=== PATIENT | male | born 2000 | race African-American/Black ===

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

== ENCOUNTER 2024-04-16 06:19 | Emergency (ER) | payer BC, SELFPAY ==
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
[2024-04-16 06:20] VITALS: BP 143/96; PULSE 84; RESP 15; TEMP 36.6; O2SAT 96
[2024-04-16 07:34] VITALS: BP 125/74; PULSE 68; RESP 17; O2SAT 97
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
[2024-04-16 08:40] LABS: Basophils Percent Auto 0.5 % (0.2-1.2); Eosinophils Absolute Auto 0.2 K/mm3 (0-0.3); Eosinophils Percent Auto 4.5 % (0-4.4); Hematocrit 45.4 % (42.0-52.0); Hemoglobin 15.3 g/dL (14.0-18.0); Lymphocytes Absolute Auto 1.35 K/mm3 (0.9-3.2); Mean Corpuscular HGB Conc 33.7 g/dl (32-36); Mean Corpuscular Hemoglobin 29.4 pg (26-34); Mean Corpuscular Volume 87.1 fl (80-100); Mean Platelet Volume 10.1 fl (7.4-10.4); Monocytes Absolute Auto 0.4 K/mm3 (0.1-0.6); Monocytes Percent Auto 9.1 % (2.6-8.5); Neutrophils Absolute Auto 2.1 K/mm3 (1.3-6.7); Neutrophils Percent Auto 51.9 % (45.5-73.1); Platelet Count Result 247 k/mm3 (150-375); Red Blood Count 5.21 M/mm3 (4.6-6.20); Red Cell Distribution Width 13.1 % (11.5-14.5)
[2024-04-16 08:49] LABS: Anion Gap 6 mmol/L (4-12); Blood Urea Nitrogen 10 mg/dL (9-20); Calcium 9.5 mg/dL (8.4-10.2); Carbon Dioxide 30 mmol/L (22-30); Chloride 106 mmol/L (98-107); Estimated CRCL calculation 117 ml/min; Estimated Glomerular Filt Rate > 60; Glucose 106 mg/dL (65-110); Potassium 4.2 mmol/L (3.4-5.0); Prothrombin Time 13.8 Seconds (11.1-14.7); Sodium 142 mmol/L (137-145)
[2024-04-16 08:50] VITALS: BP 123/96; PULSE 68; RESP 14; TEMP 36.3; O2SAT 98
[2024-04-16 08:50] LABS: Partial Thromboplastin Time 26.1 Seconds (22.3-36.8)
[2024-04-16] MEDS: TETANUS,DIPHTHERIA,AC PERTUSSIS ADULT (0.5 ML) BOOSTRIX IM (08:57)
[2024-04-16 08:59] LABS: Add Urine Microscopic? NO; Appearance Urine Clear (Clear); Bilirubin Urine Negative (Negative); Blood Urine Negative (Negative); Color Urine Yellow (Yellow); Glucose Urine UA Negative (Negative); Ketones Urine Negative (Negative); Leukocyte Esterase Ur Negative LEU/UL (Negative); Nitrate Urine Negative (Negative); Protein Urine Negative (Negative); Specific Grav Ur 1.012 (1.001-1.035); pH Urine 6.5 (5.0-9.0)
[2024-04-16 09:14] LABS: Amphetamine Screen Urine Negative (Negative); Barbiturate Screen Urine Negative (Negative); Benzodiazepines Screen Urine Positive (Negative); Cannabinoid Screen Urine Positive (Negative); Cocaine Screen Urine Negative (Negative); Methadone Screen Urine Negative (Negative); Opiate Screen Urine Negative (Negative); Phencyclidine Screen Urine Negative (Negative)
--- OUTSIDE RECORDS SUMMARY | 2024-04-23 02:40 | XMS_ITS | Patient Health Summary ---
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 This disclosure is being madepursuant to the Care Everywhere program and may not contain all information available regarding this patient. Last updated 18.[facility] Allergies * Sulfamethoxazole W-Trimethoprim(Hematologic) -High Criticality Medications * Be aware that medications may not be up to date on this document. Alwaysverify current medications with the patient. * albuterol HFA (PROVENTIL;VENTOLIN;PROAIR) 108 (90 Base) MCG/ACT inhaler (Started 10/03/2019) Inhale 2 puffs by mouth every 6 hours * loratadine (CLARITIN) 10 MG tablet(Started 10/04/2019) Take 1 tablet by mouth once daily * folic acid (FOLVITE) 1 MG tablet(Started 10/04/2019) Take 1 tablet by mouth once daily * pantoprazole EC (PROTONIX) 40 MG tablet(Started 10/04/2019) Take 1 tablet by mouth once daily * predniSONE (DELTASONE) 10 MG tablet(Started 10/03/2019) Take 1 tablet by mouth as directed 60 mg x 2 days, 50 mg x 4 days, 40 mg x 4 days, 30 mg x 4 days, 20 mg x 4 days, 10 mg x4 days Active Problems Problem Noted Date Diagnosed Date Abdominal pain, epigastric 09/28/2019 Elevated bilirubin 09/28/2019 Nausea and vomiting 09/28/2019 Social History Tobacco Use Types Packs/Day Years Used Date Smoking Tobacco: Every Day Cigarettes 2 2 Smokeless Tobacco: Never Alcohol Use Standard Drinks/Week Comments Yes 2 (1 standard drink = 0.6 oz pur e alcohol) last drank 09/26 AUDIT-C Answer Date Recorded Q1: How often do you have a drink containing alc ohol? Monthly or less 09/28/2019 Average Number of Drinks Not on file 020 Frequency of Binge Drinking Not on file 09/14 Sex and Gender Information Value Date Recorded Sex Assigned at Not on file Gender Identity Not on file Sexual Orientation Not on file Last Filed Vital Signs Vital Sign Reading Time Taken Comments Blood Pressure 115/65 10/13/2019 3:50 PM CDT Pulse 56 10/13/2019 3:50 PM CDT Temperature 36.7 ??C (98 ??F) 10/13/2019 3:50 PM CDT Respiratory Rate 16 10/03/2019 9:10 AM CDT Oxygen Saturation 97% 10/13/2019 3:50 PM CDT Inhaled Oxygen Concentration - - Weight 69.6 kg (153 lb 8 oz) 10/13/2019 3:50 PM CDT Height 175.3 cm (5' 9 ) 10/13/2019 3:50 PM CDT Body Mass Index 22.67 10/13/2019 3:50 PM CDT Procedures * RETIC COUNT(Performed 10/13/2019) Performed for Elevated bilirubin, Acquired hemolytic anemia (HCC) * CBC W AUTO DIFFERENTIAL (CANCER CARE)(Performed 10/13/2019) Performed for Elevated bilirubin, Acquired hemolytic anemia (HCC) * TIMBO DIRECT(Performed 10/13/2019) Performed for Elevated bilirubin, Acquired hemolytic anemia (HCC) * COMPREHENSIVE METABOLIC PANEL(Performed 10/13/2019) Performed for Elevated bilirubin, Acquired hemolytic anemia (HCC) * LDH BLOOD(Performed 10/13/2019) Performed for Elevated bilirubin, Acquired hemolytic anemia (HCC) * FOLATE(Performed 10/13/2019) Performed for Elevated bilirubin, Acquired hemolytic anemia (HCC) * HAPTOGLOBIN(Performed 10/13/2019) Performed for Elevated bilirubin, Acquired hemolytic anemia (HCC) * CARDIAC EKG ORDER(Performed 10/06/2019) * DIFFERENTIAL MANUAL(Performed 10/03/2019) * LDH BLOOD(Performed 10/03/2019) * CBC W AUTO DIFFERENTIAL(Performed 10/03/2019) * COMPREHENSIVE METABOLIC PANEL(Performed 10/03/2019) * US ABDOMEN LIMITED(Performed 10/02/2019) Performed for Abdominal pain, epigastric, Elevated bilirubin, Hemolytic anemia associated with infection (HCC) * PROCALCITONIN LEVEL(Performed 10/02/2019) * VANCOMYCIN LEVEL TROUGH(Performed 10/02/2019) * DIFFERENTIAL MANUAL(Performed 10/02/2019) * LDH BLOOD(Performed 10/02/2019) * CBC W AUTO DIFFERENTIAL(Performed 10/02/2019) * COMPREHENSIVE METABOLIC PANEL(Performed 10/02/2019) * HGB HCT PANEL(Performed 10/01/2019) * TRANSFUSE RED BLOOD CELL LEUKOREDUCED UNIT(S)(Performed 10/01/2019) * LDH BLOOD(Performed 10/01/2019) * TYPE + SCREEN PANEL(Performed 10/01/2019) * PREPARE RBC LEUKOREDUCED UNIT(Performed 10/01/2019) * BLOOD TYPE VERIFICATION(Performed 10/01/2019) * DIFFERENTIAL MANUAL(Performed 10/01/2019) * COMPREHENSIVE METABOLIC PANEL(Performed 10/01/2019) * CBC W AUTO DIFFERENTIAL(Performed 10/01/2019) * XR CHEST 1VW PORTABLE(Performed 09/30/2019) Performed for Hemolytic anemia associated with infection (HCC) * CULTURE BLOOD(Performed 09/30/2019) Performed for Hemolytic anemia associated with infection (HCC), Acquired neutrophilia * FLOW CYTOMETRY BLOOD PROFILE(Performed 09/30/2019) Performed for Acquired neutrophilia, Hemolytic anemia associated with infection (HCC) * PROCALCITONIN LEVEL(Performed 09/30/2019) Performed for Hemolytic anemia associated with infection (HCC), Acquired neutrophilia * ERYTHROCYTE SEDIMENTATION RATE(Performed 09/30/2019) Performed for Hemolytic anemia associated with infection (HCC), Acquired neutrophilia * C-REACTIVE PROTEIN SENSITIVE(Performed 09/30/2019) Performed for Hemolytic anemia associated with infection (HCC), Acquired neutrophilia * CULTURE BLOOD(Performed 09/30/2019) Performed for Hemolytic anemia associated with infection (HCC), Acquired neutrophilia * DIFFERENTIAL MANUAL(Performed 09/30/2019) Performed for Hemolytic anemia associated with infection (HCC) * RETIC COUNT(Performed 09/30/2019) Performed for Hemolytic anemia associated with infection (HCC) * HAPTOGLOBIN(Performed 09/30/2019) Performed for Hemolytic anemia associated with infection (HCC) * LDH BLOOD(Performed 09/30/2019) Performed for Hemolytic anemia associated with infection (HCC) * CBC W AUTO DIFFERENTIAL(Performed 09/30/2019) Performed for Hemolytic anemia associated with infection (HCC) * COMPREHENSIVE METABOLIC PANEL(Performed 09/30/2019) Performed for Hemolytic anemia associated with infection (HCC) * HEPATITIS SCREEN ACUTE(Performed 09/29/2019) Performed for Hemolytic anemia associated with infection (HCC) * TIMBO DIRECT(Performed 09/29/2019) Performed for Hemolytic anemia associated with infection (HCC) * BLOOD TYPE ABO+ RH PANEL(Performed 09/29/2019) Performed for Hemolytic anemia associated with infection (HCC) * ANTIBODY SCREEN(Performed 09/29/2019) Performed for Hemolytic anemia associated with infection (HCC) * CK BLOOD(Performed 09/29/2019) Performed for Hemolytic anemia associated with infection (HCC) * G6PD QUANTITATIVE(Performed 09/29/2019) Performed for Elevated bilirubin, Nausea and vomiting, intractability of vomiting not specified, unspecified vomiting type * DIFFERENTIAL MANUAL(Performed 09/29/2019) * BILIRUBIN DIRECT(Performed 09/29/2019) Performed for Elevated bilirubin * RETIC COUNT(Performed 09/29/2019) * LDH BLOOD(Performed 09/29/2019) * CBC W AUTO DIFFERENTIAL(Performed 09/29/2019) * PHOSPHORUS BLOOD(Performed 09/29/2019) * MAGNESIUM BLOOD(Performed 09/29/2019) * COMPREHENSIVE METABOLIC PANEL(Performed 09/29/2019) * EKG 12-LEAD(Performed 09/28/2019) Performed for Abdominal pain, epigastric * FOLATE(Performed 09/28/2019) * COAGULATION PANEL W D-DIMER(Performed 09/28/2019) * COMPLEMENT C4(Performed 09/28/2019) * COMPLEMENT C3(Performed 09/28/2019) * URINE MICROSCOPIC ONLY REFLEX TO CULTURE(Performed 09/28/2019) * URINE DRUG SCREEN IMMUNOASSAY(Performed 09/28/2019) * URINALYSIS REFLEX MICROSCOPIC REFLEX CULTURE(Performed 09/28/2019) * CT ABDOMEN PELVIS W CONTRAST(Performed 09/28/2019) Performed for Abdominal pain, epigastric * TIMBO DIRECT(Performed 09/28/2019) * PATHOLOGY PERIPHERAL SMEAR REVIEW(Performed 09/28/2019) * RETIC COUNT(Performed 09/28/2019) * HAPTOGLOBIN(Performed 09/28/2019) * LDH BLOOD(Performed 09/28/2019) * BILIRUBIN DIRECT(Performed 09/28/2019) * LIPASE BLOOD(Performed 09/28/2019) * COMPREHENSIVE METABOLIC PANEL(Performed 09/28/2019) * CBC W AUTO DIFFERENTIAL(Performed 09/28/2019) Results * (ABNORMAL) RETIC COUNT (10/13/2019 3:49 PM CDT) Only the most recent of4 resultswithin the time period is included. Pathologist [facility] Reticulocyte Count 5.75(H) 0.3 - 4.2 % 10/13/2019 4:01 PM CDT [facility] Reticulocyte Immature Fractionated 11.7 9.3 - 17.4 % 10/13/2019 4:01 PM CDT [facility] Blood BLOOD SPECIMEN / Unknown 10/13/2019 3:49 PM CDT 10/13/2019 3:49 PM CDT Maynor Payne MD LAB - HEMATOLOGY ORD ERABLES [facility] [address] * (ABNORMAL) CBC W AUTO DIFFERENTIAL (CANCER CARE) (10/13/2019 3:27 PM CDT) Pathologist [facility] WBC 5.5 4.4 - 10.7 x10E9/L 10/13/2019 3:34 PM CDT [facility] Neutrophils % 79.3(H) 44.0 - 73.0 % 10/13/2019 3:34 PM CDT [facility] Lymphocytes % 14.1(L) 20.0 - 43.0 % 10/13/2019 3:34 PM CDT [facility] Monocytes % 5.5 5.0 - 13.0 % 10/13/2019 3:34 PM CDT [facility] Eosinophils % 0.2 0.0 - 6.0 % 10/13/2019 3:34 PM CDT [facility] Basophils % 0.4 0.0 - 2.0 % 10/13/2019 3:34 PM CDT [facility] Immature Granulocytes 0.5 % 10/13/2019 3:34 PM CDT [facility] Neutrophil Absolute 4.34 2.01 - 7.14 x10E9/L 10/13/2019 3:34 PM CDT [facility] Lymphocytes Absolute 0.77(L) 1.07 - 3.94 x10E9/L 10/13/2019 3:34 PM CDT [facility] Monocytes Absolute 0.30 0.26 - 1.07 x10E9/L 10/13/2019 3:34 PM CDT [facility] Eosinophils Absolute 0.01 0 - 0.47 x10E9/L 10/13/2019 3:34 PM CDT [facility] Basophils Absolute 0.02 0 - 0.08 x10E9/L 10/13/2019 3:34 PM CDT [facility] RBC 3.71(L) 3.80 - 5.40 x10E12/L 10/13/2019 3:34 PM CDT [facility] Hemoglobin 11.8(L) 12.0 - 17.6 gm/dL 10/13/2019 3:34 PM CDT [facility] Hematocrit 37.4 35.2 - 51.7 % 10/13/2019 3:34 PM CDT [facility] MCV 100.8(H) 80.7 - 98.3 fl 10/13/2019 3:34 PM CDT [facility] MCH 31.8 26.7 - 34.0 pg 10/13/2019 3:34 PM CDT [facility] MCHC 31.6 30.8 - 35.9 gm/dL 10/13/2019 3:34 PM CDT [facility] RDW-CV 15.2(H) 12.1 - 14.9 % 10/13/2019 3:34 PM CDT [facility] Platelet Count 401 153 - 416 x10E9/L 10/13/2019 3:34 PM CDT [facility] MPV 9.6 9.4 - 12.9 fl 10/13/2019 3:34 PM CDT [facility] NRBC 0.0 /100 WBC 10/13/2019 3:34 PM CDT [facility] Blood BLOOD SPECIMEN / Unknown 10/13/2019 3:27 PM CDT 10/13/2019 3:27 PM CDT Maynor Payne MD LAB - HEMATOLOGY ORD ERABLES [facility] [address] [place] [address], [facility] * TIMBO DIRECT (10/13/2019 3:27 PM CDT) Only the most recent of3 resultswithin the time period is included. Timbo Direct Negative Negative [facility] ACCOUNT BILL Blood BLOOD SPECIMEN / Unknown 10/13/2019 3:27 PM CDT 10/13/2019 Narrative Resulting Agency Comment Lab Testing performed at: [facility] [address] [facility] [phone] Maynor Payne MD LAB - BLOOD BANK ORD [place] Performing Organization Address City/[facility]/ZIP Co de Phone Number [facility] ACCOUNT BILL [address] [place] [address] * (ABNORMAL) COMPREHENSIVE METABOLIC PANEL (10/13/2019 3:27 PM CDT) Only the most recent of7 resultswithin the time period is included. Pathologist [facility] Glucose 94 70 - 105 mg/dL [facility] ACCOUNT BILL BUN 14 8.9 - 20.6 mg/dL [facility] ACCOUNT BILL Creatinine 1.04 0.72 - 1.25 mg/dL [facility] ACCOUNT BILL eGFR by MDRD >60 >60 mL/min/1.7 3m2 [facility] ACCOUNT BILL eGFR by MDRD >60 >60 mL/min/1.7 3m2 [facility] ACCOUNT BILL Sodium 141 136 - 145 mmol/L [facility] ACCOUNT BILL Potassium 4.7 3.5 - 5.1 mmol/L [facility] ACCOUNT BILL Chloride 104 98 - 107 mmol/L [facility] ACCOUNT BILL CO2 26 20 - 28 mmol/L [facility] ACCOUNT BILL Calcium 9.1 8.4 - 10.4 mg/dL [facility] ACCOUNT BILL Protein Total 7.1 6.4 - 8.3 gm/dL [facility] ACCOUNT BILL Albumin 4.4 3.4 - 5.0 gm/dL [facility] ACCOUNT BILL Bilirubin Total 0.3 0.2 - 1.2 mg/dL [facility] ACCOUNT BILL Alkaline Phosphatase 90(L) 100 - 390 U/L [facility] ACCOUNT BILL AST 15 5 - 34 U/L [facility] ACCOUNT BILL ALT 72(H) 0 - 61 U/L [facility] ACCOUNT BILL Blood BLOOD SPECIMEN / Unknown 10/13/2019 3:27 PM CDT 10/13/2019 Narrative Resulting Agency Comment Lab Testing performed at: [address] ??[facility] [phone] Maynor Payne MD LAB - CHEMISTRY CHRISTINE KENNY Performing Organization Address [facility] Co de Phone Number [facility] ACCOUNT BILL [address] [place] [address] * LDH BLOOD (10/13/2019 3:27 PM CDT) Only the most recent of7 resultswithin the time period is included. LDH 178 125 - 220 U/L [facility] ACCOUNT BILL Blood BLOOD SPECIMEN / Unknown 10/13/2019 3:27 PM CDT 10/13/2019 Narrative Resulting Agency Comment Lab Testing performed at: [address] ??[facility] [phone] Maynor Payne MD LAB - CHEMISTRY CHRISTINE KENNY Performing Organization Address [facility] Co de Phone Number [facility] ACCOUNT BILL [address] [place] [address] * FOLATE (10/13/2019 3:27 PM CDT) Only the most recent of2 resultswithin the time period is included. Folate 19.1 7.0 - 31.4 ng/mL [facility] ACCOUNT BILL Blood BLOOD SPECIMEN / Unknown 10/13/2019 3:27 PM CDT 10/13/2019 Narrative Resulting Agency Comment Lab Testing performed at: [address] ??[facility] [phone] Maynor Payne MD LAB - CHEMISTRY CHRISTINE KENNY [facility] ACCOUNT BILL [address] [place] [address] * HAPTOGLOBIN (10/13/2019 3:27 PM CDT) Only the most recent of3 resultswithin the time period is included. Haptoglobin 177 17 - 317 mg/dL [facility] ACCOUNT BILL Blood BLOOD SPECIMEN / Unknown 10/13/2019 3:27 PM CDT 10/13/2019 Narrative Resulting Agency Comment Lab Testing performed at: [facility] [address] [facility] ??[facility] [phone] Maynor Payne MD LAB - CHEMISTRY ORDE ZOYA Performing Organization Address City/[facility]/ZIP Co de Phone Number [facility] ACCOUNT BILL [address] [place] [address] * CARDIAC EKG ORDER (10/06/2019 9:33 PM CDT) Narrative 10/06/2019 9:33 PM CDT Ordered by an unspecified provider. Scanned Document CARDIAC SERVICES ORD ERABLES * (ABNORMAL) DIFFERENTIAL MANUAL (10/03/2019 3:55 AM CDT) Only the most recent of5 resultswithin the time period is included. WBC Auto 23.4 x10E9/L 10/03/2019 6:25 AM CDT [facility] WBC Corrected 10/03/2019 6:25 AM CDT [facility] nRBC 10/03/2019 6:25 AM CDT [facility] Neutrophil % Manual 70 31 - 78 % 10/03/2019 6:25 AM CDT [facility] Lymphocytes % Manual 19 13 - 54 % 10/03/2019 6:25 AM CDT [facility] Monocytes % Manual 3(L) 4 - 13 % 10/03/2019 6:25 AM CDT [facility] Band % Manual 3 % 10/03/2019 6:25 AM CDT [facility] [place] Manual 4(H) <=0 % 10/03/2019 6:25 AM CDT [facility] Myelocytes % Manual 1(H) <=0 % 10/03/2019 6:25 AM CDT [facility] Cells Counted 100 # cells 10/03/2019 6:25 AM CDT [facility] RBC Morphology Normal 10/03/2019 6:25 AM CDT [facility] WBC Morph Normal 10/03/2019 6:25 AM CDT [facility] Platelet Estimation Normal 10/03/2019 6:25 AM CDT [facility] Blood BLOOD SPECIMEN / Unknown Lab Venipuncture / Unknown 10/03/2019 3:55 AM CDT 10/03/2019 4:55 AM CDT Abel Merida MD LAB - HEMATOLOGY ORD ERABLES [facility] [address] [place], [place] [id number] * (ABNORMAL) CBC W AUTO DIFFERENTIAL (10/03/2019 3:55 AM CDT) Only the most recent of6 resultswithin the time period is included. WBC 23.4(H) 4.5 - 11.0 x10E9/L 10/03/2019 5:[facility] WBC Corrected 10/03/2019 5:08 AM CDT [facility] RBC 2.68(L) 4.50 - 5.30 x10E12/L 10/03/2019 5:08 AM CDT [facility] Hemoglobin 8.3(L) 13.0 - 16.0 gm/dL 10/03/2019 5:08 AM CDT [facility] Hematocrit 26.0(L) 37.0 - 49.0 % 10/03/2019 5:08 [facility] MCV 97.0 78.0 - 98.0 fl 10/03/2019 5:08 AM CDT [facility] MCH 31.0 25.0 - 35.0 pg 10/03/2019 5:08 AM CDT [facility] MCHC 31.9 31.0 - 37.0 gm/dL 10/03/2019 5:08 AM CDT [facility] Platelet Count 398 100 - 400 x10E9/L 10/03/2019 5:08 [facility] RDW-CV 15.2(H) 11.5 - 14.0 % 10/03/2019 5:08 AM CDT [facility] MPV 11.2(H) 6.0 - 9.5 fl 10/03/2019 5:08 AM CDT [facility] nRBC Auto 1 /100 WBC 10/03/2019 5:08 AM CDT [facility] Hematology Reflex Status Manual Diff to follow 10/03/2019 5:08 AM CDT [facility] Blood BLOOD SPECIMEN / Unknown Lab Venipuncture / Unknown 10/03/2019 3:55 AM CDT 10/03/2019 4:55 AM CDT Abel Merida MD LAB - HEMATOLOGY ORD ERABLES [facility] [address] [place] [address] * US ABDOMEN LIMITED (10/02/2019 5:45 PM CDT) Anatomical Region Laterality Modality Abdomen Ultrasound 10/02/2019 5:48 PM CDT Impressions 10/02/2019 5:49 PM CDT Unremarkable right upper quadrant ultrasound. *Reading Radiologist: Prabhu Champion on 10/02/2019 at 5:49 PM Narrative 10/02/2019 5:49 PM CDT Right upper quadrant ultrasound INDICATION: Epigastric pain. FINDINGS: Real-time sonography of the right upper quadrant was performed. ?? The pancreas is unremarkable. The liver is homogeneous in echotexture. ?? There is no liver mass. There is no intrahepatic biliary dilatation. ?? There is hepatopedal flow within the portal vein. The hepatic veins are patent. The common bile duct measured 2.2 mm. No gallstones are seen within the gallbladder. There is no thickening of the gallbladder wall. There is no pericholecystic fluid. The patient was not tender over the gallbladder. The right kidney appeared normal. No free fluid is identified. Procedure Note Prabhu Champion MD - 10/02/2019 Right upper quadrant ultrasound INDICATION: Epigastric pain. FINDINGS: Real-time sonography of the right upper quadrant was performed. The pancreas is unremarkable. The liver is homogeneous in echotexture. There is no liver mass. There is no intrahepatic biliary dilatation. There is hepatopedal flow within the portal vein. The hepatic veins are patent. The common bile duct measured 2.2 mm. No gallstones are seen within the gallbladder. There is no thickening of the gallbladder wall. There is no pericholecystic fluid. The patient was not tender over the gallbladder. The right kidney appeared normal. No free fluid is identified. IMPRESSION Unremarkable right upper quadrant ultrasound. *Reading Radiologist: Prabhu Champion on 10/02/2019 at 5:49 PM Nissa Gleason MD ORDERABLES * (ABNORMAL) PROCALCITONIN LEVEL (10/02/2019 9:27 AM CDT) Only the most recent of2 resultswithin the time period is included. Procalcitonin 0.32(H) <0.10 ng/mL 10/02/2019 10:37 AM CDT [facility] Blood BLOOD SPECIMEN / Unknown Lab Venipuncture / Unknown 10/02/2019 9:27 AM CDT 10/02/2019 9:37 AM CDT Narrative [facility] - 10/02/2019 10:37 AM CDT The change in procalcitonin (PCT) concentration over time provides support in decision making on antibiotic discontinuation for suspected or confirmed septic patients. Follow-up samples should be tested once every 1-2 days based upon physician discretion taking into account the patient? s evolution and progress. Consider discontinuation of ??antibiotic therapy ??if the PCT current ??is <= 0.5 ng/mL or if the delta PCT is > 80%. ??Duration of antibiotics should not be determined solely on PCT; established guidelines for the indication should be followed. ? PCT peak: ??Highest observed PCT concentration ? PCT current: Most recent PCT concentration ? Calculate delta PCT using the following equation: ?Delta PCT ??= ?? PCT Peak ? PCT current ??X 100% ? PCT Peak The Change in Procalcitonin Calculator is available at [email or web address] ?? If clinical picture has not improved and PCT remains high, reevaluate and consider treatment failure or other causes. Nissa Gleason MD LAB - CHEMISTRY CHRISTINE KENNY Performing Organization Address [facility] Co de Phone Number [facility] [address] [place] [phone] * (ABNORMAL) VANCOMYCIN LEVEL TROUGH (10/02/2019 7:47 AM CDT) [facility] Vancomycin Trough 9.3(L) 10.0 - 20.0 ug/mL 10/02/2019 8:39 AM CDT [facility] Blood BLOOD SPECIMEN / Unknown Lab Venipuncture / Unknown 10/02/2019 7:47 AM CDT 10/02/2019 8:02 AM CDT Rashid Monson MD LAB - CHEMISTRY CHRISTINE KENNY Performing Organization Address [facility] de Phone Number [facility] [address] [place], [place] [id number] * (ABNORMAL) HGB HCT PANEL (10/01/2019 2:51 PM CDT) [facility] Hemoglobin 8.8(L) 13.0 - 16.0 gm/dL 10/01/2019 3:21 PM CDT [facility] Hematocrit 27.4(L) 37.0 - 49.0 % 10/01/2019 3:21 PM CDT [facility] Blood BLOOD SPECIMEN / Unknown Lab Venipuncture / Unknown 10/01/2019 2:51 PM CDT 10/01/2019 3:10 PM CDT Abel Merida MD LAB - HEMATOLOGY BONI LINDSEY Performing Organization Address [facility] Co de Phone Number [facility] [address] [place] [id number] * TRANSFUSE RED BLOOD CELL LEUKOREDUCED UNIT(S) (10/01/2019 1:59 PM CDT) Abel Merida MD NURSING - BLOOD PROD TRANSFUSION * PREPARE (CROSSMATCH) RBC UNIT(S), 1 Units (10/01/2019 8:26 AM CDT) Pathologist [facility] Unit Description AS1 LR PRBC [facility] Unit ABO B [facility] Unit Rh POS [facility] Product Number R02 [facility] Unit Donor # [id number] [facility] C BLOOD B[facility] LAB Unit Status transfused [facility] Product Code [id number] [facility] Blood Type Barcode 7300 [facility] Expiration Date [id number] [facility] Blood Bank BLOOD SPECIMEN / Unknown 10/01/2019 8:26 AM CDT 10/01/2019 8:33 AM CDT Abel Merida MD LAB - BLOOD BANK ORD ERABLES Performing Organization Address City/[facility]/ZIP Co de Phone Number [facility] [address] [place] [address] * TYPE + SCREEN PANEL (10/01/2019 8:26 AM CDT) [facility] ABO Rh B POS 10/01/2019 9:07 AM CDT [facility] Comment:History checked. Antibody Screen NEG 0 9:07 AM CDT [facility] Blood Bank BLOOD SPECIMEN / Unknown Lab Venipuncture / Unknown 10/01/2019 8:26 AM CDT 10/01/2019 8:33 AM CDT Abel Merida MD LAB - BLOOD BANK ORD ERABLES [facility] [address] [place] [address] * BLOOD TYPE VERIFICATION (10/01/2019 7:27 AM CDT) [facility] ABO Rh B POS 10/01/2019 9:0 7 AM CDT [facility] Blood Bank BLOOD SPECIMEN / Unknown Lab Venipuncture / Unknown 10/01/2019 7:27 AM CDT 10/01/2019 8:47 AM CDT Maynor Payne MD LAB - BLOOD BANK ORD ERABLES [facility] [address] [phone] * XR CHEST 1VW PORTABLE (09/30/2019 10:40 AM CDT) Anatomical Region Laterality Modality Chest Radiographic Darling ging 09/30/2019 10:4 9 AM CDT Impressions 09/30/2019 10:49 AM CDT No active disease. *Reading Radiologist: Prabhu Champion on 09/30/2019 at 10:49 AM Narrative 09/30/2019 10:49 AM CDT Chest single view INDICATION: Hemolytic anemia with infection Findings: The lungs are clear of infiltrate. There is no pleural effusion or pneumothorax. The heart size and pulmonary vascularity are normal. Procedure Note Prabhu Champion MD - 09/30/2019 Chest single view INDICATION: Hemolytic anemia with infection Findings: The lungs are clear of infiltrate. There is no pleural effusion or pneumothorax. The heart size and pulmonary vascularity are normal. IMPRESSION No active disease. *Reading Radiologist: Prabhu Champion on 09/30/2019 at 10:49 AM Abel Merida MD DIAGNOSTIC IMAGING O RDERABLES * CULTURE BLOOD (09/30/2019 7:28 AM CDT) Only the most recent of2 resultswithin the time period is included. Culture No growth day 5 SONG 10/05/2019 9:30 AM CDT [facility] Blood PERIPHERAL BLOOD / Unknown Lab Venipuncture / Unknown 09/30/2019 7:28 AM CDT 09/30/2019 7:44 AM CDT Maynor Payne MD LAB - MICROBIOLOGY O RDERABLES [facility] [address] [place] [address], [place] [phone] * FLOW CYTOMETRY BLOOD PROFILE (09/30/2019 7:27 AM CDT) Case Report Flow Cytometry ?Case: [id number] ? Authorizing Provider: ??Maynor Payne MD ? Collected: ? 09/30/2019 07:27 AM ? Ordering Location: ? [facility] MEDICAL ?Received: ?09/30/2019 07:55 AM ? Pathologist: ? Bisi Roy MD ? Specimen: ?Blood ? 09/30/2019 1:05 PM CDT [facility] Final Diagnosis Peripheral blood, flow cytometric immunophenotypic analysis: - No evidence of non-Hodgkin lymphoma or high-grade myeloid neoplasm. - See interpretation. 09/30/2019 1:05 PM CDT [facility] Flow Cytometry Results Differential Result Comment WBC Count /uL 18,900 Total Viability % 92.0 Lymphocytes % 15 Dim CD45 Region % 1 Monocytes % 8 Granulocytes % 75 09/30/2019 1:05 PM [facility] Flow Cytometry Interpretation The peripheral blood specimen has a viability of 92%. The lymphocyte, dim CD45, monocyte, and granulocyte hendrix are normal in relative proportion. Within the lymphocyte gate, there is no monotypic B-cell population identified (kappa: lambda ratio = 1.6:1). There is no expanded T-cell population seen. There is no significant blast population identified. A peripheral blood smear prepared from the flow cytometry specimen is reviewed for quality control tech purposes. Overall, the peripheral blood specimen shows no evidence of involvement by a non-Hodgkin lymphoma or a high-grade myeloid neoplasm. Correlation with clinical findings is required. 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 *The established laboratory minimum viability is 70%. Values below the minimum may result in the failure to find an abnormal population of cells. This test was developed and its performance characteristics determined by the Flow Cytometry Laboratory. It has not been cleared by the [place] Food and Drug Administration (FDA). The FDA has determined that such clearance or approval is not necessary. This test is used for clinical purposes. It should not be regarded as investigational or for research. This laboratory is regulated under the Clinical Laboratory Improvement Amendments of 1998 (CLIA) as a qualified to perform high complexity clinical testing. 09/30/2019 1:05 PM [facility] Embedded Images 0 1:05 PM [facility] Number of markers 10 were performed. A-2 Flow CD10 A-3 Flow CD13 A-5 Flow CD20 A-1 Flow CD5 A-4 Flow CD19 A-6 Flow CD33 A-7 Flow CD34 A-8 Flow CD45 A-9 [place]+CD19+ A-10 Lambda+CD19+ 09/30/2019 1:05 PM CDT [facility] Blood BLOOD SPECIMEN / Unknown Lab Venipuncture / Unknown 09/30/2019 7:27 AM CDT 09/30/2019 7:55 AM CDT Maynor Payne MD LAB - PATHOLOGY/CYTO LOGY ORDERABLES Performing Organization Address City/State/[facility] de Phone Number [facility] [address] [phone] * (ABNORMAL) C-REACTIVE PROTEIN SENSITIVE (09/30/2019 7:27 AM CDT) C-Reactive Protein High Sensitivity 5.47(H) <0.30 mg/dL 09/30/2019 8:10 AM CDT [facility] Blood BLOOD SPECIMEN / Unknown Lab Venipuncture / Unknown 09/30/2019 7:27 AM CDT 09/30/2019 7:45 AM CDT Narrative [facility] - 09/30/2019 8:10 AM CDT C-REACTIVE PROTEIN SENSITIVE INTERPRETATION Patients with higher High Sensitivity C-Reactive Protein (hsCRP) concentrations are more likelyto develop stroke, myocardial infarction, and severeperipheral vascular disease. C-Reactive Protein (CRP) is a nonspecificmarker of inflammation and a variety of conditions other than atherosclerosis may cause Elevated concentrations. If the first result is greater than 0.30 mg/dL, recommend repeating test at least 2 weeks later in a metabolically stable state, free of infection or acute illness. The lower of the two results should be used to determine the patient's risk. C-REACTIVE PROTEIN SENSITIVE results are used to assign risk as follows: ? Less than 0.10 ??mg/dL ?Low risk ? 0.10-0.30 mg/dL ?Average risk ? 0.31-0.99 mg/dL ?High risk ? Greater than 0.99 mg/dL ?Very high risk ? (Clin Chem 2009; 55:378-84) Maynor Payne MD LAB - CHEMISTRY CHRISTINE KENNY Performing Organization Address City/[facility]/ZIP Co de Phone Number [facility] [address] [place] [address] * (ABNORMAL) ERYTHROCYTE SEDIMENTATION RATE (09/30/2019 7:27 AM CDT) Pathologist [facility] Erythrocyte Sedimentation Rate Automated 65(H) 0 - 15 MM/HR 09/30/2019 7:55 AM CDT [facility] Blood BLOOD SPECIMEN / Unknown Lab Venipuncture / Unknown 09/30/2019 7:27 AM CDT 09/30/2019 7:45 AM CDT Maynor Payne MD LAB - HEMATOLOGY BONI LINDSEY Performing Organization Address [facility] Co de Phone Number [facility] [address] [place] [phone] * HEPATITIS SCREEN ACUTE (09/29/2019 7:40 AM CDT) [facility] HAV Antibody IgM Non Reactive Non Reactive 09/29/2019 9:37 AM CDT [facility] HBsAg Non Reactive Non Reactive 09/29/2019 9:37 AM CDT [facility] HBc Antibody IgM Non Reactive Non Reactive 09/29/2019 9:37 AM CDT [facility] HCV Antibody Screen Non Reactive Non Reactive 09/29/2019 9:37 AM CDT [facility] Blood BLOOD SPECIMEN / Unknown Lab Venipuncture / Unknown 09/29/2019 7:40 AM CDT 09/29/2019 8:11 AM CDT Narrative [facility] - 09/29/2019 9:37 AM CDT Non Reactive - Antibodies to Hepatitis C virus (HCV) were not detected, result does not exclude early acute HCV infection. Maynor Payne MD LAB - CHEMISTRY CHRISTINE KENNY Performing Organization Address [facility]/ZIP Co de Phone Number [facility] [address] [place] [phone] * (ABNORMAL) G6PD QUANTITATIVE (09/29/2019 7:39 AM CDT) [facility] RBC 2.93(L) 4.14 - 5.80 x10E6/uL 10/01/2019 11:09 AM CDT [facility] ([facility]) G-6-PD Quantitative 415(H) 146 - 376 U/10E12 RBC 10/01/2019 11:09 AM CDT [facility] ([facility]) Comment: When decreased, G-6-PD, Quant. values are associated with acute hemolytic anemia when deficient individuals are exposed to oxidative stress, such as with certain medications (e.g., primaquine), infection, or ingestion of kuldeep beans. Caution: In patients with acute hemolysis (e.g., abnormally low RBC values), testing for G-6-PD may be falsely normal because older erythrocytes with a higher enzyme deficiency have been hemolyzed. Young erythrocytes and reticulocytes have normal or near-normal enzyme activity. Normal values of G-6-PD may be measured for several weeks following a hemolytic event. Blood BLOOD SPECIMEN / Unknown Lab Venipuncture / Unknown 09/29/2019 7:39 AM CDT 09/29/2019 8:11 AM CDT Narrative [facility] ([facility]) - 10/01/2019 11:09 AM CDT Performed at: ??01 - [address] ??[id number] [place] Boat[place]: Kyle Ortega PhD, Phone: ??[phone] Performed at: ??02 - [facility] [address] ??[id number] [place]: Cody Mcclure MD, Phone: ??[phone] Marisabel Baker MD LAB - CHEMISTRY ORD ERABLES [facility] ([facility]) [address] [place] [address] * BLOOD TYPE ABO+ RH PANEL (09/29/2019 7:39 AM CDT) ABO B 09/29/2019 8:45 AM CDT [facility] Rh Type Positive 09/29/2019 8:45 AM CDT [facility] Comment:History checked. Blood BLOOD SPECIMEN / Unknown Lab Venipuncture / Unknown 09/29/2019 7:39 AM CDT 09/29/2019 8:11 AM CDT Maynor Payne MD LAB - BLOOD BANK ORD ROSALIA [facility] [address] [place] [address] * ANTIBODY SCREEN (09/29/2019 7:39 AM CDT) Antibody Screen Negative 09/29/2019 9:10 AM CDT [facility] Blood BLOOD SPECIMEN / Unknown Lab Venipuncture / Unknown 09/29/2019 7:39 AM CDT 09/29/2019 8:11 AM CDT Maynor Payne MD LAB - BLOOD BANK BONI LINDSEY Performing Organization Address City/[facility] Co de Phone Number [facility] [address] [place] [address] * CK BLOOD (09/29/2019 7:39 AM CDT) CK 150 30 - 200 U/L 09/29/2019 8:52 AM CDT [facility] Blood BLOOD SPECIMEN / Unknown Lab Venipuncture / Unknown 09/29/2019 7:39 AM CDT 09/29/2019 8:11 AM CDT Maynor Payne MD LAB - CHEMISTRY CHRISTINE KENNY [facility] [address] [place] [address] * PHOSPHORUS BLOOD (09/29/2019 3:56 AM CDT) Phosphorus 4.0 2.3 - 4.7 mg/dL 09/29/2019 4:46 AM CDT [facility] Blood BLOOD SPECIMEN / Unknown Lab Venipuncture / Unknown 09/29/2019 3:56 AM CDT 09/29/2019 4:06 AM CDT Samantha Thomas MD LAB - CHEMISTRY ORD ERABLES Performing Organization Address [facility]/ZIP Co de Phone Number [facility] [address] [place] [phone] * MAGNESIUM BLOOD (09/29/2019 3:56 AM CDT) Magnesium 2.2 1.7 - 2.3 mg/dL 09/29/2019 4:46 AM CDT [facility] Blood BLOOD SPECIMEN / Unknown Lab Venipuncture / Unknown 09/29/2019 3:56 AM CDT 09/29/2019 4:06 AM CDT Samantha Thomas MD LAB - CHEMISTRY ORD ERABLES Performing Organization Address [facility] Co de Phone Number [facility] [address] [place] [address] * (ABNORMAL) BILIRUBIN DIRECT (09/29/2019 3:56 AM CDT) Only the most recent of2 resultswithin the time period is included. Bilirubin Direct 1.25(H) <=0.5 mg/dL 09/29/2019 4:46 AM CDT [facility] Blood BLOOD SPECIMEN / Unknown Lab Venipuncture / Unknown 09/29/2019 3:56 AM CDT 09/29/2019 4:06 AM CDT Samantha Thomas MD LAB - CHEMISTRY ORD ERABLES Performing Organization Address [facility] Co de Phone Number [facility] [address] [place] [address] * EKG 12-LEAD (09/28/2019 8:20 PM CDT) Ventricular Rate 57 BPM [facility] Atrial Rate 57 BPM [facility] P-R Interval 134 ms [facility] MUSE QRS Duration ms 88 ms [facility] Q-T Interval ms 430 ms [facility] QTC Calculation (Bezet) 418 ms [facility] MUSE Calculated P [place] 56 degrees [facility] MUSE Calculated R [place] 18 degrees [facility] MUSE Calculated T [place] 15 degrees [facility] Interpretation EKG SINUS BRADYCARDIA OTHERWISE NORMAL ECG NO PREVIOUS ECGS AVAILABLE Confirmed by MD Thelma, Navarro ([id number]) on 09/29/2019 7:37:23 AM [facility] 09/28/2019 8:20 PM CDT 09/29/2019 7:37 AM CDT Samantha Thomas MD ECG ORDERABLES [facility] * (ABNORMAL) COAGULATION PANEL W D-DIMER (09/28/2019 7:05 PM CDT) PT 14.6 12.1 - 14.8 sec 09/28/2019 7:45 PM CDT [facility] INR 1.2(H) 0.9 - 1.1 09/28/2019 7:45 PM CDT [facility] PTT 29.1 23.0 - 38.4 sec 09/28/2019 7:45 PM CDT [facility] Fibrinogen 552(H) 200 - 400 mg/dL 09/28/2019 7:45 PM CDT [facility] D-Dimer 0.96(H) 0.27 - 0.50 ug/mL FEU 09/28/2019 7:45 PM CDT [facility] Platelet Count 208 100 - 400 x10E9/L 09/28/2019 7:45 PM CDT [facility] Blood BLOOD SPECIMEN / Unknown Venipuncture / Unknown 09/28/2019 7:05 PM CDT 09/28/2019 7:27 PM CDT Narrative [facility] - 09/28/2019 7:45 PM CDT Conventional Warfarin Anticoagulant Therapy INR Reference Range: ??2.0-3.0 Intensive Warfarin Anticoagulant Therapy INR Reference Range: ? 2.5-3.5 Heparin Therapeutic Range for PTT: ??71.0 - 109.0 seconds. In the absence of clinical symptoms, a value less than or equal to 0.5 mcg/mL FEU significantly decreases the probability of PE/DVT (negative predictive value >95%). 1 mcg/ml FEU = 1 Fibrinogen Equivalent Unit (approximates 0.5 mcg/mL of D- dimer). ?ISTH DIAGNOSTIC SCORING SYSTEM FOR DIC ---- Score ?0 ? 1 ? 2 ? 3 ?? Platelet Count (x10^3/uL) ?> 100 ? <100 ? < 50 ?N/A PT Prolongation above ? Upper limit of normal ?0-3 ? 3-6 ? > 6 ?N/A Range (seconds) ? Fibrinogen (mg/dL) ? >100 ?< 100 ? N/A ?N/A ?? D-Dimer (mcg/mL FEU) ?< .50 ? N/A ?0.50-5.0 ?> 5 ?? Calculate Cumulative Score: > or = 5: compatible with overt DIC ? < 5: suggestive for non-overt DIC N/A = Non applicable Reference: Br. J. Haematol. ??145:24-33. Abel Merida MD LAB - COAGULATION OR DERABLES [facility] [address] [place] [phone] * COMPLEMENT C4 (09/28/2019 7:05 PM CDT) Complement C4 27 15 - 53 mg/dL 09/29/2019 10:06 AM CDT [facility] Blood BLOOD SPECIMEN / Unknown Venipuncture / Unknown 09/28/2019 7:05 PM CDT 09/28/2019 7:27 PM CDT Abel Merida MD LAB - SEROLOGY ORDER ELYSSA [facility] [address] [place] [address] * COMPLEMENT C3 (09/28/2019 7:05 PM CDT) Complement C3 144 82 - 185 mg/dL 09/29/2019 10:06 AM CDT [facility] Blood BLOOD SPECIMEN / Unknown Venipuncture / Unknown 09/28/2019 7:05 PM CDT 09/28/2019 7:27 PM CDT Abel Merida MD LAB - CHEMISTRY ORDE RABLES Performing Organization Address [facility]/ZIP Co de Phone Number [facility] [address] [place] [address] * URINE MICROSCOPIC ONLY REFLEX TO CULTURE (09/28/2019 4:23 PM CDT) Reflex Status Culture not indicated 09/28/2019 4:41 PM CDT [facility] RBC UA 0-2 None Seen, 0-2, 3-5 # /hpf 09/28/2019 4:41 PM CDT [facility] WBC UA 0-5 None Seen, 0-5 # /hpf 09/28/2019 4:41 PM CDT [facility] Bacteria UA None Seen None Seen 09/28/2019 4:41 PM CDT [facility] Squamous Epithelial Cells None Seen None Seen, 0-2, 3-5 /hpf 09/28/2019 4:41 PM CDT [facility] Urine URINE SPECIMEN OBTAINED BY CLEAN CATCH PROCEDURE / Unknown Collection / Unknown 09/28/2019 4:23 PM CDT 09/28/2019 4:29 PM CDT Narrative [facility] - 09/28/2019 4:41 PM CDT Robbin Fay PA-C LAB - URINALYSIS OR DERABLES [facility] [address] [place] [address] * (ABNORMAL) URINALYSIS REFLEX MICROSCOPIC REFLEX CULTURE (09/28/2019 4:23 PM CDT) Pathologist [facility] Color UA Stephanie(A) Straw, Yellow 09/28/2019 4:38 PM CDT [facility] Clarity UA Clear Clear 09/28/2019 4:38 PM CDT [facility] Glucose UA Negative Negative 09/28/2019 4:38 PM CDT [facility] Bilirubin UA Negative Negative 09/28/2019 4:38 PM CDT [facility] Ketone UA 1+(A) Negative 09/28/2019 4:38 PM CDT [facility] Specific [place] UA 1.029 1.005 - 1.030 09/28/2019 4:38 PM CDT [facility] Blood UA 1+(A) Negative 09/28/2019 4:38 PM CDT [facility] pH UA 8.0 5.0 - 8.0 pH 09/28/2019 4:38 PM CDT [facility] Protein UA Negative Negative 09/28/2019 4:38 PM CDT [facility] Urobilinogen UA 4.0(A) Negative mg/dL 09/28/2019 4:38 PM CDT [facility] Nitrite UA Negative Negative 09/28/2019 4:38 PM CDT [facility] Leukocyte UA Negative Negative 09/28/2019 4:38 PM CDT [facility] Urine Microscopy Urine microscopy to follow 09/28/2019 4:38 PM CDT [facility] Reflex Status Culture not indicated 09/28/2019 4:38 PM CDT [facility] Urine URINE SPECIMEN OBTAINED BY CLEAN CATCH PROCEDURE / Unknown Collection / Unknown 09/28/2019 4:23 PM CDT 09/28/2019 4:29 PM CDT Narrative [facility] - 09/28/2019 4:38 PM CDT Robbin Fay PA-C LAB - URINALYSIS OR DERABLES [facility] [address] [place] [address] * (ABNORMAL) DRUG SCREEN TOX URINE PANEL (09/28/2019 4:23 PM CDT) Pathologist [facility] Amphetamines Screen Urine Not detected Not detected 09/28/2019 4:52 PM CDT [facility] Barbiturates Screen Urine Not detected Not detected 09/28/2019 4:52 PM CDT [facility] Benzodiazepines Screen Urine Not detected Not detected 09/28/2019 4:52 PM CDT [facility] Cannabinoids Screen Urine Detected(A) Not detected 09/28/2019 4:52 PM CDT [facility] Cocaine Screen Urine Not detected Not detected 09/28/2019 4:52 PM CDT [facility] Fentanyl Urine Not detected Not detected 09/28/2019 4:52 PM CDT [facility] Methadone Screen Urine Not detected Not detected 09/28/2019 4:52 PM CDT [facility] Opiate Screen Urine Not detected Not detected 09/28/2019 4:52 PM CDT [facility] Phencyclidine Screen Urine Not detected Not detected 09/28/2019 4:52 PM CDT [facility] Urine URINE / Unknown Collection / Unknown 09/28/2019 4:23 PM CDT 09/28/2019 4:29 PM CDT Narrative [facility] - 09/28/2019 4:52 PM CDT This drug screen is designed for MEDICAL purposes only. It is not to be used for legal purposes, including but not limited to worker's comp, police investigations, occupational issues, child custody, etc. ??Any positive result is only presumptive and must be confirmed with a separate confirmatory test ordered by the physician. Drug Screening Test Cutoff Values: AMPHETAMINES ?1000 ng/mL BARBITURATES ? 200 ng/mL BENZODIAZEPINES ?200 ng/mL CANNABINOIDS(THC) ?? 50 ng/mL COCAINE ?300 ng/mL FENTANYL ? 1 ng/mL METHADONE ?300 ng/mL OPIATES ?300 ng/mL PHENCYCLIDINE(PCP) ??25 ng/mL Rbobin Fay PA-C LAB - URINE ROUGH RICE TENDER RY ORDERABLES [facility] [address] [place], [place] [phone] * CT ABDOMEN AND PELVIS WITH IV CONTRAST - Acute Abdomen (09/28/2019 3:02 PM CDT) Anatomical Region Laterality Modality Abdomen, Pelvis Computed Tomogra phy 09/28/2019 3:10 PM CDT Narrative 09/28/2019 3:[address] abdomen pelvis HISTORY: Vomiting and chills and nausea and diarrhea TECHNIQUE: Postcontrast imaging with 100 cc Isovue-370 The liver, gallbladder, spleen and visualized appendix are normal. The adrenal glands and right kidney normal. There is likely a small left renal cyst. The visualized ureters and bladder and prostate gland appear grossly normal. There is a mildly distended fluid-filled loop of small bowel in the right pelvis, likely distal or terminal ileum. The visualized large and small bowel are otherwise grossly normal. The appendix is questionably identified and normal. There is no free air or free fluid. No pericecal inflammatory changes present. The vascular structures enhance normally. Heart size is normal. Lung bases are clear. DIAGNOSIS: There is a mildly distended loop of distal small bowel. Otherwise CT abdomen pelvis is grossly normal. *Reading Radiologist: Mark Luz on 09/28/2019 at 3:14 PM Procedure Note Mark Luz MD - 09/28/2019 CT abdomen pelvis HISTORY: Vomiting and chills and nausea and diarrhea TECHNIQUE: Postcontrast imaging with 100 cc Isovue-370 The liver, gallbladder, spleen and visualized appendix are normal. The adrenal glands and right kidney normal. There is likely a small left renal cyst. The visualized ureters and bladder and prostate gland appear grossly normal. There is a mildly distended fluid-filled loop of small bowel in the right pelvis, likely distal or terminal ileum. The visualized large and small bowel are otherwise grossly normal. The appendix is questionably identified and normal. There is no free air or free fluid. No pericecal inflammatory changes present. The vascular structures enhance normally. Heart size is normal. Lung bases are clear. DIAGNOSIS: There is a mildly distended loop of distal small bowel. Otherwise CT abdomen pelvis is grossly normal. *Reading Radiologist: Mark Luz on 09/28/2019 at 3:14 PM Robbin Fay PA-C CT ORDERABLES * PATHOLOGY PERIPHERAL SMEAR REVIEW (09/28/2019 12:18 PM CDT) Case Report Pathology Interpretation Report ? Case: [id number] ? Authorizing Provider: ??Markell Martin MD ? Collected: ? 09/28/2019 12:18 PM ? Ordering Location: ? [facility] ?? Received: ?09/28/2019 07:33 PM ? Emergency Department ? Pathologist: ? Bryan Shah MD ? Specimen: ?Blood ? 09/29/2019 12:27 PM CDT [facility] Peripheral Smear Description Clinical History: The patient is an 19-year-old man with a history of nausea, vomiting, and diarrhea x 1 week. He presented to [facility] for the evaluation and management of scleral icterus. Of note, he also has a history of a spider bite for which he has been taking Bactrim. Peripheral Smear Review: PLT- Normal cell number with evidence of clumping. The morphology is normal. RBC- Genrally normocytic, normochromic cells with some variability of size and shape. Occasional polychromatophilic cells and spherocytes are identified. However, bite cells are not seen. WBC- Normal total cell number with a predominance of neutrophils (~75%). These cells are largely mature, but there is some evidence of a left shift. The remaining cell types have a normal morphology. Assessment: The patient has laboratory evidence of a hemolytic process (increased LDH, indirect hyperbilirubinemia, increased absolute reticulocyte count, and low-normal haptoglobin). In addition, his Direct Timbo' Test is strongly reactive for IgG. 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 The Bactrim history is provocative in that this medication can precipitate hemolysis in those with G6PD deficiency and is a rare cause of drug-induced immune hemolytic anemia. 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 Plan: We will send a blood sample to our reference lab ([facility]) for further evaluation of the patient's Direct Timbo' Test, including C3 complement testing and assessment of the IgG coating the patient's red blood cells. 09/29/2019 12:27 PM CDT [facility] Blood BLOOD SPECIMEN / Unknown Venipuncture / Unknown 09/28/2019 12:18 PM CDT 09/28/2019 7:33 PM CDT Markell Martin MD LAB - PATHOLOGY/CYT OLOGY ORDERABLES [facility] [address] [place] [address] * (ABNORMAL) LIPASE BLOOD (09/28/2019 12:18 PM CDT) Lipase 9(L) 10 - 220 U/L 09/28/2019 12:39 PM CDT [facility] Blood BLOOD SPECIMEN / Unknown Venipuncture / Unknown 09/28/2019 12:18 PM CDT 09/28/2019 12:21 PM CDT Markell Martin MD LAB - CHEMISTRY ORD ERABLES [facility] [address] [place] [address] Care Teams Gimp Buttonhole Machine Operator Relationship Specialty Start Date End Date Shelli Cevallos MD [address] [place] [id number] PCP - General Pediatrics 05/15/19
--- OUTSIDE RECORDS SUMMARY | 2024-04-23 02:40 | XMS_ITS | Encounter Summary ---
Author Organization [facility] Health Address [address] [facility] [place] [address] Care Team Providers Care Cleaning Laborer Name Role Phone Shelli Cevallos MD Primary Care Provider + [phone] Reason for Visit * Reason Onset Date Comments Appointment 10/06/2019 Encounter Details Date Type Department Care Team (Late st Contact Info) Description 10/06/2019 Telephone [facility] [address] [place] [phone] Maynor Payne MD [address] [place] [address] [phone] Appointment Social History Tobacco Use Types Packs/Day Years Used Date Smoking Tobacco: Every Day Cigarettes 2 2 Alcohol Use Standard Drinks/Week Comments Yes 2 [...] on file Sexual Orientation Not on file documented as of this encounter Miscellaneous Notes * Telephone Encounter - Angela Penaloza - 10/06/2019 4:19 PM CDT [phone] Called pt to schedule HFU appt w/ Dr. Payne. Pt scheduled 10/10/19 @ 2:[address] Payne. Date/time/location given. Pt verb understanding and in agreement w/ plan documented in this encounter Plan of Treatment Not on file documented as of this encounter Visit Diagnoses Not on filedocumented in this encounter Care Teams Cleaning Laborer Relationship Specialty Start Date End Date Shelli Cevallos MD [address] [place] [address] PCP - General Pediatrics 05/15/19 documented as of this encounter
--- OUTSIDE RECORDS SUMMARY | 2024-04-23 02:40 | XMS_ITS | Encounter Summary ---
Author Organization [facility] Health Address [address] [facility] [place] [address] Care Team Providers Care Time Cycle Operator Name Role Phone Shelli Cevallos MD Primary Care Provider + [phone] Reason for Visit * Reason Comments Follow-up Encounter Details Date Type Department Care Team (Late st Contact Info) Description 10/13/2019 3:00 PM CDT Office Visit [facility] [address] [place] [phone] Maynor Payne MD [address] [place] [phone] Acquired hemolytic anemia (HCC) (Primary Dx); Elevated bilirubin; Brown recluse spider bite or sting, accidental or unintentional, subsequent encounter Social History Tobacco Use Types Packs/Day Years [...] on file documented as of this encounter Last Filed Vital Signs Vital Sign Reading Time Taken Comments Blood Pressure 115/65 10/13/2019 3:50 PM CDT Pulse 56 10/13/2019 3:50 PM CDT Temperature 36.7 ??C (98 ??F) 10/13/2019 3:50 PM CDT Respiratory Rate - - Oxygen Saturation 97% 10/13/2019 3:50 PM CDT Inhaled Oxygen Concentration - - Weight 69.6 kg (153 lb 8 oz) 10/13/2019 3:50 PM CDT Height 175.3 cm (5' 9 ) 10/13/2019 3:50 PM CDT Body Mass Index 22.67 10/13/2019 3:50 PM CDT Body Mass Index Percentile 58.22% 10/13/2019 3:5 0 PM CDT Growth Chart: [facility] (Boys, 2-2 0 Years) documented in this encounter Patient Instructions * Patient Instructions* Maynor Payne MD - 10/13/2019 4:09 PM CDT CBC, CMP, LDH, MARIAM, RETIC, HAPTOGLOBIN Folic acid 1 mg po daily Prednisone taper as directed - 4 tabs daily x 3 days then 3 tabs daily x 4 days then 2 tabs daily x4 days then 1 tab daily x 4 days then stop Moisturize skin as directed Increase Po fluids RTC 4 weeks for FU with CBC, CMPAppointment made SM Call with any new symptoms documented in this encounter Progress Notes * Shauna Santillan - 10/13/2019 3:36 PM CDT BP 115/65 Pulse 56 Temp 98 ??F (36.7 ??C) (Oral) Ht 5' 9 (1.753 m) Wt 153 lb 8 oz (69.6 kg) SpO2 97% BMI 22.67 kg/m2 Depression: PHQ-2:TOTAL POINT SCORE: 0 PHQ-9: .Allergies and medications reviewed. ROS reviewed by MD. Shauna Santillan 10/13/2019 3:51 PM * Maynor Payne MD - 10/13/2019 3:25 PM CDT DATE: 10/13/2019 ACCOMPANIED BY: father REFERRED BY: Bogdan Monson MD, Shelli Biggs MD SOURCE OF INFORMATION: personal review of medical records and the patient Leo Teague is a pleasant 19 year old Black/ male, who is here today for hospitalfollow-up for a Mariam positive acute hemolytic anemia likely from brown recluse spider bite, perhaps exacerbated by Bactrim He was admitted with nausea, vomiting, insect bite left suprascapular region possible spider bite. Admission labs notable for folate deficiency, unconjugated hyperbilirubinemia, acute hemolytic anemia, Mariam positive with elevated LDH, low haptoglobin. Had been on Bactrim immediately prior to his hospital admission. No prior history of blood disorders or known G6PD deficiency, or autoimmune disorders. Discussed with his mother, who reported no family history of blood disorders or G6PD deficiency. The patient apparently had unconjugated hyperbilirubinemia and was treated with a shortcourse of phototherapy immediately after . No prior history of viral hepatitis. Denied any trauma, falls, muscle aches or fevers. Clinical picture suggestive of a brown recluse spider bite with acute hemolytic anemia and systemicsymptoms of nausea and vomiting. Hemoglobin trended down lower such that he needed 1 unit of RBC transfusion. Started on prednisone taper due to declining hemoglobin, elevated LDH. Empirically covered with antibiotics pending culture data. Clinical status stabilized upon discharge. Here today with his father for follow-up. Confused about his prednisone taper and apparently taken only 1 tablet prednisone daily for the last 2 days. Feels much better today. Appetite improved, no abdominal pain, nausea vomiting. Afebrile. Excited at graduating recently from high school. No muscle tenderness or palpable splenomegaly. No vascular purpura, flank pain or tenderness. Normal renal function.. No evidence of DIC on labs, organ failure,rhabdomyolysis. Remains afebrile, looks nontoxic. Antibody screen negative.Total bilirubin normalized. Review of Systems: as per HPI/ interval history General ROS: no fever no night sweats Psychological ROS:no anxiety??, no depression Ophthalmic ROS:no decreased vision no eye pain ENMT ROS: no ear pain, no drainage, no nosebleed, no oral ulcers nosore throat Allergy and Immunology ROS: no nasal congestion, no hives ??Hematological and LymphaticROS: no bruising, no bleeding ??Endocrine ROS: negative Breast ROS: no breast lump Respiratory ROS:no cough, no shortness of breath, no chest pain Cardiovascular ROS: no chest pain no dyspnea on exertion Gastrointestinal ROS: no abdominal pain, no black/ bloody stools. No diarrhea, nausea and??vomiting. Genito-Urinary ROS: no dysuria, no hematuria Musculoskeletal ROS: no joint pains, no falls. Ne urological ROS: no TIA or stroke symptoms. No seizures. Dermatological ROS: no lumps no pruritus nobleeding. Past Medical History: Diagnosis Date ??? Allergies To mold ??? Mild intermittent asthma Past surgical history: No surgery Social history: reports that he has been smoking. He has a 4.00 pack-year smoking history. He has never used smokeless tobacco. He reports current alcohol use of about 2.0 standard drinks of alcohol per week. He reports current drug use. Frequency: 20.00 times per week. Drug: Marijuana. Family history: No family history of G6PD deficiency or blood disorders Allergies Allergen Reactions ??? Bactrim [Sulfamethoxazole W-Trimethoprim] Hematologic Drug induced hemolysis Medications: Current Outpatient Medications Medication Sig Dispense Refill ??? albuterol HFA (PROVENTIL;VENTOLIN;PROAIR) 108 (90 Base) MCG/ACT inhaler Inhale 2 puffs by mouthevery 6 hours 18 g 0 ??? folic acid (FOLVITE) 1 MG tablet Take 1 tablet by mouth once daily 90 tablet 0 ??? loratadine (CLARITIN) 10 MG tablet Take 1 tablet by mouth once daily 30 tablet 0 ??? pantoprazole EC (PROTONIX) 40 MG tablet Take 1 tablet by mouth once daily (Patient not taking: Reported on 10/13/2019) 30 tablet 0 ??? predniSONE (DELTASONE) 10 MG tablet Take 1 tablet by mouth as directed 60 mg x 2 days, 50 mg x 4 days, 40 mg x 4 days, 30 mg x 4 days, 20 mg x 4 days, 10 mg x4 days 72 tablet 0 No current facility-administered medications for this visit. Medications in MAR reviewed. Physical examination: height is 5' 9 (1.753 m) and weight is 153 lb 8 oz (69.6 kg). His oral temperature is 98 ??F (36.7??C). His blood pressure is 115/65 and his pulse is 56. His oxygen saturation is 97%. General appearance: pleasant male, awake, alert, cooperative, in no distress. ??Skin: no rashes, orbruising noted. dry flaking skin on arms and legs. Resolved jaundice..??Small dry eschar on left suprascapular area without any s/s of infection or inflammation around it.??Head: normocephalic, atraumatic. Eyes:??no icterus. .PERRLA Ears: ??hearing intact, no drainage. Nose: anterior nares normal, no bleeding. Oral cavity and Throat: mucous membranes moist, no oral ulcers. Neck: no thyromegaly, no palpable cervical nodes, no supraclavicular adenopathy Chest: no masses, or chest-wall tenderness.?Respiratory: breath sounds heard, no rales, no rhonchi Cardiovascular: pulses equal, S1 and S2 h eard, no S3, no S4, no rubs no murmurs. Abdomen: soft, non-tender, bowel sounds heard, no masses, no palpable organomegaly. Rectal: deferred Genito-urinary: deferred. Lymphatic: no palpable cervical,supraclavicular, axillary adenopathy noted. Extremities: no clubbing no edema. Musculo-skeletal: joints intact bilaterally, no obvious tenderness. Neurological: Alert, oriented in time, space and person; no obvious cranial nerve deficits noted. Normal speech and affect. No gross sensory or motor deficits noted. Gait and coordination intact. ?? Laboratory data: Recent Labs Component Name 10/13/19 1527 10/03/19 0355 10/02/19 0303 09/28/19 1218 WBC 5.5 23.4* 24.6* - 10.3 RBC 3.71* 2.68* 2.72* - 3.86* HGB 11.8* 8.3* 8.3* - 11.4* HCT 37.4 26.0* 25.7* - 34.4* MCV 100.8* 97.0 94.5 - 89.1 MCHC 31.6 31.9 32.3 - 33.1 RDWCV 15.2* 15.2* 13.4 - 12.0 PLTCOUNT 401 398 380 - 211 NEUTPCT 79.3* - - - 76.2 LYMPHPCT 14.1* - - - 9.0* BASOPHILPCT 0.4 - - - 0.5 GRANSIMMPCT 0.5 - - - 3.9 LYMPHABS 0.77* - - - 0.93 BASOABS 0.02 - - - 0.05 NRBCAUTO - 1 1 - 0 - = values in this interval not displayed. Recent Labs Component Name 10/13/19 1527 10/03/19 0355 10/02/19 0303 SODIUM 141 139 137 POTASSIUM 4.7 4.1 3.6 CHLORIDE 104 105 103 CO2 26 25 26 BUN 14 12 11 CREATININE 1.04 0.83 0.80 GLUCOSE 94 107* 91 CALCIUM 9.1 8.3* 8.6 ALBUMIN 4.4 3.7 3.9 ALKPHOS 90* 110 113 ALT 72* 138* 171* AST 15 35* 63* TBIL 0.3 0.5 0.7 TPROT 7.1 6.8 7.3 EGFR >60 >60 >60 Recent Labs Component Name 10/13/19 1527 10/03/19 0355 10/02/19 0303 LDH 178 449* 580* Recent Labs Component Name 10/13/19 1549 09/30/19 0333 09/29/19 0356 RETICPCT 5.75* 4.74* 2.93 Ref Range & Units 4d ago 2wk ago Haptoglobin 17 - 317 mg/dL 177 10Low R Recent Labs Component Name 09/30/19 0333 09/28/19 1218 HAPTOGLOBIN 10* 11* 09/29/19 Direct Mariam (OTILIO) C3 Positive Antibody Screen Negative Hep screen negative RBC 4.14 - 5.80 x10E6/uL 2.93Low G-6-PD Quantitative 146 - 376 U/10E12 RBC 415High Recent Labs Component Name 09/28/19 1905 PT 14.6 INR 1.2* Recent Labs Component Name 09/28/19 1905 PTT 29.1 Imaging data: 09/28/19 - CT A/P w con -DIAGNOSIS: There is a mildly distended loop of distal small bowel.OtherwiseCT abdomen pelvis is grossly normal. ? Pathology data: Final Diagnosis Peripheral blood, flow cytometric immunophenotypic analysis: - ??No evidence of non-Hodgkin lymphoma or high-grade myeloid neoplasm. ? Assessment/ Plan: 19-year-old male admitted with nausea, vomiting, insect bite left suprascapular region,??possible spider bite.?Admission labs notable for folate deficiency, unconjugated hyperbilirubinemia, acute hemolytic anemia, Mariam positive with elevated LDH, low haptoglobin. ??Had been on Bactrim immediately prior to his hospital admission. ??No prior history of blood disorders or known G6PD deficiency,??or autoimmune disorders.?No??history of blood disorders or G6PD deficiency.??No prior history of viral hepatitis. ??Denied any trauma, falls, muscle aches or fevers. ?? Clinical picture suggestive of a brown recluse spider bite with acute hemolytic anemia and systemicsymptoms of??loxoscelism,??nausea and vomiting . ??Remains afebrile.?Clinically improved, improved nausea, improved appetite. ?Hemoglobin/hematocrit improved today. Received 1 unit PRBC transfusion on 10/01/2019, no transfusions since then.. Small healing non-tender scab left suprascapular area. ?? Normal LDH, improving ALT/AST, bilirubin normal now. No scleral icterus, clear urine. Decreasing procalcitonin level ??Normal CK and coags. ??No evidence of rhabdomyolysis or DIC. Right upper quadrant ultrasound unremarkable. ?No muscle tenderness or palpable splenomegaly. ??No vascular purpura,??flank pain or tenderness. ??Normal renal function.. ??No evidence of??organ failure.?Remains afebrile, looks nontoxic. ??Antibody screen negative.?Was on Bactrim immediately before his admission. ??Bactrim itself can cause a??Mariam positive hemolytic anemia although his symptoms started well before starting Bactrim and hence this is less likely the culprit agent,??but more likely a confounding agent ?? Peripheral smear??showed no evidence of the bite cells. ??Continue folate supplementation. Again discussed prednisone taper with patient and father and wrote down instructions for them again. ?? Leucocytosis left shift - leukemoid reaction with elevated inflammatory markers, procalcitonin, LDHand now on steroids. 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 Cultures negative Remains afebrile. WBC count normalized. Moisturize skin as directed. Increase Po fluids. RTC 4 weeks for FU with labs. Of note, I spent 46 minutes with the patient with > 50% time spent in counseling on laboratory and imaging results, diagnosis, evaluation plans, coordinating care, treatment options and answering questions. All questions answered to their evident satisfaction. Maynor Payne MD, FACP Hematology and Medical Oncology [facility] Please be advised that voice recognition software has been used on this chart and inadvertent errors may occur. These may not represent a true interpretation of the dictation given. documented in this encounter Plan of Treatment Not on file documented as of this encounter Procedures Procedure Name Priority Date/Time Associated Diagnosis Comments RETIC COUNT Routine 10/13/2019 3:49 PM CDT Elevated bilirubin Acquired hemolytic anemia (HCC) CBC W AUTO DIFFERENTIAL (CANCER CARE) Routine 10/13/2019 3:27 PM CDT Elevated bilirubin Acquired hemolytic anemia (HCC) MARIAM DIRECT Routine 10/13/2019 3:27 PM CDT Elevated bilirubin Acquired hemolytic anemia (HCC) COMPREHENSIVE METABOLIC PANEL Routine 10/13/2019 3:27 PM CDT Elevated bilirubin Acquired hemolytic anemia (HCC) LDH BLOOD Routine 10/13/2019 3:27 PM CDT Elevated bilirubin Acquired hemolytic anemia (HCC) FOLATE Routine 10/13/2019 3:27 PM CDT Elevated bilirubin Acquired hemolytic anemia (HCC) HAPTOGLOBIN Routine 10/13/2019 3:27 PM CDT Elevated bilirubin Acquired hemolytic anemia (HCC) documented in this encounter Results * (ABNORMAL) RETIC COUNT (10/13/2019 3:49 PM CDT) Reticulocyte Count 5.75(H) 0.3 - 4.2 % 10/13/2019 4:01 PM CDT [facility] Reticulocyte Immature Fractionated 11.7 9.3 - 17.4 % 10/13/2019 4:01 PM CDT [facility] Blood BLOOD SPECIMEN / Unknown 10/13/2019 3:49 PM CDT 10/13/2019 3:49 PM CDT Maynor Payne MD LAB - HEMATOLOGY ORD ERABLES [facility] [address] * (ABNORMAL) CBC W AUTO DIFFERENTIAL (CANCER CARE) (10/13/2019 3:27 PM CDT) WBC 5.5 4.4 - 10.7 x10E9/L 10/13/2019 [...] - 5.40 x10E12/L 10/13/2019 3:34 PM CDT [facility] Hemoglobin 11.8(L) 12.0 - 17.6 gm/dL 10/13/2019 3:34 PM CDT [facility] Hematocrit 37.4 35.2 - 51.7 % 10/13/2019 3:34 PM CDT [facility] MCV 100.8(H) 80.7 - 98.3 fl 10/13/2019 3:34 PM CDT [facility] MCH 31.8 26.7 - 34.0 pg 10/13/2019 3:34 PM CDT [facility] MCHC 31.6 30.8 - 35.9 gm/dL 10/13/2019 3:34 PM CDT [facility] RDW-CV 15.2(H) 12.1 - 14.9 % 10/13/2019 3:34 PM CDT [facility] Platelet Count 401 153 [...] Payne MD LAB - HEMATOLOGY ORD ERABLES [facility] [address] * MARIAM DIRECT (10/13/2019 3:27 PM CDT) Mariam Direct Negative Negative [facility] ACCOUNT BILL Blood BLOOD SPECIMEN / Unknown 10/13/2019 3:27 PM CDT 10/13/2019 Narrative Resulting Agency Comment Lab Testing performed at: [facility] [address] [facility] ??[facility] [phone] Maynor Payne MD LAB - BLOOD BANK ORD ERABLES [facility] ACCOUNT BILL [address] [place] [address] * FOLATE (10/13/2019 3:27 PM CDT) Folate 19.1 7.0 - 31.4 ng/mL [facility] ACCOUNT BILL Blood BLOOD SPECIMEN / Unknown 10/13/2019 3:27 PM CDT 10/13/2019 Narrative Resulting Agency Comment Lab Testing performed at: [address] ??[facility] [phone] Maynor Payne MD LAB - CHEMISTRY CHRISTINE KENNY Performing Organization Address [facility] Co de Phone Number [facility] ACCOUNT BILL [address] [place] [address] * HAPTOGLOBIN (10/13/2019 3:27 PM CDT) Haptoglobin 177 17 - 317 mg/dL [facility] ACCOUNT BILL Blood BLOOD SPECIMEN / Unknown 10/13/2019 3:27 PM CDT 10/13/2019 Narrative Resulting Agency Comment Lab Testing performed at: [facility] [address] [facility] ??[facility] [id number] Maynor Payne MD LAB - CHEMISTRY CHRISTINE KENNY Performing Organization Address City/[facility]/ZIP Co de Phone Number [facility] ACCOUNT BILL [address] [place] [address] * LDH BLOOD (10/13/2019 3:27 PM CDT) LDH 178 125 - 220 U/L [facility] ACCOUNT BILL Blood BLOOD SPECIMEN / Unknown 10/13/2019 3:27 PM CDT 10/13/2019 Narrative Resulting Agency Comment Lab Testing performed at: [address] ??[facility] [id number] Maynor Payne MD LAB - CHEMISTRY CHRISTINE KENNY [facility] ACCOUNT BILL [address] [place] [address] * (ABNORMAL) COMPREHENSIVE METABOLIC PANEL (10/13/2019 3:27 PM CDT) Glucose 94 70 - 105 mg/dL [facility] [...] Resulting Agency Comment Lab Testing performed at: [address] ??[facility] [id number] Maynor Payne MD LAB - CHEMISTRY CHRISTINE KENNY [facility] ACCOUNT BILL [address] [place] [address] documented in this encounter Visit Diagnoses Diagnosis Acquired hemolytic anemia (HCC)- Primary Acquired hemolytic anemia, unspecified Elevated bilirubin Disorders of bilirubin excretion Brown recluse spider bite or sting, accidental or unintentional, subsequent encounter documented in this encounter Care Teams Time Cycle Operator Relationship Specialty Start Date End Date Shelli Cevallos MD [address] [place] [address] PCP - General Pediatrics 05/15/19 documented as of this encounter
--- OUTSIDE RECORDS SUMMARY | 2024-04-23 02:40 | XMS_ITS | Encounter Summary ---
Author Organization [facility] Address [address] [facility] [place] [address] Care Team Providers Care Martial Arts Instructor Name Role Phone Shelli Cevallos MD Primary Care Provider + [phone] Reason for Visit * Reason Onset Date Comments Appointment 11/10/2019 Encounter Details Date Type Department Care Team (Late st Contact Info) Description 11/10/2019 Telephone [facility] [address] [place] [phone] Maynro Payne MD [address] [place] [address] [phone] Appointment Social History Tobacco Use Types Packs/Day [...] encounter Miscellaneous Notes * Telephone Encounter - [place] - 11/10/2019 11:47 AM CDT Attempted to reach pt about his missed appointment today. No answer. Left a VM to contact the office. documented in this encounter Plan of Treatment Not on file documented as of this encounter Visit Diagnoses Not on filedocumented in this encounter Care Teams Martial Arts Instructor Relationship Specialty Start Date End Date Shelli Cevallos MD [address] [place] [phone] PCP - General Pediatrics 05/15/19 documented as of this encounter
--- OUTSIDE RECORDS SUMMARY | 2024-04-23 02:40 | XMS_ITS | Referral Summary ---
Author Organization [facility] [employer] Address [address] [place] [address] Care Team Providers Care Corduroy Cutter Operator Name Role Phone Shelli Cevallos MD Primary Care Provider + [phone] Source Comments [facility], formerly [facility],non-owned Affiliates and Associated Physician Practices is amultiple site organization consisting of ambulatory clinics and hospital sitesin [place], [place], [place] and [place]. This disclosure is being madepursuant to the Care Everywhere program and may not contain all information available regarding this patient. Last updated 18.[facility] [employer] Allergies Active Allergy Reactions Criticality Noted Date Comments Sulfamethoxazole W-Trimethoprim Hematologic High 09/29/2019 Drug induced hemolysis Medications * Be aware that medications may not be up to date on this document. Alwaysverify current medications with the patient. Medication Sig Dispensed Refills Start Date End Date Status albuterol HFA (PROVENTIL;VENTOLIN ;PROAIR) 108 (90 Base) MCG/ACT inhaler Inhale 2 puffs by mouth every 6 hours 18 g 10/03/2019 Active loratadine (CLARITIN) 10 MG tablet Take 1 tablet by mouth once daily 30 tablet 10/04/2019 Active folic acid (FOLVITE) 1 MG tablet Take 1 tablet by mouth once daily 90 tablet 10/04/2019 Active pantoprazole EC (PROTONIX) 40 MG tablet Take 1 tablet by mouth once daily 30 tablet 10/04/2019 Active Additional Information Patient not taking.Reported on 10/13/2019 predniSONE (DELTASONE) 10 MG tablet Take 1 tablet by mouth as directed 60 mg x 2 days, 50 mg x 4 days, 40 mg x 4 days, 30 mg x 4 days, 20 mg x 4 days, 10 mg x4 days 72 tablet 10/03/2019 Active Active Problems Problem Noted Date Diagnosed Date [...] Mass Index 22.67 10/13/2019 3:50 PM CDT Plan of Treatment Not on file Procedures Procedure Name Priority Date/Time Associated Diagnosis Comments HEPATITIS SCREEN ACUTE STAT 09/29/2019 7:40 AM CDT Hemolytic anemia associated with infection (HCC) from Last 3 Months or Most Recently Relevant to Health Maintenance Results * HEPATITIS SCREEN ACUTE (09/29/2019 7:40 AM CDT) HAV Antibody IgM Non Reactive Non Reactive 09/29/2019 9:37 AM CDT [facility] HBsAg Non Reactive Non Reactive 09/29/2019 9:37 AM CDT [facility] HBc Antibody IgM Non Reactive Non Reactive 09/29/2019 9:37 AM CDT [facility] HCV Antibody Screen Non Reactive Non Reactive 09/29/2019 9:37 AM CDT [facility] Blood BLOOD SPECIMEN / Unknown Lab Venipuncture / Unknown 09/29/2019 7:40 AM CDT 09/29/2019 8:11 AM CDT Narrative [facility] - 09/29/2019 9:37 AM CDT Non Reactive - Antibodies to Hepatitis C virus (HCV) were not detected, result does not exclude early acute HCV infection. Maynor Payne MD LAB - CHEMISTRY CHRISTINE KENNY [facility] [address] [place] [address] from Last 3 Months or Most Recently Relevant to Health Maintenance Advance Directives * Full Code (Latest Code Status on File) Date Activated Date Inactivated Comments 09/29/2019 10:09 AM 10/03/2019 2:59 PM * Full Code Date Activated Date Inactivated Comments 09/28/2019 8:11 PM 09/29/2019 10:07 AM * Full Code Date Activated Date Inactivated Comments 09/28/2019 7:39 PM 09/28/2019 8:11 PM Care Teams Corduroy Cutter Operator Relationship Specialty Start Date End Date Shelli Cevallos MD [address] [place] [id number] PCP - General Pediatrics 05/15/19
--- OUTSIDE RECORDS SUMMARY | 2024-04-23 02:40 | XMS_ITS | Clinical Summary ---
Author Organization [facility] [employer] Address [address] [place] [address] Care Team Providers Care Licensed Dispensing Optician Name Role Phone Shelli Cevallos MD Primary Care Provider + [phone] Source Comments [facility],non-owned Affiliates and Associated Physician Practices is amultiple site organization consisting of ambulatory clinics and hospital sitesin [place], [place], [place] and [place]. This disclosure is being madepursuant to the Care Everywhere program and may not contain all information available regarding this patient. Last updated 18.[facility] [employer] Allergies Active Allergy Reactions Criticality Noted Date [...] 10/13/2019 3:50 PM CDT Plan of Treatment Health Maintenance Due Date Last Done Comments PNEUMOCOCCAL VACCINE (1 of 2 - PCV) 07/06/2007 HIV SCREENING 2016 HPV VACCINE (1 - Male 3-dose series) 2016 DTAP/TDAP/TD VACCINES (1 - Tdap) 2020 HEPATITIS B VACCINE (1 of 3 - 19+ 3-dose series) 2020 COVID-19 VACCINE (1 - 2023-2 5 season) 2023 INFLUENZA VACCINE (#1) 2023 DEPRESSION SCREENING 04/16/2024 ZOSTER VACCINE (1 of 2) 07/06/2051 HEPATITIS C SCREENING Completed 09/29/2019 HIB VACCINE Aged Out No longer eligi ble based on patient's age to complete this topic MENINGOCOCCAL VACCINE Aged Out No gabriel aidan eligible based on patient's age to complete this topic Procedures Procedure Name Priority Date/Time Associated Diagnosis Comments HEPATITIS SCREEN ACUTE STAT 09/29/2019 7:40 AM CDT Hemolytic anemia associated with infection (HCC) from Last 3 Months or Most Recently Relevant to Health Maintenance Results * HEPATITIS SCREEN ACUTE (09/29/2019 7:40 AM CDT) HAV Antibody IgM Non Reactive Non Reactive 09/29/2019 9:37 AM CDT [facility] HBsAg Non Reactive Non Reactive 09/29/2019 9:37 AM CDT [facility] HBc Antibody IgM Non Reactive Non Reactive 09/29/2019 9:37 AM CDT [facility] HCV Antibody Screen Non Reactive Non Reactive 09/29/2019 9:37 AM CDT [facility] Blood BLOOD SPECIMEN / Unknown Lab Venipuncture / Unknown 09/29/2019 7:40 AM CDT 09/29/2019 8:11 AM CDT Narrative [facility] - 09/29/2019 9:37 AM CDT Non Reactive - Antibodies to Hepatitis C virus (HCV) were not detected, result does not exclude early acute HCV infection. Maynor Payne MD LAB - CHEMISTRY CHRISTINE KENNY [facility] Organization Address City/State/ZIP Co de Phone Number [facility] [address] [place], [place] [id number] from Last 3 Months or Most Recently Relevant to Health Maintenance Advance Directives * Full Code (Latest Code Status on File) Date Activated Date Inactivated Comments 09/29/2019 10:09 AM 10/03/2019 2:59 PM * Full Code Date Activated Date Inactivated Comments 09/28/2019 8:11 PM 09/29/2019 10:07 AM * Full Code Date Activated Date Inactivated Comments 09/28/2019 7:39 PM 09/28/2019 8:11 PM Care Teams Licensed Dispensing Optician Relationship Specialty Start Date End Date Shelli Cevallos MD [address] [place] [id number] PCP - General Pediatrics 05/15/19
--- OUTSIDE RECORDS SUMMARY | 2024-04-23 02:40 | XMS_ITS | Encounter Summary ---
Author Organization [facility] Address [address] [place] [address] Care Team Providers Care System Consultant Name Role Phone Shelli Cevallos MD Primary Care Provider + [phone] Reason for Visit * Reason Onset Date Comments Follow-up 10/10/2019 Encounter Details Date Type Department Care Team (Late st Contact Info) Description 10/10/2019 Telephone [facility] [address] [place] [id number] Marcia Hoyos, RN Follow-up Social History Tobacco Use Types Packs/Day Years [...] encounter Miscellaneous Notes * Telephone Encounter - Marcia Hoyos RN - 10/10/2019 11:26 AM CDT Called to prescreen for any signs of COVID illness or exposure. Patient reports: 1. In the last 24 hours, a fever (>100.0) (or felt like you had a fever) or a new or worsening cough, trouble breathing, a sudden loss of taste or smell, a headache, a sore throat or muscle pains?YES [] NO [] 2. In the last 14 days, have you been tested for COVID-19, in close contact with anyone that has been tested for COVID-19, or anyone that has been instructed to self-quarantine? YES [] NO [] 3. Have you been taking any fever or pain reducing medications for COVID-related symptoms? YES [] NO [] [] Patient answered YES to one or more of the above questions. Informed patient we need to further assess whether or not patient should proceed with appointment. Confirmed call-back number and routedmessage to Provider for further evaluation. [] Patient answered NO to all screening questions. Informed patient: o For the safety of our patients and staff, we are currently not allowing visitors to accompany patients. o They will be screened again when they arrive prior to entering the department o Directed the patient to the designated cancer care entrance o [facility] has recently implemented a new policy regarding cloth masks at all of our offices. Forthe safety and protection of our patients, visitors and caregivers, everyone must wear a cloth facecovering while during your visit. We ask that you wear a cloth face covering or mask to your appointment. [] Called x 1 [x] Called x 2 [x] Left message to C/B [] Unable to leave message [x] UNABLE TO REACH PATIENT PRIOR TO APPOINTMENT documented in this encounter Plan of Treatment Not on file documented as of this encounter Visit Diagnoses Not on filedocumented in this encounter Care Teams System Consultant Relationship Specialty Start Date End Date Shelli Cevallos MD [address] [place] [address] PCP - General Pediatrics 05/15/19 documented as of this encounter
--- OUTSIDE RECORDS SUMMARY | 2024-04-23 02:41 | XMS_ITS | Encounter Summary ---
Author Organization [facility] Address [address] [place] [address] Care Team Providers Care Business Support Specialist Name Role Phone Jesse Cevallos MD Primary Care Provider + [phone] Reason for Visit * Reason Comments Vomiting seen at [facility] on Sun for vomiting/chills/diarrhea/UC on Sunday for the same not feeling any better * Auth/Cert Specialty Diagnoses / Procedures Referred By Maryanne stewart Referred To Contact Referral ID Status Reason Start Date Expiration Date Visits Re quested Visits Authorized [id number] 1 1 Encounter Details Date Type Department Care Team (Late st Contact Info) Description 09/28/2019 1:19 PM CDT - 10/03/2019 1:41 PM CDT Hospital Encounter [facility] [address] [place] [address] [place] [address] [place] [address] [place] [address] [facility] [place] [address] Mark Cleveland MD [address] [place] [address] Rashid Monson MD [address] [place] [address] Internal Medicine Discharge Disposition: Home or Self Care Social History Tobacco Use Types Packs/Day Years Used Date Smoking Tobacco: Every Day Cigarettes 2 2 Alcohol Use Standard Drinks/Week Comments Yes 2 (1 standard drink = 0.6 oz pur e alcohol) last drank 09/26 AUDIT-C Answer Date Recorded Q1: How often do you have a drink containing alc ohol? Monthly or less 09/28/2019 Average Number of Drinks Not on file Frequency of Binge Drinking Not on file 09/14 Sex and Gender Information Value Date Recorded Sex Assigned at Not on file Gender Identity Not on file Sexual Orientation Not on file documented as of this encounter Last Filed Vital Signs Vital Sign Reading Time Taken Comments Blood Pressure 116/81 10/03/2019 9:10 AM CDT Pulse 84 10/03/2019 9:10 AM CDT Temperature 36.6 ??C (97.9 ??F) 10/03/2019 9:10 AM CD T Respiratory Rate 16 10/03/2019 9:10 AM CDT Oxygen Saturation 100% 10/03/2019 9:10 AM CDT Inhaled Oxygen Concentration - - Weight 66.5 kg (146 lb 11.2 oz) 020 10:00 PM CDT Height 175.3 cm (5' 9 ) 09/28/2019 10:0 0 PM CDT Body Mass Index 21.66 09/28/2019 10:00 PM CDT Body Mass Index Percentile 45.04% 09/27 10:00 PM CDT Growth Chart: [facility] (Boys, 2-2 0 Years) documented in this encounter Discharge Summaries * Ayaka Ozuna RN - 10/03/2019 1:42 PM CDT Discharge Summary A&Ox4 No signs of distress IV removed; catheter intact All belongings returned to the patient Discharge paperwork given to and discussed with the patient Patient did not want to wait for [facility] to deliver his medications; provided patient withinfo on how to retrieve them/where the pharmacy is located; pharmacist notified of this change Patient picked up by his mother at the east entrance No further concerns at this time Ayaka Ozuna RN, BSN Thursday, October 03, 2019 * Abel Merida MD - 10/03/2019 1:16 PM CDT Physician Discharge Summary Name: Leo Shah Date of : 2000 Admit date:09/28/2019 Discharge date: 10/03/2019 Code Status at Discharge: Full Code Admitting Physician:Rashid Monson MD Attending Physician:Rashid Monson MD Discharge Physician: Abel Merida MD Disposition: Home Condition at discharge: stable Diagnosis: Acute onset comes positive hemolytic anemia Unconjugated hyperbilirubinemia Leukocytosis Hospital Course: ?? Leo Shah is a 19 year old male with PMH significant for mild asthma presentedwith nausea, vomiting, insect bite left suprascapular region and jaundice. Admission labs notable for significant unconjugated hyperbilirubinemia, elevated LDH, low haptoglobin consistent with acute h emolytic anemia and positive Mariam test. Patient had been on Bactrim immediately prior to this hospital admission. Denied any history of blood disorders or no G6PD deficiency or autoimmune disordersin his family. 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 Initially patient was managed symptomatically along with folate repletion. Course complicated by declining hemoglobin to 7.2 from 11 s/p 1 unit PRBC transfusion and increasing leukocytosis with neutrophilia. Started on prednisone taper and broad-spectrum IV antibiotics vancomycin and Rocephin. Gradually his bilirubin and LDH levels improved. Infection workup came back negative. Patient was discharged on 2 day course of doxycycline, tapering dose of prednisone, pantoprazole and folic acid. Advised to follow-up with primary care physician and front office coordinator Dr. Payne in 1 week after discharge Exam on the day of discharge: Physical Exam Vitals signs and nursing note reviewed. Constitutional: Appearance: Normal appearance. Cardiovascular: Rate and Rhythm: Normal rate and regular rhythm. Pulmonary: Effort: No respiratory distress. Breath sounds: No wheezing. Abdominal: General: There is no distension. Tenderness: There is no abdominal tenderness. There is no guarding or rebound. Musculoskeletal: General: No swelling. Right lower leg: No edema. Left lower leg: No edema. Skin: Comments: Scabbed spider bite area on the left posterior scapula Neurological: Mental Status: He is alert. Laboratory & Imaging Studies: Recent Labs Component Name 10/03/19 0355 10/02/19 0303 10/01/19 1451 10/01/19 0713 WBC 23.4* 24.6* - 17.3* HGB 8.3* 8.3* 8.8* 7.2* HCT 26.0* 25.7* 27.4* 21.8* PLTCOUNT 398 380 - 331 Recent Labs Component Name 10/03/19 0355 10/02/19 0303 10/01/19 0713 SODIUM 139 137 137 POTASSIUM 4.1 3.6 4.4 CHLORIDE 105 103 102 CO2 25 26 27 BUN 12 11 13 CREATININE 0.83 0.80 0.90 GLUCOSE 107* 91 110* CALCIUM 8.3* 8.6 8.5 Right upper quadrant ultrasound ?? INDICATION: Epigastric pain. ?? FINDINGS: Real-time sonography of the right upper quadrant was performed. The pancreas is unremarkable. ?? The liver is homogeneous in echotexture. There is no liver mass. There is no intrahepatic biliary dilatation. There is hepatopedal flow within the portal vein. The hepatic veins are patent. The common bile duct measured 2.2 mm. ?? No gallstones are seen within the gallbladder. There is no thickening of the gallbladder wall. There is no pericholecystic fluid. The patient was not tender over the gallbladder. ?? The right kidney appeared normal. No free fluid is identified. ?? IMPRESSION ? Unremarkable right upper quadrant ultrasound Study Result CT abdomen pelvis ?? HISTORY: Vomiting and chills and nausea and diarrhea ?? TECHNIQUE: Postcontrast imaging with 100 cc [id number] ?? The liver, gallbladder, spleen and visualized appendix are normal. ?? The adrenal glands and right kidney normal. There is likely a small left renal cyst. The visualized ureters and bladder and prostate gland appear grossly normal. ?? There is a mildly distended fluid-filled loop of small bowel in the right pelvis, likely distal or terminal ileum. The visualized large and small bowel are otherwise grossly normal. The appendix is questionably identified and normal. There is no free air or free fluid. No pericecal inflammatory changes present. ?? The vascular structures enhance normally. ?? Heart size is normal. Lung bases are clear. ? DIAGNOSIS: There is a mildly distended loop of distal small bowel. Otherwise CT abdomen pelvis is grossly normal. ?? Labs Pending None Consultations Hematology Discharge Orders Discharge Procedure Orders Why you were hospitalized Order Specific Question Answer Comments Your discharge diagnosis is: Hemolytic anemia [[id number]] Your discharge diagnosis is: Brown recluse spider bite [[id number]] Follow up with Primary Care Provider (PCP) Our records show your Primary Care Provider (PCP) is Jesse Biggs MD. Order Specific Question Answer Comments Follow Up Instructions: Please follow up with your primary care physician in one to two weeks afterdischarge No special diet needed Activity as tolerated Rest today, and increase your activity level tomorrow as tolerated. Follow up with provider Order Specific Question Answer Comments Follow Up Instructions: please follow up with front office coordinator in one week after discharge. Please get CBC, CMP, LDH labs before the appointment ?? If follow up appointment has not been made, patient to call physician for appt ?? Patient to bring all medications to next visit Discharge Time:greater than 30 minutes Allergies: Allergies Allergen Reactions ??? Bactrim [Sulfamethoxazole W-Trimethoprim] Hematologic Drug induced hemolysis Current Discharge Medication List START taking these medications Instructions Authorizing Provider doxycycline monohydrate 100 MG tablet Quantity Dispensed: 4 tablet Start taking on: October 04, 2019 Take 1 tablet by mouth 2 times daily for 2 days Abel Merida MD folic acid 1 MG tablet Commonly known as: FOLVITE Quantity Dispensed: 90 tablet Start taking on: October 04, 2019 Take 1 tablet by mouth once daily Abel Merida MD loratadine 10 MG tablet Commonly known as: CLARITIN Quantity Dispensed: 30 tablet Replaces: cetirizine 10 MG tablet Start taking on: October 04, 2019 Take 1 tablet by mouth once daily Abel Merida MD pantoprazole EC 40 MG tablet Commonly known as: PROTONIX Quantity Dispensed: 30 tablet Start taking on: October 04, 2019 Take 1 tablet by mouth once daily Abel Merida MD predniSONE 10 MG tablet Commonly known as: DELTASONE Quantity Dispensed: 72 tablet Take 1 tablet by mouth as directed 60 mg x 2 days, 50 mg x 4 days, 40 mg x 4 days, 30 mg x 4 days, 20 mg x 4 days, 10 mg x4 days Abel Merida MD CONTINUE taking these medications which have CHANGED Instructions Authorizing Provider albuterol HFA 108 (90 Base) MCG/ACT inhaler What changed: when to take this Commonly known as: PROVENTIL;VENTOLIN;PROAIR Quantity Dispensed: 18 g Inhale 2 puffs by mouth every 6 hours Abel Merida MD STOP taking these medications cetirizine 10 MG tablet Commonly known as: ZyrTEC Replaced by: loratadine 10 MG tablet diphenhydrAMINE 25 MG capsule Commonly known as: BENADRYL sulfamethoxazole-trimethoprim 400-80 MG tablet Commonly known as: BACTRIM; SEPTRA CC: PCP Associated attestation - Rashid Monson MD - 10/04/2019 2:39 PM CDT Patient seen and examined independent of the resident during the time of visit. Agree with the assessment and plan as outlined in the resident note. I have been involved directly in the participationof the patient's care today Rashid Monson MD documented in this encounter Medications at Time of Discharge Medication Sig Dispensed Refills Start Date End Date albuterol HFA (PROVENTIL;VENTOLIN;PRO AIR) 108 (90 Base) MCG/ACT inhaler Inhale 2 puffs by mouth every 6 hours 18 g 10/03/2019 folic acid (FOLVITE) 1 MG tablet Take 1 tablet by mouth once daily 90 tablet 10/04/2019 loratadine (CLARITIN) 10 MG tablet Take 1 tablet by mouth once daily 30 tablet 10/04/2019 pantoprazole EC (PROTONIX) 40 MG tablet Take 1 tablet by mouth once daily 30 tablet 10/04/2019 predniSONE (DELTASONE) 10 MG tablet Take 1 tablet by mouth as directed 60 mg x 2 days, 50 mg x 4 days, 40 mg x 4 days, 30 mg x 4 days, 20 mg x 4 days, 10 mg x4 days 72 tablet 10/03/2019 doxycycline monohydrate 100 MG tablet Take 1 tablet by mouth 2 times daily for 2 days 4 tablet 10/04/2019 10/06/2019 documented as of this encounter Progress Notes * Maynor Payne MD - 10/03/2019 9:30 AM CDT Hematology/ Oncology progress note Patient's name:Leo Shah Date of : 2000 Date of admission: 09/28/2019 Date of visit:10/03/2019 Patient's Primary Care Physician: Jesse Biggs MD Physician requesting consultation: Rashid Monson MD CC: hemolytic anemia, spider bite Overnight events reviewed. Feels well this morning. Anxious to go home. Appetite improved, nausea resolved. Left supra scapular bite lesion scabbed over, nontender. Total bilirubin normalized. AST/ ALT better. Hemoglobin stable today at 8.3. Remains on oral prednisone Review of Systems: as per HPI/ interval history General ROS: no fever no night sweats Psychological ROS: anxiety +, no depression Ophthalmic ROS: no decreased vision no eye pain ENMT ROS: no ear pain, no drainage, no nosebleed, no oral ulcers no sore throat Allergy and Immunology ROS: no nasal congestion, no hives Hematological and Lymphatic ROS: no bruising, no bleeding Endocrine ROS: negative Breast ROS: no breast lump Respiratory ROS: no cough, no shortness of breath, no chest pain Cardiovascular ROS: no chest pain no dyspnea on exertion Gastrointestinal ROS: no abdominal pain, no black/ bloody stools. No diarrhea. nausea and vomiting ++. Genito- Urinary ROS: no dysuria, no hematuria Musculoskeletal ROS: no joint pains, no falls. Neurological ROS: no TIA or stroke symptoms. No seizures. Dermatological ROS: no lumps no pruritus no bleeding. Medications: No current facility-administered medications for this encounter. Current Outpatient Medications Medication Sig Dispense Refill ??? albuterol HFA (PROVENTIL;VENTOLIN;PROAIR) 108 (90 Base) MCG/ACT inhaler Inhale 2 puffs by mouthevery 6 hours 18 g 0 ??? [START ON 10/04/2019] doxycycline monohydrate 100 MG tablet Take 1 tablet by mouth 2 times dailyfor 2 days 4 tablet 0 ??? [START ON 10/04/2019] folic acid (FOLVITE) 1 MG tablet Take 1 tablet by mouth once daily 90 tablet 0 ??? [START ON 10/04/2019] loratadine (CLARITIN) 10 MG tablet Take 1 tablet by mouth once daily 30 tablet 0 ??? [START ON 10/04/2019] pantoprazole EC (PROTONIX) 40 MG tablet Take 1 tablet by mouth once daily 30 tablet 0 ??? predniSONE (DELTASONE) 10 MG tablet Take 1 tablet by mouth as directed 60 mg x 2 days, 50 mg x 4 days, 40 mg x 4 days, 30 mg x 4 days, 20 mg x 4 days, 10 mg x4 days 72 tablet 0 Medications in MAR reviewed. Physical examination: height is 5' 9 and weight is 146 lb 11.2 oz. His oral temperature is 97.9 ??F (36.6 ??C). His blood pressure is 116/81 and his pulse is 84. His respiration is 16 and oxygen saturation is 100%. General appearance: pleasant male, awake, alert, cooperative, in no distress. Skin: no rashes, or bruising noted. Resolved jaundice.. Small dry eschar on left suprascapular area without any s/s of infection or inflammation around it. Head: normocephalic, atraumatic. Eyes: no icterus. Mild pallor +.PERRLA Ears: hearing intact, no drainage. Nose: anterior nares normal, no bleeding. Oral cavity and T hroat: mucous membranes moist, no oral ulcers. Neck: no thyromegaly, no palpable cervical nodes, nosupraclavicular adenopathy Chest: no masses, or chest-wall tenderness. Respiratory: breath sounds heard, no rales, no rhonchi Cardiovascular: pulses equal, S1 and S2 heard, no S3, no S4, no rubs no murmurs. Abdomen: soft, non-tender, bowel sounds heard, no masses, no palpable organomegaly. Rectal: deferred Genito-urinary: deferred. Lymphatic: no palpable cervical, supraclavicular, axillary adenopathy noted. Extremities: no clubbing no edema. Musculo-skeletal: joints intact bilaterally, no obvious tenderness. Neurological: Alert, oriented in time, space and person; no obvious cranial nerve deficits noted. Normal speech and affect. No gross sensory or motor deficits noted. Gait and coordination intact. Laboratory data: Recent Labs Component Name 10/03/19 0355 10/02/19 0303 10/01/19 1451 10/01/19 0713 09/28/19 1218 WBC 23.4* 24.6* - 17.3* - 10.3 RBC 2.68* 2.72* - 2.29* - 3.86* HGB 8.3* 8.3* 8.8* 7.2* - 11.4* HCT 26.0* 25.7* 27.4* 21.8* - 34.4* MCV 97.0 94.5 - 95.2 - 89.1 MCHC 31.9 32.3 - 33.0 - 33.1 RDWCV 15.2* 13.4 - 12.8 - 12.0 PLTCOUNT 398 380 - 331 - 211 NEUTPCT - - - - - 76.2 LYMPHPCT - - - - - 9.0* BASOPHILPCT - - - - - 0.5 GRANSIMMPCT - - - - - 3.9 LYMPHABS - - - - - 0.93 BASOABS - - - - - 0.05 NRBCAUTO 1 1 - 0 - 0 - = values in this interval not displayed. Recent Labs Component Name 10/03/19 0355 10/02/19 0303 10/01/19 0713 SODIUM 139 137 137 POTASSIUM 4.1 3.6 4.4 CHLORIDE 105 103 102 CO2 25 26 27 BUN 12 11 13 CREATININE 0.83 0.80 0.90 GLUCOSE 107* 91 110* CALCIUM 8.3* 8.6 8.5 ALBUMIN 3.7 3.9 3.9 ALKPHOS 110 113 117 ALT 138* 171* 148* AST 35* 63* 69* TBIL 0.5 0.7 1.2 TPROT 6.8 7.3 7.2 EGFR >60 >60 >60 Recent Labs Component Name 10/03/19 0355 10/02/19 0303 10/01/19 0926 LDH 449* 580* 607* Recent Labs Component Name 09/30/19 0333 09/28/19 1218 HAPTOGLOBIN 10* 11* Recent Labs Component Name 09/30/19 0333 09/29/19 0356 09/28/19 1218 RETICPCT 4.74* 2.93 2.31 Imaging data: 09/28/19 - CT A/P w con -DIAGNOSIS: There is a mildly distended loop of distal small bowel. Otherwise CT abdomen pelvis is grossly normal. ?? Pathology data: Final Diagnosis Peripheral blood, flow cytometric immunophenotypic analysis: - No evidence of non-Hodgkin lymphoma or high-grade myeloid neoplasm. Assessment/ Plan: ?? 19-year-old male admitted with nausea, vomiting, insect bite left suprascapular region, possible spider bite.?Admission labs notable for folate deficiency, unconjugated hyperbilirubinemia, acute hemolytic anemia, Mariam positive with elevated LDH, low haptoglobin. ??Had been on Bactrim immediately prior to his hospital admission. ??No prior history of blood disorders or known G6PD deficiency,??or autoimmune disorders. ??No history of blood disorders or G6PD deficiency. ??The patient apparently had unconjugated hyperbilirubinemia and was treated with a short course of phototherapy i mmediately after . ??No prior history of viral hepatitis. ??Denied any trauma, falls, muscle aches or fevers. ?? Clinical picture suggestive of a brown recluse spider bite with acute hemolytic anemia and systemicsymptoms of loxoscelism, nausea and vomiting . ??Remains afebrile. Clinically improving, improved nausea, improving appetite. ??Hemoglobin/hematocrit stable today. Received 1 unit PRBC transfusion on 10/01/2019, no transfusions since then.. Small healing non-tender scab left suprascapular area. Declining LDH, improving ALT/AST, bilirubin normal now. No scleral icterus, clear urine. Decreasingprocalcitonin level Normal CK and coags. No evidence of rhabdomyolysis or DIC. Right upper quadrantultrasound unremarkable. ??No muscle tenderness or palpable splenomegaly. ??No vascular purpura,??flank pain or tenderness. ??Normal renal function.. ??No evidence of organ failure.?Remains afebrile, looks nontoxic. ??Antibody screen negative.?Was on Bactrim immediately before his admission. ??Bactrim itself can cause a??Mariam positive hemolytic anemia although his symptoms started well before starting Bactrim and hence this is less likely the culprit agent, but more likely a confounding agent ?? Peripheral smear showed no evidence of the bite cells. ??Continue folate supplementation. ??Continue supportive management as per the primary team. ?? Anxious to go home today steroid taper. Leucocytosis left shift - leukemoid reaction with elevated inflammatory markers, procalcitonin, LDHand now on steroids. All due to SIRS from loxoscelism. On empiric ABX to cover secondary bacterial infections with Staphylococcus species . Cultures negative thus far. Remains afebrile. Can deescalate. On a prednisone taper 1 milligram/kg/day. GI prophylaxis . Optimize nutrition, increase mobility / ambulation. Hopefully home later today. Discussed with the primary team. Continue wound care as per the primary team. Minimize medications with the most essential ones only. Arrange follow-up with his PCP/TCC post discharge and with us in 1 week. He knows to call with any new questions or concerns. ? Maynor Payne MD, FACP Hematology and Medical Oncology [facility] ?? Please be advised that voice recognition software has been used on this chart and inadvertent errors may occur. These may not represent a true interpretation of the dictation given * Saji Paiz RN - 10/03/2019 5:56 AM CDT Resting in bed with eyes closed, resp e/u ,no pain voiced at this time. Able to make needs known. Iv site intact and patent. Dressing d/i, no needs at this time. clwr * Jeancarlos Owen RN - 10/02/2019 9:00 PM CDT Pt A&OX4. VSS. Pt complained of pain at IV site in Right forearm. Pt had some swelling. IV removed. Placed a 20g in Left forearm. Pt tolerated well. Pt in bed resting. Call light within reach. * Jeancarlos Owen RN - 10/02/2019 2:52 PM CDT Problem: Fall Risk Goal: Fall risk and fall related injury risk are minimized Outcome: Ongoing Problem: Fall Risk Goal: Fall risk and fall related injury risk are minimized Outcome: Ongoing * Samantha Javier, RD/LD - 10/02/2019 2:48 PM CDT Problem: Weight: Unintended weight loss Goal: Total intake will meet estimated nutrient needs Description: Estimated Needs: KCAL: 1990(30kcal/kg) Protein (g): 80(1.2g/kg) Outcome: Ongoing Note: Nutrition Goal Progress: Progressing toward goal;Continue with current goal CLINICAL NUTRITION REASSESSMENT Assessment: Patient seen for follow up 2/2 LOS. Continues on a Regular Diet, eating very little per EHR documentation - not many meals documented. Receiving chocolate Ensure HP TID, likes these and is drinking some of them, relates that TID is too many. Will alter to BID. States his appetite is fine, but says, They told me I can't eat today because I am going for a test. However, patient is still on a diet. Encouraged intake at meals. Will continue to monitor. On protonix for GI issues. Receiving folic acid supplementation. Receiving prednisone; Prednisone is a steroid that may cause elevated BG levels, may see high BG levels throughout steroid window. Bowels moving. H/H low. No scaled weights for ass essment. Med/Surg History and Clinical Diagnoses: n/v, jaundice, hemolytic anemia, recent insect bite hx: asthma, marijuana Current diet order: Regular Current supplement order: Ensure HP BID Food Allergies: No known food allergies P.O intake for past 48 hrs: % Meal Taken Av % Min: 5 % Max: 5 % No data recorded Pain affecting intake: No Patient Vitals for the past 336 hrs: Weight 09/28/19 2200 146 lb 11.2 oz (66.5 kg) 09/28/19 1212 151 lb (68.5 kg) Weight/Weight change: no scaled weights LABS: Recent Labs Component Name 10/02/19 0303 10/01/19 0713 09/30/19 0333 SODIUM 137 137 132* POTASSIUM 3.6 4.4 4.9 CHLORIDE 103 102 100 CO2 26 27 22 BUN 11 13 14 CREATININE 0.80 0.90 0.71* GLUCOSE 91 110* 113* CALCIUM 8.6 8.5 9.4 ALT 171* 148* 150* ALKPHOS 113 117 125 AST 63* 69* 79* TBIL 0.7 1.2 6.8* TPROT 7.3 7.2 8.2 EGFR >60 >60 >60 EGFRAFR >60 >60 >60 Recent Labs Component Name 09/29/19 0356 PHOS 4.0 No results for input(s): HGBA1C in the last 06390 hours. No results for input(s): PREALBUMIN in the last 49235 hours. No data found. PERTINENT MEDICATIONS FOR CURRENT ENCOUNTER: SCHEDULED MEDICATIONS: cefTRIAXone (ROCEPHIN) 2,000 mg in 0.9% NaCl 50 mL IVPB, Intravenous, q24h enoxaparin (LOVENOX) injection 40 mg, Subcutaneous, QDAY folic acid (FOLVITE) tablet 1 mg, Oral, QDAY loratadine (CLARITIN) tablet 10 mg, Oral, QDAY pantoprazole EC (PROTONIX) tablet 40 mg, Oral, QDAY predniSONE (DELTASONE) tablet 60 mg, Oral, QDAY WITH BREAKFAST senna-docusate (SENOKOT-S) tablet 1 tablet, Oral, BID vancomycin (VANCOCIN) 1,000 mg in 0.9% NaCl 250 mL IVPB, Intravenous, q6h vancomycin (VANCOCIN) IV dose per pharmacy, Does not apply, DIRECTED CONTINUOUS MEDICATIONS: 0.9% NaCl flush bag, Intravenous, CONTINUOUS PRN Skin/Wound: scab L shoulder Last BM: 09/30 Nutrition Care Process (1) Nutrition Diagnostic Statement: Unintended weight loss related to:: inadequate energy intake as evidenced by:: weight loss Nutrition Diagnostic Statement Progress: Nutrition problem continues Nutrition Intervention: Meals and snacks:;Medical Food Supplements: Education needed: Supplements Education provided Pt educated 09/28. Education provided on the benefit of Oral Nutrition Supplements (ONS) to aid with meeting calorie and protein needs and maintaining weight when po intake is poor. Expected level of compliance: Fair Following pt at high nutritional risk. Nutrition recommendation: agree with current nutrition order Regular Diet Chocolate Ensure HP BID Encourage intake at meals Monitoring: PO intake Acceptance of oral nutrition supplement and intake Weights Labs GI function/bowel movements Skin Evaluation: Nutrition Goal: Total intake will meet estimated nutrient needs Nutrition Goal Timeframe: Ongoing Samantha Javier RD/RIN 10/02/2019 2:48 PM Ascom [id number] * Khushbu Oliver, DoniD - 10/02/2019 10:58 AM CDT Vancomycin Per Pharmacy (Day 3) 19 year old male receiving vancomycin - loaded with 1750 mg iv x 1 on 09/30/2019, now on 1000 mg IV q 8 hours, for the management of brown recluse spider bite, left suprascapular region. Other concurrent antibiotics: Rocephin 2 gm iv q 24 hours Vitals: Height: 5' 9 (175.3 cm) (09/28/190) Weight: 66.5 kg (146 lb 11.2 oz) (09/28/192199) Temp (24hrs) Max:98.3 ??F (36.8 ??C) Recent Labs Component Name 10/02/19 0303 10/01/19 0713 09/30/19 0333 BUN 11 13 14 CREATININE 0.80 0.90 0.71* WBC 24.6* 17.3* 18.9* Cultures: 09/30/19 - blood cultures x 2 - pending Recent Labs Component Name 10/02/19 0747 VANCTROUGH 9.3* A/P: Will change regimen to Vanco 1000 mg IV Q6h. Trough due at 0800 on 10/03. Pharmacy will continue to follow and adjust regimen as necessary. Khushbu Oliver PharmD 10/02/2019 10:58 AM * Zahra Almonte - 10/02/2019 8:40 AM CDT Internal Medicine Resident Progress Note Admission Date: 09/28/2019 Hospital Day: 4 Attending: Dr. Monson Resident/Assistant News Director: Dr. Gleason Code Status: Full Code Events since last progress note: - Afebrile and hemodynamically stable - Urine is yellow - Improved appetite - back to baseline - No nausea or vomiting, last time nauseous = 09/29 in evening - Sclera white - no evidence of jaundice, improved bilirubin (total bilirubin = 0.7) - Hgb 7.2 > 8.3 after PRBC transfusion yesterday - LDH and bilirubin improving - ALT still trending up, AST trending down -- U/S liver and check Procal - Patient states: ready to go home - Noted hard stools, start on [facility] course summary: 19 y/o Black male with PMH of asthma, marijuana use, and recent tattoos (1 month ago) Admitted with hemolytic anemia 2/2 suspected insect bite 7 days prior to admission. Associated symptoms of darkening urine, yellowing of eyes, itching, diarrhea that has resolved, and N/V that has worsened. Previously sought care at [facility] ED (09/25/2019) and Urgent Care (09/26/2019) for nausea and vomiting, for which he received Benadryl, cream, and Bactrim (has since taken 2 doses). Continued N/V led him to seek care at [place]. Presented with severe nausea and jaundice. Elevated unconjugated bili, low hapto, high LDH, elevated urobilinogen on UA. Administered IVF LR 75 cc/hr, Zofran and Reglan PRN for N/V, and folic acid for hemolytic anemia. Monitor CBC, LDH, ferritin. Negative hepatitis panel. Pending G6PD. Oncology following. Remains inpatient to assess for Hb stability. In setting of new leukocytosis, sepsis workup was sent and started on IV broad spectrum Abx. Review of Systems Constitutional: Negative for chills, diaphoresis, fever, malaise/fatigue and weight loss. HENT: Negative. Respiratory: Negative. Cardiovascular: Negative. Gastrointestinal: Negative for abdominal pain, blood in stool, constipation, diarrhea, heartburn, melena, nausea and vomiting. Skin: Negative for itching and rash. OBJECTIVE Unable to calculate weight change. Intake/Output Summary (Last 24 hours) at 10/02/2019 1136 Last data filed at 10/01/2019 1744 Gross per 24 hour Intake 470 ml Output -- Net 470 ml Temp (24hrs), Av.1 ??F (36.7 ??C), Min:97.7 ??F (36.5 ??C), Max:98.3 ??F (36.8 ??C) Patient Vitals for the past 24 hrs: Temp Pulse Resp BP 10/02/19 1005 98.2 ??F (36.8 ??C) 80 18 136/84 10/02/19 0037 98.2 ??F (36.8 ??C) 76 16 122/66 10/01/19 2150 -- -- 16 -- 10/01/19 1622 97.7 ??F (36.5 ??C) 79 16 126/68 10/01/19 1355 98.3 ??F (36.8 ??C) 81 20 125/69 Physical Exam Vitals signs and nursing note reviewed. Constitutional: General: He is not in acute distress. Appearance: Normal appearance. He is normal weight. He is not ill-appearing, toxic-appearing or diaphoretic. HENT: Head: Normocephalic and atraumatic. Mouth/Throat: Mouth: Mucous membranes are moist. Eyes: General: No scleral icterus. Extraocular Movements: Extraocular movements intact. Pupils: Pupils are equal, round, and reactive to light. Neck: Musculoskeletal: Normal range of motion and neck supple. Cardiovascular: Rate and Rhythm: Normal rate and regular rhythm. Pulses: Normal pulses. Heart sounds: Normal heart sounds. Pulmonary: Effort: Pulmonary effort is normal. No respiratory distress. Breath sounds: Normal breath sounds. No stridor. No wheezing, rhonchi or rales. Chest: Chest wall: No tenderness. Abdominal: General: Abdomen is flat. There is no distension. Palpations: Abdomen is soft. There is no mass. Skin: General: Skin is warm. Capillary Refill: Capillary refill takes less than 2 seconds. Coloration: Skin is not jaundiced or pale. Findings: No bruising, erythema, lesion or rash. Comments: 1x1 cm bite noted on left shoulder, new tattoo (1 month) on LLE, anterior, 2 old tattoos (from 03/2019 and 04/2019) on LUE Neurological: General: No focal deficit present. Mental Status: He is alert and oriented to person, place, and time. Mental status is at baseline. Psychiatric: Mood and Affect: Mood normal. Behavior: Behavior normal. Thought Content: Thought content normal. Judgment: Judgment normal. MAR reviewed: yes Antimicrobial day: Rocephin/Vancomycin D3 Labs: I have reviewed results from the last 24 hours and are remarkable for the following: Recent Labs Component Name 10/02/19 0303 10/01/19 0713 09/30/19 0333 SODIUM 137 137 132* POTASSIUM 3.6 4.4 4.9 CHLORIDE 103 102 100 CO2 26 27 22 BUN 11 13 14 CREATININE 0.80 0.90 0.71* GLUCOSE 91 110* 113* CALCIUM 8.6 8.5 9.4 ALT 171* 148* 150* ALKPHOS 113 117 125 AST 63* 69* 79* TBIL 0.7 1.2 6.8* TPROT 7.3 7.2 8.2 EGFR >60 >60 >60 EGFRAFR >60 >60 >60 ALBUMIN 3.9 3.9 4.4 Recent Labs Component Name 10/02/19 0303 10/01/19 1451 10/01/19 0713 09/30/19 0333 09/28/19 1218 WBC 24.6* - 17.3* 18.9* - 10.3 RBC 2.72* - 2.29* 2.63* - 3.86* HGB 8.3* 8.8* 7.2* 8.5* - 11.4* HCT 25.7* 27.4* 21.8* 25.4* - 34.4* MCV 94.5 - 95.2 96.6 - 89.1 MCHC 32.3 - 33.0 33.5 - 33.1 PLTCOUNT 380 - 331 279 - 211 NEUTPCT - - - - - 76.2 LYMPHPCT - - - - - 9.0* BASOPHILPCT - - - - - 0.5 GRANSIMMPCT - - - - - 3.9 NEUTABS - - - - - 7.83 LYMPHABS - - - - - 0.93 BASOABS - - - - - 0.05 - = values in this interval not displayed. Recent Labs Component Name 10/02/19 03010/01/19 0926 09/30/19 0333 LDH 580* 607* 910* Recent Labs Component Name 09/29/19 0356 09/28/19 1218 DBIL 1.25* 1.63* Recent Labs Component Name 10/02/19 0927 09/30/19 0727 PROCALCITON 0.32* 1.44* Recent Labs Component Name 09/28/19 1905 FOLATE 5.8* Hepatitis panel - non reactive Micro: NONE Imaging: I have reviewed imaging studies from the last 24 hours and is summarized below: U/S Abdomen -- pending Assessment/Clinical Reasoning/Plan Unconjugated acute hemolytic anemia History of insect bite 7 days prior to admission UDS cannabis; non reactive hepatitis panel + Hemolytic labs (LDH, reticulocytes, transaminitis, haptoglobin, urinalysis) Unconjugated hyperbilirubinemia improving, total bilirubin 0.7 Monitor blood cultures for stepping down Abx Hgb 7.2 > 8.3 after PRBC transfusion Previous concern for G6PD deficiency in setting of hemolysis after Bactrim, but considering darkened urine prior to administration of bactrim, less likely ALT and WBC trending up, check Procal and U/S Abdomen, likely secondary to steroid administration and hemolytic process after insect bite Procal 0.32 (down from 1.44 on 09/30/2019) - Supportive management - Continue Rocephin/Vancomycin - Cont Prednisone 60 mg Po Qd - Continue Protonix 40 mg Po Qd - Continue Claritin 10 mg Po Qd - Continue Zofran 4 mg IV PRN - Continue folate 1 mg qd - Review U/S results and monitor transaminases - Oncology following New onset leukocytosis: DDx infectious vs reactive No obvious source noted Elevated CRP, ESR, and Procalcitonin CXR negative for infiltrate - Started on broad spectrum IV vancomycin and rocephin - Blood cultures showed no growth and Procal trending down, d/c antibiotics tomorrow after repeat Procalcitonin tomorrow Polysubstance abuse Cannabis - counseled Dispo: home tomorrow, needs work excuse letter on discharge, follow up with Dr. Payne after discharge D/w IM Attending Discussed with RN Discussed with Family Discussed with Oncology Resident Zahra Maier Middle Name Gage Due to medical issues in the assessment and plan, continued hospitalization will be required. * Maynor Payne MD - 10/02/2019 8:30 AM CDT Hematology/ Oncology progress note Patient's name:Leo Shah Date of : 2000 Date of admission: 09/28/2019 Date of visit:10/02/2019 Patient's Primary Care Physician: Jesse Biggs MD Physician requesting consultation: Rashid Monson MD CC: hemolytic anemia, spider bite Overnight events reviewed. Feels much better this morning. Anxious to go home. Appetite improved, nausea resolved. Left supra scapular bite lesion scabbed over, nontender. Total bilirubin normalized.AST slightly better, ALT somewhat higher. Hemoglobin slightly lower today at 8.3, status post 1 unit PRBC yesterday. Remains on oral prednisone Review of Systems: as per HPI/ interval history General ROS: no fever no night sweats Psychological ROS: anxiety +, no depression Ophthalmic ROS: no decreased vision no eye pain ENMT ROS: no ear pain, no drainage, no nosebleed, no oral ulcers no sore throat Allergy and Immunology ROS: no nasal congestion, no hives Hematological and Lymphatic ROS: no bruising, no bleeding Endocrine ROS: negative Breast ROS: no breast lump Respiratory ROS: no cough, no shortness of breath, no chest pain Cardiovascular ROS: no chest pain no dyspnea on exertion Gastrointestinal ROS: no abdominal pain, no black/ bloody stools. No diarrhea. nausea and vomiting ++. Genito- Urinary ROS: no dysuria, no hematuria Musculoskeletal ROS: no joint pains, no falls. Neurological ROS: no TIA or stroke symptoms. No seizures. Dermatological ROS: no lumps no pruritus no bleeding. Medications: Current Facility-Administered Medications Medication Dose Route Frequency Provider Last Rate Last Dose ??? 0.9% NaCl flush bag 250 mL Intravenous CONTINUOUS PRN Rashid Monson MD 20 mL/hr at 10/02/19 1000 250 mL at 10/02/19 1000 ??? 0.9% NaCl infusion rate and volume 250 mL Intravenous Once PRN Abel Merida MD ??? albuterol HFA (PROVENTIL;VENTOLIN;PROAIR) 108 (90 Base) MCG/ACT inhaler 2 puff 2 puff Inhalation q6h PRN Samantha Thomas MD ??? cefTRIAXone (ROCEPHIN) 2,000 mg in 0.9% NaCl 50 mL IVPB 2 g Intravenous q24h Abel Merida MD 100 mL/hr at 10/02/19 1529 2,000 mg at 10/02/19 1529 ??? enoxaparin (LOVENOX) injection 40 mg 40 mg Subcutaneous QDAY Marisabel Baker MD 40 mg at 10/01/19 1714 ??? folic acid (FOLVITE) tablet 1 mg 1 mg Oral QDAY Abel Merida MD 1 mg at 10/02/19 0956 ??? loratadine (CLARITIN) tablet 10 mg 10 mg Oral QDAY Samantha Thomas MD 10 mg at 10/02/19 0956 ??? ondansetron (ZOFRAN) injection 4 mg 4 mg Intravenous q4h PRN Abel Merida MD ??? pantoprazole EC (PROTONIX) tablet 40 mg 40 mg Oral QDAY Abel Merida MD 40 mg at 10/02/19 0956 ??? predniSONE (DELTASONE) tablet 60 mg 60 mg Oral QDAY WITH BREAKFAST Abel Merida MD 60 mg at 10/02/19 0956 ??? senna-docusate (SENOKOT-S) tablet 1 tablet 1 tablet Oral BID Rashid Monson MD 1 tablet at 10/02/19 0956 ??? vancomycin (VANCOCIN) 1,000 mg in 0.9% NaCl 250 mL IVPB 1,000 mg Intravenous q6h Rashid Monson MD Stopped at 10/02/19 1145 ??? vancomycin (VANCOCIN) IV dose per pharmacy Does not apply DIRECTED Abel Merida MD Medications in [facility] reviewed. Physical examination: height is 5' 9 and weight is 146 lb 11.2 oz. His oral temperature is 98.2 ??F (36.8 ??C). His blood pressure is 136/84 and his pulse is 80. His respiration is 18 and oxygen saturation is 100%. General appearance: pleasant male, awake, alert, cooperative, in no distress. Skin: no rashes, or bruising noted. Resolved jaundice.. Small dry eschar on left suprascapular area without any s/s of infection or inflammation around it. Head: normocephalic, atraumatic. Eyes: no icterus. Mild pallor +.PERRLA Ears: hearing intact, no drainage. Nose: anterior nares normal, no bleeding. Oral cavity and T hroat: mucous membranes moist, no oral ulcers. Neck: no thyromegaly, no palpable cervical nodes, nosupraclavicular adenopathy Chest: no masses, or chest-wall tenderness. Respiratory: breath sounds heard, no rales, no rhonchi Cardiovascular: pulses equal, S1 and S2 heard, no S3, no S4, no rubs no murmurs. Abdomen: soft, non-tender, bowel sounds heard, no masses, no palpable organomegaly. Rectal: deferred Genito-urinary: deferred. Lymphatic: no palpable cervical, supraclavicular, axillary adenopathy noted. Extremities: no clubbing no edema. Musculo-skeletal: joints intact bilaterally, no obvious tenderness. Neurological: Alert, oriented in time, space and person; no obvious cranial nerve deficits noted. Normal speech and affect. No gross sensory or motor deficits noted. Gait and coordination intact. Laboratory data: Recent Labs Component Name 10/02/19 0303 10/01/19 1451 10/01/19 0713 09/30/19 0333 09/28/19 1218 WBC 24.6* - 17.3* 18.9* - 10.3 RBC 2.72* - 2.29* 2.63* - 3.86* HGB 8.3* 8.8* 7.2* 8.5* - 11.4* HCT 25.7* 27.4* 21.8* 25.4* - 34.4* MCV 94.5 - 95.2 96.6 - 89.1 MCHC 32.3 - 33.0 33.5 - 33.1 RDWCV 13.4 - 12.8 12.0 - 12.0 PLTCOUNT 380 - 331 279 - 211 NEUTPCT - - - - - 76.2 LYMPHPCT - - - - - 9.0* BASOPHILPCT - - - - - 0.5 GRANSIMMPCT - - - - - 3.9 LYMPHABS - - - - - 0.93 BASOABS - - - - - 0.05 NRBCAUTO 1 - 0 0 - 0 - = values in this interval not displayed. Recent Labs Component Name 10/02/19 0303 10/01/19 0713 09/30/19 0333 SODIUM 137 137 132* POTASSIUM 3.6 4.4 4.9 CHLORIDE 103 102 100 CO2 26 27 22 BUN 11 13 14 CREATININE 0.80 0.90 0.71* GLUCOSE 91 110* 113* CALCIUM 8.6 8.5 9.4 ALBUMIN 3.9 3.9 4.4 ALKPHOS 113 117 125 ALT 171* 148* 150* AST 63* 69* 79* TBIL 0.7 1.2 6.8* TPROT 7.3 7.2 8.2 EGFR >60 >60 >60 Recent Labs Component Name 10/02/19 0303 10/01/19 0926 09/30/19 0333 LDH 580* 607* 910* Recent Labs Component Name 09/30/19 0333 09/28/19 1218 HAPTOGLOBIN 10* 11* Recent Labs Component Name 09/30/19 0333 09/29/19 0356 09/28/19 1218 RETICPCT 4.74* 2.93 2.31 Imaging data: 09/28/19 - CT A/P w con -DIAGNOSIS: There is a mildly distended loop of distal small bowel. Otherwise CT abdomen pelvis is grossly normal. ?? Pathology data: Final Diagnosis Peripheral blood, flow cytometric immunophenotypic analysis: - No evidence of non-Hodgkin lymphoma or high-grade myeloid neoplasm. Assessment/ Plan: ?? 19-year-old male admitted with nausea, vomiting, insect bite left suprascapular region, possible spider bite.?Admission labs notable for folate deficiency, unconjugated hyperbilirubinemia, acute hemolytic anemia, Mariam positive with elevated LDH, low haptoglobin. ??Had been on Bactrim immediately prior to his hospital admission. ??No prior history of blood disorders or known G6PD deficiency,??or autoimmune disorders. ??No history of blood disorders or G6PD deficiency. ??The patient apparently had unconjugated hyperbilirubinemia and was treated with a short course of phototherapy i mmediately after . ??No prior history of viral hepatitis. ??Denied any trauma, falls, muscle aches or fevers. ?? Clinical picture suggestive of a brown recluse spider bite with acute hemolytic anemia and systemicsymptoms of loxoscelism, nausea and vomiting . ??Remains afebrile. Clinically improving, improved nausea, improving appetite. ??Hemoglobin/hematocrit better today. Received 1 unit PRBC transfusion yes terday. Small healing non-tender scab left suprascapular area. Declining LDH, stable ALT/AST, bilirubin normal now. No scleral icterus, clear urine. Decreasing procalcitonin level Normal CK and coags. No evidence of rhabdomyolysis or DIC. ??No muscle tenderness or palpable splenomegaly. ??No vascular purpura,??flank pain or tenderness. ??Normal renal function.. ??No evidence of organ failure.?Remains afebrile, looks nontoxic. ??Antibody screen negative.?Was on Bactrim immediately before his admission. ??Bactrim itself can cause a??Mariam positive hemolytic anemia although his symptoms started well before starting Bactrim and hence this is less likely the culprit agent, but more likely a confounding agent ?? Peripheral smear showed no evidence of the bite cells. ??Continue folate supplementation. ??Monitordaily counts, hepatic panel. ??Continue supportive management as per the primary team. ?? Leucocytosis left shift - leukemoid reaction with elevated inflammatory markers, procalcitonin, LDHand now on steroids. All due to SIRS from loxoscelism. On empiric ABX to cover secondary bacterial infections with Staphylococcus species until c/s data back. Can deescalate. On a prednisone taper 1 milligram/kg/day. GI prophylaxis . Optimize nutrition, increase mobility / ambulation. Hopefully home soon if stable. Discussed with the primary team as well as the patient's mother over the phone today. Continue wound care as per the primary team. Minimize medications with the most essential ones only. ? Maynor Payne MD, FACP Hematology and Medical Oncology [facility] ?? Please be advised that voice recognition software has been used on this chart and inadvertent errors may occur. These may not represent a true interpretation of the dictation given * Nissa Gleason MD - 10/02/2019 6:25 AM CDT Internal Medicine Resident Progress Note Admission Date: 09/28/2019 Hospital Day: 4 Attending: Dr. Monson Resident: Dr. Gleason Code Status: Full Code Events since last progress note: No major events overnight. Psychiatry consult placed. Going to check liver ultrasound today per Heme-Onc recommendations. Hemodynamically stable. No new complaints for today Hospital course summary: 19 yo M with PMH of ASTHMA, marijuana use. Admitted with hemolytic anemia 2/2 suspected insect bitesustained 7 days prior to admission. Reported worsening symptoms of nausea ,vomiting, itching and dark urine. Went to [facility] and Urgent care 3 days prior. Received benadryl and bactrim with limited improvement. Presented to hospital with severe nausea and jaundice. ?? Oncology following. Elevated unconjugated bili, low hapto and high LDH. NEG for hepatitis. Steroidsstarted. Sepsis workup sent as patient was having new onset of leukocytosis. Antibiotics started. Review of Systems Constitutional: Negative for chills and fever. Respiratory: Negative for cough, shortness of breath and wheezing. Cardiovascular: Negative for chest pain. Genitourinary: Negative for dysuria. Musculoskeletal: Negative for myalgias. Neurological: Negative for dizziness. OBJECTIVE Unable to calculate weight change. Intake/Output Summary (Last 24 hours) at 10/02/2019 0625 Last data filed at 10/01/2019 1744 Gross per 24 hour Intake 470 ml Output -- Net 470 ml Temp (24hrs), Av ??F (36.7 ??C), Min:97.5 ??F (36.4 ??C), Max:98.3 ??F (36.8 ??C) Patient Vitals for the past 24 hrs: Temp Pulse Resp BP 10/02/19 0037 98.2 ??F (36.8 ??C) 76 16 122/66 10/01/19 2150 -- -- 16 -- 10/01/19 1622 97.7 ??F (36.5 ??C) 79 16 126/68 10/01/19 1355 98.3 ??F (36.8 ??C) 81 20 125/69 10/01/19 1125 98 ??F (36.7 ??C) 80 18 111/74 10/01/19 1051 98.1 ??F (36.7 ??C) 72 18 115/57 10/01/19 0821 97.5 ??F (36.4 ??C) 85 18 110/62 Physical Exam Vitals signs and nursing note reviewed. Constitutional: General: He is not in acute distress. Appearance: He is not toxic-appearing. Cardiovascular: Rate and Rhythm: Normal rate and regular rhythm. Pulmonary: Effort: No respiratory distress. Breath sounds: No stridor. No wheezing or rhonchi. Musculoskeletal: Right lower leg: No edema. Left lower leg: No edema. Skin: Comments: 1 x 1 cm central, brown, dry necrotic area surrounded by pale and then a layer of erythema ?? MAR reviewed: yes Antimicrobial day: na Labs: I have reviewed results from the last 24 hours and are remarkable for the following: Recent Labs Component Name 10/02/19 0303 10/01/19 1451 10/01/19 0713 09/30/19 0333 09/28/19 1218 WBC 24.6* - 17.3* 18.9* - 10.3 RBC 2.72* - 2.29* 2.63* - 3.86* HGB 8.3* 8.8* 7.2* 8.5* - 11.4* HCT 25.7* 27.4* 21.8* 25.4* - 34.4* MCV 94.5 - 95.2 96.6 - 89.1 MCHC 32.3 - 33.0 33.5 - 33.1 PLTCOUNT 380 - 331 279 - 211 NEUTPCT - - - - - 76.2 LYMPHPCT - - - - - 9.0* BASOPHILPCT - - - - - 0.5 GRANSIMMPCT - - - - - 3.9 NEUTABS - - - - - 7.83 LYMPHABS - - - - - 0.93 BASOABS - - - - - 0.05 - = values in this interval not displayed. Recent Labs Component Name 10/02/19 0303 10/01/19 0713 09/30/19 0333 SODIUM 137 137 132* POTASSIUM 3.6 4.4 4.9 CHLORIDE 103 102 100 CO2 26 27 22 BUN 11 13 14 CREATININE 0.80 0.90 0.71* GLUCOSE 91 110* 113* CALCIUM 8.6 8.5 9.4 ALT 171* 148* 150* ALKPHOS 113 117 125 AST 63* 69* 79* TBIL 0.7 1.2 6.8* TPROT 7.3 7.2 8.2 EGFR >60 >60 >60 EGFRAFR >60 >60 >60 ALBUMIN 3.9 3.9 4.4 Micro: no new growth Imaging: I have reviewed imaging studies from the last 24 hours and is summarized below: No new images Liver, spleen ultrasound planning for today Assessment/Clinical Reasoning/Plan Hemolytic anemia likely secondary to combination of 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 leucocytosis: -Infectious vs reactive. Now persistent due to steroids. -No obvious source noted -Elevated CRP, ESR and pro calcitonin, will repeat today -CXR negative for infiltrate -started on broad-spectrum IV vancomycin and IV ceftriaxone -Blood cultures showed no growth in 24 hours, will discontinue antibiotics after repeat procalcitonin level ?? Polysubstance abuse cannabis -counseled ?? Dispo: Home likely tomorrow, needs work excuse letter on discharge ?? D/w IM Attending Dr. Denita MD Due to medical issues in the assessment and plan, continued hospitalization will be required. Associated attestation - Rashid Monson MD - 10/04/2019 2:40 PM CDT Patient seen and examined independent of the resident during the time of visit. Agree with the assessment and plan as outlined in the resident note. I have been involved directly in the participation of the patient's care today Rashid Monson MD * Saji Paiz RN - 10/02/2019 5:50 AM CDT Resting in bed with eyes closed, resp e/u, no sob noted at this time. Able to make needs known., ivsite intact and patent. Dressing d/i ,no needs at this time., clwr * Saji Paiz RN - 10/01/2019 10:46 PM CDT Problem: Fall Risk Goal: Fall risk and fall related injury risk are minimized Outcome: Ongoing Problem: Weight: Unintended weight loss Goal: Total intake will meet estimated nutrient needs Description: Estimated Needs: KCAL: 1990(30kcal/kg) Protein (g): 80(1.2g/kg) Outcome: Ongoing * Jeancarlos Owen RN - 10/01/2019 8:43 PM CDT Problem: Fall Risk Goal: Fall risk and fall related injury risk are minimized Outcome: Ongoing * Jeancarlos Owen RN - 10/01/2019 8:10 PM CDT Pt A&Ox4. Dr. Monson aware of lab results Hgb/Hct. No new orders at this time. 1 unit of blood was transfused. Pt tolerated well. Pt in bed resting will continue to monitor. * Maynor Payne MD - 10/01/2019 4:19 PM CDT Hematology/ Oncology progress note Patient's name:Leo Shah Date of : 2000 Date of admission: 09/28/2019 Date of visit:10/01/2019 Patient's Primary Care Physician: Jesse Biggs MD Physician requesting consultation: Rashid Monson MD C/c: hemolytic anemia, spider bite Interval history: -patient has been hemodynamically stable. No fever. Patient has been tolerating diet. -patient's hemoglobin dropped to 7.2 and was transfused 1 unit of packed red blood cells. Patient'shemolytic panel have been improving with decreasing LDH, normal bilirubin. Review of Systems: as per HPI/ interval history General ROS: no fever no night sweats Psychological ROS: anxiety +, no depression Ophthalmic ROS: no decreased vision no eye pain ENMT ROS: no ear pain, no drainage, no nosebleed, no oral ulcers no sore throat Allergy and Immunology ROS: no nasal congestion, no hives Hematological and Lymphatic ROS: no bruising, no bleeding Endocrine ROS: negative Breast ROS: no breast lump Respiratory ROS: no cough, no shortness of breath, no chest pain Cardiovascular ROS: no chest pain no dyspnea on exertion Gastrointestinal ROS: no abdominal pain, no black/ bloody stools. No diarrhea. nausea and vomiting ++. Genito- Urinary ROS: no dysuria, no hematuria Musculoskeletal ROS: no joint pains, no falls. Neurological ROS: no TIA or stroke symptoms. No seizures. Dermatological ROS: no lumps no pruritus no bleeding. Past Medical History: Diagnosis Date ??? Allergies To mold ??? Mild intermittent asthma Medications: Current Facility-Administered Medications Medication Dose Route Frequency Provider Last Rate Last Dose ??? 0.9% NaCl flush bag 250 mL Intravenous CONTINUOUS PRN Rashid Monson MD 20 mL/hr at 09/30/19 183 250 mL at 09/30/19 1832 ??? 0.9% NaCl infusion rate and volume 250 mL Intravenous Once PRN Abel Merida MD ??? albuterol HFA (PROVENTIL;VENTOLIN;PROAIR) 108 (90 Base) MCG/ACT inhaler 2 puff 2 puff Inhalation q6h PRN Samantha Thomas MD ??? cefTRIAXone (ROCEPHIN) 2,000 mg in 0.9% NaCl 50 mL IVPB 2 g Intravenous q24h Abel Merida MD 100 mL/hr at 10/01/19 1415 2,000 mg at 10/01/19 1415 ??? enoxaparin (LOVENOX) injection 40 mg 40 mg Subcutaneous QDAY Marisabel Baker MD 40 mg at 09/30/19 1834 ??? folic acid (FOLVITE) tablet 1 mg 1 mg Oral QDAY Abel Merida MD 1 mg at 10/01/19 1044 ??? loratadine (CLARITIN) tablet 10 mg 10 mg Oral QDAY Samantha Thomas MD 10 mg at 10/01/19 1044 ??? ondansetron (ZOFRAN) injection 4 mg 4 mg Intravenous q4h PRN Abel Merida MD ??? pantoprazole EC (PROTONIX) tablet 40 mg 40 mg Oral QDAY Abel Merida MD 40 mg at 10/01/19 1044 ??? predniSONE (DELTASONE) tablet 60 mg 60 mg Oral QDAY WITH BREAKFAST Abel Merida MD 60 mg at 10/01/19 1044 ??? vancomycin (VANCOCIN) 1,000 mg in 0.9% NaCl 250 mL IVPB 1,000 mg Intravenous q8h Rashid Monson MD Stopped at 10/01/19 0419 ??? vancomycin (VANCOCIN) IV dose per pharmacy Does not apply DIRECTED Abel Merida MD Medications in MAR reviewed. Physical examination: height is 5' 9 and weight is 146 lb 11.2 oz. His oral temperature is 97.7 ??F (36.5 ??C). His blood pressure is 126/68 and his pulse is 79. His respiration is 16 and oxygen saturation is 100%. General appearance: pleasant male, awake, alert, cooperative, in no distress. Skin: no rashes, or bruising noted. no yellowish discoloration fo skin . Small dry eschar on left suprascapular area without any s/s of infection or inflammation around it. Head: normocephalic, atraumatic. Eyes: no icterus. Mild pallor +.PERRLA Ears: hearing intact, no drainage. Nose: anterior nares normal, no bleeding.Oral cavity and Throat: mucous membranes moist, no oral ulcers. Neck: no thyromegaly, no palpable cervical nodes, no supraclavicular adenopathy Chest: no masses, or chest-wall tenderness. Respiratory: breath sounds heard, no rales, no rhonchi Cardiovascular: pulses equal, S1 and S2 heard, no S3, noS4, no rubs no murmurs. Abdomen: soft, non-tender, bowel sounds heard, no masses, no palpable organomegaly. Rectal: deferred Genito-urinary: deferred. Lymphatic: no palpable cervical, supraclavicular, axillary adenopathy noted. Extremities: no clubbing no edema. Musculo-skeletal: joints intact bilaterally, no obvious tenderness. Neurological: Alert, oriented in time, space and person; no obvious cranial nerve deficits noted. Normal speech and affect. No gross sensory or motor deficits noted. Gait and coordination intact. Laboratory data: Recent Labs Component Name 10/01/19 1451 10/01/19 0713 09/30/19 0333 09/29/19 0739 09/29/19 0356 09/28/19 1218 WBC - 17.3* 18.9* - 11.5* - 10.3 RBC - 2.29* 2.63* 2.93* 3.19* - 3.86* HGB 8.8* 7.2* 8.5* - 9.8* - 11.4* HCT 27.4* 21.8* 25.4* - 29.3* - 34.4* MCV - 95.2 96.6 - 91.8 - 89.1 MCHC - 33.0 33.5 - 33.4 - 33.1 RDWCV - 12.8 12.0 - 11.9 - 12.0 PLTCOUNT - 331 279 - 227 - 211 NEUTPCT - - - - - - 76.2 LYMPHPCT - - - - - - 9.0* BASOPHILPCT - - - - - - 0.5 GRANSIMMPCT - - - - - - 3.9 LYMPHABS - - - - - - 0.93 BASOABS - - - - - - 0.05 NRBCAUTO - 0 0 - 0 - 0 - = values in this interval not displayed. Recent Labs Component Name 10/01/19 0713 09/30/193 09/29/19 0356 SODIUM 137 132* 134* POTASSIUM 4.4 4.9 4.1 CHLORIDE 102 100 103 CO2 27 22 21 BUN 13 14 14 CREATININE 0.90 0.71* 0.74 GLUCOSE 110* 113* 112* CALCIUM 8.5 9.4 9.1 ALBUMIN 3.9 4.4 4.1 ALKPHOS 117 125 130 ALT 148* 150* 125* AST 69* 79* 68* TBIL 1.2 6.8* 10.5* TPROT 7.2 8.2 7.8 EGFR >60 >60 >60 Recent Labs Component Name 10/01/19 0926 09/30/193 09/29/19 0356 LDH 607* 910* 770* Recent Labs Component Name 09/30/19 0333 09/28/19 1218 HAPTOGLOBIN 10* 11* Imaging data: No new imaging. Pathology data: Final Diagnosis Peripheral blood, flow cytometric immunophenotypic analysis: - No evidence of non-Hodgkin lymphoma or high-grade myeloid neoplasm. Assessment: In summary, Leo Shah is a pleasant 19 year old male with hx of mild asthma, who presented withnausea vomiting and jaundice following insect bite, ??and was found to have hemolytic anemia on subsequent workup. # Mariam positive hemolytic anemia, acute onset, in the setting of insect bite (suspected spider bite), s/p transfusion of 1 unit of PRBC on 10/01/2019. - resolved hyperbilirubinemia and stable/slightly improving transaminitis, LDH -most of the the workup has been negative, including infectious workup. Noted that blood culture isnegative -though there is hx of use of bactrim, however, given the temporal relation of onset of symptoms with insect bite, the insect bite looks like the most likely culprit Plan: -monitor hemogram, liver function panel daily -transfuse as needed. Transfusion goal of packed red blood cell of 7 g percent, platelet of 50 if bleeding and 10 if not bleeding -continue daily folic acid supplementation -could potentially deescalate IV antibiotic as infectious workup has been negative. -continue oral prednisone for now, is a dose of 1 milligram/kilogram per day. Further duration of oral prednisone to be decided based on clinical improvement, hemodynamics stability, resolving biochemical parameters. -continue to monitor for potential hemodynamic decompensation decompensation -avoid hepatotoxic medications -medical management of pruritus Would recommend monitoring the patient for further 24-48 hours for clinical, hemodynamic, biochemical improvement and stability before considering discharge. D/w Dr Elmer López MD 10/01/2019 4:35 PM Please be advised that voice recognition software has been used on this chart and inadvertent errors may occur. These may not represent a true interpretation of the dictation given. Attending note:? 19-year-old male admitted with nausea, vomiting, insect bite left suprascapular region, possible spider bite.?Admission labs notable for folate deficiency, unconjugated hyperbilirubinemia, acute hemolytic anemia, Mariam positive with elevated LDH, low haptoglobin. ??Had been on Bactrim immediately prior to his hospital admission. ??No prior history of blood disorders or known G6PD deficiency,??or autoimmune disorders. ??No history of blood disorders or G6PD deficiency. ??The patient apparently had unconjugated hyperbilirubinemia and was treated with a short course of phototherapy i mmediately after . ??No prior history of viral hepatitis. ??Denied any trauma, falls, muscle aches or fevers. ?? Clinical picture suggestive of a brown recluse spider bite with acute hemolytic anemia and systemicsymptoms of loxoscelism, nausea and vomiting . ??Remains afebrile. Clinically improving, improving nausea, still poor appetite. ??Hemoglobin/hematocrit lower today s/p 1 unit PRBC transfusion. Small healing non-tender scab left suprascapular area. Declining LDH, stable ALT/AST, bilirubin normal now. No scleral icterus, clear urine. . Normal CK and coags. No evidence of rhabdomyolysis or DIC. ??No muscle tenderness or palpable splenomegaly. ??No vascular purpura,??flank pain or tenderness. ??Normal renal function.. ??No evidence of organ failure.?Remains afebrile, looks nontoxic. ??Antibody screen negative.?Was on Bactrim immediately before his admission. ??Bactrim itself can cause a??Mariam positive hemolytic anemia although his symptoms started well before starting Bactrim and hence this is less likely the culprit agent, but more likely a confounding agent ?? Peripheral smear showed no evidence of the bite cells. ??Continue folate supplementation. ??Monitordaily counts, hepatic panel. ??Continue supportive management as per the primary team. ?? Leucocytosis left shift - leukemoid reaction with elevated inflammatory markers, procalcitonin, LDH. All due to SIRS from loxoscelism. On empiric ABX to cover secondary bacterial infections with Staphylococcus species until c/s data back. On a prednisone taper 1 milligram/kg/day. GI prophylaxis . Optimized nutrition, increase mobility / ambulation. Discussed with the primary team as well as the patient's father over the phone today. Continue wound care as per the primary team. Minimize medications with the most essential ones only. ? Patient seen and examined by me independently and together with .??Maribel??and discussed with him . I agree with the evaluation and plan with my annotations in blue ink. Care plan discussed with Dr. López?. I have participated directly in the care of this patient and was physically present in the room with the patient and Dr. López??through all aspects of the history and exam. ?? Maynor Payne MD, FACP Hematology and Medical Oncology [facility] ?? Please be advised that voice recognition software has been used on this chart and inadvertent errors may occur. These may not represent a true interpretation of the dictation given * Abel Merida MD - 10/01/2019 10:59 AM CDT Internal Medicine Resident Progress Note Admission Date: 09/28/2019 Hospital Day: 3 Attending: Dr. Monson Resident: Dr. Merida Code Status: Full Code Events since last progress note: -Afebrile, hemodynamically stable. Saturating well on room air. -hemoglobin dropped to 7.2 <--8.5. Patient denied any new symptoms. 1 unit of PRBC ordered -LDH, bilirubin improving -scleral icterus improving. Voiding yellow color urine -Persistent leucocytosis likely due to steroids. Hospital course summary: 19 yo M with PMH of ASTHMA, marijuana use and recent tattoos ?? Admitted with hemolytic anemia 2/2 suspected insect bite sustained 7 days prior to admission. Reported worsening symptoms of nausea ,vomiting, itching and dark urine. Went to [facility] and Urgent care 3 days prior. Received benadryl and bactrim with limited improvement. Presents to hospitalwith severe nausea and jaundice. ?? Oncology following. Elevated unconjugated bili, low hapto and high LDH. NEG for hepatitis. G6PD pending. Remains inpatient to assess for Hb stability as often these patients can decompensate quickly.In the setting of new leucocytosis, sepsis work up was sent and patient was started on IV broad spectrum antibiotics. Review of Systems Constitutional: Negative for chills and fever. Respiratory: Negative for cough, shortness of breath and wheezing. Cardiovascular: Negative for chest pain. Genitourinary: Negative for dysuria. Musculoskeletal: Negative for myalgias. Neurological: Negative for dizziness. OBJECTIVE Unable to calculate weight change. Intake/Output Summary (Last 24 hours) at 10/01/2019 1331 Last data filed at 09/30/2019 1418 Gross per 24 hour Intake 502.2 ml Output -- Net 502.2 ml Temp (24hrs), Av.1 ??F (36.7 ??C), Min:97.5 ??F (36.4 ??C), Max:98.8 ??F (37.1 ??C) Patient Vitals for the past 24 hrs: Temp Pulse Resp BP 10/01/19 1125 98 ??F (36.7 ??C) 80 18 111/74 10/01/19 1051 98.1 ??F (36.7 ??C) 72 18 115/57 10/01/19 0821 97.5 ??F (36.4 ??C) 85 18 110/62 10/01/19 0009 98.8 ??F (37.1 ??C) 72 16 118/80 09/30/19 2322 -- -- 15 -- 09/30/19 1558 98.3 ??F (36.8 ??C) 88 15 129/72 Physical Exam Vitals signs and nursing note reviewed. Constitutional: General: He is not in acute distress. Appearance: He is not toxic-appearing. Cardiovascular: Rate and Rhythm: Normal rate and regular rhythm. Pulmonary: Effort: No respiratory distress. Breath sounds: No stridor. No wheezing or rhonchi. Musculoskeletal: Right lower leg: No edema. Left lower leg: No edema. Skin: Comments: 1 x 1 cm central, brown, dry necrotic area surrounded by pale and then a layer of erythema MAR reviewed: yes Antimicrobial day: day 2 Labs: I have reviewed results from the last 24 hours and are remarkable for the following: Recent Labs Component Name 10/01/19 0713 09/30/19 0333 09/29/19 0356 WBC 17.3* 18.9* 11.5* HGB 7.2* 8.5* 9.8* HCT 21.8* 25.4* 29.3* PLTCOUNT 331 279 227 Recent Labs Component Name 10/01/19 0713 09/30/19 0333 09/29/19 0356 SODIUM 137 132* 134* POTASSIUM 4.4 4.9 4.1 CHLORIDE 102 100 103 CO2 27 22 21 BUN 13 14 14 CREATININE 0.90 0.71* 0.74 GLUCOSE 110* 113* 112* CALCIUM 8.5 9.4 9.1 Elevated CRP, ESR and procalcitonin Micro: Pending blood cultures Imaging: I have reviewed imaging studies from the last 24 hours and is summarized below: Study Result Chest single view ?? INDICATION: Hemolytic anemia with infection ?? Findings: The lungs are clear of infiltrate. There is no pleural effusion or pneumothorax. The heart size and pulmonary vascularity are normal. ?? IMPRESSION ? 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 Now persistent due to steroids. -No obvious source noted -Elevated CRP, ESR and pro calcitonin -CXR negative for infiltrate -started on broad-spectrum IV vancomycin and IV ceftriaxone -Blood cultures showed no growth in 24 hours, will discontinue antibiotics tomorrow Polysubstance abuse cannabis -counseled ?? Dispo: Home in 1-2 days, needs work excuse letter on discharge D/w IM Attending Abel Merida MD Due to medical issues in the assessment and plan, continued hospitalization will be required. Associated attestation - Rashid Monson MD - 10/01/2019 3:30 PM CDT Patient seen and examined independent of the resident during the time of visit. Agree with the assessment and plan as outlined in the resident note. I have been involved directly in the participationof the patient's care today Nausea is improved. Urine color is improved. Denies any fever or chills. It is improved since yesterday. Hemoglobin has decreased to 7.2 hemolytic anemia On Exam:- General appearance: alert, cooperative, no distress, no scleral icterus OMM Left posterior scapular insect bit area scabbed without erythema or purulence or fluctuation noted Heart: regular rhythm, normal S1 and S2, without murmurs, rubs or gallops Lungs: normal vesicular breath sounds; symmetric; no rales or wheezes Abdomen: benign, soft without mass, non-tender, with normal bowel sounds Extremities: no clubbing, cyanosis or edema, no purpura or ecchymosis Neuro: CN intact, strength 5/5 in all ext, no FND Acute hemolytic anemia with positive Mariam test Etiology secondary to spider bite. Also had exposure to Bactrim prior to hospitalization lab may have been and added contributor Hemoglobin continues to decline. 7.2 today. Suspecting from recent destruction rather new destruction of cells. Plan for 1 unit PRBC transfusion today LDH decreasing and contributed bilirubin completely resolved--> suggestive of no active hemolysis No evidence of DIC Continue oral prednisone 60 mg daily (1mg/kg body weight) and monitor results Appreciate hematology consult with Dr. Payne Unconjugated hyperbilirubinemia Secondary to hemolytic anemia Decreased significantly Increasing leukocytosis with neutrophilia and elevated transaminases ? From infection versus increased stress, now from the use of steroids Procalcitonin level elevated Continue empiric antibiotics with IV Rocephin and vancomycin Blood cultures negative Acute hepatitis panel negative Nausea secondary to current ongoing illness versus gastroesophageal reflux disease Continue 40 mg oral Protonix daily with noted improvement in symptoms Continue supportive care with antiemetics Folic acid deficiency secondary to increased cell turnover from hemolytic anemia Continue folic acid 1 mg daily Disposition:- in 1-2 days provided there is stability in the labs and symptoms improve. Discussed with patient's mom over the phone Rashid Monson MD 10/01/2019 3:30 PM * Jareth Rodriguez, PharmD - 10/01/2019 8:18 AM CDT Vancomycin Per Pharmacy (Day 2) 19 year old male receiving vancomycin - loaded with 1750 mg iv x 1 on 09/30/2019, now on 1000 mg IV q 8 hours, for the management of brown recluse spider bite, left suprascapular region. Other concurrent antibiotics: Rocephin 2 gm iv q 24 hours Vitals: Height: 5' 9 (175.3 cm) (09/28/19 2200) Weight: 66.5 kg (146 lb 11.2 oz) (09/28/19 2200) Temp (24hrs) Max:98.8 ??F (37.1 ??C) Recent Labs Component Name 10/01/19 0713 09/30/19 0333 09/29/19 0356 BUN 13 14 14 CREATININE 0.90 0.71* 0.74 WBC 17.3* 18.9* 11.5* Cultures: 09/30/19 - blood cultures x 2 - pending Assessment/Plan: Will continue the current regimen at this time. Will obtain a vancomycin trough level tonight at 1800. Desired vancomycin trough range is 15- 20 mcg/ml. Will hold dose if trough is greater than 21 mcg/ml. Will continue to monitor and adjust as needed. Monica Wray, PHARMD 10/01/2019 ADDENDUM No results for input(s): VANCORNJALEEL, VANCTRQUIQUE, VANCOPEAK in the last 10710 hours. A/P: Will continue the current regimen at this time. Previous dose due at 1100 was given at 1700, basically a missed dose. Feel that this will not reflect steady state if trough drawn after 1700 dose. Will adjust trough to be after two doses. Trough due at 0800 on 10/01. Pharmacy will continue to follow and adjust regimen as necessary. Jareth Rodriguez, PharmD 10/01/2019 5:14 PM * Zahra Almonte - 10/01/2019 8:12 AM CDT Internal Medicine Resident Progress Note Admission Date: 09/28/2019 Hospital Day: 3 Attending: Dr. Monson Resident/Assistant News Director: Dr. Merida Code Status: Full Code Events since last progress note: - Afebrile and hemodynamically stable - Urine is yellow (no longer tea-colored) - Improved appetite, had outside food ([employer]) inside room - Improved nausea, no vomiting - Remains jaundiced, but improvement in color - Hgb 8.5 > 7.2 overnight, transfuse PRBC - LDH and bilirubin improving Hospital course summary: 19 y/o Black male with PMH of asthma, marijuana use, and recent tattoos (1 month ago) Admitted with hemolytic anemia 2/2 suspected insect bite 7 days prior to admission. Associated symptoms of darkening urine, yellowing of eyes, itching, diarrhea that has resolved, and N/V that has worsened. Previously sought care at [facility] ED (09/25/2019) and Urgent Care (09/26/2019) for nausea and vomiting, for which he received Benadryl, cream, and Bactrim (has since taken 2 doses). Continued N/V led him to seek care at [place]. Presented with severe nausea and jaundice. Elevated unconjugated bili, low hapto, high LDH, elevated urobilinogen on UA. Administered IVF LR 75 cc/hr, Zofran and Reglan PRN for N/V, and folic acid for hemolytic anemia. Monitor CBC, LDH, ferritin. Negative hepatitis panel. Pending G6PD. Oncology following. Remains inpatient to assess for Hb stability. In setting of new leukocytosis, sepsis workup was sent and started on IV broad spectrum Abx. Review of Systems Constitutional: Negative for chills, diaphoresis, fever, malaise/fatigue and weight loss. HENT: Negative. Eyes: Negative. Respiratory: Negative. Cardiovascular: Negative. Gastrointestinal: Positive for nausea. Skin: Negative for itching and rash. OBJECTIVE Unable to calculate weight change. Intake/Output Summary (Last 24 hours) at 10/01/2019 1300 Last data filed at 09/30/2019 1418 Gross per 24 hour Intake 502.2 ml Output -- Net 502.2 ml Temp (24hrs), Av.1 ??F (36.7 ??C), Min:97.5 ??F (36.4 ??C), Max:98.8 ??F (37.1 ??C) Patient Vitals for the past 24 hrs: Temp Pulse Resp BP 10/01/19 1125 98 ??F (36.7 ??C) 80 18 111/74 10/01/19 1051 98.1 ??F (36.7 ??C) 72 18 115/57 10/01/19 0821 97.5 ??F (36.4 ??C) 85 18 110/62 10/01/19 0009 98.8 ??F (37.1 ??C) 72 16 118/80 09/30/19 2322 -- -- 15 -- 09/30/19 1558 98.3 ??F (36.8 ??C) 88 15 129/72 Physical Exam Vitals signs and nursing note reviewed. Constitutional: General: He is not in acute distress. Appearance: Normal appearance. He is normal weight. He is not ill-appearing, toxic-appearing or diaphoretic. HENT: Head: Normocephalic and atraumatic. Mouth/Throat: Mouth: Mucous membranes are moist. Eyes: General: Scleral icterus present. Extraocular Movements: Extraocular movements intact. Pupils: Pupils are equal, round, and reactive to light. Neck: Musculoskeletal: Normal range of motion and neck supple. Cardiovascular: Rate and Rhythm: Normal rate and regular rhythm. Pulses: Normal pulses. Heart sounds: Normal heart sounds. Pulmonary: Effort: Pulmonary effort is normal. No respiratory distress. Breath sounds: Normal breath sounds. No stridor. No wheezing, rhonchi or rales. Chest: Chest wall: No tenderness. Abdominal: General: Abdomen is flat. There is no distension. Palpations: Abdomen is soft. There is no mass. Skin: General: Skin is warm. Capillary Refill: Capillary refill takes less than 2 seconds. Coloration: Skin is jaundiced. Skin is not pale. Findings: Lesion present. No bruising, erythema or rash. Comments: 1x1 cm bite noted on left shoulder, new tattoo (1 month) on LLE, anterior, 2 old tattoos (from 03/2019 and 04/2019) on LUE Neurological: General: No focal deficit present. Mental Status: He is alert and oriented to person, place, and time. Mental status is at baseline. Psychiatric: Mood and Affect: Mood normal. Behavior: Behavior normal. Thought Content: Thought content normal. Judgment: Judgment normal. MAR reviewed: yes Antimicrobial day: Rocephin/Vancomycin D2 Labs: I have reviewed results from the last 24 hours and are remarkable for the following: Recent Labs Component Name 10/01/19 0713 09/30/19 0333 09/29/19 0356 SODIUM 137 132* 134* POTASSIUM 4.4 4.9 4.1 CHLORIDE 102 100 103 CO2 27 22 21 BUN 13 14 14 CREATININE 0.90 0.71* 0.74 GLUCOSE 110* 113* 112* CALCIUM 8.5 9.4 9.1 ALT 148* 150* 125* ALKPHOS 117 125 130 AST 69* 79* 68* TBIL 1.2 6.8* 10.5* TPROT 7.2 8.2 7.8 EGFR >60 >60 >60 EGFRAFR >60 >60 >60 ALBUMIN 3.9 4.4 4.1 Recent Labs Component Name 10/01/19 0713 09/30/19 0333 09/29/19 0739 09/29/19 0356 09/28/19 1218 WBC 17.3* 18.9* - 11.5* - 10.3 RBC 2.29* 2.63* 2.93* 3.19* - 3.86* HGB 7.2* 8.5* - 9.8* - 11.4* HCT 21.8* 25.4* - 29.3* - 34.4* MCV 95.2 96.6 - 91.8 - 89.1 MCHC 33.0 33.5 - 33.4 - 33.1 PLTCOUNT 331 279 - 227 - 211 NEUTPCT - - - - - 76.2 LYMPHPCT - - - - - 9.0* BASOPHILPCT - - - - - 0.5 GRANSIMMPCT - - - - - 3.9 NEUTABS - - - - - 7.83 LYMPHABS - - - - - 0.93 BASOABS - - - - - 0.05 - = values in this interval not displayed. Results for LEO SHAH ( ) as of 09/30/2019 11:45 Ref. Range 09/28/2019 12:18 09/29/2019 03:56 09/30/2019 03:33 Haptoglobin Latest Ref Range: 30 - 200 mg/dL 11 (L) 10 (L) Reticulocyte Count Latest Ref Range: 0.3 - 4.2 % 2.31 2.93 4.74 (H) Reticulocyte Absolute Latest Ref Range: 0.0391 - 0.057 x10E6/uL 0.0873 (H) 0.0935 (H) 0.1247 (H) Reticulocyte Immature Fractionated Latest Ref Range: 9.3 - 17.4 % 21.0 (H) 22.9 (H) 25.7 (H) Hemoglobin Retic Latest Ref Range: 36.0 - 38.6 pg 36.0 36.4 35.4 (L) G6PD Quantitative: 415 Recent Labs Component Name 09/30/19 0727 PROCALCITON 1.44* Recent Labs Component Name 09/30/19 0727 CRPHISENS 5.47* Recent Labs Component Name 09/30/19 0727 SEDRATE 65* Recent Labs Component Name 10/01/19 0926 09/30/19 0333 09/29/19 0356 LDH 607* 910* 770* Recent Labs Component Name 09/29/19 0356 09/28/19 1218 DBIL 1.25* 1.63* Recent Labs Component Name 09/28/19 1905 FOLATE 5.8* Hepatitis panel - non reactive Micro: NONE Imaging: I have reviewed imaging studies from the last 24 hours and is summarized below: No new imaging. Assessment/Clinical Reasoning/Plan Unconjugated acute hemolytic anemia History of insect bite 7 days prior to admission UDS cannabis; non reactive hepatitis panel + Hemolytic labs (LDH, reticulocytes, transaminitis, haptoglobin, urinalysis) Unconjugated hyperbilirubinemia, bilirubin improvement WBC counts trending down after started on empiric Abx and steroids yesterday Monitor blood cultures for stepping down Abx Hgb 8.5 > 7.2 overnight, transfuse PRBCs -- could be dilutional Previous concern for G6PD deficiency in setting of hemolysis after Bactrim, but considering darkened urine prior to administration of bactrim, less likely G6PD labs did not show decreased G6PD, making hemolytic anemia 2/2 bactrim usage in G6PD deficiencyless likely and more likely to be 2/2 insect bite (likely recluse spider bite) - Supportive management - Continue Rocephin/Vancomycin - Cont Prednisone 60 mg - Continue Protonix 40 mg Po - Continue Claritin 10 mg Po Qd - Continue Zofran 4 mg IV PRN - Continue folate - Transfuse PRBCs - Oncology following New onset leukocytosis: DDx infectious vs reactive No obvious source noted Elevated CRP, ESR, and Procalcitonin CXR negative for infiltrate - Started on broad spectrum IV vancomycin and rocephin - Blood cultures showed no growth in 24 hours, d/c antibiotics tomorrow Polysubstance abuse Cannabis - counseled Dispo: home in 1-2 days, needs work excuse letter on discharge D/w IM Attending Discussed with RN Discussed with Family Discussed with Oncology Resident Zahra Maier Middle Name Gage Due to medical issues in the assessment and plan, continued hospitalization will be required. * Saji Paiz RN - 10/01/2019 5:40 AM CDT Resting in bed with eyes closed, resp e/u no sob noted at this time. Able to make needs known. Iv site intact and patent. Dressing d/i, no needs at this time. clwr * Saji Paiz RN - 09/30/2019 11:37 PM CDT Problem: Fall Risk Goal: Fall risk and fall related injury risk are minimized Outcome: Ongoing Problem: Weight: Unintended weight loss Goal: Total intake will meet estimated nutrient needs Description: Estimated Needs: KCAL: 1990(30kcal/kg) Protein (g): 80(1.2g/kg) Outcome: Ongoing * Tamela Gonzalez RN - 09/30/2019 7:28 PM CDT Pt AXOX4. Up ad kat. Vitals stable. IV antibiotics infused per orders. No C/O pain this shift. No nausea or vomiting. Pt voiding clear yellow urine. Pt had a fair appetite this shift. Pt is resting in bed with call light within reach, all needs met at this time. * Maynor Payne MD - 09/30/2019 6:34 PM CDT Hematology/ Oncology progress note Patient's name:Leo Shah Date of : 2000 Date of admission: 09/28/2019 Date of visit:09/30/2019 Patient's Primary Care Physician: Jesse Biggs MD Physician requesting consultation: Rashid Monson MD CC: hemolytic anemia, loxoscelism, spider bite Interval history: - has been hemodynamically stable and breathing in room air. However his inflammatory markers have been elevated, procalcitonin mildly elevated, and had worsening leukocytosis - patient had nausea and vomiting which was controlled with Zofran. - Had been started on empiric IV antibiotics per the primary team. Has also been started on empiricoral steroids. Review of Systems: as per HPI/ interval history General ROS: no fever no night sweats Psychological ROS: anxiety +, no depression Ophthalmic ROS: no decreased vision no eye pain ENMT ROS: no ear pain, no drainage, no nosebleed, no oral ulcers no sore throat Allergy and Immunology ROS: no nasal congestion, no hives Hematological and Lymphatic ROS: no bruising, no bleeding Endocrine ROS: negative Breast ROS: no breast lump Respiratory ROS: no cough, no shortness of breath, no chest pain Cardiovascular ROS: no chest pain no dyspnea on exertion Gastrointestinal ROS: no abdominal pain, no black/ bloody stools. No diarrhea. nausea and vomiting ++. Genito- Urinary ROS: no dysuria, no hematuria Musculoskeletal ROS: no joint pains, no falls. Neurological ROS: no TIA or stroke symptoms. No seizures. Dermatological ROS: no lumps no pruritus no bleeding. Medications: Current Facility-Administered Medications Medication Dose Route Frequency Provider Last Rate Last Dose ??? 0.9% NaCl flush bag 250 mL Intravenous CONTINUOUS PRN Rashid Monson MD 20 mL/hr at 09/30/191831 250 mL at 09/30/191831 ??? albuterol HFA (PROVENTIL;VENTOLIN;PROAIR) 108 (90 Base) MCG/ACT inhaler 2 puff 2 puff Inhalation q6h PRN Samantha Thomas MD ??? cefTRIAXone (ROCEPHIN) 2,000 mg in 0.9% NaCl 50 mL IVPB 2 g Intravenous q24h Abel Merida MD Stopped at 09/30/19 09 ??? enoxaparin (LOVENOX) injection 40 mg 40 mg Subcutaneous QDAY Marisabel Baker MD 40 mg at 09/30/191833 ??? folic acid (FOLVITE) tablet 1 mg 1 mg Oral QDAY Abel Merida MD 1 mg at 09/30/19 0846 ??? loratadine (CLARITIN) tablet 10 mg 10 mg Oral QDAY Samantha Thomas MD 10 mg at 09/30/19 0846 ??? ondansetron (ZOFRAN) injection 4 mg 4 mg Intravenous q4h PRN Abel Merida MD ??? [START ON 10/01/2019] pantoprazole EC (PROTONIX) tablet 40 mg 40 mg Oral QDAY Abel Merida MD ??? predniSONE (DELTASONE) tablet 60 mg 60 mg Oral QDAY WITH BREAKFAST Abel Merida MD 60 mg at 09/30/19 0846 ??? vancomycin (VANCOCIN) 1,000 mg in 0.9% NaCl 250 mL IVPB 1,000 mg Intravenous q8h Rashid Monson MD 250 mL/hr at 09/30/191832 1,000 mg at 09/30/191832 ??? vancomycin (VANCOCIN) IV dose per pharmacy Does not apply DIRECTED Abel Merida MD Medications in [facility] reviewed. Physical examination: height is 5' 9 and weight is 146 lb 11.2 oz. His oral temperature is 98.3 ??F (36.8 ??C). His blood pressure is 129/72 and his pulse is 88. His respiration is 15 and oxygen saturation is 100%. General appearance: pleasant male, awake, alert, cooperative, in no distress. Skin: no rashes, or bruising noted. yellowish discoloration fo skin +. Small dry eschar on left suprascapular area. Head:normocephalic, atraumatic. Eyes: icteric sclera, PERRLA Ears: hearing intact, no drainage. Nose: anterior nares normal, no bleeding. Oral cavity and Throat: mucous membranes moist, no oral ulcers. Nec k: no thyromegaly, no palpable cervical nodes, no supraclavicular adenopathy Chest: no masses, or chest-wall tenderness. Respiratory: breath sounds heard, no rales, no rhonchi Cardiovascular: pulses equal, S1 and S2 heard, no S3, no S4, no rubs no murmurs. Abdomen: soft, non-tender, bowel sounds heard, no masses, no palpable organomegaly. Rectal: deferred Genito-urinary: deferred. Lymphatic: no palpable cervical, supraclavicular, axillary adenopathy noted. Extremities: no clubbing no edema. Musculo-skeletal: joints intact bilaterally, no obvious tenderness. Neurological: Alert, oriented in time, space and person; no obvious cranial nerve deficits noted. Normal speech and affect. No gross sensory or motor deficits noted. Gait and coordination intact. Laboratory data: Recent Labs Component Name 09/30/1933209/29/1935509/28/19 1905 09/28/19 1218 WBC 18.9* 11.5* - 10.3 RBC 2.63* 3.19* - 3.86* HGB 8.5* 9.8* - 11.4* HCT 25.4* 29.3* - 34.4* MCV 96.6 91.8 - 89.1 MCHC 33.5 33.4 - 33.1 RDWCV 12.0 11.9 - 12.0 PLTCOUNT 279 227 208 211 NEUTPCT - - - 76.2 LYMPHPCT - - - 9.0* BASOPHILPCT - - - 0.5 GRANSIMMPCT - - - 3.9 LYMPHABS - - - 0.93 BASOABS - - - 0.05 NRBCAUTO 0 0 - 0 Recent Labs Component Name 09/30/1933209/29/1935509/28/19 1218 SODIUM 132* 134* 134* POTASSIUM 4.9 4.1 4.2 CHLORIDE 100 103 104 CO2 22 21 20 BUN 14 14 14 CREATININE 0.71* 0.74 0.78 GLUCOSE 113* 112* 131* CALCIUM 9.4 9.1 8.8 ALBUMIN 4.4 4.1 4.3 ALKPHOS 125 130 141 ALT 150* 125* 114* AST 79* 68* 43* TBIL 6.8* 10.5* 11.4* TPROT 8.2 7.8 7.8 EGFR >60 >60 >60 Recent Labs Component Name 09/30/19 0727 SEDRATE 65* C RP: 5.47 Recent Labs Component Name 09/30/19 0727 PROCALCITON 1.44* Recent Labs Component Name 06/16/20 0333 06/14/20 1218 HAPTOGLOBIN 10* 11* Recent Labs Component Name 09/30/19 0333 09/29/19 0356 09/28/19 1218 LDH 910* 770* 611* Imaging data: chest x-ray done today showed no acute process Pathology data: peripheral blood flow cytometry done today so no evidence of leukemia or lymphomatous process Assessment: In summary, Leo Shah is a pleasant 19 year old male with history of mild asthma home presentedwith nausea vomiting and jaundice following insect bite, and was found to have hemolytic anemia on subsequent workup # Mariam positive hemolytic anemia, acute onset, in the setting of insect bite (suspected spider bite) - supporting laboratory evidence for hemolytic anemia includes elevated indirect bilirubin, LDH, reticulocyte counts, mild transaminitis, decreased haptoglobin, weakness folate levels in the blood - No evidence of rhabdomyolysis or MARYBETH. Urine drug screen is not supportive for any drug related effects - no acute hepatobiliary process noted in the CT scan abdomen pelvis - viral hepatitis panel nonreactive -though there is hx of use of bactrim, however, given the temporal relation of onset of symptoms with insect bite, the insect bite looks like the most likely culprit -there have been multiple literatures that report insect bites (including bees, wasps, Spider bites) and resulting mariam positive hemolytic anemia Plan: -monitor hemogram, renal function, liver function panel daily -transfusion threshold of 7 g% for PRBC, 50 (if bleeding)/10 if no bleeding for platelet transfusion -continue daily folic acid -medical management of pruritus -iv hydration. Monitor for hemodynamic decompensation,as cases of spider bites cases can sometimes decompensate quickly. However, the management is primarily symptomatic and supportive -agree with empiric infectious work up and broad spectrum antibiotics. However, could quickly de escalate based on clinical/biochemical and microbiological data. - role of steroids is controversial, however, could continue for now given elevated inflammatory markers. Steroids would also increase wbc counts in a day or two. All questions answered to his evident satisfaction. Please be advised that voice recognition software has been used on this chart and inadvertent errors may occur. These may not represent a true interpretation of the dictation given. D/w Dr Elmer López MD 09/30/2019 6:50 PM Attending note: ?? 19-year-old male admitted with nausea, vomiting, insect bite left suprascapular region, possible spider bite. Admission labs notable for folate deficiency, unconjugated hyperbilirubinemia, acute hemolytic anemia, Mariam positive with elevated LDH, low haptoglobin. Had been on Bactrim immediately prior to his hospital admission. No prior history of blood disorders or known G6PD deficiency, or autoimmune disorders. No history of blood disorders or G6PD deficiency. The patient apparently had unconjugated hyperbilirubinemia and was treated with a short course of phototherapy immediately after . No prior history of viral hepatitis. Denies any trauma, falls, muscle aches or fevers. Clinical picture suggestive of a brown recluse spider bite with acute hemolytic anemia and systemicsymptoms of loxoscelism, nausea and vomiting . Remains afebrile. Continues to have intermittent nausea, poor appetite. Hemoglobin/hematocrit lower today, rising LDH, rising ALT/AST although bilirubin declining. Normal CK and coags. No evidence of rhabdomyolysis or DIC. No muscle tenderness or palpable splenomegaly. No vascular purpura, flank pain or tenderness. Normal renal function.. No evidenceof organ failure. Remains afebrile, looks nontoxic. Antibody screen negative. Was on Bactrim immediately before his admission. Bactrim itself can cause a Mariam positive hemolytic anemia although hissymptoms started well before starting Bactrim and hence this is less likely the culprit agent, but more likely a confounding agent ?? Peripheral smear showed no evidence of the bite cells. Continue folate supplementation. Monitor daily counts, hepatic panel. Continue supportive management as per the primary team. No indication for PRBC transfusions at this time. Rising WBC count, left shift, elevated inflammatory markers, procalcitonin, LDH. Likely all due to SIRS due to loxoscelism. However, need to rule out concomitant infections especially secondary bacterial infections with Staphylococcus species. Check blood cultures. Antimicrobial therapy as per the primary team. While the role of steroids is not well established for [place] brown recluse spider bites with the management being usually supportive (no antivenom available in the [place] drug-induced hemolytic anemias typically are treated with cessation of the offending drug, and occasionally with short courses of corticosteroids/IVIG in severe cases. Given his rising LDH, lowering hemoglobin and rising AST, a course of corticosteroids can be considered with a prednisone equivalent of 1 milligram/kg/day. Risks and benefits discussed with the patient. GI prophylaxis ordered Also discussed with the primary team as well as the patient's father over the phone. Continue woundcare as per the primary team. Minimize medications with the most essential ones only. ?? Patient seen and examined by me independently and together with Dr. López and discussed with him. I agree with the evaluation and plan with my annotations in blue ink. Care plan discussed with Dr. López . I have participated directly in the care of this patient and was physically present in the room with the patient and Dr. López through all aspects of the history and exam. ?? Maynor Payne MD, FACP Hematology and Medical Oncology [facility] ?? Please be advised that voice recognition software has been used on this chart and inadvertent errors may occur. These may not represent a true interpretation of the dictation given. ? * Abel Merida MD - 09/30/2019 1:28 PM CDT Internal Medicine Resident Progress Note Admission Date: 09/28/2019 Hospital Day: 2 Attending: Dr. Monson Resident: Dr. Merida Code Status: Full Code Events since last progress note: -Afebrile, hemodynamically stable -reported feeling nauseous due to medication wearing off. -continued to have tea-colored urine -in the setting of new leukocytosis CRP, ESR and pro calcitonin, blood cultures ordered -started on broad-spectrum IV vancomycin and IV ceftriaxone -started on p.o. prednisone 60 mg and Protonix 40 mg Hospital course summary: 19 yo M with PMH of ASTHMA, marijuana use and recent tattoos ?? Admitted with hemolytic anemia 2/2 suspected insect bite sustained 7 days prior to admission. Reported worsening symptoms of nausea ,vomiting, itching and dark urine. Went to [facility] and Urgent care 3 days prior. Received benadryl and bactrim with limited improvement. Presents to hospitalwith severe nausea and jaundice. ?? Oncology following. Elevated unconjugated bili, low hapto and high LDH. NEG for hepatitis. G6PD pending. Remains inpatient to assess for Hb stability as often these patients can decompensate quickly.In the setting of new leucocytosis, sepsis work up was sent and patient was started on IV broad spectrum antibiotics. Review of Systems Constitutional: Negative for chills and fever. Respiratory: Negative for cough, shortness of breath and wheezing. Cardiovascular: Negative for chest pain. Genitourinary: Negative for dysuria. Musculoskeletal: Negative for myalgias. Neurological: Negative for dizziness. OBJECTIVE Unable to calculate weight change. Intake/Output Summary (Last 24 hours) at 09/30/2019 1329 Last data filed at 09/30/2019 1059 Gross per 24 hour Intake 48.94 ml Output -- Net 48.94 ml Temp (24hrs), Av.5 ??F (36.9 ??C), Min:97.5 ??F (36.4 ??C), Max:99.8 ??F (37.7 ??C) Patient Vitals for the past 24 hrs: Temp Pulse Resp BP 09/30/19 0847 97.5 ??F (36.4 ??C) 93 17 122/70 09/30/19 0500 99.8 ??F (37.7 ??C) 101 18 138/77 09/30/19 0046 98.5 ??F (36.9 ??C) 77 18 140/84 09/29/19 2059 98 ??F (36.7 ??C) 91 20 128/74 09/29/19 1648 98.7 ??F (37.1 ??C) 92 18 129/79 Physical Exam Vitals signs and nursing note reviewed. Constitutional: General: He is not in acute distress. Appearance: He is not toxic-appearing. Cardiovascular: Rate and Rhythm: Normal rate and regular rhythm. Pulmonary: Effort: No respiratory distress. Breath sounds: No stridor. No wheezing or rhonchi. Musculoskeletal: Right lower leg: No edema. Left lower leg: No edema. Skin: Comments: 1 x 1 cm central, brown, dry necrotic area surrounded by pale and then a layer of erythema MAR reviewed: yes Antimicrobial day: day 1 Labs: I have reviewed results from the last 24 hours and are remarkable for the following: Recent Labs Component Name 09/30/19 0333 09/29/19 0356 09/28/19 1905 09/28/19 1218 WBC 18.9* 11.5* - 10.3 HGB 8.5* 9.8* - 11.4* HCT 25.4* 29.3* - 34.4* PLTCOUNT 279 227 208 211 Recent Labs Component Name 09/30/19 0333 09/29/19 0356 09/28/19 1218 SODIUM 132* 134* 134* POTASSIUM 4.9 4.1 4.2 CHLORIDE 100 103 104 CO2 22 21 20 BUN 14 14 14 CREATININE 0.71* 0.74 0.78 GLUCOSE 113* 112* 131* CALCIUM 9.4 9.1 8.8 Elevated CRP, ESR and procalcitonin Micro: Pending blood cultures Imaging: I have reviewed imaging studies from the last 24 hours and is summarized below: Study Result Chest single view ?? INDICATION: Hemolytic anemia with infection ?? Findings: The lungs are clear of infiltrate. There is no pleural effusion or pneumothorax. The heart size and pulmonary vascularity are normal. ?? IMPRESSION ? 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 blood cultures ordered -CXR negative for infiltrate -started on broad-spectrum IV vancomycin and IV ceftriaxone Polysubstance abuse cannabis -counseled ?? Dispo:In patient D/w IM Attending Abel Merida MD Due to medical issues in the assessment and plan, continued hospitalization will be required. Associated attestation - Rashid Monson MD - 09/30/2019 4:37 PM CDT Patient seen and examined independent of the resident during the time of visit. Agree with the assessment and plan as outlined in the resident note. I have been involved directly in the participationof the patient's care today Patient feels nauseous but notice some improvement with Zofran. Denies any fever or chills. Mild decrease in appetite. Jaundice slowly improving. Mild improvement in tea-colored urine On Exam:- General appearance: alert, cooperative, no distress, scleral icterus present, OMM Left posterior scapular insect bit area scabbed without erythema or purulence or fluctuation noted Heart: regular rhythm, normal S1 and S2, without murmurs, rubs or gallops Lungs: normal vesicular breath sounds; symmetric; no rales or wheezes Abdomen: benign, soft without mass, non-tender, with normal bowel sounds Extremities: no clubbing, cyanosis or edema, jaundice present, no purpura or ecchymosis Neuro: CN intact, strength 5/5 in all ext, no FND Acute hemolytic anemia with positive Mariam test Etiology secondary to spider bite. Also had exposure to Bactrim prior to hospitalization Hemoglobin continues to decline. 8.5 today. LDH slightly increased suggesting continued hemodialysis however unconjugated bilirubinemia has decreased No evidence of DIC Start oral prednisone 60 mg daily (1mg/kg body weight) and monitor results Plan to transfuse if hemoglobin less than 7 Appreciate hematology consult with Dr. Payne Unconjugated hyperbilirubinemia Secondary to hemolytic anemia Noted to increase on serial repeat Continue to monitor for now Increasing leukocytosis with neutrophilia and elevated transaminases ? From infection versus increased stress Procalcitonin level elevated Start empiric antibiotics with IV Rocephin and vancomycin after blood cultures were drawn Acute hepatitis panel negative Nausea secondary to current ongoing illness versus gastroesophageal reflux disease Start 40 mg oral Protonix daily monitor symptoms Continue supportive care with antiemetics Folic acid deficiency secondary to increased cell turnover from hemolytic anemia Continue folic acid 1 mg daily Disposition:- in 2 days provided there is stability in the labs and symptoms improve. Discussed with front office coordinator Rashid Monson MD 09/30/2019 4:37 PM * Titus Daniel, PharmD - 09/30/2019 8:45 AM CDT [facility] Vancomycin Protocol S/O Leo Shah is a 19 year old male initiated on vancomycin. Height: 5' 9 (175.3 cm) (09/28/192199) Weight: 66.5 kg (146 lb 11.2 oz) (09/28/192199) Temp (24hrs), Av.7 ??F (37.1 ??C), Min:98 ??F (36.7 ??C), Max:99.8 ??F (37.7 ??C) Patient's other current antibiotics: ceftriaxone 2000 mg every 24 hours Recent Labs Component Name 09/30/19 0333 09/29/19 0356 09/28/19 1218 CREATININE 0.71* 0.74 0.78 BUN 14 14 14 WBC 18.9* 11.5* 10.3 No results for input(s): VANCORNDM, VANCTROUGH, VANCOPEAK in the last 57696 hours. Vancomycin Administrations from MAR (last 72 hours) None --The above will not capture doses from different admissions or encounters Assessment Estimated Creatinine Clearance: 158.7 mL/min (A) (based on SCr of 0.71 mg/dL (L)). (using Cockcroft-Gault formula) Vancomycin target level: 15-20 mcg/ml and does meet the criteria for a loading dose. Dose Calculation Loading dose: 1750mg (25mg/kg ABW) x 1 Maintenance dose: 1000mg (15mg/kg ABW) interval: every 8 hours (per age/est. GFR) Plan Will begin regimen as outlined above. No previous dosing history and/or levels to guide therapy. Plan to obtain an initial vancomycin trough level prior to the 5th or 6th dose. No level ordered untilloading dose has been given.. Pharmacy will monitor labs and adjust dosing regimen per protocol. Titus Daniel PharmD 09/30/2019 8:45 AM * Nahomy Padilla RN - 09/30/2019 7:32 AM CDT Pt AXOx4 throughout the night. Vitals WNL. Pt complained of abdominal pain which caused him to be nauseated overnight. Residents called. PRN zofran ordered. Pt was in the hallway naked waiting on RN to get zofran. Pt redirected in the room. Zofran given . Pt reported some relief. Pt rested throughout the night. Eyes still jaundice. Call light within reach. Continue to monitor. * Zahra Almonte - 09/30/2019 7:30 AM CDT Internal Medicine Resident Progress Note Admission Date: 09/28/2019 Hospital Day: 2 Attending: Dr. Monson Resident/Assistant News Director: Dr. Merida Code Status: Full Code Events since last progress note: - Afebrile and hemodynamically stable - Tea colored urine - Reports feeling increased nausea due to medication wearing off , some improvement after Zofran injection in evening - Decreased appetite, ordered 3 meals yesterday but only ate a few bites - Stomach pain, attributes to hunger/not eating - 4-5 total episodes of vomiting/desire to vomit, only fluid came up - Remains jaundiced, but improvement in color - Resident spoke with mother on phone, who said son is starting work next Sunday, will need letterat discharge for work - In setting of new leukocytosis CRP, ESR, Procal, and blood cultures ordered - Started on Vanc/Rocephin empirically - Started on Prednisone empirically - Started on Protonix for vomiting Hospital course summary: 19 y/o Black male with PMH of asthma, marijuana use, and recent tattoos (1 month ago) Admitted with hemolytic anemia 2/2 suspected insect bite 7 days prior to admission. Associated symptoms of darkening urine, yellowing of eyes, itching, diarrhea that has resolved, and N/V that has worsened. Previously sought care at [facility] ED (09/25/2019) and Urgent Care (09/26/2019) for nausea and vomiting, for which he received Benadryl, cream, and Bactrim (has since taken 2 doses). Continued N/V led him to seek care at [place]. Presented with severe nausea and jaundice. Elevated unconjugated bili, low hapto, high LDH, elevated urobilinogen on UA. Administered IVF LR 75 cc/hr, Zofran and Reglan PRN for N/V, and folic acid for hemolytic anemia. Monitor CBC, LDH, ferritin. Negative hepatitis panel. Pending G6PD. Oncology following. Remains inpatient to assess for Hb stability. In setting of new leucocytosis, sepsis workup was sent and started on IV broad spectrum Abx. Review of Systems Constitutional: Negative for chills, diaphoresis, fever, malaise/fatigue and weight loss. HENT: Negative. Eyes: Negative. Respiratory: Negative. Cardiovascular: Negative. Gastrointestinal: Positive for nausea and vomiting. 4-5 episodes of emesis/desire to vomit yesterday, only fluid Skin: Negative for itching and rash. OBJECTIVE Unable to calculate weight change. No intake or output data in the 24 hours ending 09/30/19 0806 Temp (24hrs), Av.6 ??F (37 ??C), Min:98 ??F (36.7 ??C), Max:99.8 ??F (37.7 ??C) Patient Vitals for the past 24 hrs: Temp Pulse Resp BP 09/30/19 0500 99.8 ??F (37.7 ??C) 101 18 138/77 09/30/19 0046 98.5 ??F (36.9 ??C) 77 18 140/84 09/29/19 2059 98 ??F (36.7 ??C) 91 20 128/74 09/29/19 1648 98.7 ??F (37.1 ??C) 92 18 129/79 09/29/19 1155 98.5 ??F (36.9 ??C) 83 16 131/70 09/29/19 0825 98 ??F (36.7 ??C) 83 14 134/82 Physical Exam Vitals signs and nursing note reviewed. Constitutional: General: He is not in acute distress. Appearance: Normal appearance. He is normal weight. He is not ill-appearing, toxic-appearing or diaphoretic. HENT: Head: Normocephalic and atraumatic. Mouth/Throat: Mouth: Mucous membranes are moist. Eyes: General: Scleral icterus present. Extraocular Movements: Extraocular movements intact. Pupils: Pupils are equal, round, and reactive to light. Neck: Musculoskeletal: Normal range of motion and neck supple. Cardiovascular: Rate and Rhythm: Normal rate and regular rhythm. Pulses: Normal pulses. Heart sounds: Normal heart sounds. Pulmonary: Effort: Pulmonary effort is normal. No respiratory distress. Breath sounds: Normal breath sounds. No stridor. No wheezing, rhonchi or rales. Chest: Chest wall: No tenderness. Abdominal: General: Abdomen is flat. There is no distension. Palpations: Abdomen is soft. There is no mass. Skin: General: Skin is warm. Capillary Refill: Capillary refill takes less than 2 seconds. Coloration: Skin is jaundiced. Skin is not pale. Findings: Lesion present. No bruising, erythema or rash. Comments: 1x1 cm bite noted on left shoulder, new tattoo (1 month) on LLE, anterior, 2 old tattoos (from 03/2019 and 04/2019) on LUE Neurological: General: No focal deficit present. Mental Status: He is alert and oriented to person, place, and time. Mental status is at baseline. Psychiatric: Mood and Affect: Mood normal. Behavior: Behavior normal. Thought Content: Thought content normal. Judgment: Judgment normal. MAR reviewed: yes Antimicrobial day: N/A Labs: I have reviewed results from the last 24 hours and are remarkable for the following: Recent Labs Component Name 09/30/19 0333 09/29/19 0356 09/28/19 1218 SODIUM 132* 134* 134* POTASSIUM 4.9 4.1 4.2 CHLORIDE 100 103 104 CO2 22 21 20 BUN 14 14 14 CREATININE 0.71* 0.74 0.78 GLUCOSE 113* 112* 131* CALCIUM 9.4 9.1 8.8 ALT 150* 125* 114* ALKPHOS 125 130 141 AST 79* 68* 43* TBIL 6.8* 10.5* 11.4* TPROT 8.2 7.8 7.8 EGFR >60 >60 >60 EGFRAFR >60 >60 >60 ALBUMIN 4.4 4.1 4.3 Recent Labs Component Name 09/30/19 0333 09/29/19 0356 09/28/19 1905 09/28/19 1218 WBC 18.9* 11.5* - 10.3 RBC 2.63* 3.19* - 3.86* HGB 8.5* 9.8* - 11.4* HCT 25.4* 29.3* - 34.4* MCV 96.6 91.8 - 89.1 MCHC 33.5 33.4 - 33.1 PLTCOUNT 279 227 208 211 NEUTPCT - - - 76.2 LYMPHPCT - - - 9.0* BASOPHILPCT - - - 0.5 GRANSIMMPCT - - - 3.9 NEUTABS - - - 7.83 LYMPHABS - - - 0.93 BASOABS - - - 0.05 Results for LEO SHAH ( ) as of 09/30/2019 11:45 Ref. Range 09/28/2019 12:18 09/29/2019 03:56 09/30/2019 03:33 Haptoglobin Latest Ref Range: 30 - 200 mg/dL 11 (L) 10 (L) Reticulocyte Count Latest Ref Range: 0.3 - 4.2 % 2.31 2.93 4.74 (H) Reticulocyte Absolute Latest Ref Range: 0.0391 - 0.057 x10E6/uL 0.0873 (H) 0.0935 (H) 0.1247 (H) Reticulocyte Immature Fractionated Latest Ref Range: 9.3 - 17.4 % 21.0 (H) 22.9 (H) 25.7 (H) Hemoglobin Retic Latest Ref Range: 36.0 - 38.6 pg 36.0 36.4 35.4 (L) Recent Labs Component Name 09/30/19 0727 PROCALCITON 1.44* Recent Labs Component Name 09/30/19 0727 CRPHISENS 5.47* Recent Labs Component Name 09/30/19 0727 SEDRATE 65* Recent Labs Component Name 09/30/19 0333 09/29/19 0356 09/28/19 1218 LDH 910* 770* 611* Recent Labs Component Name 09/29/19 0356 09/28/19 1218 DBIL 1.25* 1.63* Recent Labs Component Name 09/28/19 1905 FOLATE 5.8* Hepatitis panel - non reactive Micro: NONE Imaging: I have reviewed imaging studies from the last 24 hours and is summarized below: XR Chest INDICATION: Hemolytic anemia with infection Findings: The lungs are clear of infiltrate. There is no pleural effusion or pneumothorax. The heart size and pulmonary vascularity are normal. Impression: ?? No active disease. Assessment/Clinical Reasoning/Plan Unconjugated acute hemolytic anemia History of insect bite 7 days prior to admission UDS cannabis; non reactive hepatitis panel + Hemolytic labs (LDH, reticulocytes, transaminitis, haptoglobin, urinalysis) Unconjugated hyperbilirubinemia, bilirubin improvement WBC counts trending up, hemoglobin/Hct/RBC count trending down with no improvement in N/V symptoms,concern for infection HemOnc consulted and recommended to start on antibiotics and steroids empirically given concern forinfection - Supportive management 24 hours - Start Rocephin/Vancomycin empirically - Start Prednisone 60 mg empirically - Start Protonix 40 mg IV, change to Po tomorrow - Continue Claritin 10 mg Po Qd - Continue Zofran 4 mg IV PRN - Continue folate - Oncology following New onset leukocytosis: DDx infectious vs reactive No obvious source noted Elevated CRP, ESR, and Procalcitonin Blood cultures pending CXR negative for infiltrate - Started on broad spectrum IV vancomycin and rocephin Polysubstance abuse Cannabis - counseled - trend Na+, transaminases Dispo: inpatient D/w IM Attending Discussed with RN Discussed with Family Discussed with Oncology Resident Zahra Maier Middle Name Gage Due to medical issues in the assessment and plan, continued hospitalization will be required. * Shima Quinn RN - 09/29/2019 6:34 PM CDT Shift Summary: Patient is A&Ox4 and up ad kat throughout shift. Patient had no complaints of pain or discomfort. Patient to most likely discharge tomorrow. Spoke with patient's family regarding patient's best friends last week. Family concerned patient is not getting adequate emotional support in hospital. Pastoral care consulted. Patient to discharge possibly tomorrow. VSS. Call light within reach and bed in low locked position. Will continue to monitor. Reina Quinn RN * Eli Alberts RN - 09/29/2019 3:40 PM CDT A Chart Review has been conducted by Case Management. Based on current condition, will patient be able to return to prior living situation? Yes BNA - 4 OPO [employer] - na PCP: JESSE CEVALLOS V Anticipated Discharge Date: 09/30/19 Anticipated discharge needs: None identified at this time Barriers to discharge / additional discharge needs: None identified at this time Additional comments: n/v jaundice, ? Bitten by a Spider, monitoring labs Per nursing assessments: No needs relayed to Transportation : Family/Friends ?. Will continue to follow. 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 Pt reports last vomited yesterday. Receiving reglan IV. Has not tried to eat yet today. Reports still having nausea, medication is helping some. Assisted him with ordering a meal. Reports recently weight was 151#; recent loss of 5# per admission weight (no weight method documented). Pt states he has lost a total of 20# since June, was at 165# (11% wt loss). States he attributes overall weight loss r/t increased smoking and not eating right. States after all of this he is done with smoking. Pt agrees to try nutrition supplements to help meet nutritional needs when intake is poor. Sending Ensure High Protein for Muscle Health TID in chocolate flavor; provides 160 calories,16 grams protein and 19 grams of carb per 8 oz serving. Na low receiving nacl supplementation. Liver enzymes elevated. H/H low w/ anemia. Receiving folic acid supplementation. Med/Surg History and Clinical Diagnoses: n/v, jaundice, hemolytic anemia, recent insect bite hx: asthma, marijuana Height: 5' 9 (175.3 cm) Wt Readings from Last 5 Encounters: 09/28/19 146 lb 11.2 oz (66.5 kg) (46 %, Z= -0.11)* no wt method * Growth percentiles are based on [facility] (Boys, 2-20 Years) data. IBW: 160# 91% IBW BMI: Body mass index is 21.66 kg/m??. BMI Range: Normal Usual weight/lb: 165# Unintentional weight change: ~ 20# loss since June Current diet order: Regular Food Allergies: No known food allergies P.O.Intake for the past 48 hrs: No data recorded No data recorded GI Concerns: Nausea;Vomiting Appetite: Fair Chewing/Swallowing: None Pain affecting intake: No Estimated Needs: KCAL: 1990(30kcal/kg) Protein (g): 80(1.2g/kg) Fluid (ml): 1 ml/kcal Recommended Access Route: PO Labs: Recent Labs Component Name 09/29/19 0356 SODIUM 134* POTASSIUM 4.1 CHLORIDE 103 CO2 21 BUN 14 CREATININE 0.74 GLUCOSE 112* CALCIUM 9.1 ALBUMIN 4.1 ALKPHOS 130 ALT 125* AST 68* TBIL 10.5* TPROT 7.8 EGFR >60 Recent Labs Component Name 09/29/196 PHOS 4.0 Recent Labs Component Name 09/29/19 0356 09/28/19 1218 HGB 9.8* 11.4* HCT 29.3* 34.4* PERTINENT MEDICATIONS FOR CURRENT ENCOUNTER: SCHEDULED MEDICATIONS: enoxaparin (LOVENOX) injection 40 mg, Subcutaneous, QDAY folic acid (FOLVITE) tablet 1 mg, Oral, QDAY iopamidol (ISOVUE 370) 76 % contrast, Intravenous, Contrast - Once loratadine (CLARITIN) tablet 10 mg, Oral, QDAY [COMPLETED] 0.9% NaCl IV Bolus, Intravenous, Now [COMPLETED] 0.9% NaCl IV Bolus, Intravenous, Now ?? [COMPLETED] metoclopramide (REGLAN) injection 10 mg, Intravenous, Now ?? CONTINUOUS MEDICATIONS: Skin/Wound: scab L shoulder Last BM: 09/27 Nutrition Care Process (1) Nutrition Diagnostic Statement: Unintended weight loss related to:: inadequate energy intake as evidenced by:: weight loss Nutrition Intervention: Meals and snacks:;Medical Food Supplements: Education was not indicated Following athigh nutritional risk. Nutrition recommendation: agree with current nutrition order ?? Sending Chocolate Ensure HP TID w/ meals ?? Obtain Scaled weight Monitoring: ??? PO intake ??? Supplement tolerance ??? Weight Evaluation: Nutrition Goal: Total intake will meet estimated nutrient needs Nutrition Goal Timeframe: Ongoing Mary Ellen Myers RD/RIN 09/29/2019 3:34 PM Ascom [id number] * Shima Quinn RN - 09/29/2019 11:15 AM CDT Problem: Fall Risk Goal: Fall risk and fall related injury risk are minimized Outcome: Ongoing * Zahra Almonte - 09/29/2019 8:40 AM CDT Internal Medicine Resident Progress Note Admission Date: 09/28/2019 Hospital Day: 1 Attending: Dr. Cleveland Resident/Assistant News Director: Dr. Baker Code Status: Full Code Events since last progress note: - Able to tolerate water without emesis, tea colored urine - Nausea improved but present - 1 episode of vomiting in evening - Remains jaundiced - Hemodynamically stable Hospital course summary: 19 y/o Black male with PMH of asthma, marijuana use, and recent tattoos (1 month ago) Admitted with hemolytic anemia 2/2 suspected insect bite 7 days prior to admission. Associated symptoms of darkening urine, yellowing of eyes, itching, diarrhea that has resolved, and N/V that has worsened. Previously sought care at [facility] ED (09/25/2019) and Urgent Care (09/26/2019) for nausea and vomiting, for which he received Benadryl, cream, and Bactrim (has since taken 2 doses). Continued N/V led him to seek care at [place]. Presented with severe nausea and jaundice. Elevated unconjugated bili, low hapto, high LDH, elevated urobilinogen on UA. Administered IVF LR 75 cc/hr, Zofran and Reglan PRN for N/V, and folic acid for hemolytic anemia. Monitor CBC, LDH, ferritin. Negative hepatitis panel. Pending G6PD. Oncology following. Remains inpatient to assess for Hb stability. Review of Systems Constitutional: Positive for diaphoresis. Negative for chills, fever, malaise/fatigue and weight loss. Reports diaphoresis w/ nausea HENT: Negative. Eyes: Negative. Respiratory: Negative. Cardiovascular: Negative. Gastrointestinal: Positive for nausea and vomiting. Last episode of vomiting last night 09/28/2019 Skin: Negative for itching and rash. OBJECTIVE Unable to calculate weight change. Intake/Output Summary (Last 24 hours) at 09/29/2019 1249 Last data filed at 09/29/2019 0450 Gross per 24 hour Intake 369.05 ml Output 0 ml Net 369.05 ml Temp (24hrs), Av.2 ??F (36.8 ??C), Min:98 ??F (36.7 ??C), Max:98.5 ??F (36.9 ??C) Patient Vitals for the past 24 hrs: Temp Pulse Resp BP 09/29/19 1155 98.5 ??F (36.9 ??C) 83 16 131/70 09/29/19 0825 98 ??F (36.7 ??C) 83 14 134/82 09/29/19 0450 98.1 ??F (36.7 ??C) 94 12 125/80 09/29/19 0059 98.4 ??F (36.9 ??C) 59 12 135/71 09/28/19 2130 98 ??F (36.7 ??C) 71 12 124/55 09/28/192099 -- -- -- 133/82 09/28/192050 -- -- -- 147/73 09/28/192048 -- 76 11 -- 09/28/192019 98.1 ??F (36.7 ??C) 56 14 135/82 09/28/191912 -- 71 13 -- 09/28/191911 -- 71 13 -- 09/28/191910 -- 67 13 -- 09/28/191909 -- -- -- 121/69 09/28/191908 -- 74 17 -- 09/28/191906 -- 61 14 -- 09/28/191904 -- 80 18 -- 09/28/191900 -- 74 16 -- 09/28/191899 -- -- -- 124/92 09/28/191854 -- 62 18 -- 09/28/191853 -- 66 16 -- 06/14/20 1852 -- 68 18 -- 09/28/19 1850 -- 63 16 122/67 09/28/19 1849 -- -- -- 132/81 09/28/19 1848 -- 73 18 -- 09/28/19 1846 -- 64 17 -- 09/28/19 1843 -- 66 18 -- 09/28/19 1841 -- 78 16 -- 09/28/19 1840 -- 65 17 -- 09/28/19 1839 -- 62 12 -- 09/28/19 1837 -- 61 17 -- 09/28/19 1835 -- 66 19 -- 09/28/19 1833 -- 61 15 -- 09/28/19 183 -- 71 -- -- 09/28/19 182 -- 73 16 -- 09/28/19 182 -- 108 20 -- 09/28/19 182 -- 88 18 -- 09/28/19 182 -- -- -- 146/81 09/28/19 1820 -- 77 17 -- 09/28/19 1814 -- 71 19 -- 09/28/19 1809 -- 75 17 -- 09/28/19 180 -- 90 15 -- 09/28/19 1805 -- 77 16 -- 09/28/19 180 -- 82 18 128/72 09/28/19 1754 -- 67 15 -- 09/28/19 1750 -- 59 16 -- 09/28/19 1741 -- 71 19 122/70 09/28/19 1740 -- 72 20 -- 09/28/19 1739 -- 103 20 -- 09/28/19 1738 -- 89 13 -- 09/28/19 1737 -- 69 18 -- 09/28/19 1735 -- 71 14 -- 09/28/19 1733 -- 74 19 -- 09/28/19 1731 -- 80 19 132/71 09/28/19 1727 -- 74 19 -- 09/28/19 1725 -- 75 16 -- 09/28/19 1724 -- 72 19 -- 09/28/19 1723 -- 69 16 -- 09/28/19 1722 -- 67 16 -- 09/28/19 1721 -- 70 18 -- 09/28/19 1720 -- 73 16 -- 09/28/19 1718 -- 67 17 -- 09/28/19 1716 -- 74 14 -- 09/28/19 1714 -- 67 16 -- 09/28/19 1709 -- 69 13 -- 09/28/19 1708 -- 67 19 -- 09/28/19 1707 -- 69 14 -- 09/28/19 1706 -- 68 13 -- 09/28/19 1705 -- 68 16 -- 09/28/19 1703 -- 74 14 -- 09/28/19 1701 -- 74 19 118/73 09/28/19 1659 -- 61 13 -- 09/28/19 1657 -- 72 16 -- 09/28/19 1655 -- 69 16 -- 09/28/19 1654 -- 71 15 -- 09/28/19 1653 -- 65 18 -- 09/28/19 1652 -- 81 16 -- 09/28/19 1651 -- 67 17 -- 09/28/19 1650 -- 71 18 -- 09/28/19 1648 -- 64 15 -- 09/28/19 1646 -- 64 19 -- 09/28/19 1644 -- 71 13 -- 09/28/19 1642 -- 65 16 -- 09/28/19 1604 -- 75 15 -- 09/28/19 1603 -- 67 14 -- 09/28/19 1600 -- -- -- 127/76 09/28/19 1531 -- 86 16 -- 09/28/19 1530 -- -- -- 125/79 09/28/19 1504 -- 73 20 129/80 09/28/19 1430 -- 71 14 134/82 09/28/19 1429 -- 81 16 -- 09/28/19 1400 -- 67 23 138/77 09/28/19 1326 -- 50 14 129/78 Physical Exam Vitals signs and nursing note reviewed. Constitutional: General: He is not in acute distress. Appearance: Normal appearance. He is normal weight. He is not ill-appearing, toxic-appearing or diaphoretic. HENT: Head: Normocephalic and atraumatic. Mouth/Throat: Mouth: Mucous membranes are moist. Eyes: General: Scleral icterus present. Extraocular Movements: Extraocular movements intact. Pupils: Pupils are equal, round, and reactive to light. Neck: Musculoskeletal: Normal range of motion and neck supple. Cardiovascular: Rate and Rhythm: Normal rate and regular rhythm. Pulses: Normal pulses. Heart sounds: Normal heart sounds. Pulmonary: Effort: Pulmonary effort is normal. No respiratory distress. Breath sounds: Normal breath sounds. No stridor. No wheezing, rhonchi or rales. Chest: Chest wall: No tenderness. Abdominal: General: Abdomen is flat. There is no distension. Palpations: Abdomen is soft. Skin: Coloration: Skin is jaundiced. Findings: Lesion present. Comments: 1x1 cm bite noted on left shoulder, new tattoo (1 month) on LLE, anterior, 2 old tattoos (from 03/2019 and 04/2019) on LUE Neurological: General: No focal deficit present. Mental Status: He is alert and oriented to person, place, and time. Mental status is at baseline. Psychiatric: Mood and Affect: Mood normal. Behavior: Behavior normal. Thought Content: Thought content normal. Judgment: Judgment normal. MAR reviewed: yes Antimicrobial day: N/A Labs: I have reviewed results from the last 24 hours and are remarkable for the following: Recent Labs Component Name 09/29/19 0356 09/28/19 1218 SODIUM 134* 134* POTASSIUM 4.1 4.2 CHLORIDE 103 104 CO2 21 20 BUN 14 14 CREATININE 0.74 0.78 GLUCOSE 112* 131* CALCIUM 9.1 8.8 ALT 125* 114* ALKPHOS 130 141 AST 68* 43* TBIL 10.5* 11.4* TPROT 7.8 7.8 EGFR >60 >60 EGFRAFR >60 >60 ALBUMIN 4.1 4.3 Recent Labs Component Name 09/29/19 0356 09/28/19 1905 09/28/19 1218 WBC 11.5* - 10.3 RBC 3.19* - 3.86* HGB 9.8* - 11.4* HCT 29.3* - 34.4* MCV 91.8 - 89.1 MCHC 33.4 - 33.1 PLTCOUNT 227 208 211 NEUTPCT - - 76.2 LYMPHPCT - - 9.0* BASOPHILPCT - - 0.5 GRANSIMMPCT - - 3.9 NEUTABS - - 7.83 LYMPHABS - - 0.93 BASOABS - - 0.05 Results for LEO SHAH ( ) as of 09/29/2019 13:34 Ref. Range 09/28/2019 12:18 09/29/2019 03:56 Haptoglobin Latest Ref Range: 30 - 200 mg/dL 11 (L) Reticulocyte Count Latest Ref Range: 0.3 - 4.2 % 2.31 2.93 Reticulocyte Absolute Latest Ref Range: 0.0391 - 0.057 x10E6/uL 0.0873 (H) 0.0935 (H) Reticulocyte Immature Fractionated Latest Ref Range: 9.3 - 17.4 % 21.0 (H) 22.9 (H) Hemoglobin Retic Latest Ref Range: 36.0 - 38.6 pg 36.0 36.4 Recent Labs Component Name 09/29/19 0356 09/28/19 1218 LDH 770* 611* Recent Labs Component Name 09/29/19 0356 09/28/19 1218 DBIL 1.25* 1.63* Recent Labs Component Name 09/28/19 1905 FOLATE 5.8* Hepatitis panel - non reactive Micro: NONE Imaging: I have reviewed imaging studies from the last 24 hours and is summarized below: NONE Assessment/Clinical Reasoning/Plan Unconjugated acute hemolytic anemia History of insect bite 7 days prior to admission UDS cannabis; non reactive hepatitis panel + Hemolytic labs (LDH, reticulocytes, transaminitis, haptoglobin, urinalysis) Unconjugated hyperbilirubinemia - Supportive management 24 hours - DC IVF - CMP/CBC AM - Replace folate - Hold off steroids per Oncology - Oncology following Polysubstance abuse Cannabis - counseled Dispo: home in AM if amenable by HemOnc D/w IM Attending Discussed with RN Discussed with Family Discussed with Oncology Resident Zahra Maier Middle Name Gage Due to medical issues in the assessment and plan, continued hospitalization will be required. * Marisabel Baker MD - 09/29/2019 6:50 AM CDT Internal Medicine Resident Progress Note Admission Date: 09/28/2019 Hospital Day: 1 Attending: Dr. C[place] Resident/Assistant News Director: Drs. Baker Code Status: Full Code Events since last progress note: Nausea + 1 episode of vomiting Remains jaundiced BP stable Hospital course summary: 19 yo M with PMH of marijuana use and recent tattoos Admitted with hemolytic anemia 2/2 suspected insect bite sustained 7 days prior to admission. Reported worsening symptoms of nausea ,vomiting, itching and dark urine. Went to [facility] and Urgent care 3 days prior. Received benadryl and bactrim with limited improvement. Presents to hospitalwith severe nausea and jaundice. Oncology following. Elevated unconjugated bili, low hapto and high LDH. NEG for hepatitis. G6PD pending. Remains inpatient to assess for Hb stability as often these patients can decompensate quickly.DC AM amenable by oncology Review of Systems Constitutional: Negative. HENT: Negative. Eyes: Negative. Respiratory: Negative. Cardiovascular: Negative. Gastrointestinal: Positive for nausea. Genitourinary: Negative. Musculoskeletal: Negative. Skin: Negative. Neurological: Negative. Endo/Heme/Allergies: Negative. Psychiatric/Behavioral: Negative. OBJECTIVE Unable to calculate weight change. Intake/Output Summary (Last 24 hours) at 09/29/2019 0650 Last data filed at 09/29/2019 0450 Gross per 24 hour Intake 369.05 ml Output -- Net 369.05 ml Temp (24hrs), Av.1 ??F (36.7 ??C), Min:98 ??F (36.7 ??C), Max:98.4 ??F (36.9 ??C) Patient Vitals for the past 24 hrs: Temp Pulse Resp BP 09/29/19 0450 98.1 ??F (36.7 ??C) 94 12 125/80 09/29/19 0059 98.4 ??F (36.9 ??C) 59 12 135/71 09/28/190 98 ??F (36.7 ??C) 71 12 124/55 09/28/192099 -- -- -- 133/82 09/28/192050 -- -- -- 147/73 09/28/192048 -- 76 11 -- 09/28/192019 98.1 ??F (36.7 ??C) 56 14 135/82 09/28/191912 -- 71 13 -- 09/28/191911 -- 71 13 -- 09/28/191910 -- 67 13 -- 09/28/191909 -- -- -- 121/69 09/28/191908 -- 74 17 -- 09/28/191906 -- 61 14 -- 09/28/191904 -- 80 18 -- 09/28/191900 -- 74 16 -- 09/28/191899 -- -- -- 124/92 09/28/191854 -- 62 18 -- 09/28/191853 -- 66 16 -- 09/28/191851 -- 68 18 -- 09/28/191849 -- 63 16 122/67 09/28/191848 -- -- -- 132/81 09/28/191847 -- 73 18 -- 09/28/191845 -- 64 17 -- 09/28/191842 -- 66 18 -- 09/28/191840 -- 78 16 -- 09/28/191839 -- 65 17 -- 09/28/191838 -- 62 12 -- 09/28/191836 -- 61 17 -- 09/28/191834 -- 66 19 -- 09/28/19 183 -- 61 15 -- 09/28/191830 -- 71 -- -- 09/28/191828 -- 73 16 -- 09/28/191824 -- 108 20 -- 09/28/191823 -- 88 18 -- 09/28/191820 -- -- -- 146/81 09/28/19 182 -- 77 17 -- 09/28/191813 -- 71 19 -- 09/28/191808 -- 75 17 -- 09/28/191806 -- 90 15 -- 09/28/19 180 -- 77 16 -- 09/28/191800 -- 82 18 128/72 09/28/19 175 -- 67 15 -- 06/14/20 1750 -- 59 16 -- 09/28/19 1741 -- 71 19 122/70 09/28/19 1740 -- 72 20 -- 09/28/19 1739 -- 103 20 -- 09/28/19 1738 -- 89 13 -- 09/28/19 1737 -- 69 18 -- 09/28/19 1735 -- 71 14 -- 09/28/19 1733 -- 74 19 -- 09/28/19 1731 -- 80 19 132/71 09/28/19 1727 -- 74 19 -- 09/28/19 1725 -- 75 16 -- 09/28/19 1724 -- 72 19 -- 09/28/19 1723 -- 69 16 -- 09/28/19 1722 -- 67 16 -- 09/28/19 1721 -- 70 18 -- 09/28/19 1720 -- 73 16 -- 09/28/19 1718 -- 67 17 -- 09/28/19 1716 -- 74 14 -- 09/28/19 1714 -- 67 16 -- 09/28/19 1709 -- 69 13 -- 09/28/19 1708 -- 67 19 -- 09/28/19 1707 -- 69 14 -- 09/28/19 1706 -- 68 13 -- 09/28/19 1705 -- 68 16 -- 09/28/19 1703 -- 74 14 -- 09/28/19 1701 -- 74 19 118/73 09/28/19 1659 -- 61 13 -- 09/28/19 1657 -- 72 16 -- 09/28/19 1655 -- 69 16 -- 09/28/19 1654 -- 71 15 -- 09/28/19 1653 -- 65 18 -- 09/28/19 1652 -- 81 16 -- 09/28/19 1651 -- 67 17 -- 09/28/19 1650 -- 71 18 -- 09/28/19 1648 -- 64 15 -- 09/28/19 1646 -- 64 19 -- 09/28/19 1644 -- 71 13 -- 09/28/19 1642 -- 65 16 -- 09/28/19 1604 -- 75 15 -- 09/28/19 1603 -- 67 14 -- 09/28/19 1600 -- -- -- 127/76 09/28/19 1531 -- 86 16 -- 09/28/19 1530 -- -- -- 125/79 09/28/19 1504 -- 73 20 129/80 09/28/19 1430 -- 71 14 134/82 09/28/19 1429 -- 81 16 -- 09/28/19 1400 -- 67 23 138/77 09/28/19 1326 -- 50 14 129/78 09/28/19 1213 98.1 ??F (36.7 ??C) 88 18 123/74 Physical Exam Vitals signs and nursing note reviewed. Constitutional: Comments: Jaundiced sclera, mucosa and skin HENT: Head: Normocephalic. Neck: Musculoskeletal: Normal range of motion. Cardiovascular: Rate and Rhythm: Normal rate. Pulses: Normal pulses. Abdominal: General: Abdomen is flat. Musculoskeletal: Normal range of motion. General: No swelling or deformity. Skin: Comments: Extensive tattoing right LL Neurological: General: No focal deficit present. Mental Status: He is alert. Psychiatric: Mood and Affect: Mood normal. MAR reviewed: yes Antimicrobial day: NONE Labs: I have reviewed results from the last 24 hours and are remarkable for the following: LDH 770 Hb 9.8 WBC 11.5 Hepatitis non reactive CK 150 Micro: NONE Imaging: I have reviewed imaging studies from the last 24 hours and is summarized below: NONE Assessment/Clinical Reasoning/Plan Unconjugated acute hemolytic anemia History of insect bite 7 days prior admission UDS cannabis; non reactive hepatitis panel +VE hemolytic labs (LDH, Retics, transaminitis, haptoglobin) Hyperbilirubinemia Oncology following Nausea improved, requesting meals. No urticaria -supportive management 24 hours -DC IVF -CMP/CBC AM -replace folate -hold off steroids per Oncology Polysubstance abuse cannabis -counseled DISPO HOME in AM if amenable by oncology D/w IM Attending Discussed with RN Discussed with Family Discussed with Oncology Resident Prince Eloina Baker MD Department of Internal Medicine Associated attestation - Mark Cleveland MD - 09/29/2019 4:02 PM CDT Date of service: 09/29/2019 I discussed with the internal medicine resident. I independently saw and examined the patient. I agree with their progress note. Patient seen this morning. No fever overnight. He continues to have jaundice. Vital signs: Stable. Physical exam: No acute distress. Lungs: Clear to auscultation bilateral. Sclera: Evidence of jaundice. Cardiovascular: S1, S2 regular rate. Skin: Well-healed crusted left scapula spider bite, no drainage, no erythema, no exudate. Labs and imaging reviewed. Assessment plan: Acute hemolytic anemia: Most likely secondary to brown recluse spider bite. Appreciate hematology is assistance. Continue with supportive care. Monitor labs. Reassess tomorrow. Possible discharge home tomorrow. * Jen Fields LPN - 09/29/2019 6:47 AM CDT Shift Summary: Pt admitted to 330 via Ed stretcher. All care explained. Pt orientated to room, callsystem and all M policies and procedures. Pt rested quietly this shift. No concerns voiced. Pt able to tolerate water without emesis. Pt noted to have tea colored urine. IVF infusing without difficulty. Call light and phone in reach. Will continue to monitor. Pt noted to have a small scabbed areato left shoulder. * Emily Chan RN - 09/28/2019 7:15 PM CDT Report given to octavio RODRIGUEZ, all questions answered. * Emily Chan RN - 09/28/2019 6:43 PM CDT Pt resting quietly in bed, vss, will continue to monitor. * Emily Chan RN - 09/28/2019 6:43 PM CDT Spoke to Brad in lab, to modify path lab to add on and use existing sample - okay per Brad in lab. * Emily Chan RN - 09/28/2019 4:52 PM CDT Report received from Jesse RODRIGUEZ documented in this encounter H&P Notes * Abel Merida MD - 09/28/2019 8:04 PM CDT Resident addendum to qa internship H&P: Leo Shah is a 19 year old male with PMH significant for mild asthma presentedwith nausea and vomiting. Last Sunday morning ( a week ago) patient was bitten on his left shoulder by something while he wasinside home. Not sure what it was. Thinks it might be spider or mosquito. He left to [place] on Sunday, the next day he had few episodes of nausea/vomiting with subjective fevers ( temperature was normal) which self-resolved in two days. He came back to [facility] on Sunday, noticed dark/red colored urine followed by diffuse erythematous, itchy rash for which he went to urgent care on Sunday where was he started on 10 day course of Bactrim and Benadryl prn with improvement in his rash. Rash has resolved, but this morning he started to feel nauseous, followed by 5 episodes of vomiting along wi th yellowish discoloration of eyes, which prompted him to ED. CT abdomen negative for any acute intra-abdominal process. Exam remarkable for dark/red colored urine and 1 x 1 cm central, brown, dry necrotic area surrounded by pale and then a layer of erythema. 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 Findings consistent with hemolysis including elevated indirect bilirubin, high LDH, low haptoglobulin, elevated absolute reticulocyte count and positive Mariam test. No splenomegaly. Symptomatic management with IV fluids and folic acid for now. No indication for steroids as there is no end organ damage or hemodynamic instability. Recheck labs including CBC, CMP in the a.m. F/u peripheral smear and folic acid level. 6PD deficiency is a differential. Will hold off testing for G6PD quantity in the setting of acute illness. Hematology consult in a.m Other chronic issues as per qa internship note Abel Merida PGY2 Internal medicine * Samantha Thomas MD - 09/28/2019 5:50 PM CDT Internal Medicine Resident History and Physical Admission Date: 09/28/2019 Attending: Dr. Ellis Resident/Assistant News Director: Drs. Merida/ Martha Code Status: Full Code Chief complaint: Yellow eyes and nausea/vomiting; recent spider bite History of Present Illness: Leo Shah is a 19 year old male with PMHx significant for mild intermittent asthma and mold allergy Presenting with jaundice and nausea/vomiting. Pt states he got bit on L shoulder while inside his house last Sunday then left for [place] He thought it was a spider bite. He then developed nausea, vomiting, dark urine and diffuse erythematous, pruritic rash on Sunday when came back to [facility]. Pt went to on and was prescribed bactrim and benadryl. Today he re-developed nausea and vomiting again with scleral icterus according to uncle. Denies any family history of blood disorders, liver problems or jaundice. He also has noticed his urine is redder than usual which onset prior to taking bactrim. His stools are brown. In the ED, VSS T98.1, HR 71, RR 14, BP 134/82, SpO2 94%. Labs significant for anemia Hgb 11.4 with tbili 11.4 and direct bili 1.63, direct mariam positive, INR 1.2, fibrinogen 552, D-dimer 0.96, ALT 114, AST 43, ALP WNL, LDH 611, haptoglobin 11, reticulocyte count WNL, UDS positive for cannabinoids, UA showed urobilinogen otherwise WNL. CT abd/pelvis mildly distended loop of distal small bowel. He was given fluid boluses and zofran in ED. 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 HENT: Negative for sore throat. Eyes: Negative for blurred vision. Respiratory: Negative for cough and shortness of breath. Cardiovascular: Negative for chest pain and palpitations. Gastrointestinal: Positive for abdominal pain, nausea and vomiting. Genitourinary: Negative for dysuria and frequency. Red urine Musculoskeletal: Negative for joint pain. Skin: Negative for rash. Neurological: Negative for tingling, focal weakness, weakness and headaches. History: History updated? yes Past Medical History: Diagnosis Date ??? Allergies To mold ??? Mild intermittent asthma No past surgical history on file. No family history on file. Social History Occupational History ??? Occupation: student Tobacco Use ??? Smoking status: Current Every Day Smoker Packs/day: 2.00 Years: 2.00 Pack years: 4.00 Substance and Sexual Activity ??? Alcohol use: Yes Alcohol/week: 2.0 standard drinks Types: 2 Standard drinks or equivalent per week Frequency: Monthly or less Comment: last drank 09/26 ??? Drug use: Yes Frequency: 20.0 times per week Types: Marijuana Comment: 1-2 joints a day, smokes alot ??? Sexual activity: Not on file Allergies to Medications and Reactions No Known Allergies Home Medications: No current facility-administered medications on file prior to encounter. Current Outpatient Medications on File Prior to Encounter Medication Sig Dispense Refill ??? albuterol HFA (PROVENTIL;VENTOLIN;PROAIR) 108 (90 Base) MCG/ACT inhaler Inhale 2 puffs by mouth ??? cetirizine (ZYRTEC) 10 MG tablet Take 10 mg by mouth once daily Home medications reconciled? yes OBJECTIVE Vitals: 09/28/19190909/28/19191009/28/19191109/28/191912 BP: 121/69 Pulse: 67 71 71 Resp: 13 13 13 Temp: SpO2: 100% 100% 96% Weight: Height: Physical Exam Constitutional: He is oriented to person, place, and time. He appears well- developed and well-nourished. Urine in container dark red/yellow HENT: Head: Normocephalic and atraumatic. Eyes: Pupils are equal, round, and reactive to light. EOM are normal. Scleral icterus is present. Neck: Normal range of motion. No JVD present. No thyromegaly present. Cardiovascular: Normal rate and regular rhythm. Exam reveals no friction rub. No murmur heard. Pulmonary/Chest: Effort normal and breath sounds normal. No respiratory distress. He has no wheezes. He has no rales. Abdominal: Soft. He exhibits no distension. There is no abdominal tenderness. There is no guarding. Musculoskeletal: Normal range of motion. General: No tenderness or edema. Neurological: He is alert and oriented to person, place, and time. Coordination normal. Skin: Skin is warm and dry. Jaundice. No rash seen. Bite on shoulder Psychiatric: He has a normal mood and affect. His behavior is normal. Vitals reviewed. Labs: Labs have been personally reviewed and are remarkable for the following: Recent Labs Component Name 09/28/19 1218 SODIUM 134* POTASSIUM 4.2 CHLORIDE 104 CO2 20 BUN 14 CREATININE 0.78 GLUCOSE 131* CALCIUM 8.8 ALT 114* ALKPHOS 141 AST 43* TBIL 11.4* TPROT 7.8 EGFR >60 EGFRAFR >60 ALBUMIN 4.3 Recent Labs Component Name 09/28/19 1905 09/28/19 1218 WBC - 10.3 RBC - 3.86* HGB - 11.4* HCT - 34.4* MCV - 89.1 MCHC - 33.1 PLTCOUNT 208 211 NEUTPCT - 76.2 LYMPHPCT - 9.0* BASOPHILPCT - 0.5 GRANSIMMPCT - 3.9 NEUTABS - 7.83 LYMPHABS - 0.93 BASOABS - 0.05 Micro: none Imaging: Imaging has been personally reviewed and is summarized as below: CT abd/pelvis negative except mild distal small bowel thickening Assessment/Clinical Reasoning/Plan Hemolytic anemia likely 2/2 brown recluse spider with recent bactrim use Pt's direct mariam test was positive; also possible pt has G6PD deficiency due to worsening with bactrim use Retic count elevated, LDH high and indirect bilirubin elevated No family history of hemolysis or anemia so sickle cell, thalassemia and hereditary spherocytosis less likely Recently took bactrim -will hold off on getting G6PD because if RBC have deficiency most of them will be hemolyzed already; can get o/p -peripheral smear f/u -hold off on steroids because no signs of end organ damage -Repeat direct bili, LFT/kidney function in AM -LDH, ferritin, CBC in AM -IVF LR 75cc/hr -replace folic acid due to high RBC production needed to replace hemolyzed RBC -f/u folic acid level - no need for liver ultrasound -if BP drops; recheck H&H and transfuse if <7 or large drop or if reticulocyte count doesn'tstart compensating -consult Dr. Payne (Heme-Onc) tomorrow Nausea/vomiting -Zofran and reglan prn -IVF Asthma -prn albuterol -claritin DVT PPx-heparin Diet: regular D/w IM Attending Samantha Thomas MD 09/28/2019 8:16 PM PGY-1 PAGER: BEATRIZ The patient is admitted with a diagnosis or diagnoses of Hemolytic anemia 2/2 likely to brown recluse spider bite and possible OTILIO and current medical needs include monitoring for end organ damage, IVF. The patient has the following complex medical factors: asthma. Associated attestation - Prakash Ellis MD - 09/29/2019 5:19 AM CDT Images from the original note were not included. SOUND HOSPITALIST SHORT H&P NOTE PCP: Jesse Biggs MD Patient was seen and examined by me on 09/29/2019 4:57 AM Pt seen and examined by me today. I have independently interviewed and examined this patient. I agree with the exam and plan per the qa internship's/resident's H&P note. The ROS, past medical hx, allergies, home meds and family hx is per the qa internship's/resident's H&P note, which I have carefully reviewed. I directly participated in the care of this patient today with the qa internship/resident and reviewed the notes, orders, labs and reports in EPIC. 19 year old male with PMHx of asthma and mold allergy admitted for N/V and jaundice. He was recently bitten by a brown recluse spider on the left scapula area. After the bite he noted dark urine and N/V. He went to an urgent care and was prescribed a course of bactrim and benadryl for cellulitis atthe bite area. The day after he was started on bactrim and developed jaundice. He noted subjective fevers and abd pain. In the ER he was afebrile. WBC- 10,300. T bili- 11.4 (direct T bili- 1.63). direct mariam +. LDH- 621 and haptoglobin- 11. Coags stable. Fibrinogen- 552. Retic count- 2.93. AST/ALT- 43/114. CT abd/pelvis showed mild distal small bowel colitis. Further HPI is per the qa internship's/resi dent's note which I have closely reviewed. Vitals: 09/28/19 2130 09/28/19 2200 09/29/19 0059 09/29/19 0450 BP: 124/55 135/71 125/80 Pulse: 71 59 94 Resp: 12 12 12 Temp: 98 ??F (36.7 ??C) 98.4 ??F (36.9 ??C) 98.1 ??F (36.7 ??C) SpO2: 96% 99% 99% Weight: 146 lb 11.2 oz Height: 5' 9 EXAM GEN: A/O x 3, thin, not toxic Eyes: + scleral icterus Cardiovascular: Normal rate and regular rhythm. Exam reveals no friction rub. No murmur heard. Pulmonary/Chest: CTA bilat Abdominal: Soft. no abdominal tenderness. There is no guarding. SKIN: + jauncide, healing spider bite on left scapula with a central ulcer but no surrounding warmth or redness NEURO: non focal Recent Labs Component Name 09/29/19 0356 09/28/19 1905 09/28/19 1218 WBC 11.5* - 10.3 RBC 3.19* - 3.86* HGB 9.8* - 11.4* HCT 29.3* - 34.4* MCV 91.8 - 89.1 MCHC 33.4 - 33.1 PLTCOUNT 227 208 211 NEUTPCT - - 76.2 LYMPHPCT - - 9.0* BASOPHILPCT - - 0.5 GRANSIMMPCT - - 3.9 NEUTABS - - 7.83 LYMPHABS - - 0.93 BASOABS - - 0.05 Recent Labs Component Name 09/29/19 0356 09/28/19 1218 SODIUM 134* 134* POTASSIUM 4.1 4.2 CHLORIDE 103 104 CO2 21 20 BUN 14 14 CREATININE 0.74 0.78 GLUCOSE 112* 131* CALCIUM 9.1 8.8 No results for input(s): TROPONINI in the last 67187 hours. Recent Labs Component Name 09/29/19 0356 09/28/19 1218 ALBUMIN 4.1 4.3 ALKPHOS 130 141 ALT 125* 114* AST 68* 43* TBIL 10.5* 11.4* DBIL 1.25* 1.63* TPROT 7.8 7.8 No results for input(s): BNP, NTPROBNP in the last 88554 hours. Recent Labs Component Name 09/28/19 1905 INR 1.2* Recent Labs Component Name 09/28/19 1905 PTT 29.1 No results for input(s): TSH in the last 56036 hours. MEDICATIONS FOR CURRENT ENCOUNTER: SCHEDULED MEDICATIONS: 0.9% NaCl injection 3 mL, Intracatheter, q8h folic acid (FOLVITE) tablet 1 mg, Oral, QDAY heparin injection 5,000 Units, Subcutaneous, BID iopamidol (ISOVUE 370) 76 % contrast, Intravenous, Contrast - Once loratadine (CLARITIN) tablet 10 mg, Oral, QDAY nicotine (NICODERM CQ) patch 21 mg, Transdermal, QDAY [COMPLETED] 0.9% NaCl IV Bolus, Intravenous, Now [COMPLETED] 0.9% NaCl IV Bolus, Intravenous, Now [COMPLETED] metoclopramide (REGLAN) injection 10 mg, Intravenous, Now [COMPLETED] ondansetron (ZOFRAN) injection 4 mg, Intravenous, Once CONTINUOUS MEDICATIONS: lactated ringers infusion, Intravenous, Continuous PRN MEDICATIONS: Or 0.9% NaCl injection 1-10 mL, Intracatheter, PRN acetaminophen (TYLENOL) tablet 650 mg, Oral, q4h PRN albuterol HFA (PROVENTIL;VENTOLIN;PROAIR) 108 (90 Base) MCG/ACT inhaler 2 puff, Inhalation, q6h PRN ondansetron (disintegrating) (ZOFRAN ODT) tablet 4 mg, Oral, q6h PRN ondansetron (ZOFRAN) injection 4 mg, Intravenous, q6h PRN A/P -- Acute hemolytic anemia Due to brown recluse spider bite +/- bactrim use (? G6PD deficiency) List bactrim as an allergy There is no evidence of DIC His hgb is stable so no blood transfusion is needed at present No indication for IV steroids at present Trend H/H Consult hematology -- Folate deficiency Folic acid started -- the remainder of the assessment/plan is per the qa internship's/resident's H&P note which I have reviewed and I agree with. I have reviewed the ER physicians and ER nurses records in EPIC I spoke with the qa internship and resident in detail about the plan of care. Prakash Ellis MD documented in this encounter Consult Notes * Katty Salcedo - 09/30/2019 3:00 PM CDTAssociated Order(s): IP CONSULT TO PASTORAL CARE Outcomes Specialist visited with pt and provided grief support. Pt's best friend was murdered about a week ago.Outcomes Specialist provided Pt with a spiritual resource, listening presence, prayer, empathy, and words of comfort. Pt will contact flavor maker if further services are needed. -Outcomes Specialist Katty Salcedo M.Div, [facility] Pastoral Care pager: [phone] 7 AM - 9 PM Pastoral Care family consumer science fcs teacher pager: [phone] 9 PM- 7 AM Please allow the family consumer science fcs teacher flavor maker 30 minutes to arrive to the hospital. * Bryan Shah MD - 09/30/2019 12:04 PM CDT TRANSFUSION MEDICINE SERVICE: ANTIBODY EVALUATION Clinical Summary: The patient is an 19-year-old man who was admitted to [facility], on 09-28-2019, for the evaluation and management of nausea, vomiting, diarrhea, and new-onset scleral icterus. He was well until 09-21-2019 when he suffered an insect bite, presumably a spider. Thereafter, he experienced nausea, vomiting and diarrhea x 1 week with increasing evidence of jaundice. He was also started on a course of Bactrim on 09-26-2019. Laboratory Evaluation: The patient is blood group B-positive and has a negative antibody screen. However, he has a strongly-reactive OTILIO (Direct Antiglobulin Test = Direct Mariam??? Test) with excess IgG found on his red blood cells. Complement testing (C3) demonstrates only weak reactivity. Finally, the IgG on his red cells was further assessed and was found to be non-reactive with reagent red blood cells. This rules-out blood group alloantibodies and red cell autoantibodies. Assessment: The patient has a reactive OTILIO in the context of an apparent spider bite. He also has strong laboratory evidence of a hemolytic process and a leukocytosis with a predominance of neutrophils and evidence of a left shift. His clinical presentation, including the timing of findings, and his laboratoryfindings are most consistent with loxoscelism. There is a possibility that Bactrim administration could be contributing to the hemolytic process, but I believe that it is more likely a distractor. Recommendations: 1. Transfuse as clinically indicated. 2. We will provide crossmatch-compatible units of blood for transfusion. Bryan Shah MD, MPH Transfusion Service Chief Deputy [employer] [place]???[facility] Pager: [phone] * Maynor Payne MD - 09/29/2019 9:47 AM CDTAssociated Order(s): IP CONSULT TO ONCOLOGY Hematology/ Oncology Patient's name:Leo Shah Date of : 2000 Date of admission: 09/28/2019 Date of visit:09/29/2019 Patient's Primary Care Physician: Jesse Biggs MD Physician requesting consultation: Mark Cleveland MD Hematological/ Oncological consultation was requested by Dr. Mark Cleveland MD on 09/29/2019 for the evaluation and management of the patient's acute hemolytic anemia in the setting of a possible insect/spider bite. . The patient's medical information and historical details were obtained from the patient and from medical records. Chief complaint/ history of present illness: Leo Shah is a 19 year old Black/ male, With PMH of asthma, and jaundice (resolved with phototherapy), who was admitted on 09/28/2019 for nausea and vomiting. As Per the patient, he was apparently well till last Sunday (09/21/2019), when he felt like he was bitten on his left shoulder by something with something that could be a spider or related insect (but he is not sure). Following this, he left for [place]. While he was in [place], he had nausea followed by nonbilious nonbloody vomiting with diarrhea. He also felt subjective fever, with no chills. He also noticed that his urine was getting slightly dark. As he was getting sick, he came back to [facility] the last Sunday. His urine was getting darker and he was having itchy skin which was increasing over time. He went to the ED of [facility] at [place] that evening. He was given Benadryl for itching and discharged home from the ED. No further information regarding any workup is available at this point. From last , he started having diffuse edematous rashes on his body, extremities sparing the palms and the soles. He went to urgent care last Sunday following this, was given a 10 day course of Bactrim b.i.d. and Benadryl as needed. Reports that the rash got slightly better when he was on Bactrim. He took the Bactrim on Sunday, Sunday and 1 tablet on Sunday. However,he noticed his urine getting more darker and yellow discoloration of his eyes in the skin and he was more nauseous. This prompted him to come to the ED at [facility]. Review of Systems: as per HPI/ interval history General ROS: subjective fever,no night sweats Psychological ROS: no anxiety, no depression Ophthalmic ROS: no decreased vision no eye pain ENMT ROS: no ear pain, no drainage, no nosebleed, no oral ulcers no sore throat Allergy and Immunology ROS: no nasal congestion, no hives Hematological and Lymphatic ROS: no bruising, no bleeding Endocrine ROS: negative Breast ROS: no breast lump Respiratory ROS: no cough, no shortness of breath, no chest pain Cardiovascular ROS: no chest pain no dyspnea on exertion Gastrointestinal ROS: diarrhea, nausea and vomiting +. Epigastric abdominal pain +, no black/ bloody stools. Genito- Urinary ROS: no dysuria, no hematuria Musculoskeletal ROS: no joint pains, no falls. Neurological ROS: no TIA or stroke symptoms. No seizures. Dermatological ROS: no lumps no pruritus no bleeding. Past Medical History: Diagnosis Date ??? Allergies To mold ??? Mild intermittent asthma Past surgical history: No surgery Social history: reports that he has been smoking. He has a 4.00 pack-year smoking history. He does not have any smokeless tobacco history on file. He reports current alcohol use of about 2.0 standard drinks of alcohol per week. He reports current drug use. Frequency: 20.00 times per week. Drug: Marijuana. Family history: No family history of G6PD deficiency or blood disorders Allergies: Allergies Allergen Reactions ??? Bactrim [Sulfamethoxazole W-Trimethoprim] Hematologic Drug induced hemolysis Medications: Current Facility-Administered Medications Medication Dose Route Frequency Provider Last Rate Last Dose ??? albuterol HFA (PROVENTIL;VENTOLIN;PROAIR) 108 (90 Base) MCG/ACT inhaler 2 puff 2 puff Inhalation q6h PRN Samantha Thomas MD ??? enoxaparin (LOVENOX) injection 40 mg 40 mg Subcutaneous QDAY Marisabel Baker MD ??? folic acid (FOLVITE) tablet 1 mg 1 mg Oral QDAY Abel Merida MD 1 mg at 09/29/19 0826 ??? iopamidol (ISOVUE 370) 76 % contrast Intravenous Contrast - Once Robbin Fay PA-C 100 mL at 09/28/19 1446 ??? loratadine (CLARITIN) tablet 10 mg 10 mg Oral QDAY Samantha Thomas MD 10 mg at 09/29/19 0826 Medications in MAR reviewed. Physical examination: height is 5' 9 and weight is 146 lb 11.2 oz. His oral temperature is 98 ??F (36.7 ??C). His blood pressure is 134/82 and his pulse is 83. His respiration is 14 and oxygen saturation is 100%. General appearance: pleasant male, awake, alert, cooperative, in no distress. Skin: healing 1 cm area of erythema on posterior left shoulder. Yellow discoloration of the skin +. Head: normocephalic, atraumatic. Eyes: sclera icteric, PERRLA Ears: hearing intact, no drainage. Nose: anterior nares normal, no bleeding. Oral cavity and Throat: mucous membranes moist, no oral ulcers. Neck: no thyromegaly, no palpable cervical nodes, no supraclavicular adenopathy Chest: no masses, or chest-wall tenderness. Breasts: deferred Respiratory: breath sounds heard, no rales, no rhonchi Cardiovascular: pulses equal, S1 and S2 heard, no S3, no S4, no rubs no murmurs. Abdomen: soft, mild tenderness in the epigastrium, bowel sounds heard, no masses, no palpable organomegaly. Rectal: deferred Genito-urinary:deferred. Lymphatic: no palpable cervical, supraclavicular, axillary adenopathy noted. Extremities:no clubbing no edema. Musculo-skeletal: joints intact bilaterally, no obvious tenderness. Neurologic al: Alert, oriented in time, space and person; no obvious cranial nerve deficits noted. Normal speech and affect. No gross sensory or motor deficits noted. Gait and coordination intact. Laboratory data: Recent Labs Component Name 09/29/19 0356 09/28/19190409/28/19 1218 WBC 11.5* - 10.3 RBC 3.19* - 3.86* HGB 9.8* - 11.4* HCT 29.3* - 34.4* MCV 91.8 - 89.1 MCHC 33.4 - 33.1 RDWCV 11.9 - 12.0 PLTCOUNT 227 208 211 NEUTPCT - - 76.2 LYMPHPCT - - 9.0* BASOPHILPCT - - 0.5 GRANSIMMPCT - - 3.9 LYMPHABS - - 0.93 BASOABS - - 0.05 NRBCAUTO 0 - 0 Recent Labs Component Name 09/29/19 0356 09/28/19 1218 SODIUM 134* 134* POTASSIUM 4.1 4.2 CHLORIDE 103 104 CO2 21 20 BUN 14 14 CREATININE 0.74 0.78 GLUCOSE 112* 131* CALCIUM 9.1 8.8 ALBUMIN 4.1 4.3 ALKPHOS 130 141 ALT 125* 114* AST 68* 43* TBIL 10.5* 11.4* TPROT 7.8 7.8 EGFR >60 >60 Recent Labs Component Name 09/28/19 1905 FOLATE 5.8* Recent Labs Component Name 09/29/19 0739 CK 150 Recent Labs Component Name 09/29/19 0356 09/28/19 1218 LDH 770* 611* Recent Labs Component Name 09/28/19 1218 HAPTOGLOBIN 11* Recent Labs Component Name 09/28/19 1905 INR 1.2* Recent Labs Component Name 09/29/19 0356 09/28/19 1218 RETICPCT 2.93 2.31 Viral hepatitis panel nonreactive Urine drug screen: positive for cannabinoids UA showing 1+ blood, 1+ ketone, 4 urobilinogen. Remaining labs unremarkable Imaging data: CT abdomen pelvis?? The liver, gallbladder, spleen and visualized appendix are normal. ?? The adrenal glands and right kidney normal. There is likely a small left renal cyst. The visualized ureters and bladder and prostate gland appear grossly normal. ?? There is a mildly distended fluid-filled loop of small bowel in the right pelvis, likely distal or terminal ileum. The visualized large and small bowel are otherwise grossly normal. The appendix is questionably identified and normal. There is no free air or free fluid. No pericecal inflammatory changes present. ?? The vascular structures enhance normally. ?? Heart size is normal. Lung bases are clear. DIAGNOSIS: There is a mildly distended loop of distal small bowel. Otherwise CT abdomen pelvis is grossly normal. Pathology data: Blood Peripheral smear in process Assessment: In summary, Leo Shah is a pleasant 19 year old male with History of mild asthma home presentedwith nausea vomiting and jaundice following insect bite, and was found to have hemolytic anemia on subsequent workup # Mariam positive hemolytic anemia, acute onset, in the setting of insect bite (suspected spider bite) - supporting laboratory evidence for hemolytic anemia includes elevated indirect bilirubin, LDH, reticulocyte counts, mild transaminitis, decreased haptoglobin, weakness folate levels in the blood - No evidence of rhabdomyolysis or MARYBETH. Urine drug screen is not supportive for any drug related effects - no acute hepatobiliary process noted in the CT scan abdomen pelvis - viral hepatitis panel nonreactive -there have been multiple literatures that report insect bites (including bees, wasps, Spider bites) and resulting mariam positive hemolytic anemia Chart, imaging data, laboratory / pathology data reviewed, patient seen and examined. Plan: -monitor hemogram, renal function, liver function panel daily -transfusion threshold of 7 g% for PRBC, 50 (if bleeding)/10 if no bleeding for platelet transfusion -continue daily folic acid -medical management of pruritus -iv hydration. Monitor for hemodynamic decompensation,as cases of spider bites can sometimes decompensate quickly. However, the management is primarily symptomatic and supportive -no role of steroids and the management is primarily symptomatic/supportive. We would recommend that the patient stays inpatient for at least next 24 to ensure hemodynamic stability, improving labs (bilirubin) and stable hemogram. Please be advised that voice recognition software has been used on this chart and inadvertent errors may occur. These may not represent a true interpretation of the dictation given. D/w Dr Elmer López MD 09/29/2019 12:10 PM Attending note: 19-year-old male admitted with nausea, vomiting, insect [...] unconjugated hyperbilirubinemia and was treated with a short course of phototherapy immediately after . No prior history of viral hepatitis. Denie s any trauma, falls, muscle aches or fevers. Clinical picture suggestive of a brown recluse spider bite with acute hemolytic anemia and systemicsymptoms of nausea and vomiting. Remains afebrile. Feels somewhat better since admission. Hemoglobin slightly lower after IV fluids however, total bilirubin lower at 10.5 today from 11.4 on admission. No muscle tenderness or palpable splenomegaly. No vascular purpura, flank pain or tenderness. Normal renal function.. No evidence of DIC on labs, organ failure, rhabdomyolysis. Remains afebrile, looks nontoxic. Antibody screen negative. Was on Bactrim immediately before his admission. Bactrim itself can cause a Mariam positive hemolytic anemia although his symptoms started well before starting Ba ctrim and hence this is less likely the culprit agent. Check total CK. Check peripheral smear. Continue folate supplementation. Monitor daily counts, hepatic panel. Continue supportive management as per the primary team. No indication for steroids or PRBC transfusions at this time. Wound care as per the primary team. We will follow his care closely with you and make further recommendations based on his clinical status and further clinical data. Thank you for allowing us participate in the care of this pleasant man. Please feel free to contact me at [phone] if you have any further questions. Patient seen and examined by me independently and together with Dr. López and discussed with him. I agree with the evaluation and plan with my annotations in blue ink. Care plan discussed with Dr. López . I have participated directly in the care of this patient and was physically present in the room with the patient and Dr. López through all aspects of the history and exam. Maynor Payne MD, [facility] Hematology and Medical Oncology [facility] [address], [facility] [address] [place] [address] Exchange: [phone] Please be advised that voice recognition software has been used on this chart and inadvertent errors may occur. These may not represent a true interpretation of the dictation given. documented in this encounter ED Notes * Ocatvio Chew RN - 09/28/2019 9:05 PM CDT Report given to 3 Curt Lopez RN * Octavio Chew RN - 09/28/2019 8:45 PM CDT Pt Still having nausea, provider notified, orders received. * Octavio Chew RN - 09/28/2019 8:25 PM CDT Pt experiencing nausea and vomiting, Provider notified. PRN zofran administered. * Emily Chan RN - 09/28/2019 4:51 PM CDT Unclear as to why bpa is flagging, will cont to monitor and update as appropriate * Jesse Randle RN - 09/28/2019 4:27 PM CDT Leo Shah able to provide urine sample after IVF boluses. Urine dark tea colored. No further episodes of emesis noted. Currently resting in bed with call light in reach. Will continue to monitor. * Markell Martin MD - 09/28/2019 4:25 PM CDT Leo Shah [id number] [facility] EMERGENCY DEPARTMENT History Chief Complaint Patient presents with ??? Vomiting seen at [facility] on Sun for vomiting/chills/diarrhea/UC on Sunday for the same not feeling any better HPI No past medical history on file. No past surgical history on file. No family history on file. Social History Socioeconomic History ??? Marital status: Single Spouse name: Not on file ??? Number of children: Not on file ??? Years of education: Not on file ??? Highest education level: Not on file Occupational History ??? Not on file Social Needs ??? Financial resource strain: Not on file ??? Food insecurity Worry: Not on file Inability: Not on file ??? Transportation needs Medical: Not on file Non-medical: Not on file Tobacco Use ??? Smoking status: Not on file Substance and Sexual Activity ??? Alcohol use: Yes Alcohol/week: 2.0 standard drinks Types: 2 Standard drinks or equivalent per week Comment: last drank 09/26 ??? Drug use: Yes Frequency: 20.0 times per week Types: Marijuana Comment: 1-2 joints a day, smokes alot ??? Sexual activity: Not on file Lifestyle ??? Physical activity Days per week: Not on file Minutes per session: Not on file ??? Stress: Not on file Relationships ??? Social connections Talks on phone: Not on file Gets together: Not on file Attends yarsani service: Not on file Active member of club or organization: Not on file Attends meetings of clubs or organizations: Not on file Relationship status: Not on file ??? Intimate partner violence Fear of current or ex partner: Not on file Emotionally abused: Not on file Physically abused: Not on file Forced sexual activity: Not on file Other Topics Concern ??? Not on file Social History Narrative ??? Not on file Review of Systems ROS Physical Exam BP 125/79 Pulse 86 Temp 98.1 ??F (36.7 ??C) Resp 16 Ht 1.753 m (5' 9 ) Wt 68.5 kg (151 lb) SpO2 100% BMI 22.30 kg/m?? Physical Exam Medications No current outpatient medications on file. Procedures Procedures Lab/SPO2 Interpretation Hospital Encounter on 09/28/19 CBC W AUTO DIFFERENTIAL Result Value Ref Range WBC 10.3 4.5 - 11.0 x10E9/L WBC Corrected RBC 3.86 (L) 4.50 - 5.30 x10E12/L Hemoglobin 11.4 (L) 13.0 - 16.0 gm/dL Hematocrit 34.4 (L) 37.0 - 49.0 % MCV 89.1 78.0 - 98.0 fl MCH 29.5 25.0 - 35.0 pg MCHC 33.1 31.0 - 37.0 gm/dL Platelet Count 211 100 - 400 x10E9/L RDW-CV 12.0 11.5 - 14.0 % MPV 10.8 (H) 6.0 - 9.5 fl Neutrophils % 76.2 31.0 - 78.0 % Lymphocytes % 9.0 (L) 13.0 - 54.0 % Monocytes % 5.5 4.0 - 13.0 % Eosinophils % 4.9 0.0 - 8.0 % Basophils % 0.5 % Immature Granulocytes 3.9 % Neutrophil Absolute 7.83 1.4 - 8.58 x10E9/L Lymphocytes Absolute 0.93 0.59 - 5.94 x10E9/L Monocytes Absolute 0.57 0.18 - 1.43 x10E9/L Eosinophils Absolute 0.50 0 - 0.88 x10E9/L Basophils Absolute 0.05 0 - 0.22 x10E9/L Immature Granulocytes Absolute 0.40 (H) 0 - 0.11 x10E9/L nRBC Auto 0 /100 WBC COMPREHENSIVE METABOLIC PANEL Result Value Ref Range Glucose 131 (H) 70 - 105 mg/dL Sodium 134 (L) 136 - 145 mmol/L Potassium 4.2 3.5 - 5.1 mmol/L Chloride 104 98 - 107 mmol/L CO2 20 20 - 28 mmol/L Calcium 8.8 8.4 - 10.4 mg/dL Anion Gap 10 8 - 16 mmol/L BUN 14 8.9 - 20.6 mg/dL Creatinine 0.78 0.72 - 1.25 mg/dL Alkaline Phosphatase 141 100 - 390 U/L ALT 114 (H) 0 - 61 U/L AST 43 (H) 5 - 34 U/L Protein Total 7.8 6.4 - 8.3 gm/dL Albumin 4.3 3.4 - 5.0 gm/dL Bilirubin Total 11.4 (H) 0.2 - 1.2 mg/dL eGFR by MDRD >60 >60 mL/min/1.73m2 eGFR by MDRD >60 >60 mL/min/1.73m2 LIPASE BLOOD Result Value Ref Range Lipase 9 (L) 10 - 220 U/L CT ABDOMEN AND PELVIS WITH IV CONTRAST - Acute Abdomen Final Result CT abdomen pelvis HISTORY: Vomiting and chills [...] Mark Luz on 09/28/2019 at 3:14 PM US ABDOMEN LIMITED (Results Pending) Progress Notes ED Course Clinical Impressions as of Sep 27 1624 Abdominal pain, epigastric Elevated bilirubin Medical Decision Making Orders Placed This Encounter ??? CT ABDOMEN AND PELVIS WITH IV CONTRAST - Acute Abdomen ??? US ABDOMEN LIMITED ??? CBC W AUTO DIFFERENTIAL ??? COMPREHENSIVE METABOLIC PANEL ??? URINALYSIS REFLEX TO MICROSCOPIC NO CULTURE ??? LIPASE BLOOD ??? URINALYSIS REFLEX MICROSCOPIC REFLEX CULTURE ??? DRUG SCREEN TOX URINE PANEL ??? AND Linked Order Group ??? 0.9% NaCl injection 3 mL ??? 0.9% NaCl injection 1-10 mL ??? ondansetron 4mg/2ml IJ Soln ADS Med ??? 0.9% NaCl IV Bolus ??? 0.9% NaCl IV Bolus ??? ondansetron (ZOFRAN) injection 4 mg ??? iopamidol (ISOVUE 370) 76 % contrast Pt seen in conjunction with the PA. Pt with n/v/d and found to have bili markedly elevated and jaundice. No prior episodes. No execessive tylenol/etoh use. Recent bactrim. No recent out of the country travel. Benign exam. Admit for continued treatment and mnx. * Jesse Randle RN - 09/28/2019 2:58 PM CDT Leo Shah in CT * Jesse Randle RN - 09/28/2019 2:37 PM CDT Spoke to Leo Shah Uncle at great length reguarding patients currently status. Per his uncle heis mild special needs, was seen at [facility] and they were very concerned about his liver enzymes, he also had CT performed there and was told to follow up. His Uncle also stated that patient went on a road trip yesterday with questionable choices along with getting a tattoo at someone's house less than a month ago Family aware Leo Shah is to be admitted for observation. Leo Shah is resting quietly in bed sleeping. IVF per orders. Awaiting CT. * Jesse Randle RN - 09/28/2019 2:25 PM CDT [phone] Benedict Lawson is Leo Shah Uncle , and okay to discuss care with patient. * Jesse Randle RN - 09/28/2019 1:26 PM CDT Leo Shah comes to ER today after increased nausea with bile emesis. He also reports that his eyes are now yellow and thinks he has Hepatitis He was seen at [facility] for nausea with ABD pain which he states they attributed to a spider back on his left upper shoulder. Scabbed area there with some redness. He has been afebrile,, reports intermittent chills, poor appetite. He last drank alcohol last evening and smokes a lot of marijuana per his report, more than 2-3x/day. MD Rahman was walking in hallway and gave a verbal order for IV Zofran as he was experiencing multiple episodesof emesis. * Robbin Fay PA-C - 09/28/2019 1:17 PM CDT Leo Shah [id number] [facility] EMERGENCY DEPARTMENT History Chief Complaint Patient presents with ??? Vomiting seen at [facility] on Sun for vomiting/chills/diarrhea/UC on Sunday for the same not feeling any better 19 M with history of asthma presents with nausea, vomiting, and diarrhea for 1 week. Patient reports having 1-2 episodes of diarrhea daily since onset and 5-10 episodes of emesis. Denies blood in stool or emesis. Patient was seen at [facility] for this recently but still reports no relief. Patient comes into the ED today because his eyes have become yellow. Patient states smoking marijuanaregularly, last intake was yesterday. Patient also drinks alcohol occasionally, and last drink was yesterday. No past medical history on file. No past surgical history on file. No family history on file. Social History Socioeconomic History ??? Marital status: Single Spouse name: Not on file ??? Number of children: Not on file ??? Years of education: Not on file ??? Highest education level: Not on file Occupational History ??? Not on file Social Needs ??? Financial resource strain: Not on file ??? Food insecurity Worry: Not on file Inability: Not on file ??? Transportation needs Medical: Not on file Non-medical: Not on file Tobacco Use ??? Smoking status: Not on file Substance and Sexual Activity ??? Alcohol use: Yes Alcohol/week: 2.0 standard drinks Types: 2 Standard drinks or equivalent per week Comment: last drank 09/26 ??? Drug use: Yes Frequency: 20.0 times per week Types: Marijuana Comment: 1-2 joints a day, smokes alot ??? Sexual activity: Not on file Lifestyle ??? Physical activity Days per week: Not on file Minutes per session: Not on file ??? Stress: Not on file Relationships ??? Social connections Talks on phone: Not on file Gets together: Not on file Attends yarsani service: Not on file Active member of club or organization: Not on file Attends meetings of clubs or organizations: Not on file Relationship status: Not on file ??? Intimate partner violence Fear of current or ex partner: Not on file Emotionally abused: Not on file Physically abused: Not on file Forced sexual activity: Not on file Other Topics Concern ??? Not on file Social History Narrative ??? Not on file Review of Systems Review of Systems Constitutional: Negative. Negative for chills and fever. HENT: Negative. Eyes: Negative. Respiratory: Negative. Negative for shortness of breath. Cardiovascular: Negative. Negative for chest pain. Gastrointestinal: Positive for abdominal pain, diarrhea, nausea and vomiting. Genitourinary: Negative. Musculoskeletal: Negative. Skin: Negative. Neurological: Negative. Negative for headaches. Psychiatric/Behavioral: Negative. All other systems reviewed and are negative. Physical Exam BP 127/76 Pulse 75 Temp 98.1 ??F (36.7 ??C) Resp 15 Ht 1.753 m (5' 9 ) Wt 68.5 kg (151 lb) SpO2 100% BMI 22.30 kg/m?? Physical Exam Vitals signs and nursing note reviewed. Constitutional: General: He is not in acute distress. Appearance: He is well-developed. He is not diaphoretic. HENT: Head: Normocephalic and atraumatic. Right Ear: External ear normal. Left Ear: External ear normal. Mouth/Throat: Pharynx: No oropharyngeal exudate. Eyes: General: Right eye: No discharge. Left eye: No discharge. Conjunctiva/sclera: Conjunctivae normal. Pupils: Pupils are equal, round, and reactive to light. Neck: Musculoskeletal: Normal range of motion and neck supple. Cardiovascular: Rate and Rhythm: Normal rate and regular rhythm. Pulmonary: Effort: Pulmonary effort is normal. No respiratory distress. Breath sounds: Normal breath sounds. Abdominal: General: Bowel sounds are normal. There is no distension. Palpations: Abdomen is soft. Tenderness: There is abdominal tenderness in the epigastric area. There is no right CVA tenderness,left CVA tenderness, guarding or rebound. Negative signs include Garrett's sign and McBurney's sign. Musculoskeletal: Normal range of motion. General: No tenderness. Lymphadenopathy: Cervical: No cervical adenopathy. Skin: General: Skin is warm and dry. Findings: No rash. Neurological: Mental Status: He is alert and oriented to person, place, and time. Psychiatric: Behavior: Behavior normal. Medications No current outpatient medications on file. Procedures Procedures Lab/SPO2 Interpretation Hospital Encounter on 09/28/19 CBC W AUTO DIFFERENTIAL Result Value Ref Range WBC 10.3 4.5 - 11.0 x10E9/L WBC Corrected RBC 3.86 (L) 4.50 - 5.30 x10E12/L Hemoglobin 11.4 (L) 13.0 - 16.0 gm/dL Hematocrit 34.4 (L) 37.0 - 49.0 % MCV 89.1 78.0 - 98.0 fl MCH 29.5 25.0 - 35.0 pg MCHC 33.1 31.0 - 37.0 gm/dL Platelet Count 211 100 - 400 x10E9/L RDW-CV 12.0 11.5 - 14.0 % MPV 10.8 (H) 6.0 - 9.5 fl Neutrophils % 76.2 31.0 - 78.0 % Lymphocytes % 9.0 (L) 13.0 - 54.0 % Monocytes % 5.5 4.0 - 13.0 % Eosinophils % 4.9 0.0 - 8.0 % Basophils % 0.5 % Immature Granulocytes 3.9 % Neutrophil Absolute 7.83 1.4 - 8.58 x10E9/L Lymphocytes Absolute 0.93 0.59 - 5.94 x10E9/L Monocytes Absolute 0.57 0.18 - 1.43 x10E9/L Eosinophils Absolute 0.50 0 - 0.88 x10E9/L Basophils Absolute 0.05 0 - 0.22 x10E9/L Immature Granulocytes Absolute 0.40 (H) 0 - 0.11 x10E9/L nRBC Auto 0 /100 WBC COMPREHENSIVE METABOLIC PANEL Result Value Ref Range Glucose 131 (H) 70 - 105 mg/dL Sodium 134 (L) 136 - 145 mmol/L Potassium 4.2 3.5 - 5.1 mmol/L Chloride 104 98 - 107 mmol/L CO2 20 20 - 28 mmol/L Calcium 8.8 8.4 - 10.4 mg/dL Anion Gap 10 8 - 16 mmol/L BUN 14 8.9 - 20.6 mg/dL Creatinine 0.78 0.72 - 1.25 mg/dL Alkaline Phosphatase 141 100 - 390 U/L ALT 114 (H) 0 - 61 U/L AST 43 (H) 5 - 34 U/L Protein Total 7.8 6.4 - 8.3 gm/dL Albumin 4.3 3.4 - 5.0 gm/dL Bilirubin Total 11.4 (H) 0.2 - 1.2 mg/dL eGFR by MDRD >60 >60 mL/min/1.73m2 eGFR by MDRD >60 >60 mL/min/1.73m2 LIPASE BLOOD Result Value Ref Range Lipase 9 (L) 10 - 220 U/L CT ABDOMEN AND PELVIS WITH IV CONTRAST - Acute Abdomen Final Result CT abdomen pelvis HISTORY: Vomiting and chills [...] Mark Luz on 09/28/2019 at 3:14 PM US ABDOMEN LIMITED (Results Pending) Progress Notes 2:18 PM: Initial plan to assess labs and imaging. 4:21 PM I discussed with FISH CHECKER Antonia (Tracey) about all pertinent aspects of the case including HPI details, physical exam findings, testing completed, medications given, the pt's current condition, and my clinical impression at this time. Agrees with the plan to admit. 4:22 PM: Updated pt on pending admission. Pt adds forgetting to mention that he has been taking Bactrim over the last 2-3 days for a suspected spider bite at his L shoulder. Increased suspicion for drug induced hemolytic anemia or possible G6PD deficiency. ED Course Clinical Impressions as of Sep 28 1627 Abdominal pain, epigastric Elevated bilirubin Medical Decision Making I have reviewed the: Previous Chart, Nursing Notes, Vitals. I have interpreted the following results: Labs, CT Scans and Oxygen Saturation. Orders Placed This Encounter ??? CT ABDOMEN AND PELVIS WITH IV CONTRAST - Acute Abdomen ??? US ABDOMEN LIMITED ??? CBC W AUTO DIFFERENTIAL ??? COMPREHENSIVE METABOLIC PANEL ??? URINALYSIS REFLEX TO MICROSCOPIC NO CULTURE ??? LIPASE BLOOD ??? URINALYSIS REFLEX MICROSCOPIC REFLEX CULTURE ??? DRUG SCREEN TOX URINE PANEL ??? AND Linked Order Group ??? 0.9% NaCl injection 3 mL ??? 0.9% NaCl injection 1-10 mL ??? ondansetron 4mg/2ml IJ Soln ADS Med ??? 0.9% NaCl IV Bolus ??? 0.9% NaCl IV Bolus ??? ondansetron (ZOFRAN) injection 4 mg ??? iopamidol (ISOVUE 370) 76 % contrast Final diagnoses: Abdominal pain, epigastric Elevated bilirubin Disposition: Admit * Galindo Emery RN - 09/28/2019 12:13 PM CDT Pt reports yellowing of his eyes today. documented in this encounter Plan of Treatment Scheduled Orders Name Type Priority Associated Diagnoses Order Schedule START ED RT BRONCHODILATOR PROTOCOL Respiratory Care STAT ONCE for 1 Occurrences starting 09/28/2019 until 09/28/2019 HEMOGLOBIN URINE - POINT OF CARE Point of Care Testing STAT Hemolytic anemia associated with infection (HCC) ONCE for 1 Occurrences starting 09/29/2019 until 09/29/2019 documented as of this encounter Procedures Procedure Name Priority Date/Time Associated Diagnosis Comments CARDIAC EKG ORDER 10/06/2019 9:3 3 PM CDT DIFFERENTIAL MANUAL Routine 10/03/2019 3 :55 AM CDT CBC W AUTO DIFFERENTIAL AM Draw 10/03/2019 3:55 AM CDT COMPREHENSIVE METABOLIC PANEL AM Draw 10/03/2019 3:55 AM CDT LDH BLOOD AM Draw 10/03/2019 3:55 AM CDT US ABDOMEN LIMITED Routine 10/02/2019 5: 45 PM CDT Abdominal pain, epigastric Elevated bilirubin Hemolytic anemia associated with infection (HCC) PROCALCITONIN LEVEL Routine 10/02/2019 9 :27 AM CDT VANCOMYCIN LEVEL TROUGH Timed 10/02/2019 7:47 AM CDT DIFFERENTIAL MANUAL Routine 10/02/2019 3 :03 AM CDT CBC W AUTO DIFFERENTIAL AM Draw 10/02/2019 3:03 AM CDT COMPREHENSIVE METABOLIC PANEL AM Draw 10/02/2019 3:03 AM CDT LDH BLOOD AM Draw 10/02/2019 3:03 AM CDT HGB HCT PANEL Routine 10/01/2019 2:51 PM CDT TRANSFUSE RED BLOOD CELL LEUKOREDUCED UNIT(S) Routine 10/01/2019 11:10 AM CDT LDH BLOOD Routine 10/01/2019 9:26 AM CDT PREPARE RBC LEUKOREDUCED UNIT Routine 10/01/2019 8:26 AM CDT TYPE + SCREEN PANEL STAT 10/01/2019 8 :26 AM CDT BLOOD TYPE VERIFICATION Routine 10/01/2019 7:27 AM CDT DIFFERENTIAL MANUAL Routine 10/01/2019 7 :13 AM CDT CBC W AUTO DIFFERENTIAL CARIDAD 10/01/2019 7:13 AM CDT COMPREHENSIVE METABOLIC PANEL CARIDAD 10/01/2019 7:13 AM CDT XR CHEST 1VW PORTABLE Routine 09/30/2019 10:40 AM CDT Hemolytic anemia associated with infection (HCC) CULTURE BLOOD Timed 09/30/2019 7:28 AM CDT Hemolytic anemia associated with infection (HCC) Acquired neutrophilia FLOW CYTOMETRY BLOOD PROFILE STAT 09/30/2019 7:27 AM CDT Acquired neutrophilia Hemolytic anemia associated with infection (HCC) PROCALCITONIN LEVEL STAT 09/30/2019 7 :27 AM CDT Hemolytic anemia associated with infection (HCC) Acquired neutrophilia C-REACTIVE PROTEIN SENSITIVE STAT 09/30/2019 7:27 AM CDT Hemolytic anemia associated with infection (HCC) Acquired neutrophilia CULTURE BLOOD Timed 09/30/2019 7:27 AM CDT Hemolytic anemia associated with infection (HCC) Acquired neutrophilia ERYTHROCYTE SEDIMENTATION RATE STAT 09/30/2019 7:27 AM CDT Hemolytic anemia associated with infection (HCC) Acquired neutrophilia RETIC COUNT AM Draw 09/30/2019 3:33 AM CDT Hemolytic anemia associated with infection (HCC) DIFFERENTIAL MANUAL Routine 09/30/2019 3 :33 AM CDT Hemolytic anemia associated with infection (HCC) CBC W AUTO DIFFERENTIAL AM Draw 09/30/2019 3:33 AM CDT Hemolytic anemia associated with infection (HCC) COMPREHENSIVE METABOLIC PANEL AM Draw 09/30/2019 3:33 AM CDT Hemolytic anemia associated with infection (HCC) LDH BLOOD Routine 09/30/2019 3:33 AM CDT Hemolytic anemia associated with infection (HCC) HAPTOGLOBIN Routine 09/30/2019 3:33 AM CDT Hemolytic anemia associated with infection (HCC) HEPATITIS SCREEN ACUTE STAT 09/29/2019 7:40 AM CDT Hemolytic anemia associated with infection (HCC) G6PD QUANTITATIVE Routine 09/29/2019 7:3 9 AM CDT Elevated bilirubin Nausea and vomiting, intractability of vomiting not specified, unspecified vomiting type BLOOD TYPE ABO+ RH PANEL Routine 09/29/2019 7:39 AM CDT Hemolytic anemia associated with infection (HCC) MARIAM DIRECT Routine 09/29/2019 7:39 AM CDT Hemolytic anemia associated with infection (HCC) ANTIBODY SCREEN Routine 09/29/2019 7:39 AM CDT Hemolytic anemia associated with infection (HCC) CK BLOOD STAT 09/29/2019 7:39 AM CDT Hemolytic anemia associated with infection (HCC) RETIC COUNT AM Draw 09/29/2019 3:56 AM CDT DIFFERENTIAL MANUAL Routine 09/29/2019 3 :56 AM CDT CBC W AUTO DIFFERENTIAL Routine 09/29/2019 3:56 AM CDT COMPREHENSIVE METABOLIC PANEL Routine 09/29/2019 3:56 AM CDT PHOSPHORUS BLOOD Routine 09/29/2019 3:56 AM CDT MAGNESIUM BLOOD Routine 09/29/2019 3:56 AM CDT LDH BLOOD Routine 09/29/2019 3:56 AM CDT BILIRUBIN DIRECT Routine 09/29/2019 3:56 AM CDT Elevated bilirubin EKG 12-LEAD STAT 09/28/2019 8:20 PM CDT Abdominal pain, epigastric COAGULATION PANEL W D-DIMER STAT 09/28/2019 7:05 PM CDT COMPLEMENT C4 STAT 09/28/2019 7:05 PM CDT FOLATE STAT 09/28/2019 7:05 PM CDT COMPLEMENT C3 STAT 09/28/2019 7:05 PM CDT URINE MICROSCOPIC ONLY REFLEX TO CULTURE STAT 09/28/2019 4:23 PM CDT URINALYSIS REFLEX MICROSCOPIC REFLEX CULTURE STAT 09/28/2019 4:23 PM CDT URINE DRUG SCREEN IMMUNOASSAY STAT 09/28/2019 4:[address] ABDOMEN PELVIS W CONTRAST STAT 09/28/2019 3:02 PM CDT Abdominal pain, epigastric MARIAM DIRECT Add on 09/28/2019 1:56 PM CDT PATHOLOGY PERIPHERAL SMEAR REVIEW STAT 09/28/2019 12:18 PM CDT RETIC COUNT Add on 09/28/2019 12:18 PM CDT CBC W AUTO DIFFERENTIAL STAT 09/28/2019 12:18 PM CDT COMPREHENSIVE METABOLIC PANEL STAT 09/28/2019 12:18 PM CDT LIPASE BLOOD STAT 09/28/2019 12:18 PM CDT LDH BLOOD Add on 09/28/2019 12:18 PM CDT BILIRUBIN DIRECT Routine 09/28/2019 12:1 8 PM CDT HAPTOGLOBIN Add on 09/28/2019 12:18 PM CDT documented in this encounter Results * CARDIAC EKG ORDER (10/06/2019 9:33 PM CDT) Narrative 10/06/2019 9:33 PM CDT Ordered by an unspecified provider. Scanned Document CARDIAC SERVICES ORD ERABLES * (ABNORMAL) DIFFERENTIAL MANUAL (10/03/2019 3:55 AM CDT) WBC Auto 23.4 x10E9/L 10/03/2019 6:25 AM CDT [facility] WBC Corrected 10/03/2019 6:25 AM CDT [facility] nRBC 10/03/2019 6:25 AM CDT [facility] Neutrophil % Manual 70 31 - 78 % 10/03/2019 6:25 AM CDT [facility] Lymphocytes % Manual 19 13 - 54 % 10/03/2019 6:25 AM CDT [facility] Monocytes % Manual 3(L) 4 - 13 % 10/03/2019 6:25 AM CDT [facility] Band % Manual 3 % 10/03/2019 6:25 AM CDT [facility] [place] Manual 4(H) <=0 % 10/03/2019 6:25 AM CDT [facility] Myelocytes % Manual 1(H) <=0 % 10/03/2019 6:25 AM CDT [facility] Cells Counted 100 # cells 10/03/2019 6:25 AM CDT [facility] RBC Morphology Normal 10/03/2019 6:25 AM CDT [facility] WBC Morph Normal 10/03/2019 6:25 AM CDT [facility] Platelet Estimation Normal 10/03/2019 6:25 AM CDT [facility] Blood BLOOD SPECIMEN / Unknown Lab Venipuncture / Unknown 10/03/2019 3:55 AM CDT 10/03/2019 4:55 AM CDT Abel Merida MD LAB - HEMATOLOGY ORD ERABLES [facility] [address] [phone] * (ABNORMAL) LDH BLOOD (10/03/2019 3:55 AM CDT) [facility] LDH 449(H) 125 - 220 U/L 10/03/2019 5:38 AM CDT [facility] Blood BLOOD SPECIMEN / Unknown Lab Venipuncture / Unknown 10/03/2019 3:55 AM CDT 10/03/2019 4:55 AM CDT Abel Merida MD LAB - CHEMISTRY ORDJacquelyn KENNY Performing Organization Address [facility] Co de Phone Number [facility] [address] [place] [address] * (ABNORMAL) CBC W AUTO DIFFERENTIAL (10/03/2019 3:55 AM CDT) [facility] WBC 23.4(H) 4.5 - 11.0 x10E9/L 10/03/2019 5:08 AM CDT [facility] WBC Corrected 10/03/2019 5:08 AM CDT [facility] RBC 2.68(L) 4.50 - 5.30 x10E12/L 10/03/2019 5:08 AM CDT [facility] Hemoglobin 8.3(L) 13.0 - 16.0 gm/dL 10/03/2019 5:08 AM CDT [facility] Hematocrit 26.0(L) 37.0 - 49.0 % 10/03/2019 5:08 AM CDT [facility] MCV 97.0 78.0 - 98.0 fl 10/03/2019 5:08 AM CDT [facility] MCH 31.0 25.0 - 35.0 pg 10/03/2019 5:08 AM CDT [facility] MCHC 31.9 31.0 - 37.0 gm/dL 10/03/2019 5:08 AM CDT [facility] Platelet Count 398 100 - 400 x10E9/L 10/03/2019 5:08 AM CDT [facility] RDW-CV 15.2(H) 11.5 - 14.0 % 10/03/2019 5:08 AM [facility] MPV 11.2(H) 6.0 - 9.5 fl 10/03/2019 5:08 AM [facility] nRBC Auto 1 /100 WBC 10/03/2019 5:08 AM T [facility] Hematology Reflex Status Manual Diff to follow 10/03/2019 5:08 AM [facility] Blood BLOOD SPECIMEN / Unknown Lab Venipuncture / Unknown 10/03/2019 3:55 AM CDT 10/03/2019 4:55 AM CDT Abel Merida MD LAB - HEMATOLOGY ORD ERABLES [facility] [address] [place] [address] * (ABNORMAL) COMPREHENSIVE METABOLIC PANEL (10/03/2019 3:55 AM CDT) Glucose 107(H) 70 - 105 mg/dL 10/03/2019 5:45 AM [facility] Sodium 139 136 - 145 mmol/L 10/03/2019 5:45 AM [facility] Potassium 4.1 3.5 - 5.1 mmol/L 10/03/2019 5:45 AM [facility] Chloride 105 98 - 107 mmol/L 10/03/2019 5:45 AM [facility] CO2 25 20 - 28 mmol/L 10/03/2019 5:45 AM [facility] Calcium 8.3(L) 8.4 - 10.4 mg/dL 10/03/2019 5:45 AM [facility] Anion Gap 9 8 - 16 mmol/L 10/03/2019 5:45 AM [facility] BUN 12 8.9 - 20.6 mg/dL 10/03/2019 5:45 AM [facility] Creatinine 0.83 0.72 - 1.25 mg/dL 10/03/2019 5:45 AM [facility] Alkaline Phosphatase 110 100 - 390 U/L 10/03/2019 5:45 AM [facility] ALT 138(H) 0 - 61 U/L 10/03/2019 5:45 AM CDT [facility] AST 35(H) 5 - 34 U/L 10/03/2019 5:45 AM CDT [facility] Protein Total 6.8 6.4 - 8.3 gm/dL 10/03/2019 5:45 AM CDT [facility] Albumin 3.7 3.4 - 5.0 gm/dL 10/03/2019 5:45 AM CDT [facility] Bilirubin Total 0.5 0.2 - 1.2 mg/dL 10/03/2019 5:45 AM CDT [facility] eGFR by MDRD >60 >60 mL/min/1.7 3m2 10/03/2019 5:45 AM CDT [facility] eGFR by MDRD >60 >60 mL/min/1.7 3m2 10/03/2019 5:45 AM CDT [facility] Blood BLOOD SPECIMEN / Unknown Lab Venipuncture / Unknown 10/03/2019 3:55 AM CDT 10/03/2019 4:55 AM CDT Abel Merida MD LAB - CHEMISTRY CHRISTINE [facility] Organization Address City/State/[facility] Co de Phone Number [facility] [address] [place], [place] [phone] * US ABDOMEN LIMITED (10/02/2019 5:45 PM [...] 10/02/2019 at 5:49 PM Nissa Gleason MD US ORDERABLES * (ABNORMAL) PROCALCITONIN LEVEL (10/02/2019 9:27 AM CDT) Procalcitonin 0.32(H) <0.10 ng/mL 10/02/2019 10:37 AM CDT [facility] Blood BLOOD SPECIMEN / Unknown Lab Venipuncture / Unknown 10/02/2019 9:27 AM CDT 10/02/2019 9:37 AM CDT Narrative [facility] - 10/02/2019 10:37 AM CDT The [...] Change in Procalcitonin Calculator is available at [email or web address] ?? If clinical picture has not improved and PCT remains high, reevaluate and consider treatment failure or other causes. Nissa Gleason MD LAB - CHEMISTRY CHRISTINE KENNY Performing Organization Address [facility] Phone Number [facility] [address] [place], [place] [phone] * (ABNORMAL) VANCOMYCIN LEVEL TROUGH (10/02/2019 7:47 AM CDT) [facility] Vancomycin Trough 9.3(L) 10.0 - 20.0 ug/mL 10/02/2019 8:39 AM CDT [facility] Blood BLOOD SPECIMEN / Unknown Lab Venipuncture / Unknown 10/02/2019 7:47 AM CDT 10/02/2019 8:02 AM CDT Rashid Monson MD LAB - CHEMISTRY CHRISTINE KENNY Performing Organization Address [facility] de Phone Number [facility] [address] [place] [phone] * (ABNORMAL) DIFFERENTIAL MANUAL (10/02/2019 3:03 AM CDT) [facility] WBC Auto 24.6 x10E9/L 10/02/2019 6:30 AM CDT [facility] WBC Corrected 10/02/2019 6:30 AM CDT [facility] nRBC 1 /100 WBC 10/02/2019 6:30 AM CDT [facility] Neutrophil % Manual 69 31 - 78 % 10/02/2019 6:30 AM CDT [facility] Lymphocytes % Manual 14 13 - 54 % 10/02/2019 6:30 AM CDT [facility] Monocytes % Manual 6 4 - 13 % 2019 6:30 AM CDT [facility] Eosinophils % Manual 2 0 - 8 % 10/02/2019 6:30 AM CDT [facility] Basophils % Manual 1 % 2019 6:30 AM CDT [facility] Band % Manual 5 % 10/02/2019 6:30 AM CDT [facility] [place] Manual 2(H) <=0 % 10/02/2019 6:30 AM CDT [facility] Myelocytes % Manual 1(H) <=0 % 10/02/2019 6:30 AM [facility] Cells Counted 100 # cells 10/02/2019 6:30 AM [facility] WBC Morph Normal 10/02/2019 6:30 AM T [facility] Anisocytosis 2+(A) None 10/02/2019 6:30 AM T [facility] Poikilocytosis Occasional (A) None 10/02/2019 6:30 AM [facility] Polychromasia 1+(A) None 10/02/2019 6:30 AM T [facility] Elliptocytes Occasional (A) None 10/02/2019 6:30 AM [facility] Platelet Estimation Normal 10/02/2019 6:30 AM [facility] Blood BLOOD SPECIMEN / Unknown Lab Venipuncture / Unknown 10/02/2019 3:03 AM CDT 10/02/2019 3:54 AM CDT Abel Merida MD LAB - HEMATOLOGY ORD ERABLES [facility] [address] [place], [place] [phone] * (ABNORMAL) LDH BLOOD (10/02/2019 3:03 AM CDT) LDH 580(H) 125 - 220 U/L 10/02/2019 4:45 AM CDT [facility] Blood BLOOD SPECIMEN / Unknown Lab Venipuncture / Unknown 10/02/2019 3:03 AM CDT 10/02/2019 3:54 AM CDT Abel Merida MD LAB - CHEMISTRY CHRISTINE KENNY [facility] Organization Address City/State/ZIP Co de Phone Number [facility] [address] [place] [address] * (ABNORMAL) CBC W AUTO DIFFERENTIAL (10/02/2019 3:03 AM CDT) WBC 24.6(H) 4.5 - 11.0 x10E9/L 10/02/2019 4:14 AM CDT [facility] WBC Corrected 10/02/2019 4:14 AM CDT [facility] RBC 2.72(L) 4.50 - 5.30 x10E12/L 10/02/2019 4:14 AM CDT [facility] Hemoglobin 8.3(L) 13.0 - 16.0 gm/dL 10/02/2019 4:14 AM CDT [facility] Hematocrit 25.7(L) 37.0 - 49.0 % 10/02/2019 4:14 AM CDT [facility] MCV 94.5 78.0 - 98.0 fl 10/02/2019 4:14 AM CDT [facility] MCH 30.5 25.0 - 35.0 pg 10/02/2019 4:14 AM CDT [facility] MCHC 32.3 31.0 - 37.0 gm/dL 10/02/2019 4:14 AM CDT [facility] Platelet Count 380 100 - 400 x10E9/L 10/02/2019 4:14 AM CDT [facility] RDW-CV 13.4 11.5 - 14.0 % 10/02/2019 4:14 AM CDT [facility] MPV 11.6(H) 6.0 - 9.5 fl 10/02/2019 4:14 AM CDT [facility] nRBC Auto 1 /100 WBC 10/02/2019 4:14 AM CDT [facility] Hematology Reflex Status Manual Diff to follow 10/02/2019 4:14 AM T [facility] Blood BLOOD SPECIMEN / Unknown Lab Venipuncture / Unknown 10/02/2019 3:03 AM CDT 10/02/2019 3:54 AM CDT Abel Merida MD LAB - HEMATOLOGY ORD ERABLES [facility] [address] [place], [place] [phone] * (ABNORMAL) COMPREHENSIVE METABOLIC PANEL (10/02/2019 3:03 AM CDT) Glucose 91 70 - 105 mg/dL 10/02/2019 4:45 AM CDT [facility] Sodium 137 136 - 145 mmol/L 10/02/2019 4:45 AM CDT [facility] Potassium 3.6 3.5 - 5.1 mmol/L 10/02/2019 4:45 AM CDT [facility] Chloride 103 98 - 107 mmol/L 10/02/2019 4:45 AM CDT [facility] CO2 26 20 - 28 mmol/L 10/02/2019 4:45 AM CDT [facility] Calcium 8.6 8.4 - 10.4 mg/dL 10/02/2019 4:45 AM CDT [facility] Anion Gap 8 8 - 16 mmol/L 10/02/2019 4:45 AM CDT [facility] BUN 11 8.9 - 20.6 mg/dL 10/02/2019 4:45 AM CDT [facility] Creatinine 0.80 0.72 - 1.25 mg/dL 10/02/2019 4:45 AM CDT [facility] Alkaline Phosphatase 113 100 - 390 U/L 10/02/2019 4:45 AM CDT [facility] ALT 171(H) 0 - 61 U/L 10/02/2019 4:45 AM CDT [facility] AST 63(H) 5 - 34 U/L 10/02/2019 4:45 AM CDT [facility] Protein Total 7.3 6.4 - 8.3 gm/dL 10/02/2019 4:45 AM CDT [facility] Albumin 3.9 3.4 - 5.0 gm/dL 10/02/2019 4:45 AM CDT [facility] Bilirubin Total 0.7 0.2 - 1.2 mg/dL 10/02/2019 4:45 AM CDT [facility] eGFR by MDRD >60 >60 mL/min/1.7 3m2 10/02/2019 4:45 AM CDT [facility] eGFR by MDRD >60 >60 mL/min/1.7 3m2 10/02/2019 4:45 AM CDT [facility] Blood BLOOD SPECIMEN / Unknown Lab Venipuncture / Unknown 10/02/2019 3:03 AM CDT 10/02/2019 3:54 AM CDT Abel Merida MD LAB - CHEMISTRY ORDJacquelyn KENNY Performing Organization Address City/[facility]/ZIP Co de Phone Number [facility] [address] [place], [place] [phone] * (ABNORMAL) HGB HCT PANEL (10/01/2019 2:51 PM CDT) Hemoglobin 8.8(L) 13.0 - 16.0 gm/dL 10/01/2019 3:21 PM CDT [facility] Hematocrit 27.4(L) 37.0 - 49.0 % 10/01/2019 3:21 PM CDT [facility] Blood BLOOD SPECIMEN / Unknown Lab Venipuncture / Unknown 10/01/2019 2:51 PM CDT 10/01/2019 3:10 PM CDT Abel Merida MD LAB - HEMATOLOGY ORD ROSALIA Performing Organization Address [facility] Co de Phone Number [facility] [address] [place], [place] [phone] * TRANSFUSE RED BLOOD CELL LEUKOREDUCED UNIT(S) (10/01/2019 1:59 PM CDT) Abel Merida MD NURSING - BLOOD PROD TRANSFUSION * TRANSFUSE RED BLOOD CELL LEUKOREDUCED UNIT(S), 1 Units (10/01/2019 1:59 PM CDT) Abel Merida MD NURSING - BLOOD PROD TRANSFUSION * (ABNORMAL) LDH BLOOD (10/01/2019 9:26 AM CDT) LDH 607(H) 125 - 220 U/L 10/01/2019 10:05 AM CDT [facility] Blood BLOOD SPECIMEN / Unknown Lab Venipuncture / Unknown 10/01/2019 9:26 AM CDT 10/01/2019 9:42 AM CDT Giovanni López MD LAB - CHEMISTRY CHRISTINE KENNY Performing Organization Address City/[facility]/ZIP Co de Phone Number [facility] [address] [place] [address] * TYPE + SCREEN PANEL (10/01/2019 8:26 AM CDT) ABO Rh B POS 10/01/2019 9:07 AM CDT [facility] Comment:History checked. Antibody Screen NEG 0 9:07 AM CDT [facility] Blood Bank BLOOD SPECIMEN / Unknown Lab Venipuncture / Unknown 10/01/2019 8:26 AM CDT 10/01/2019 8:33 AM CDT Abel Merida MD LAB - BLOOD BANK ORD ERABLES Performing Organization Address [facility] Co de Phone Number [facility] [address] [place] [address] * PREPARE (CROSSMATCH) RBC UNIT(S), 1 Units (10/01/2019 8:26 AM CDT) Pathologist [facility] Unit Description AS1 LR PRBC [facility] Unit ABO B [facility] Unit Rh POS [facility] Product Number R02 [facility] Unit Donor # [id number] [facility] Unit Status transfused [facility] Product Code N2953G65 [facility] Blood Type Barcode 7300 [facility] Expiration Date [id number] S [facility] Blood Bank BLOOD SPECIMEN / Unknown 10/01/2019 8:26 AM CDT 10/01/2019 8:33 AM CDT Abel Merida MD LAB - BLOOD BANK ORD ERABLES Performing Organization Address City/[facility]/ZIP Co de Phone Number [facility] [address] [place] [address] * BLOOD TYPE VERIFICATION (10/01/2019 7:27 AM CDT) ABO Rh B POS 10/01/2019 9:0 7 AM CDT [facility] Blood Bank BLOOD SPECIMEN / Unknown Lab Venipuncture / Unknown 10/01/2019 7:27 AM CDT 10/01/2019 8:47 AM CDT Maynor Payne MD LAB - BLOOD BANK ORD ERABLES [facility] [address] [phone] * (ABNORMAL) DIFFERENTIAL MANUAL (10/01/2019 7:13 AM CDT) WBC Auto 17.3 x10E9/L 10/01/2019 9:40 AM CDT [facility] WBC Corrected 10/01/2019 9:40 AM CDT [facility] nRBC 10/01/2019 9:40 AM CDT [facility] Neutrophil % Manual 69 31 - 78 % 10/01/2019 9:40 AM CDT [facility] Lymphocytes % Manual 18 13 - 54 % 10/01/2019 9:40 AM CDT [facility] Monocytes % Manual 8 4 - 13 % 10/01/2019 9:40 AM T [facility] Eosinophils % Manual 1 0 - 8 % 10/01/2019 9:40 AM CDT [facility] Atypical Lymphocyte % Manual 2(H) <=0 % 10/01/2019 9:40 AM CDT [facility] Myelocytes % Manual 1(H) <=0 % 10/01/2019 9:40 AM CDT [facility] Blasts % Manual 1(H) <=0 % 0 9:40 AM CDT [facility] Cells Counted 100 # cells 10/01/2019 9:40 AM [facility] Platelet Estimation Normal Normal, Adequate platelets 10/01/2019 9:40 AM CDT [facility] WBC Morph Normal 10/01/2019 9:40 AM CDT [facility] Anisocytosis 1+(A) None 10/01/2019 9:40 AM CDT [facility] Hypochromia Occasional (A) None 10/01/2019 9:40 AM CDT [facility] Large Platelets Occasional (A) None 10/01/2019 9:40 AM T [facility] Blood BLOOD SPECIMEN / Unknown Lab Venipuncture / Unknown 10/01/2019 7:13 AM CDT 10/01/2019 7:17 AM CDT Abel Merida MD LAB - HEMATOLOGY ORD ERABLES [facility] [address] [place] [address] * (ABNORMAL) COMPREHENSIVE METABOLIC PANEL (10/01/2019 7:13 AM CDT) Glucose 110(H) 70 - 105 mg/dL 10/01/2019 7:52 AM [facility] Sodium 137 136 - 145 mmol/L 10/01/2019 7:52 AM [facility] Potassium 4.4 3.5 - 5.1 mmol/L 10/01/2019 7:52 AM [facility] Chloride 102 98 - 107 mmol/L 10/01/2019 7:52 AM CDT [facility] CO2 27 20 - 28 mmol/L 10/01/2019 7:52 AM T [facility] Calcium 8.5 8.4 - 10.4 mg/dL 10/01/2019 7:52 AM [facility] Anion Gap 8 8 - 16 mmol/L 10/01/2019 7:52 AM T [facility] BUN 13 8.9 - 20.6 mg/dL 10/01/2019 7:52 AM [facility] Creatinine 0.90 0.72 - 1.25 mg/dL 10/01/2019 7:52 AM T [facility] Alkaline Phosphatase 117 100 - 390 U/L 10/01/2019 7:52 AM T [facility] ALT 148(H) 0 - 61 U/L 10/01/2019 7:52 AM [facility] AST 69(H) 5 - 34 U/L 10/01/2019 7:52 AM [facility] Protein Total 7.2 6.4 - 8.3 gm/dL 10/01/2019 7:52 AM CDT [facility] Albumin 3.9 3.4 - 5.0 gm/dL 10/01/2019 7:52 AM CDT [facility] Bilirubin Total 1.2 0.2 - 1.2 mg/dL 10/01/2019 7:52 AM CDT [facility] eGFR by MDRD >60 >60 mL/min/1.7 3m2 10/01/2019 7:52 AM CDT [facility] eGFR by MDRD >60 >60 mL/min/1.7 3m2 10/01/2019 7:52 AM CDT [facility] Blood BLOOD SPECIMEN / Unknown Lab Venipuncture / Unknown 10/01/2019 7:13 AM CDT 10/01/2019 7:17 AM CDT Abel Merida MD LAB - CHEMISTRY ORDE [facility] Organization Address City/State/ZIP Co de Phone Number [facility] [address] [place] [address] * (ABNORMAL) CBC W AUTO DIFFERENTIAL (10/01/2019 7:13 AM CDT) WBC 17.3(H) 4.5 - 11.0 x10E9/L 10/01/2019 7:37 AM CDT [facility] WBC Corrected 10/01/2019 7:37 AM CDT [facility] RBC 2.29(L) 4.50 - 5.30 x10E12/L 10/01/2019 7:37 AM CDT [facility] Hemoglobin 7.2(LL) 13.0 - 16.0 gm/dL 10/01/2019 7:37 AM CDT [facility] Hematocrit 21.8(LL) 37.0 - 49.0 % 10/01/2019 7:37 AM CDT [facility] MCV 95.2 78.0 - 98.0 fl 10/01/2019 7:37 AM CDT [facility] MCH 31.4 25.0 - 35.0 pg 10/01/2019 7:37 AM CDT [facility] MCHC 33.0 31.0 - 37.0 gm/dL 10/01/2019 7:37 AM CDT [facility] Platelet Count 331 100 - 400 x10E9/L 10/01/2019 7:37 AM CDT [facility] RDW-CV 12.8 11.5 - 14.0 % 10/01/2019 7:37 AM CDT [facility] MPV 11.5(H) 6.0 - 9.5 fl 10/01/2019 7:37 AM CDT [facility] nRBC Auto 0 /100 WBC 10/01/2019 7:37 AM CDT [facility] Blood BLOOD SPECIMEN / Unknown Lab Venipuncture / Unknown 10/01/2019 7:13 AM CDT 10/01/2019 7:17 AM CDT Abel Merida MD LAB - HEMATOLOGY ORD ERABLES [facility] [address] [place] [address] * XR CHEST 1VW PORTABLE (09/30/2019 10:40 [...] * CULTURE BLOOD (09/30/2019 7:28 AM CDT) Culture No growth day 5 SONG 10/05/2019 9:30 AM CDT [facility] Blood PERIPHERAL BLOOD / Unknown Lab Venipuncture / Unknown 09/30/2019 7:28 AM CDT 09/30/2019 7:44 AM CDT Maynor Payne MD LAB - MICROBIOLOGY O NICOLE Performing Organization Address [facility] Co de Phone Number [facility] [address] [place] [address], [facility] [phone] * CULTURE BLOOD (09/30/2019 7:27 AM CDT) Pathologist [facility] [place] Culture No growth day 5 SONG 10/05/2019 9:30 AM CDT [facility] MICROBIOLOGY Blood PERIPHERAL BLOOD / Unknown Lab Venipuncture / Unknown 09/30/2019 7:27 AM CDT 09/30/2019 7:45 AM CDT Maynor Payne MD LAB - MICROBIOLOGY [place] RIVERA Performing Organization Address [facility] Phone Number [facility] MICROBIOLOGY [address] [place] [address], [facility] [phone] * (ABNORMAL) PROCALCITONIN LEVEL (09/30/2019 7:27 AM CDT) Pathologist [facility] [place] Procalcitonin 1.44(H) <0.10 ng/mL 09/30/2019 8:29 AM CDT [facility] Blood BLOOD SPECIMEN / Unknown Lab Venipuncture / Unknown 09/30/2019 7:27 AM CDT 09/30/2019 7:45 AM CDT Narrative [facility] - 09/30/2019 8:29 AM CDT The change in procalcitonin (PCT) [...] Change in Procalcitonin Calculator is available at [email or web address] ?? If clinical picture has not improved and PCT remains high, reevaluate and consider treatment failure or other causes. Maynor Payne MD LAB - CHEMISTRY CHRISTINE KENNY Performing Organization Address [facility] Co de Phone Number [facility] [address] [place], [place] [phone] * (ABNORMAL) ERYTHROCYTE SEDIMENTATION RATE (09/30/2019 7:27 AM CDT) [facility] Erythrocyte Sedimentation Rate Automated 65(H) 0 - 15 MM/HR 09/30/2019 7:55 AM CDT [facility] Blood BLOOD SPECIMEN / Unknown Lab Venipuncture / Unknown 09/30/2019 7:27 AM CDT 09/30/2019 7:45 AM CDT Maynor Payne MD LAB - HEMATOLOGY ORD ROSALIA Performing Organization Address [facility] de Phone Number [facility] [address] [place] [phone] * (ABNORMAL) C-REACTIVE PROTEIN SENSITIVE (09/30/2019 7:27 AM CDT) [facility] C-Reactive Protein High Sensitivity 5.47(H) <0.30 mg/dL 09/30/2019 8:10 AM CDT [facility] Blood BLOOD SPECIMEN / Unknown Lab Venipuncture / Unknown 09/30/2019 7:27 AM CDT 09/30/2019 7:45 AM CDT Narrative [facility] - 09/30/2019 8:10 AM CDT C-REACTIVE [...] - CHEMISTRY CHRISTINE KENNY Performing Organization Address City/State/[facility] Co de Phone Number [facility] [address] [phone] * FLOW CYTOMETRY BLOOD PROFILE (09/30/2019 7:27 AM CDT) Pathologist [facility] [place] Case Report Flow Cytometry ?Case: [id number] ? Authorizing Provider: ??Maynor Payne MD ? Collected: ? 09/30/2019 07:27 AM ? Ordering Location: ? [facility] ?Received: ?09/30/2019 07:55 AM ? Pathologist: ? Bisi Roy MD ? Specimen: ?Blood ? 09/30/2019 1:05 PM [facility] Final Diagnosis Peripheral blood, flow cytometric immunophenotypic analysis: - No evidence of non-Hodgkin lymphoma or high-grade myeloid neoplasm. - See interpretation. 09/30/2019 1:05 PM [facility] Flow Cytometry Results Differential Result Comment WBC Count /uL 18,900 Total Viability % 92.0 Lymphocytes % 15 Dim CD45 Region % 1 Monocytes % 8 Granulocytes % 75 09/30/2019 1:05 PM [facility] Flow Cytometry Interpretation The [...] flow cytometry specimen is reviewed for quality technician fiberglass purposes. Overall, the peripheral blood specimen shows no evidence of involvement by a non-Hodgkin lymphoma or a high-grade myeloid neoplasm. Correlation with clinical findings is required. 09/30/2019 1:05 PM CDT [facility] Reason for test Acquired neutrophilia Hemolytic anemia associated with infection 283.19 09/30/2019 1:05 PM T [facility] Client Specimen ID # [id number] 09/30/2019 1:05 PM CDT [facility] Disclaimer Test performed at [facility], [address], [place], [address]. *The established laboratory minimum viability is 70%. [...] high complexity clinical testing. 09/30/2019 1:05 PM CDT [facility] Embedded Images 0 1:05 PM CDT [facility] Number of markers 10 were performed. A-2 Flow CD10 A-3 Flow CD13 A-5 Flow CD20 A-1 Flow CD5 A-4 Flow CD19 A-6 Flow CD33 A-7 Flow CD34 A-8 Flow CD45 A-9 [place]+CD19+ A-10 Lambda+CD19+ 09/30/2019 1:05 PM CDT [facility] Blood BLOOD SPECIMEN / Unknown Lab Venipuncture / Unknown 09/30/2019 7:27 AM CDT 09/30/2019 7:55 AM CDT Maynor Payne MD LAB - PATHOLOGY/CYTO LOGY ORDERABLES [facility] [address] [place] [address] [address], [facility] [phone] * (ABNORMAL) DIFFERENTIAL MANUAL (09/30/2019 3:33 AM CDT) WBC Auto 18.9 x10E9/L 09/30/2019 4:40 AM CDT [facility] WBC Corrected 09/30/2019 4:40 AM CDT [facility] nRBC 09/30/2019 4:40 AM CDT [facility] Neutrophil % Manual 94(H) 31 - 78 % 09/30/2019 4:40 AM CDT [facility] Lymphocytes % Manual 3(L) 13 - 54 % 09/30/2019 4:40 AM CDT [facility] Monocytes % Manual 1(L) 4 - 13 % 09/30/2019 4:40 AM CDT [facility] Myelocytes % Manual 1(H) <=0 % 09/30/2019 4:40 AM CDT [facility] Blasts % Manual 1(H) <=0 % 0 4:40 AM T [facility] Cells Counted 100 # cells 09/30/2019 4:40 AM CDT [facility] Platelet Estimation Normal Normal, Adequate platelets 09/30/2019 4:40 AM CDT [facility] WBC Morph Normal 09/30/2019 4:40 AM T [facility] Anisocytosis 1+(A) None 09/30/2019 4:40 AM CDT [facility] Hypochromia Occasional (A) None 09/30/2019 4:40 AM CDT [facility] Clumped Platelets Occasional (A) None 09/30/2019 4:40 AM T [facility] Blood BLOOD SPECIMEN / Unknown Lab Venipuncture / Unknown 09/30/2019 3:33 AM CDT 09/30/2019 4:04 AM CDT Marisabel Baker MD LAB - HEMATOLOGY OR DERABLES Performing Organization Address City/State/[facility] Co de Phone Number [facility] [address] [place] [address] * (ABNORMAL) RETIC COUNT (09/30/2019 3:33 AM CDT) Reticulocyte Count 4.74(H) 0.3 - 4.2 % 09/30/2019 4:21 AM CDT [facility] Reticulocyte Absolute 0.1247(H) 0.0391 - 0.057 x10E6/uL 09/30/2019 4:21 AM CDT [facility] Reticulocyte Immature Fractionated 25.7(H) 9.3 - 17.4 % 09/30/2019 4:21 AM CDT [facility] Hemoglobin Retic 35.4(L) 36.0 - 38.6 pg 09/30/2019 4:21 AM CDT [facility] Blood BLOOD SPECIMEN / Unknown Lab Venipuncture / Unknown 09/30/2019 3:33 AM CDT 09/30/2019 4:04 AM CDT Marisabel Baker MD LAB - HEMATOLOGY OR DERABLES Performing Organization Address City/[facility]/ZIP Co de Phone Number [facility] [address] [place] [phone] * (ABNORMAL) HAPTOGLOBIN (09/30/2019 3:33 AM CDT) Haptoglobin 10(L) 30 - 200 mg/dL 09/30/2019 4:30 AM CDT [facility] Blood BLOOD SPECIMEN / Unknown Lab Venipuncture / Unknown 09/30/2019 3:33 AM CDT 09/30/2019 4:01 AM CDT Marisabel Baker MD LAB - CHEMISTRY ORD ERABLES Performing Organization Address [facility] Co de Phone Number [facility] [address] [place] [phone] * (ABNORMAL) LDH BLOOD (09/30/2019 3:33 AM CDT) LDH 910(H) 125 - 220 U/L 09/30/2019 4:29 AM CDT [facility] Blood BLOOD SPECIMEN / Unknown Lab Venipuncture / Unknown 09/30/2019 3:33 AM CDT 09/30/2019 4:01 AM CDT Marisabel Baker MD LAB - CHEMISTRY ORD ERABLES Performing Organization Address City/[facility] Co de Phone Number [facility] [address] [place] [phone] * (ABNORMAL) CBC W AUTO DIFFERENTIAL (09/30/2019 3:33 AM CDT) WBC 18.9(H) 4.5 - 11.0 x10E9/L 09/30/2019 4:22 AM CDT [facility] WBC Corrected 09/30/2019 4:22 AM CDT [facility] RBC 2.63(L) 4.50 - 5.30 x10E12/L 09/30/2019 4:22 AM CDT [facility] Hemoglobin 8.5(L) 13.0 - 16.0 gm/dL 09/30/2019 4:22 AM CDT [facility] Hematocrit 25.4(L) 37.0 - 49.0 % 09/30/2019 4:22 AM CDT [facility] MCV 96.6 78.0 - 98.0 fl 09/30/2019 4:22 AM CDT [facility] MCH 32.3 25.0 - 35.0 pg 09/30/2019 4:22 AM CDT [facility] MCHC 33.5 31.0 - 37.0 gm/dL 09/30/2019 4:22 AM CDT [facility] Platelet Count 279 100 - 400 x10E9/L 09/30/2019 4:22 AM CDT [facility] RDW-CV 12.0 11.5 - 14.0 % 09/30/2019 4:22 AM CDT [facility] MPV 11.7(H) 6.0 - 9.5 fl 09/30/2019 4:22 AM CDT [facility] nRBC Auto 0 /100 WBC 09/30/2019 4:22 AM CDT [facility] Blood BLOOD SPECIMEN / Unknown Lab Venipuncture / Unknown 09/30/2019 3:33 AM CDT 09/30/2019 4:04 AM CDT Marisabel Baker MD LAB - HEMATOLOGY OR DERABLES [facility] [address] [place] [address] * (ABNORMAL) COMPREHENSIVE METABOLIC PANEL (09/30/2019 3:33 AM CDT) [facility] Glucose 113(H) 70 - 105 mg/dL 09/30/2019 4:29 AM CDT [facility] Sodium 132(L) 136 - 145 mmol/L 09/30/2019 4:29 AM CDT [facility] Potassium 4.9 3.5 - 5.1 mmol/L 09/30/2019 4:29 AM [facility] Chloride 100 98 - 107 mmol/L 09/30/2019 4:29 AM [facility] CO2 22 20 - 28 mmol/L 09/30/2019 4:29 AM [facility] Calcium 9.4 8.4 - 10.4 mg/dL 09/30/2019 4:29 AM [facility] Anion Gap 10 8 - 16 mmol/L 09/30/2019 4:29 AM T [facility] BUN 14 8.9 - 20.6 mg/dL 09/30/2019 4:29 AM [facility] Creatinine 0.71(L) 0.72 - 1.25 mg/dL 09/30/2019 4:29 AM [facility] Alkaline Phosphatase 125 100 - 390 U/L 09/30/2019 4:29 AM [facility] ALT 150(H) 0 - 61 U/L 09/30/2019 4:29 AM [facility] AST 79(H) 5 - 34 U/L 09/30/2019 4:29 AM [facility] Protein Total 8.2 6.4 - 8.3 gm/dL 09/30/2019 4:29 AM [facility] Albumin 4.4 3.4 - 5.0 gm/dL 09/30/2019 4:29 AM [facility] Bilirubin Total 6.8(H) 0.2 - 1.2 mg/dL 09/30/2019 4:29 AM [facility] eGFR by MDRD >60 >60 mL/min/1.7 3m2 09/30/2019 4:29 AM [facility] eGFR by MDRD >60 >60 mL/min/1.7 3m2 09/30/2019 4:29 AM [facility] Blood BLOOD SPECIMEN / Unknown Lab Venipuncture / Unknown 09/30/2019 3:33 AM CDT 09/30/2019 4:01 AM CDT Marisabel Baker MD LAB - CHEMISTRY ORD ERABLES [facility] [address] [place] [address] * HEPATITIS SCREEN ACUTE (09/29/2019 7:40 AM CDT) Pathologist [facility] HAV Antibody IgM Non Reactive Non Reactive 09/29/2019 9:37 AM CDT [facility] HBsAg Non Reactive Non Reactive 09/29/2019 9:37 AM CDT [facility] HBc Antibody IgM Non Reactive Non Reactive 09/29/2019 9:37 AM CDT [facility] HCV Antibody Screen Non Reactive Non Reactive 09/29/2019 9:37 AM CDT [facility] Blood BLOOD SPECIMEN / Unknown Lab Venipuncture / Unknown 09/29/2019 7:40 AM CDT 09/29/2019 8:11 AM CDT Narrative [facility] - 09/29/2019 9:37 AM CDT Non Reactive - Antibodies to Hepatitis C virus (HCV) were not detected, result does not exclude early acute HCV infection. Maynor Payne MD LAB - CHEMISTRY CHRISTINE KENNY [facility] [address] [place] [address] * MARIAM DIRECT (09/29/2019 7:39 AM CDT) [facility] Direct Mariam (OTILIO) C3 Positive 10/06/2019 2:04 PM CDT [facility] BLOOD [employer] [facility] Blood BLOOD SPECIMEN / Unknown Lab Venipuncture / Unknown 09/29/2019 7:39 AM CDT 09/29/2019 8:11 AM CDT Maynor Payne MD LAB - BLOOD BANK ORD ROSALIA [facility] [address] [place] [id number] [place] [address] * BLOOD TYPE ABO+ RH PANEL (09/29/2019 7:39 AM CDT) Pathologist [facility] ABO B 09/29/2019 8:45 AM CDT [facility] Rh Type Positive 09/29/2019 8:45 AM CDT [facility] Comment:History checked. Blood BLOOD SPECIMEN / Unknown Lab Venipuncture / Unknown 09/29/2019 7:39 AM CDT 09/29/2019 8:11 AM CDT Maynor Payne MD LAB - BLOOD BANK ORD ROSALIA Performing Organization Address [facility] Co de Phone Number [facility] [address] [place] [address] * ANTIBODY SCREEN (09/29/2019 7:39 AM CDT) [facility] Antibody Screen Negative 09/29/2019 9:10 AM CDT [facility] Blood BLOOD SPECIMEN / Unknown Lab Venipuncture / Unknown 09/29/2019 7:39 AM CDT 09/29/2019 8:11 AM CDT Maynor Payne MD LAB - BLOOD BANK ORD ROSALIA Performing Organization Address [facility] Co de Phone Number [facility] [address] [place] [address] * CK BLOOD (09/29/2019 7:39 AM CDT) Pathologist [facility] CK 150 30 - 200 U/L 09/29/2019 8:52 AM CDT [facility] Blood BLOOD SPECIMEN / Unknown Lab Venipuncture / Unknown 09/29/2019 7:39 AM CDT 09/29/2019 8:11 AM CDT Maynor Payen MD LAB - CHEMISTRY CHRISTINE KENNY Performing Organization Address City/[facility] Co de Phone Number [facility] [address] [place] [address] * (ABNORMAL) G6PD QUANTITATIVE (09/29/2019 7:39 AM CDT) Pathologist [facility] RBC 2.93(L) 4.14 - 5.80 x10E6/uL 10/01/2019 11:09 AM CDT [facility] ([facility]) G-6-PD Quantitative 415(H) 146 - 376 U/10E12 RBC 10/01/2019 11:09 AM CDT [facility] ([facility]) Comment: When decreased, G-6-PD, Quant. values are [...] 7:39 AM CDT 09/29/2019 8:11 AM CDT [facility] ([facility]) - 10/01/2019 11:09 AM CDT Performed at: ??01 - [address] ??[id number] Host: Kyle Ortega PhD, Phone: ??[phone] Performed at: ??02 - [facility] ??[id number] Host: Cody Mcclure MD, Phone: ??[phone] Marisabel Baker MD LAB - CHEMISTRY ORD ERABLES [facility] ([facility]) [address] [place] [address] * (ABNORMAL) DIFFERENTIAL MANUAL (09/29/2019 3:56 AM CDT) WBC Auto 11.5 x10E9/L 09/29/2019 5:17 AM CDT [facility] WBC Corrected 09/29/2019 5:17 AM CDT [facility] nRBC 09/29/2019 5:17 AM CDT [facility] Neutrophil % Manual 89(H) 31 - 78 % 09/29/2019 5:17 AM CDT [facility] Lymphocytes % Manual 5(L) 13 - 54 % 09/29/2019 5:17 AM CDT [facility] Monocytes % Manual 1(L) 4 - 13 % 09/29/2019 5:17 AM CDT [facility] Eosinophils % Manual 1 0 - 8 % 09/29/2019 5:17 AM CDT [facility] Atypical Lymphocyte % Manual 2(H) <=0 % 09/29/2019 5:17 AM CDT [facility] Band % Manual 1 % 09/29/2019 5:17 AM CDT [facility] Blasts % Manual 1(H) <=0 % 0 5:17 AM T [facility] Cells Counted 100 # cells 09/29/2019 5:17 AM CDT [facility] Platelet Estimation Normal Normal, Adequate platelets 09/29/2019 5:17 AM CDT [facility] WBC Morph Normal 09/29/2019 5:17 AM CDT [facility] Anisocytosis 1+(A) None 09/29/2019 5:17 AM CDT [facility] Hypochromia Occasional (A) None 09/29/2019 5:17 AM CDT [facility] Clumped Platelets Occasional (A) None 09/29/2019 5:17 AM CDT [facility] Large Platelets Occasional (A) None 09/29/2019 5:17 AM CDT [facility] Blood BLOOD SPECIMEN / Unknown Lab Venipuncture / Unknown 09/29/2019 3:56 AM CDT 09/29/2019 4:06 AM CDT Samantha Thomas MD LAB - HEMATOLOGY OR DERABLES Performing Organization Address City/State/[facility] Co de Phone Number [facility] [address] [place], [place] [phone] * (ABNORMAL) BILIRUBIN DIRECT (09/29/2019 3:56 AM CDT) Bilirubin Direct 1.25(H) <=0.5 mg/dL 09/29/2019 4:46 AM CDT [facility] Blood BLOOD SPECIMEN / Unknown Lab Venipuncture / Unknown 09/29/2019 3:56 AM CDT 09/29/2019 4:06 AM CDT Samantha Thomas MD LAB - CHEMISTRY ORD ERABLES Performing Organization Address [facility] Co de Phone Number [facility] [address] [place] [phone] * (ABNORMAL) RETIC COUNT (09/29/2019 3:56 AM CDT) [facility] Reticulocyte Count 2.93 0.3 - 4.2 % 09/29/2019 4:21 AM CDT [facility] Reticulocyte Absolute 0.0935(H) 0.0391 - 0.057 x10E6/uL 09/29/2019 4:21 AM CDT [facility] Reticulocyte Immature Fractionated 22.9(H) 9.3 - 17.4 % 09/29/2019 4:21 AM CDT [facility] Hemoglobin Retic 36.4 36.0 - 38.6 pg 09/29/2019 4:21 AM CDT [facility] Blood BLOOD SPECIMEN / Unknown Lab Venipuncture / Unknown 09/29/2019 3:56 AM CDT 09/29/2019 4:06 AM CDT Samantha Thomas MD LAB - HEMATOLOGY OR DERABLES Performing Organization Address [facility] Co de Phone Number [facility] [address] [place] [address] * (ABNORMAL) LDH BLOOD (09/29/2019 3:56 AM CDT) [facility] LDH 770(H) 125 - 220 U/L 09/29/2019 4:46 AM CDT [facility] Blood BLOOD SPECIMEN / Unknown Lab Venipuncture / Unknown 09/29/2019 3:56 AM CDT 09/29/2019 4:06 AM CDT Samantha Thomas MD LAB - CHEMISTRY ORD ERABLES Performing Organization Address [facility] Co de Phone Number [facility] [address] [place] [phone] * (ABNORMAL) CBC W AUTO DIFFERENTIAL (09/29/2019 3:56 AM CDT) [facility] WBC 11.5(H) 4.5 - 11.0 x10E9/L 09/29/2019 4:21 AM CDT [facility] WBC Corrected 09/29/2019 4:21 AM CDT [facility] RBC 3.19(L) 4.50 - 5.30 x10E12/L 09/29/2019 4:21 AM CDT [facility] Hemoglobin 9.8(L) 13.0 - 16.0 gm/dL 09/29/2019 4:21 AM CDT [facility] Hematocrit 29.3(L) 37.0 - 49.0 % 09/29/2019 4:21 AM CDT [facility] MCV 91.8 78.0 - 98.0 fl 09/29/2019 4:21 AM CDT [facility] MCH 30.7 25.0 - 35.0 pg 09/29/2019 4:21 AM CDT [facility] MCHC 33.4 31.0 - 37.0 gm/dL 09/29/2019 4:21 AM CDT [facility] Platelet Count 227 100 - 400 x10E9/L 09/29/2019 4:21 AM CDT [facility] RDW-CV 11.9 11.5 - 14.0 % 09/29/2019 4:21 AM CDT [facility] MPV 11.3(H) 6.0 - 9.5 fl 09/29/2019 4:21 AM CDT [facility] nRBC Auto 0 /100 WBC 09/29/2019 4:21 AM CDT [facility] Blood BLOOD SPECIMEN / Unknown Lab Venipuncture / Unknown 09/29/2019 3:56 AM CDT 09/29/2019 4:06 AM CDT Samantha Thomas MD LAB - HEMATOLOGY OR DERABLES [facility] [address] [place] [address] * PHOSPHORUS BLOOD (09/29/2019 3:56 AM CDT) [facility] Phosphorus 4.0 2.3 - 4.7 mg/dL 09/29/2019 4:46 AM CDT [facility] Blood BLOOD SPECIMEN / Unknown Lab Venipuncture / Unknown 09/29/2019 3:56 AM CDT 09/29/2019 4:06 AM CDT Samantha Thomas MD LAB - CHEMISTRY ORD ERABLES Performing Organization Address [facility]/ZIP Co de Phone Number [facility] [address] [place] [address] * MAGNESIUM BLOOD (09/29/2019 3:56 AM CDT) Pathologist [facility] Magnesium 2.2 1.7 - 2.3 mg/dL 09/29/2019 4:46 AM CDT [facility] Blood BLOOD SPECIMEN / Unknown Lab Venipuncture / Unknown 09/29/2019 3:56 AM CDT 09/29/2019 4:06 AM CDT Samantha Thomas MD LAB - CHEMISTRY ORD [employer] Performing Organization Address [facility] de Phone Number [facility] [address] [place] [address] * (ABNORMAL) COMPREHENSIVE METABOLIC PANEL (09/29/2019 3:56 AM CDT) Glucose 112(H) 70 - 105 mg/dL 09/29/2019 4:46 AM CDT [facility] Sodium 134(L) 136 - 145 mmol/L 09/29/2019 4:46 AM CDT [facility] Potassium 4.1 3.5 - 5.1 mmol/L 09/29/2019 4:46 AM CDT [facility] Chloride 103 98 - 107 mmol/L 09/29/2019 4:46 AM CDT [facility] CO2 21 20 - 28 mmol/L 09/29/2019 4:46 AM CDT [facility] Calcium 9.1 8.4 - 10.4 mg/dL 09/29/2019 4:46 AM CDT [facility] Anion Gap 10 8 - 16 mmol/L 09/29/2019 4:46 AM CDT [facility] BUN 14 8.9 - 20.6 mg/dL 09/29/2019 4:46 AM CDT [facility] Creatinine 0.74 0.72 - 1.25 mg/dL 09/29/2019 4:46 AM CDT [facility] Alkaline Phosphatase 130 100 - 390 U/L 09/29/2019 4:46 AM CDT [facility] ALT 125(H) 0 - 61 U/L 09/29/2019 4:46 AM CDT [facility] AST 68(H) 5 - 34 U/L 09/29/2019 4:46 AM CDT [facility] Protein Total 7.8 6.4 - 8.3 gm/dL 09/29/2019 4:46 AM CDT [facility] Albumin 4.1 3.4 - 5.0 gm/dL 09/29/2019 4:46 AM CDT [facility] Bilirubin Total 10.5(H) 0.2 - 1.2 mg/dL 09/29/2019 4:46 AM CDT [facility] eGFR by MDRD >60 >60 mL/min/1.7 3m2 09/29/2019 4:46 AM CDT [facility] eGFR by MDRD >60 >60 mL/min/1.7 3m2 09/29/2019 4:46 AM CDT [facility] Blood BLOOD SPECIMEN / Unknown Lab Venipuncture / Unknown 09/29/2019 3:56 AM CDT 09/29/2019 4:06 AM CDT Samantha Thomas MD LAB - CHEMISTRY ORD ERABLES [facility] [address] [place], [place] [id number] * EKG 12-LEAD (09/28/2019 8:20 PM CDT) Ventricular Rate 57 BPM [facility] Atrial Rate 57 BPM [facility] P-R Interval 134 ms [facility] QRS Duration ms 88 ms [facility] Q-T Interval ms 430 ms [facility] QTC Calculation (Bezet) 418 ms [facility] Calculated P [place] 56 degrees [facility] Calculated R [place] 18 degrees [facility] Calculated T [place] 15 degrees [facility] Interpretation EKG SINUS BRADYCARDIA OTHERWISE NORMAL ECG NO PREVIOUS ECGS AVAILABLE Confirmed by MD Thelma, Navarro ([id number]) on 09/29/2019 7:37:23 AM [facility] 09/28/2019 8:20 PM CDT 09/29/2019 7:37 AM CDT Samantha Thomas MD ECG ORDERABLES [facility] * (ABNORMAL) FOLATE (09/28/2019 7:05 PM CDT) Folate 5.8(L) 7.0 - 31.4 ng/mL 09/28/2019 8:18 PM CDT [facility] Blood BLOOD SPECIMEN / Unknown Venipuncture / Unknown 09/28/2019 7:05 PM CDT 09/28/2019 7:27 PM CDT Abel Merida MD LAB - CHEMISTRY CHRISTINE KENNY Performing Organization Address City/[facility]/ZIP Co de Phone Number [facility] [address] [place] [address] * (ABNORMAL) COAGULATION PANEL W D-DIMER (09/28/2019 7:05 PM CDT) PT 14.6 12.1 - 14.8 sec 09/28/2019 7:45 PM CDT [facility] INR 1.2(H) 0.9 - 1.1 09/28/2019 7:45 PM CDT [facility] PTT 29.1 23.0 - 38.4 sec 09/28/2019 7:45 PM CDT [facility] Fibrinogen 552(H) 200 - 400 mg/dL 09/28/2019 7:45 PM CDT [facility] D-Dimer 0.96(H) 0.27 - 0.50 ug/mL FEU 09/28/2019 7:45 PM CDT [facility] Platelet Count 208 100 - 400 x10E9/L 09/28/2019 7:45 PM CDT [facility] Blood BLOOD SPECIMEN / Unknown Venipuncture / Unknown 09/28/2019 7:05 PM CDT 09/28/2019 7:27 PM CDT Narrative [facility] - 09/28/2019 7:45 PM CDT Conventional [...] = Non applicable Reference: Br. J. Haematol. ??[id number],2009. Abel Merida MD LAB - COAGULATION OR DERABLES [facility] [address] [place] [address] * COMPLEMENT C4 (09/28/2019 7:05 PM CDT) Complement C4 27 15 - 53 mg/dL 09/29/2019 10:06 AM CDT [facility] Blood BLOOD SPECIMEN / Unknown Venipuncture / Unknown 09/28/2019 7:05 PM CDT 09/28/2019 7:27 PM CDT Abel Merida MD LAB - SEROLOGY ORDER ELYSSA Performing Organization Address [facility]/ZIP Co de Phone Number [facility] [address] [place] [phone] * COMPLEMENT C3 (09/28/2019 7:05 PM CDT) Complement C3 144 82 - 185 mg/dL 09/29/2019 10:06 AM CDT [facility] Blood BLOOD SPECIMEN / Unknown Venipuncture / Unknown 09/28/2019 7:05 PM CDT 09/28/2019 7:27 PM CDT Abel Merida MD LAB - CHEMISTRY ORDE RABLES Performing Organization Address City/[facility]/ZIP Co de Phone Number [facility] [address] [place] [phone] * URINE MICROSCOPIC ONLY REFLEX TO CULTURE (09/28/2019 4:23 PM CDT) Reflex Status Culture not indicated 09/28/2019 4:41 PM CDT [facility] RBC UA 0-2 None Seen, 0-2, 3-5 # /hpf 09/28/2019 4:41 PM CDT [facility] WBC UA 0-5 None Seen, 0-5 # /hpf 09/28/2019 4:41 PM CDT [facility] Bacteria UA None Seen None Seen 09/28/2019 4:41 PM CDT [facility] Squamous Epithelial Cells None Seen None Seen, 0-2, 3-5 /hpf 09/28/2019 4:41 PM CDT [facility] Urine URINE SPECIMEN OBTAINED BY CLEAN CATCH PROCEDURE / Unknown Collection / Unknown 09/28/2019 4:23 PM CDT 09/28/2019 4:29 PM CDT Narrative [facility] - 09/28/2019 4:41 PM CDT Robbin Fay PA-C LAB - URINALYSIS OR DERABLES [facility] [address] [place] [address] * (ABNORMAL) DRUG SCREEN TOX URINE PANEL (09/28/2019 4:23 PM CDT) [facility] Amphetamines Screen Urine Not detected Not detected 09/28/2019 4:52 PM CDT [facility] Barbiturates Screen Urine Not detected Not detected 09/28/2019 4:52 PM CDT [facility] Benzodiazepines Screen Urine Not detected Not detected 09/28/2019 4:52 PM CDT [facility] Cannabinoids Screen Urine Detected(A) Not detected 09/28/2019 4:52 PM CDT [facility] Cocaine Screen Urine Not detected Not detected 09/28/2019 4:52 PM CDT [facility] Fentanyl Urine Not detected Not detected 09/28/2019 4:52 PM CDT [facility] Methadone Screen Urine Not detected Not detected 09/28/2019 4:52 PM CDT [facility] Opiate Screen Urine Not detected Not detected 09/28/2019 4:52 PM CDT [facility] Phencyclidine Screen Urine Not detected Not detected 09/28/2019 4:52 PM CDT [facility] Urine URINE / Unknown Collection / Unknown 09/28/2019 4:23 PM CDT 09/28/2019 4:29 PM CDT [facility] - 09/28/2019 4:52 PM CDT This [...] ng/mL OPIATES ?300 ng/mL PHENCYCLIDINE(PCP) ??25 ng/mL Robbin Fay PA-C LAB - URINE DATA REVIEWER RY ORDERABLES [facility] [address] [place], [place] [id number] * (ABNORMAL) URINALYSIS REFLEX MICROSCOPIC REFLEX CULTURE (09/28/2019 4:23 PM CDT) Color UA Stephanie(A) Straw, Yellow 09/28/2019 4:38 PM CDT [facility] Clarity UA Clear Clear 09/28/2019 4:38 PM CDT [facility] Glucose UA Negative Negative 09/28/2019 4:38 PM CDT [facility] Bilirubin UA Negative Negative 09/28/2019 4:38 PM CDT [facility] Ketone UA 1+(A) Negative 09/28/2019 4:38 PM CDT [facility] Specific [place] UA 1.029 1.005 - 1.030 09/28/2019 4:38 PM CDT [facility] Blood UA 1+(A) Negative 09/28/2019 4:38 PM CDT [facility] pH UA 8.0 5.0 - 8.0 pH 09/28/2019 4:38 PM CDT [facility] Protein UA Negative Negative 09/28/2019 4:38 PM CDT [facility] Urobilinogen UA 4.0(A) Negative mg/dL 09/28/2019 4:38 PM CDT [facility] Nitrite UA Negative Negative 09/28/2019 4:38 PM CDT [facility] Leukocyte UA Negative Negative 09/28/2019 4:38 PM CDT [facility] Urine Microscopy Urine microscopy to follow 09/28/2019 4:38 PM CDT [facility] Reflex Status Culture not indicated 09/28/2019 4:38 PM CDT [facility] Urine URINE SPECIMEN OBTAINED BY CLEAN CATCH PROCEDURE / Unknown Collection / Unknown 09/28/2019 4:23 PM CDT 09/28/2019 4:29 PM CDT Narrative [facility] - 09/28/2019 4:38 PM CDT Robbin Fay PA-C LAB - URINALYSIS OR DERABLES [facility] [address] [place] [address] * CT ABDOMEN AND PELVIS WITH IV [...] PM Robbin Fay PA-C CT ORDERABLES * MARIAM DIRECT (09/28/2019 1:56 PM CDT) Direct Mariam (OTILIO) Positive 09/28/2019 6:16 PM CDT [facility] Direct Mariam (OTILIO) IgG Positive 09/28/2019 6:16 PM CDT [facility] Blood BLOOD SPECIMEN / Unknown 09/28/2019 1:56 PM CDT 09/28/2019 5:56 PM CDT Markell Martin MD LAB - BLOOD BANK OR DERABLES Performing Organization Address City/State/[facility] Co de Phone Number [facility] [address] [phone] * PATHOLOGY PERIPHERAL SMEAR REVIEW (09/28/2019 12:18 PM CDT) [facility] Case Report Pathology Interpretation Report ? Case: [id number] ? Authorizing Provider: ??Markell Martin MD ? Collected: ? 09/28/2019 12:18 PM ? Ordering Location: ? [facility] ?? Received: ?09/28/2019 07:33 PM ? Emergency Department ? Pathologist: ? Bryan Shah MD ? Specimen: ?Blood ? 09/29/2019 12:27 PM CDT [facility] Peripheral Smear Description Clinical History: The patient is an 19-year-old man with a history of nausea, vomiting, and diarrhea x 1 week. He presented to [facility] for the evaluation and management of scleral [...] and low-normal haptoglobin). In addition, his Direct Mariam' Test is strongly reactive for IgG. 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 09/29/2019 12:27 PM CDT [facility] Blood BLOOD SPECIMEN / Unknown Venipuncture / Unknown 09/28/2019 12:18 PM CDT 09/28/2019 7:33 PM CDT Markell Martin MD LAB - PATHOLOGY/CYT OLOGY ORDERABLES Performing Organization Address City/[facility]/ZIP Co de Phone Number [facility] [address] [place] [phone] * (ABNORMAL) RETIC COUNT (09/28/2019 12:18 PM CDT) Reticulocyte Count 2.31 0.3 - 4.2 % 09/28/2019 5:54 PM CDT [facility] Reticulocyte Absolute 0.0873(H) 0.0391 - 0.057 x10E6/uL 09/28/2019 5:54 PM CDT [facility] Reticulocyte Immature Fractionated 21.0(H) 9.3 - 17.4 % 09/28/2019 5:54 PM CDT [facility] Hemoglobin Retic 36.0 36.0 - 38.6 pg 09/28/2019 5:54 PM CDT [facility] Blood BLOOD SPECIMEN / Unknown Venipuncture / Unknown 09/28/2019 12:18 PM CDT 09/28/2019 12:21 PM CDT Abel Merida MD LAB - HEMATOLOGY ORD ERABLES Performing Organization Address City/[facility]/ZIP Co de Phone Number [facility] [address] [place] [address] * (ABNORMAL) HAPTOGLOBIN (09/28/2019 12:18 PM CDT) Haptoglobin 11(L) 30 - 200 mg/dL 09/28/2019 5:56 PM CDT [facility] Blood BLOOD SPECIMEN / Unknown Venipuncture / Unknown 09/28/2019 12:18 PM CDT 09/28/2019 12:21 PM CDT Abel Merida MD LAB - CHEMISTRY CHRISTINE KENNY Performing Organization Address [facility]/ZIP Co de Phone Number [facility] [address] [place] [phone] * (ABNORMAL) LDH BLOOD (09/28/2019 12:18 PM CDT) LDH 611(H) 125 - 220 U/L 09/28/2019 5:56 PM CDT [facility] Blood BLOOD SPECIMEN / Unknown Venipuncture / Unknown 09/28/2019 12:18 PM CDT 09/28/2019 12:21 PM CDT Abel Merida MD LAB - CHEMISTRY CHRISTINE KENNY Performing Organization Address [facility] Co de Phone Number [facility] [address] [place], [place] [phone] * (ABNORMAL) BILIRUBIN DIRECT (09/28/2019 12:18 PM CDT) Bilirubin Direct 1.63(H) <=0.5 mg/dL 09/28/2019 5:17 PM CDT [facility] Blood BLOOD SPECIMEN / Unknown Venipuncture / Unknown 09/28/2019 12:18 PM CDT 09/28/2019 12:21 PM CDT Giuliano Fisher MD LAB - CHEM ISTRY ORDERABLES Performing Organization Address [facility]/ZIP Co de Phone Number [facility] [address] [place] [phone] * (ABNORMAL) LIPASE BLOOD (09/28/2019 12:18 PM CDT) Lipase 9(L) 10 - 220 U/L 09/28/2019 12:39 PM CDT [facility] Blood BLOOD SPECIMEN / Unknown Venipuncture / Unknown 09/28/2019 12:18 PM CDT 09/28/2019 12:21 PM CDT Markell Martin MD LAB - CHEMISTRY ORD ERABLES [facility] [address] [place] [address] * (ABNORMAL) COMPREHENSIVE METABOLIC PANEL (09/28/2019 12:18 PM CDT) Glucose 131(H) 70 - 105 mg/dL 09/28/2019 12:37 PM CDT [facility] Sodium 134(L) 136 - 145 mmol/L 09/28/2019 12:37 PM CDT [facility] Potassium 4.2 3.5 - 5.1 mmol/L 09/28/2019 12:37 PM CDT [facility] Chloride 104 98 - 107 mmol/L 09/28/2019 12:37 PM CDT [facility] CO2 20 20 - 28 mmol/L 09/28/2019 12:37 PM CDT [facility] Calcium 8.8 8.4 - 10.4 mg/dL 09/28/2019 12:37 PM CDT [facility] Anion Gap 10 8 - 16 mmol/L 09/28/2019 12:37 PM CDT [facility] BUN 14 8.9 - 20.6 mg/dL 09/28/2019 12:37 PM CDT [facility] Creatinine 0.78 0.72 - 1.25 mg/dL 09/28/2019 12:37 PM CDT [facility] Alkaline Phosphatase 141 100 - 390 U/L 09/28/2019 12:37 PM CDT [facility] ALT 114(H) 0 - 61 U/L 09/28/2019 12:37 PM CDT [facility] AST 43(H) 5 - 34 U/L 09/28/2019 12:37 PM CDT [facility] Protein Total 7.8 6.4 - 8.3 gm/dL 09/28/2019 12:37 PM CDT [facility] Albumin 4.3 3.4 - 5.0 gm/dL 09/28/2019 12:37 PM CDT [facility] Bilirubin Total 11.4(H) 0.2 - 1.2 mg/dL 09/28/2019 12:37 PM CDT [facility] eGFR by MDRD >60 >60 mL/min/1.7 3m2 09/28/2019 12:37 PM CDT [facility] eGFR by MDRD >60 >60 mL/min/1.7 3m2 09/28/2019 12:37 PM CDT [facility] Blood BLOOD SPECIMEN / Unknown Venipuncture / Unknown 09/28/2019 12:18 PM CDT 09/28/2019 12:21 PM CDT Markell Martin MD LAB - CHEMISTRY ORD ERABLES [facility] [address] [place] [address] * (ABNORMAL) CBC W AUTO DIFFERENTIAL (09/28/2019 12:18 PM CDT) WBC 10.3 4.5 - 11.0 x10E9/L 09/28/2019 7:34 PM CDT [facility] WBC Corrected 09/28/2019 7:34 PM CDT [facility] RBC 3.86(L) 4.50 - 5.30 x10E12/L 09/28/2019 7:34 PM CDT [facility] Hemoglobin 11.4(L) 13.0 - 16.0 gm/dL 09/28/2019 7:34 PM CDT [facility] Hematocrit 34.4(L) 37.0 - 49.0 % 09/28/2019 7:34 PM CDT [facility] MCV 89.1 78.0 - 98.0 fl 09/28/2019 7:34 PM CDT [facility] MCH 29.5 25.0 - 35.0 pg 09/28/2019 7:34 PM CDT [facility] MCHC 33.1 31.0 - 37.0 gm/dL 09/28/2019 7:34 PM CDT [facility] Platelet Count 211 100 - 400 x10E9/L 09/28/2019 7:34 PM CDT [facility] RDW-CV 12.0 11.5 - 14.0 % 09/28/2019 7:34 PM CDT [facility] MPV 10.8(H) 6.0 - 9.5 fl 09/28/2019 7:34 PM CDT [facility] Neutrophils % 76.2 31.0 - 78.0 % 09/28/2019 7:34 PM CDT [facility] Lymphocytes % 9.0(L) 13.0 - 54.0 % 09/28/2019 7:34 PM CDT [facility] Monocytes % 5.5 4.0 - 13.0 % 09/28/2019 7:34 PM CDT [facility] Eosinophils % 4.9 0.0 - 8.0 % 09/28/2019 7:34 PM CDT [facility] Basophils % 0.5 % 09/28/2019 7:34 PM CDT [facility] Immature Granulocytes 3.9 % 09/28/2019 7:34 PM CDT [facility] Neutrophil Absolute 7.83 1.4 - 8.58 x10E9/L 09/28/2019 7:34 PM CDT [facility] Lymphocytes Absolute 0.93 0.59 - 5.94 x10E9/L 09/28/2019 7:34 PM CDT [facility] Monocytes Absolute 0.57 0.18 - 1.43 x10E9/L 09/28/2019 7:34 PM CDT [facility] Eosinophils Absolute 0.50 0 - 0.88 x10E9/L 09/28/2019 7:34 PM CDT [facility] Basophils Absolute 0.05 0 - 0.22 x10E9/L 09/28/2019 7:34 PM CDT [facility] Immature Granulocytes Absolute 0.40(H) 0 - 0.11 x10E9/L 09/28/2019 7:34 PM CDT [facility] nRBC Auto 0 /100 WBC 09/28/2019 7:34 PM CDT [facility] Path Review Hematology Slide sent for Path review 09/28/2019 7:34 PM T [facility] Blood BLOOD SPECIMEN / Unknown Venipuncture / Unknown 09/28/2019 12:18 PM CDT 09/28/2019 12:21 PM CDT Markell Martin MD LAB - HEMATOLOGY OR DERABLES [facility] [address] [place] [address] documented in this encounter Visit Diagnoses Diagnosis 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 Abdominal pain, epigastric Elevated bilirubin Disorders of bilirubin excretion Nausea and vomiting, intractability of vomiting not specified, unspecified vomiting type Acquired neutrophilia Abdominal pain, epigastric Elevated bilirubin Disorders of bilirubin excretion Nausea and vomiting documented in this encounter Administered Medications Inactive Administered Medications - up to 3 most recent administrations Medication Order MAR Action Action Date Dose Rate Site 0.9% NaCl flush bag at 20 mL/hr, 250 mL, CONTINUOUS PRN, Starting on Sun09/30/19 at 1029, Until Sun10/03/19 at 1453, FLUSH BAG, Use for: IVPB flush $ New Bag/Syringe 10/02/2019 10:00 AM CDT 250 mL 20 mL/hr $ New Bag/Syringe 09/30/2019 6:32 PM CDT 250 mL 20 mL/ hr 0.9% NaCl infusion rate and volume at 20 mL/hr, 250 mL, ONCE PRN, 1 dose, Starting on Sun10/01/19 at 0754, Until Sun10/03/19 at 1453, Normal Saline flush bag for blood and blood product administration 0.9% NaCl injection 1-10 mL 1-10 mL, Intracatheter, PRN, Other, peripheral line flush, Starting on Sun09/28/19 at 1212, Until Sun09/29/19 at 1007, Flush peripheral IV catheter with 1-10 mL of normal saline before and after medications and prn to clear blood from the line or to verify patency. $ Given 09/28/2019 2:46 PM CDT 10 mL 0.9% NaCl injection 3 mL 3 mL, Intracatheter, EVERY 8 HOURS, First dose on Sun09/28/19 at 1400, Until Discontinued, Flush peripheral IV catheter with 3 mL of normal saline every 8 hours. $ Given 09/29/2019 5:47 AM CDT 3 mL $ Given 09/28/2019 11:34 PM CDT 3 mL 0.9% NaCl IV Bolus 1,000 mL, at 1,935.48 mL/hr, Administer over 31 Minutes, NOW, 1 dose, On Sun09/28/19 at 1345 $ New Bag/Syringe 09/28/2019 1:50 PM CDT 1,000 mL 1935.48 mL/hr 0.9% NaCl IV Bolus 1,000 mL, at 1,935.48 mL/hr, Administer over 31 Minutes, NOW, 1 dose, On Sun09/28/19 at 1400 $ New Bag/Syringe 09/28/2019 1:52 PM CDT 1,000 mL 1935.48 mL/hr cefTRIAXone (ROCEPHIN) 2,000 mg in 0.9% NaCl 50 mL IVPB 2,000 mg (2 g), at 100 mL/hr, Intravenous, EVERY 24 HOURS, First dose on Sun09/30/19 at 0830, Until Discontinued, Ceftriaxone can cause precipitation when administered with calcium-containing fluids, including LR. Flush lines with a compatible fluid, such as D5W or NS before and after ceftriaxone dose. Admin through separate lumens is acceptable. , Indication for anti-infective therapy: Suspected infection, Site of anti-infective therapy: Blood $ New Bag/Syringe 10/02/2019 3:29 PM CDT 2,000 mg 100 mL/hr $ New Bag/Syringe 10/01/2019 2:15 PM CDT 2,000 mg 100 mL /hr Current Rate 09/30/2019 8:54 AM CDT 100 mL/hr enoxaparin (LOVENOX) injection 40 mg 40 mg, Subcutaneous, DAILY, First dose on Sun09/29/19 at 1800, Until Discontinued, (for prefilled syringes) do not expel air bubble from the syringe prior to the injection Remind Patient to not rub injection site. Could cause hematoma. $ Given 10/02/2019 5:07 PM CDT 40 mg Ab dominal Tissue $ Given 10/01/2019 5:14 PM CDT 40 mg Ab dominal Tissue $ Given 09/30/2019 6:34 PM CDT 40 mg Ab d Left Lower Quadrant folic acid (FOLVITE) tablet 1 mg 1 mg, Oral, DAILY, First dose on Sun09/28/19 at 1930, Until Discontinued $ Given 10/03/2019 9:12 AM CDT 1 mg $ Given 10/02/2019 9:56 AM CDT 1 mg $ Given 10/01/2019 10:44 AM CDT 1 mg heparin injection 5,000 Units 5,000 Units, Subcutaneous, 2 TIMES DAILY, First dose on Sun09/28/19 at 2100, Until Discontinued $ Given 09/29/2019 8:25 AM CDT 5,000 Units Abdominal Tissue $ Given 09/28/2019 11:31 PM CDT 5,000 Units Abdominal Tissue iopamidol (ISOVUE 370) 76 % contrast Intravenous, CONTRAST ONCE, Starting on Sun09/28/19 at 1406, Until 09/30/19 at 1405 $ Given - Contrast 09/28/2019 2:46 PM CDT 100 mL lactated ringers infusion at 75 mL/hr, Intravenous, CONTINUOUS, Starting on 09/28/19 at 2100, Until 09/29/19 at 1012 Current Rate 09/29/2019 4:50 AM CDT 75 mL/hr Current Rate 09/28/2019 11:57 PM CDT 75 mL/hr $ New Bag/Syringe 09/28/2019 11:54 PM CDT 75 mL /hr loratadine (CLARITIN) tablet 10 mg 10 mg, Oral, DAILY, First dose on Sun09/28/19 at 2000, Until Discontinued $ Given 10/03/2019 9:12 AM CDT 10 mg $ Given 10/02/2019 9:56 AM CDT 10 mg $ Given 10/01/2019 10:44 AM CDT 10 mg metoclopramide (REGLAN) injection 10 mg 10 mg, Intravenous, NOW, 1 dose, On Sun09/28/19 at 2100, Inject undiluted IV slowly over 1 to 2 minutes. $ Given 09/28/2019 8:50 PM CDT 10 mg ondansetron (disintegrating) (ZOFRAN ODT) tablet 4 mg 4 mg, Oral, EVERY 6 HOURS PRN, Nausea/Vomiting, Starting on 09/28/19 at 1939, Until 09/29/19 at 1007, Allow tablet to dissolve on the tongue $ Given 09/29/2019 8:25 AM CDT 4 mg ondansetron (ZOFRAN) injection 4 mg 4 mg, Intravenous, ONCE, 1 dose, On Sun09/28/19 at 1415, Administer over 2 to 5 minutes. $ Given 09/28/2019 1:22 PM CDT 4 mg ondansetron (ZOFRAN) injection 4 mg 4 mg, Intravenous, EVERY 6 HOURS PRN, Nausea/Vomiting, Starting on 09/28/19 at 1939, Until 09/29/19 at 1007, Administer IV if patient is NPO, actively vomiting, or unable to swallow. $ Given 09/28/2019 8:16 PM CDT 4 mg ondansetron (ZOFRAN) injection 4 mg 4 mg, Intravenous, EVERY 8 HOURS PRN, Nausea/Vomiting, Starting on Sun09/29/19 at 2332, Until Sun09/30/19 at 0823, Administer over 2 to 5 minutes. $ Given 09/30/2019 12:02 AM CDT 4 mg ondansetron (ZOFRAN) injection 4 mg 4 mg, Intravenous, EVERY 4 HOURS PRN, Nausea/Vomiting, Starting on Sun09/30/19 at 0830, Until Sun10/03/19 at 1453, Administer over 2 to 5 minutes. ondansetron 4mg/2ml IJ Soln ADS Med 1 dose, Starting on Sun09/28/19 at 1317, Until Sun09/28/19 at 1322, Created by haydee benito pantoprazole (PROTONIX) injection 40 mg 40 mg, Intravenous, DAILY, First dose on Sun09/30/19 at 0900, Until Discontinued, For every 40 mg of pantoprazole mix with 10 mL Normal Saline (final concentration = 4 mg/mL). Inject SLOWLY over 2 min. $ Given 09/30/2019 8:46 AM CDT 40 mg pantoprazole EC (PROTONIX) tablet 40 mg 40 mg, Oral, DAILY, First dose on Sun10/01/19 at 0900, Until Discontinued, Do not crush, chew, or cut in half. $ Given 10/03/2019 9:12 AM CDT 40 mg $ Given 10/02/2019 9:56 AM CDT 40 mg $ Given 10/01/2019 10:44 AM CDT 40 mg predniSONE (DELTASONE) tablet 10 mg 10 mg, Oral, DAILY WITH BREAKFAST, 4 doses, First dose on Sun10/22/19 at 0800, Last dose on Sun10/25/19 at 0800, Take with food predniSONE (DELTASONE) tablet 20 mg 20 mg, Oral, DAILY WITH BREAKFAST, 4 doses, First dose on Sun10/18/19 at 0800, Last dose on Sun10/21/19 at 0800, Take with food predniSONE (DELTASONE) tablet 30 mg 30 mg, Oral, DAILY WITH BREAKFAST, 4 doses, First dose on Sun10/14/19 at 0800, Last dose on Sun10/17/19 at 0800, Take with food predniSONE (DELTASONE) tablet 40 mg 40 mg, Oral, DAILY WITH BREAKFAST, 4 doses, First dose on Sun10/10/19 at 0800, Last dose on Sun10/13/19 at 0800, Take with food predniSONE (DELTASONE) tablet 50 mg 50 mg, Oral, DAILY WITH BREAKFAST, 4 doses, First dose on Sun10/06/19 at 0800, Last dose on Sun10/09/19 at 0800, Take with food predniSONE (DELTASONE) tablet 60 mg 60 mg, Oral, DAILY WITH BREAKFAST, First dose on Sun09/30/19 at 0900, Until Discontinued, Take with food $ Given 10/03/2019 9:12 AM CDT 60 mg $ Given 10/02/2019 9:56 AM CDT 60 mg $ Given 10/01/2019 10:44 AM CDT 60 mg predniSONE (DELTASONE) tablet 60 mg 60 mg, Oral, DAILY WITH BREAKFAST, 2 doses, First dose on Sun10/04/19 at 0800, Last dose on Sun10/05/19 at 0800, Take with food senna-docusate (SENOKOT-S) tablet 1 tablet 1 tablet, Oral, 2 TIMES DAILY, First dose on Sun10/02/19 at 1000, Until Discontinued $ Given 10/03/2019 9:12 AM CDT 1 tablet $ Given 10/02/2019 8:19 PM CDT 1 tablet $ Given 10/02/2019 9:56 AM CDT 1 tablet vancomycin (VANCOCIN) 1,000 mg in 0.9% NaCl 250 mL IVPB 1,000 mg, at 250 mL/hr, Intravenous, EVERY 8 HOURS, First dose on Sun09/30/19 at 1900, Until Discontinued, Next vancomycin level due at 0800 on 10/02/2019., Hold the following dose if the level is greater than 21 mcg/ml., , Indication for anti-infective therapy: Suspected infection, Site of anti-infective therapy: Blood $ New Bag/Syringe 10/02/2019 12:23 AM CDT 1,000 mg 250 mL/hr $ New Bag/Syringe 10/01/2019 5:05 PM CDT 1,000 mg 250 mL /hr $ New Bag/Syringe 10/01/2019 2:42 AM CDT 1,000 mg 250 mL /hr vancomycin (VANCOCIN) 1,000 mg in 0.9% NaCl 250 mL IVPB 1,000 mg, at 250 mL/hr, Intravenous, EVERY 6 HOURS, First dose (after last modification) on Analisa 10/02/19 at 0900, Until Discontinued, Next vancomycin level due at 10am on 10/04/2019., Hold the following dose if the level is greater than 21 mcg/ml., Indication for anti-infective therapy: Suspected infection, Site of anti-infective therapy: Blood $ New Bag/Syringe 10/03/2019 11:19 AM CDT 1,000 mg 250 mL/hr $ New Bag/Syringe 10/03/2019 4:36 AM CDT 1,000 mg 250 mL /hr $ New Bag/Syringe 10/02/2019 10:50 PM CDT 1,000 mg 250 m L/hr vancomycin (VANCOCIN) 1,750 mg in 500 mL NaCl IVPB 1,750 mg, at 285.71 mL/hr, Intravenous, ONCE, 1 dose, On Sun09/30/19 at 0900, Indication for anti-infective therapy: Suspected infection, Site of anti-infective therapy: Blood $ New Bag/Syringe 09/30/2019 10:42 AM CDT 1,750 mg 285.71 mL/hr vancomycin (VANCOCIN) IV dose per pharmacy Does not apply, DIRECTED, Starting on Sun09/30/19 at 0821, Until Sun10/03/19 at 1453, Indication: Bacteremia (Goal Tr 15-20) All patients with goal troughs of 15-20 mcg/ml will receive a loading dose. For goal troughs of 10-20 mcg/ml the loading dose will be optional. Pharmacy will write all orders for Vancomycin including dosages and when to draw levels. (IF DOSE IS DELAYED, CALL PHARMACY TO ADJUST TIMES. DO NOT GO BACK TO ORIGINAL SCHEDULE), Indication for anti-infective therapy: Suspected infection, Site of anti-infective therapy: Blood documented in this encounter Active and Recently Administered Medications Times are shown in CDT. Scheduled Medication Order 10/01/2019 10/02/2019 10/03/2019 cefTRIAXone (ROCEPHIN) 2,000 mg in 0.9% NaCl 50 mL IVPB 2,000 mg (2 g), at 100 mL/hr, Intravenous, EVERY 24 HOURS, First dose on Sun09/30/19 at 0830, Until Discontinued, Ceftriaxone can cause precipitation when administered with calcium-containing fluids, including LR. Flush lines with a compatible fluid, such as D5W or NS before and after ceftriaxone dose. Admin through separate lumens is acceptable. , Indication for anti-infective therapy: Suspected infection, Site of anti-infective therapy: Blood 1415 ($ New Bag/Syringe - Provider: Jeancarlos Owen RN)1702 (Stopped - Provider: Jeancarlos Owen RN) 1529 ($ New Bag/Syringe - Provider: Shima Quinn RN)1633 (Stopped - Provider: Jeancarlos Owen RN) enoxaparin (LOVENOX) injection 40 mg 40 mg, Subcutaneous, DAILY, First dose on Sun09/29/19 at 1800, Until Discontinued, (for prefilled syringes) do not expel air bubble from the syringe prior to the injection Remind Patient to not rub injection site. Could cause hematoma. 1714 ($ Given - Provider: Jeancarlos Owen RN) 1707 ($ Given - Provider: Jeancarlos Owen RN) folic acid (FOLVITE) tablet 1 mg 1 mg, Oral, DAILY, First dose on Sun09/28/19 at 1930, Until Discontinued 1044 ($ Given - Provider: Jeancarlos Owen RN) 0956 ($ Given - Provider: Jeancarlos Owen RN) 0912 ($ Given - Provider: yAaka Ozuna RN) loratadine (CLARITIN) tablet 10 mg 10 mg, Oral, DAILY, First dose on Sun09/28/19 at 2000, Until Discontinued 1044 ($ Given - Provider: Jeancarlos Owen RN) 0956 ($ Given - Provider: Jeancarlos Owen RN) 0912 ($ Given - Provider: Ayaka Ozuna RN) pantoprazole EC (PROTONIX) tablet 40 mg 40 mg, Oral, DAILY, First dose on Sun10/01/19 at 0900, Until Discontinued, Do not crush, chew, or cut in half. 1044 ($ Given - Provider: Jeancarlos Owen RN) 0956 ($ Given - Provider: Jeancarlos Owen RN) 0912 ($ Given - Provider: Ayaka Ozuna RN) predniSONE (DELTASONE) tablet 10 mg(Linked Group 1) 10 mg, Oral, DAILY WITH BREAKFAST, 4 doses, First dose on Sun10/22/19 at 0800, Last dose on Sun10/25/19 at 0800, Take with food predniSONE (DELTASONE) tablet 20 mg(Linked Group 1) 20 mg, Oral, DAILY WITH BREAKFAST, 4 doses, First dose on Sun10/18/19 at 0800, Last dose on Sun10/21/19 at 0800, Take with food predniSONE (DELTASONE) tablet 30 mg(Linked Group 1) 30 mg, Oral, DAILY WITH BREAKFAST, 4 doses, First dose on Sun10/14/19 at 0800, Last dose on Sun10/17/19 at 0800, Take with food predniSONE (DELTASONE) tablet 40 mg(Linked Group 1) 40 mg, Oral, DAILY WITH BREAKFAST, 4 doses, First dose on Sun10/10/19 at 0800, Last dose on Sun10/13/19 at 0800, Take with food predniSONE (DELTASONE) tablet 50 mg(Linked Group 1) 50 mg, Oral, DAILY WITH BREAKFAST, 4 doses, First dose on Sun10/06/19 at 0800, Last dose on Sun10/09/19 at 0800, Take with food predniSONE (DELTASONE) tablet 60 mg (CANCELED) 60 mg, Oral, DAILY WITH BREAKFAST, First dose on Sun09/30/19 at 0900, Until Discontinued, Take with food 1044 ($ Given - Provider: Jeancarlos Owen RN) 0956 ($ Given - Provider: Jeancarlos Owen RN) 0912 ($ Given - Provider: Ayaka Ozuna RN) predniSONE (DELTASONE) tablet 60 mg(Linked Group 1) 60 mg, Oral, DAILY WITH BREAKFAST, 2 doses, First dose on Sun10/04/19 at 0800, Last dose on Sun10/05/19 at 0800, Take with food senna-docusate (SENOKOT-S) tablet 1 tablet 1 tablet, Oral, 2 TIMES DAILY, First dose on Sun10/02/19 at 1000, Until Discontinued 0956 ($ Given - Provider: Jeancarlos Owen RN)2019 ($ Given - Provider: Saji Paiz RN) 0912 ($ Given - Provider: Ayaka Ozuna RN) vancomycin (VANCOCIN) 1,000 mg in 0.9% NaCl 250 mL IVPB (CANCELED) 1,000 mg, at 250 mL/hr, Intravenous, EVERY 8 HOURS, First dose on Sun09/30/19 at 1900, Until Discontinued, Next vancomycin level due at 0800 on 10/02/2019., Hold the following dose if the level is greater than 21 mcg/ml., , Indication for anti-infective therapy: Suspected infection, Site of anti-infective therapy: Blood 0242 ($ New Bag/Syringe - Provider: Saji Paiz RN)0419 (Stopped - Provider: Saji Paiz RN)1705 ($ New Bag/Syringe - Provider: Jeancarlos Owen RN)1927 (Stopped - Provider: Saji Paiz RN) 0023 ($ New Bag/Syringe - Provider: Saji Paiz RN)0158 (Stopped - Provider: Saji Paiz RN) vancomycin (VANCOCIN) 1,000 mg in 0.9% NaCl 250 mL IVPB 1,000 mg, at 250 mL/hr, Intravenous, EVERY 6 HOURS, First dose (after last modification) on Analisa 10/02/19 at 0900, Until Discontinued, Next vancomycin level due at 10am on 10/04/2019., Hold the following dose if the level is greater than 21 mcg/ml., Indication for anti-infective therapy: Suspected infection, Site of anti-infective therapy: Blood 1003 ($ New Bag/Syringe - Provider: Jeancarlos Owen RN)1145 (Stopped - Provider: Jeancarlos Owen RN)1711 ($ New Bag/Syringe - Provider: Jeancarlos Owen RN)2020 (Stopped - Provider: Saji Paiz RN)2250 ($ New Bag/Syringe - Provider: Saji Paiz RN)2356 (Stopped - Provider: Saji Paiz RN) 0436 ($ New Bag/Syringe - Provider: Saji Paiz RN)0543 (Stopped - Provider: Saji Paiz RN)1119 ($ New Bag/Syringe - Provider: Ayaka Ozuna RN)1237 (Stopped - Provider: Ayaka Ozuna RN) vancomycin (VANCOCIN) IV dose per pharmacy Does not apply, DIRECTED, Starting on Sun09/30/19 at 0821, Until Sun10/03/19 at 1453, Indication: Bacteremia (Goal Tr 15-20) All patients with goal troughs of 15-20 mcg/ml will receive a loading dose. For goal troughs of 10-20 mcg/ml the loading dose will be optional. Pharmacy will write all orders for Vancomycin including dosages and when to draw levels. (IF DOSE IS DELAYED, CALL PHARMACY TO ADJUST TIMES. DO NOT GO BACK TO ORIGINAL SCHEDULE), Indication for anti-infective therapy: Suspected infection, Site of anti-infective therapy: Blood PRN Medication Order 10/01/2019 10/02/2019 10/03/2019 0.9% NaCl flush bag at 20 mL/hr, 250 mL, CONTINUOUS PRN, Starting on Sun09/30/19 at 1029, Until Sun10/03/19 at 1453, FLUSH BAG, Use for: IVPB flush 1000 ($ New Bag/Syringe - Provider: Jeancarlos Owen RN) 0.9% NaCl infusion rate and volume at 20 mL/hr, 250 mL, ONCE PRN, 1 dose, Starting on Sun10/01/19 at 0754, Until Sun10/03/19 at 1453, Normal Saline flush bag for blood and blood product administration albuterol HFA (PROVENTIL;VENTOLIN;PROAIR) 108 (90 Base) MCG/ACT inhaler 2 puff 2 puff, Inhalation, EVERY 6 HOURS PRN, Shortness of Breath, Wheezing, Starting on Sun09/28/19 at 1939, Until Sun10/03/19 at 1453, Shake well before using. WASTE DISPOSAL INSTRUCTION: Send to Pharmacy for Disposal. ondansetron (ZOFRAN) injection 4 mg 4 mg, Intravenous, EVERY 4 HOURS PRN, Nausea/Vomiting, Starting on Sun09/30/19 at 0830, Until Sun10/03/19 at 1453, Administer over 2 to 5 minutes. Linked Groups Order Group 1: predniSONE (DELTASONE) tablet 60 mgJump to med 60 mg, Oral, DAILY WITH BREAKFAST, 2 doses, First dose on 6/20/20 at 0800, Last dose on Sun10/05/19 at 0800, Take with food Followed by predniSONE (DELTASONE) tablet 50 mgJump to med 50 mg, Oral, DAILY WITH BREAKFAST, 4 doses, First dose on Sun10/06/19 at 0800, Last dose on Sun10/09/19 at 0800, Take with food Followed by predniSONE (DELTASONE) tablet 40 mgJump to med 40 mg, Oral, DAILY WITH BREAKFAST, 4 doses, First dose on Sun10/10/19 at 0800, Last dose on Sun10/13/19 at 0800, Take with food Followed by predniSONE (DELTASONE) tablet 30 mgJump to med 30 mg, Oral, DAILY WITH BREAKFAST, 4 doses, First dose on Sun10/14/19 at 0800, Last dose on Sun10/17/19 at 0800, Take with food Followed by predniSONE (DELTASONE) tablet 20 mgJump to med 20 mg, Oral, DAILY WITH BREAKFAST, 4 doses, First dose on Sun10/18/19 at 0800, Last dose on Sun10/21/19 at 0800, Take with food Followed by predniSONE (DELTASONE) tablet 10 mgJump to med 10 mg, Oral, DAILY WITH BREAKFAST, 4 doses, First dose on Sun10/22/19 at 0800, Last dose on Sun10/25/19 at 0800, Take with food documented in this encounter Care Teams Business Support Specialist Relationship Specialty Start Date End Date Jesse Cevallos MD [address] [place] [id number] PCP - General Pediatrics 05/15/19 documented as of this encounter
--- OUTSIDE RECORDS SUMMARY | 2024-04-23 03:07 | XMS_ITS | Referral Summary ---
Author Organization [facility] Address [address] [facility] [place] [address] Care Team Providers Care Net Maker Name Role Phone Shelli Cevallos MD Primary Care Provider + [phone] Source Comments [facility],non-owned Affiliates and Associated Physician Practices is amultiple site organization consisting of ambulatory clinics and hospital sitesin [place] and [place]. This disclosure is being madepursuant to the Care Everywhere program and may not contain all information available regarding this patient. Last updated 18.[facility] Allergies Active Allergy Reactions Criticality Noted Date [...] Reactive Non Reactive 09/29/2019 9:37 AM CDT [facility] HBsAg Non Reactive Non Reactive 09/29/2019 9:37 AM CDT [facility] HBc Antibody IgM Non Reactive Non Reactive 09/29/2019 9:37 AM CDT [facility] HCV Antibody Screen Non Reactive Non Reactive 09/29/2019 9:37 AM CDT [facility] Blood BLOOD SPECIMEN / Unknown Lab Venipuncture / Unknown 09/29/2019 7:40 AM CDT 09/29/2019 8:11 AM CDT Narrative [facility] - 09/29/2019 9:37 AM CDT Non Reactive - Antibodies to Hepatitis C virus (HCV) were not detected, result does not exclude early acute HCV infection. Maynor Payne MD LAB - CHEMISTRY CHRISTINE KENNY [facility] [address] [place] [address] from Last 3 Months or Most Recently Relevant to Health Maintenance Advance Directives * Full Code (Latest Code Status on File) Date Activated Date Inactivated Comments 09/29/2019 10:09 AM 10/03/2019 2:59 PM * Full Code Date Activated Date Inactivated Comments 09/28/2019 8:11 PM 09/29/2019 10:07 AM * Full Code Date Activated Date Inactivated Comments 09/28/2019 7:39 PM 09/28/2019 8:11 PM Care Teams Net Maker Relationship Specialty Start Date End Date Shelli Cevallos MD [address] [place] [id number] PCP - General Pediatrics 05/15/19
--- OUTSIDE RECORDS SUMMARY | 2024-04-23 03:07 | XMS_ITS | Encounter Summary ---
Author Organization [facility] Address [address] [place] [address] Care Team Providers Care Printed Circuit Boards Router Name Role Phone Jesse Cevallos MD Primary Care Provider + [phone] Reason for Visit * Reason Comments Vomiting seen at [facility] for vomiting/chills/diarrhea/UC on Sunday for the same not feeling any better * Auth/Cert Specialty Diagnoses / Procedures Referred By Maryanne stewart Referred To Contact Referral ID Status Reason Start Date Expiration Date Visits Re quested Visits Authorized [id number] 1 1 Encounter Details Date Type Department Care Team (Late st Contact Info) Description 09/28/2019 1:19 PM CDT - 10/03/2019 1:41 PM CDT Hospital Encounter [facility] [address] [place] [address] [place] [address] [place] [address] [place] [address] [facility] [place] [address] Mark Cleveland MD [address] [place] [address] Rashid Monson MD [address] [facility] [address] [place] [address] Internal Medicine Discharge Disposition: Home [...] 45.04% 09/27 10:00 PM CDT Growth Chart: [facility] (Boys, 2-2 0 Years) documented in this encounter Discharge Summaries * Ayaka Ozuna RN - 10/03/2019 1:42 PM CDT Discharge Summary A&Ox4 No signs of distress IV removed; catheter intact All belongings returned to the patient Discharge paperwork given to and discussed with the patient Patient did not want to wait for [facility] to deliver his medications; provided patient [...] to follow-up with primary care physician and architectural representative Dr. Payne in 1 week after discharge [...] Comments Your discharge diagnosis is: Hemolytic anemia [[id number]] Your discharge diagnosis is: Brown recluse spider bite [[id number]] Follow up with Primary Care Provider (PCP) [...] Follow Up Instructions: please follow up with architectural representative in one week after discharge. Please get [...] Payne MD, FACP Hematology and Medical Oncology [facility] Cancer Care ?? Please be advised that [...] results for input(s): HGBA1C in the last 96906 hours. No results for input(s): PREALBUMIN in the last 91357 hours. No data found. PERTINENT MEDICATIONS FOR [...] 09/28/2019 Hospital Day: 4 Attending: Dr. Monson Resident/Voice Network Administrator: Dr. Gleason Code Status: Full Code Events [...] home - Noted hard stools, start on [facility] course summary: 19 y/o Black male with PMH of asthma, marijuana use, and recent tattoos (1 month ago) Admitted with hemolytic anemia 2/2 suspected insect bite 7 days prior to admission. Associated symptoms of darkening urine, yellowing of eyes, itching, diarrhea that has resolved, and N/V that has worsened. Previously sought care at [facility] ED (09/25/2019) and Urgent Care (09/26/2019) for nausea and vomiting, for which he received Benadryl, cream, and Bactrim (has since taken 2 doses). Continued N/V led him to seek care at [facility] [place]. Presented with severe nausea and jaundice. Elevated [...] apply DIRECTED Abel Merida MD Medications in [facility] reviewed. Physical examination: height is 5' 9 [...] Payne MD, FACP Hematology and Medical Oncology [facility] Cancer Care ?? Please be advised that [...] ,vomiting, itching and dark urine. Went to [facility] and Urgent care 3 days prior. Received [...] Payne MD, FACP Hematology and Medical Oncology [facility] Cancer Care ?? Please be advised that [...] ,vomiting, itching and dark urine. Went to [facility] and Urgent care 3 days prior. Received [...] input(s): VANCORNJALEEL, VANCTRQUIQUE, VANCOPEAK in the last 64418 hours. A/P: Will continue the current regimen [...] 09/28/2019 Hospital Day: 3 Attending: Dr. Monson Resident/Voice Network Administrator: Dr. Merida Code Status: Full Code Events [...] that has worsened. Previously sought care at [facility] ED (09/25/2019) and Urgent Care (09/26/2019) for nausea and vomiting, for which he received Benadryl, cream, and Bactrim (has since taken 2 doses). Continued N/V led him to seek care at [facility]. Presented with severe nausea and jaundice. Elevated [...] apply DIRECTED Abel Merida MD Medications in [facility] reviewed. Physical examination: height is 5' 9 [...] of the dictation given. D/w Dr Elmer Lóepz MD 09/30/2019 6:50 PM Attending note: ?? [...] steroids is not well established for [place] brown recluse spider bites with the management [...] Payne MD, FACP Hematology and Medical Oncology [facility] Cancer Care ?? Please be advised that [...] ,vomiting, itching and dark urine. Went to [facility] and Urgent care 3 days prior. Received [...] the labs and symptoms improve. Discussed with architectural representative Rashid Monson MD 09/30/2019 4:37 PM * Titus Daniel, PharmD - 09/30/2019 8:45 AM CDT [facility] Pharmacy Services Vancomycin Protocol S/O Leo Shah [...] input(s): VANCORNDM, VANCTROUGH, VANCOPEAK in the last 54220 hours. Vancomycin Administrations from MAR (last 72 [...] Titus Daniel PharmD 09/30/2019 8:45 AM * Nahmoy Padilla RN - 09/30/2019 7:32 AM CDT [...] 09/28/2019 Hospital Day: 2 Attending: Dr. Monson Resident/Voice Network Administrator: Dr. Merida Code Status: Full Code Events [...] that has worsened. Previously sought care at [facility] ED (09/25/2019) and Urgent Care (09/26/2019) for nausea and vomiting, for which he received Benadryl, cream, and Bactrim (has since taken 2 doses). Continued N/V led him to seek care at [facility]. Presented with severe nausea and jaundice. Elevated [...] living situation? 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 Pt reports last [...] method * Growth percentiles are based on [facility] (Boys, 2-20 Years) data. IBW: 160# 91% [...] 09/28/2019 Hospital Day: 1 Attending: Dr. Cleveland Resident/Voice Network Administrator: Dr. Baker Code Status: Full Code Events [...] that has worsened. Previously sought care at [facility] ED (09/25/2019) and Urgent Care (09/26/2019) for nausea and vomiting, for which he received Benadryl, cream, and Bactrim (has since taken 2 doses). Continued N/V led him to seek care at [facility]. Presented with severe nausea and jaundice. Elevated [...] 09/28/2019 Hospital Day: 1 Attending: Dr. CLEVELAND Resident/Voice Network Administrator: Drs. Baker Code Status: Full Code Events since last progress note: Nausea + 1 episode of vomiting Remains jaundiced BP stable Hospital course summary: 19 yo M with PMH of marijuana use and recent tattoos Admitted with hemolytic anemia 2/2 suspected insect bite sustained 7 days prior to admission. Reported worsening symptoms of nausea ,vomiting, itching and dark urine. Went to [facility] and Urgent care 3 days prior. Received [...] 09/28/2019 4:52 PM CDT Report received from Jeses RODRIGUEZ documented in this encounter H&P Notes * Abel Merida MD - 09/28/2019 8:04 PM CDT Resident addendum to video intern H&P: Leo Shah is a 19 year old male with PMH significant for mild asthma presentedwith nausea and vomiting. Last Sunday morning ( a week ago) patient was bitten on his left shoulder by something while he wasinside home. Not sure what it was. Thinks it might be spider or mosquito. He left to [place] on Sunday, the next day he had few episodes of nausea/vomiting with subjective fevers ( temperature was normal) which self-resolved in two days. He came back to [facility] on Sunday, noticed dark/red colored urine followed [...] in a.m Other chronic issues as per video intern note Abel Merida PGY2 Internal medicine * Samantha Thomas MD - 09/28/2019 5:50 PM CDT Internal Medicine Resident History and Physical Admission Date: 09/28/2019 Attending: Dr. Ellis Resident/Voice Network Administrator: Drs. Merida/ Martha Code Status: Full Code Chief complaint: Yellow eyes and nausea/vomiting; recent spider bite History of Present Illness: Leo Shah is a 19 year old male with PMHx significant for mild intermittent asthma and mold allergy Presenting with jaundice and nausea/vomiting. Pt states he got bit on L shoulder while inside his house last Sunday then left for [place] He thought it was a spider bite. He then developed nausea, vomiting, dark urine and diffuse erythematous, pruritic rash on Sunday when came back to [facility]. Pt went to on and was [...] of prior admission(s)/Care everywhere/ED visit/Clinic visit: Saw log getter in May 2019 Patient was admitted to [...] with the exam and plan per the video intern's/resident's H&P note. The ROS, past medical hx, allergies, home meds and family hx is per the video intern's/resident's H&P note, which I have carefully reviewed. I directly participated in the care of this patient today with the video intern/resident and reviewed the notes, orders, labs and [...] bowel colitis. Further HPI is per the video intern's/resi dent's note which I have closely reviewed. [...] results for input(s): TROPONINI in the last 32708 hours. Recent Labs Component Name 09/29/19 0356 09/28/19 1218 ALBUMIN 4.1 4.3 ALKPHOS 130 141 ALT 125* 114* AST 68* 43* TBIL 10.5* 11.4* DBIL 1.25* 1.63* TPROT 7.8 7.8 No results for input(s): BNP, NTPROBNP in the last 16089 hours. Recent Labs Component Name 09/28/19 1905 INR 1.2* Recent Labs Component Name 09/28/19 1905 PTT 29.1 No results for input(s): TSH in the last 99248 hours. MEDICATIONS FOR CURRENT ENCOUNTER: SCHEDULED MEDICATIONS: [...] remainder of the assessment/plan is per the video intern's/resident's H&P note which I have reviewed and I agree with. I have reviewed the ER physicians and ER nurses records in EPIC I spoke with the video intern and resident in detail about the plan of care. Prakash Ellis MD documented in this encounter Consult Notes * Katty Salcedo - 09/30/2019 3:00 PM CDTAssociated Order(s): IP CONSULT TO PASTORAL CARE Hull Inspector visited with pt and provided grief support. Pt's best friend was murdered about a week ago.Hull Inspector provided Pt with a spiritual resource, listening presence, prayer, empathy, and words of comfort. Pt will contact reimbursement rep if further services are needed. -Hull Inspector Katty Salcedo M.Div, [facility] Pastoral Care pager: [phone] 7 AM - 9 PM Pastoral Care operation specialist pager: [phone] 9 PM- 7 AM Please allow the operation specialist reimbursement rep 30 minutes to arrive to the hospital. * Bryan Shah MD - 09/30/2019 12:04 PM CDT TRANSFUSION MEDICINE SERVICE: ANTIBODY EVALUATION Clinical Summary: The patient is an 19-year-old man who was admitted to [facility], on 09-28-2019, for the evaluation and management [...] transfusion. Bryan Shah MD, MPH Transfusion Service Property Inspector [place]???[facility] Pager: [phone] * Maynor Payne MD - 09/29/2019 9:47 [...] not sure). Following this, he left for [place]. While he was in [place], he had nausea followed by nonbilious nonbloody vomiting with diarrhea. He also felt subjective fever, with no chills. He also noticed that his urine was getting slightly dark. As he was getting sick, he came back to [facility] the last Sunday. His urine was getting darker and he was having itchy skin which was increasing over time. He went to the ED of [facility] at [place] that evening. He was given Benadryl for [...] him to come to the ED at [facility]. Review of Systems: as per HPI/ interval [...] Please feel free to contact me at [phone] if you have any further questions. Patient [...] the history and exam. Maynor Payne MD, [facility] Hematology and Medical Oncology [facility] Cancer [address], [facility] [address] [place] [address] Exchange: [phone] Please be advised that voice recognition software has been used on this chart and inadvertent errors may occur. These may not represent a true interpretation of the dictation given. documented in this encounter ED Notes * Octavio Chew RN - 09/28/2019 9:05 PM CDT [...] Randle RN - 09/28/2019 4:27 PM CDT Loe Shah able to provide urine sample after IVF boluses. Urine dark tea colored. No further episodes of emesis noted. Currently resting in bed with call light in reach. Will continue to monitor. * Markell Martin MD - 09/28/2019 4:25 PM CDT Leo Shah [id number] [facility] EMERGENCY DEPARTMENT History Chief Complaint Patient presents with ??? Vomiting seen at [facility] [place] for vomiting/chills/diarrhea/UC on Sunday for [...] file Gets together: Not on file Attends protestant service: Not on file Active member of [...] for continued treatment and mnx. * Jesse Ranlde RN - 09/28/2019 2:58 PM CDT Leo Shah in [place] * Jesse Randle RN - 09/28/2019 2:37 PM CDT Spoke to Leo Shah Uncle at great length reguarding patients currently status. Per his uncle heis mild special needs, was seen at [facility] and they were very concerned about his [...] Randle RN - 09/28/2019 2:25 PM CDT [phone] Benedict Lawson is Leo Shah Uncle , and okay to discuss care with patient. * Jesse Randle RN - 09/28/2019 1:26 PM CDT Leo Shah comes to ER today after increased nausea with bile emesis. He also reports that his eyes are now yellow and thinks he has Hepatitis He was seen at [facility] for nausea with ABD pain which he [...] - 09/28/2019 1:17 PM CDT Leo Shah [id number] [facility] EMERGENCY DEPARTMENT History Chief Complaint Patient presents with ??? Vomiting seen at [facility] [place] for vomiting/chills/diarrhea/UC on Sunday for the same not feeling any better 19 M with history of asthma presents with nausea, vomiting, and diarrhea for 1 week. Patient reports having 1-2 episodes of diarrhea daily since onset and 5-10 episodes of emesis. Denies blood in stool or emesis. Patient was seen at [facility] for this recently but still reports no [...] file Gets together: Not on file Attends protestant service: Not on file Active member of [...] and imaging. 4:21 PM I discussed with FARM EQUIPMENT MAINTENANCE SUPERVISOR Antonia (Tracey) about all pertinent aspects of [...] Auto 23.4 x10E9/L 10/03/2019 6:25 AM CDT [facility] WBC Corrected 10/03/2019 6:25 AM CDT [facility] nRBC 10/03/2019 6:25 AM CDT [facility] Neutrophil % Manual 70 31 - 78 % 10/03/2019 6:25 AM CDT [facility] Lymphocytes % Manual 19 13 - 54 % 10/03/2019 6:25 AM CDT [facility] Monocytes % Manual 3(L) 4 - 13 % 10/03/2019 6:25 AM CDT [facility] Band % Manual 3 % 10/03/2019 6:25 AM CDT [facility] [place] Manual 4(H) <=0 % 10/03/2019 6:25 AM CDT [facility] Myelocytes % Manual 1(H) <=0 % 10/03/2019 6:25 AM CDT [facility] Cells Counted 100 # cells 10/03/2019 6:25 AM CDT [facility] RBC Morphology Normal 10/03/2019 6:25 AM CDT [facility] WBC Morph Normal 10/03/2019 6:25 AM CDT [facility] Platelet Estimation Normal 10/03/2019 6:25 AM CDT [facility] Blood BLOOD SPECIMEN / Unknown Lab Venipuncture / Unknown 10/03/2019 3:55 AM CDT 10/03/2019 4:55 AM CDT Abel Merida MD LAB - HEMATOLOGY ORD ERABLES [facility] [address] [place] [id number] * (ABNORMAL) LDH BLOOD (10/03/2019 3:55 AM CDT) [facility] LDH 449(H) 125 - 220 U/L 10/03/2019 5:38 AM CDT [facility] Blood BLOOD SPECIMEN / Unknown Lab Venipuncture / Unknown 10/03/2019 3:55 AM CDT 10/03/2019 4:55 AM CDT Abel Merida MD LAB - CHEMISTRY ORDJacquelyn KENNY Performing Organization Address [facility] Co de Phone Number [facility] [address] [place] [address] * (ABNORMAL) CBC W AUTO DIFFERENTIAL (10/03/2019 3:55 AM CDT) [facility] WBC 23.4(H) 4.5 - 11.0 x10E9/L 10/03/2019 5:08 AM CDT [facility] WBC Corrected 10/03/2019 5:08 AM CDT [facility] RBC 2.68(L) 4.50 - 5.30 x10E12/L 10/03/2019 5:08 AM CDT [facility] Hemoglobin 8.3(L) 13.0 - 16.0 gm/dL 10/03/2019 5:08 AM CDT [facility] Hematocrit 26.0(L) 37.0 - 49.0 % 10/03/2019 5:08 AM CDT [facility] MCV 97.0 78.0 - 98.0 fl 10/03/2019 5:08 AM CDT [facility] MCH 31.0 25.0 - 35.0 pg 10/03/2019 5:08 AM CDT [facility] MCHC 31.9 31.0 - 37.0 gm/dL 10/03/2019 5:08 AM CDT [facility] Platelet Count 398 100 - 400 x10E9/L 10/03/2019 5:08 AM CDT [facility] RDW-CV 15.2(H) 11.5 - 14.0 % 10/03/2019 [facility] MPV 11.2(H) 6.0 - 9.5 fl 10/03/2019 5:[address] [facility] nRBC Auto 1 /100 WBC 10/03/2019 5:08 AM T [facility] Hematology Reflex Status Manual Diff to follow 10/03/2019 5:[address] [facility] Blood BLOOD SPECIMEN / Unknown Lab Venipuncture / Unknown 10/03/2019 3:55 AM CDT 10/03/2019 4:55 AM CDT Abel Merida MD LAB - HEMATOLOGY ORD ERABLES [facility] [address] [place] [address] * (ABNORMAL) COMPREHENSIVE METABOLIC PANEL (10/03/2019 3:55 AM CDT) Glucose 107(H) 70 - 105 mg/dL 10/03/2019 5:[address] [facility] Sodium 139 136 - 145 mmol/L 10/03/2019 5:[address] [facility] Potassium 4.1 3.5 - 5.1 mmol/L 10/03/2019 5:[address] [facility] Chloride 105 98 - 107 mmol/L 10/03/2019 5:[address] [facility] CO2 25 20 - 28 mmol/L 10/03/2019 5:[address] [facility] Calcium 8.3(L) 8.4 - 10.4 mg/dL 10/03/2019 5:[address] [facility] Anion Gap 9 8 - 16 mmol/L 10/03/2019 5:[address] [facility] BUN 12 8.9 - 20.6 mg/dL 10/03/2019 5:[address] [facility] Creatinine 0.83 0.72 - 1.25 mg/dL 10/03/2019 5:[address] [facility] Alkaline Phosphatase 110 100 - 390 U/L 10/03/2019 5:[address] [facility] ALT 138(H) 0 - 61 [...] >60 mL/min/1.7 3m2 10/03/2019 5:45 AM CDT [facility] Blood BLOOD SPECIMEN / Unknown Lab Venipuncture / Unknown 10/03/2019 3:55 AM CDT 10/03/2019 4:55 AM CDT Abel Merida MD LAB - CHEMISTRY [facility] Organization Address City/State/[facility] Co de Phone Number [facility] [address] [place], [place] [phone] * US ABDOMEN LIMITED (10/02/2019 5:45 PM [...] 0.32(H) <0.10 ng/mL 10/02/2019 10:37 AM CDT [facility] Blood BLOOD SPECIMEN / Unknown Lab Venipuncture / Unknown 10/02/2019 9:27 AM CDT 10/02/2019 9:37 AM CDT Narrative [facility] - 10/02/2019 10:37 AM CDT The [...] Change in Procalcitonin Calculator is available at [email or web address] ?? If clinical picture has not improved and PCT remains high, reevaluate and consider treatment failure or other causes. Nissa Gleason MD LAB - CHEMISTRY CHRISTINE KENNY Performing Organization Address [facility] Phone Number [facility] [address] [place], [place] [phone] * (ABNORMAL) VANCOMYCIN LEVEL TROUGH (10/02/2019 7:47 AM CDT) [facility] Vancomycin Trough 9.3(L) 10.0 - 20.0 ug/mL 10/02/2019 8:39 AM CDT [facility] Blood BLOOD SPECIMEN / Unknown Lab Venipuncture / Unknown 10/02/2019 7:47 AM CDT 10/02/2019 8:02 AM CDT Rashid Monson MD LAB - CHEMISTRY CHRISTINE KENNY Performing Organization Address [facility] de Phone Number [facility] [address] [place] [address] * (ABNORMAL) DIFFERENTIAL MANUAL (10/02/2019 3:03 AM CDT) [facility] WBC Auto 24.6 x10E9/L 10/02/2019 6:30 AM CDT [facility] WBC Corrected 10/02/2019 6:30 AM CDT [facility] nRBC 1 /100 WBC 10/02/2019 6:30 AM CDT [facility] Neutrophil % Manual 69 31 - 78 % 10/02/2019 6:30 AM CDT [facility] Lymphocytes % Manual 14 13 - 54 % 10/02/2019 6:30 AM CDT [facility] Monocytes % Manual 6 4 - 13 % 2019 6:30 AM CDT [facility] Eosinophils % Manual 2 0 - 8 % 10/02/2019 6:30 AM CDT [facility] Basophils % Manual 1 % 2019 6:30 AM CDT [facility] Band % Manual 5 % 10/02/2019 6:30 AM CDT [facility] [place] Manual 2(H) <=0 % 10/02/2019 6:30 AM CDT [facility] Myelocytes % Manual 1(H) <=0 % 10/02/2019 6:[address] [facility] Cells Counted 100 # cells 10/02/2019 6:[address] [facility] WBC Morph Normal 10/02/2019 6:30 AM T [facility] Anisocytosis 2+(A) None 10/02/2019 6:30 AM T [facility] Poikilocytosis Occasional (A) None 10/02/2019 6:[address] [facility] Polychromasia 1+(A) None 10/02/2019 6:30 AM T [facility] Elliptocytes Occasional (A) None 10/02/2019 6:[address] [facility] Platelet Estimation Normal 10/02/2019 6:[address] [facility] Blood BLOOD SPECIMEN / Unknown Lab Venipuncture / Unknown 10/02/2019 3:03 AM CDT 10/02/2019 3:54 AM CDT Abel Merida MD LAB - HEMATOLOGY ORD ERABLES [facility] [address] [place], [place] [phone] * (ABNORMAL) LDH BLOOD (10/02/2019 3:03 AM CDT) LDH 580(H) 125 - 220 U/L 10/02/2019 4:45 AM CDT [facility] Blood BLOOD SPECIMEN / Unknown Lab Venipuncture / Unknown 10/02/2019 3:03 AM CDT 10/02/2019 3:54 AM CDT Abel Merida MD LAB - CHEMISTRY CHRISTINE KENNY [facility] Organization Address City/State/ZIP Co de Phone Number [facility] [address] [place] [address] * (ABNORMAL) CBC W AUTO DIFFERENTIAL (10/02/2019 3:03 AM CDT) WBC 24.6(H) 4.5 - 11.0 x10E9/L 10/02/2019 4:14 AM CDT [facility] WBC Corrected 10/02/2019 4:14 AM CDT [facility] RBC 2.72(L) 4.50 - 5.30 x10E12/L 10/02/2019 4:14 AM CDT [facility] Hemoglobin 8.3(L) 13.0 - 16.0 gm/dL 10/02/2019 4:14 AM CDT [facility] Hematocrit 25.7(L) 37.0 - 49.0 % 10/02/2019 4:14 AM CDT [facility] MCV 94.5 78.0 - 98.0 fl 10/02/2019 4:14 AM CDT [facility] MCH 30.5 25.0 - 35.0 pg 10/02/2019 4:14 AM CDT [facility] MCHC 32.3 31.0 - 37.0 gm/dL 10/02/2019 4:14 AM CDT [facility] Platelet Count 380 100 - 400 x10E9/L 10/02/2019 4:14 AM CDT [facility] RDW-CV 13.4 11.5 - 14.0 % 10/02/2019 4:14 AM CDT [facility] MPV 11.6(H) 6.0 - 9.5 fl 10/02/2019 4:14 AM CDT [facility] nRBC Auto 1 /100 WBC 10/02/2019 4:14 AM CDT [facility] Hematology Reflex Status Manual Diff to follow 10/02/2019 4:14 AM T [facility] Blood BLOOD SPECIMEN / Unknown Lab Venipuncture / Unknown 10/02/2019 3:03 AM CDT 10/02/2019 3:54 AM CDT Abel Merida MD LAB - HEMATOLOGY ORD ERABLES [facility] [address] [place], [place] [phone] * (ABNORMAL) COMPREHENSIVE METABOLIC PANEL (10/02/2019 3:03 AM CDT) Glucose 91 70 - 105 mg/dL 10/02/2019 4:45 AM CDT [facility] Sodium 137 136 - 145 mmol/L 10/02/2019 4:45 AM CDT [facility] Potassium 3.6 3.5 - 5.1 mmol/L 10/02/2019 4:45 AM CDT [facility] Chloride 103 98 - 107 mmol/L 10/02/2019 4:45 AM CDT [facility] CO2 26 20 - 28 mmol/L 10/02/2019 4:45 AM CDT [facility] Calcium 8.6 8.4 - 10.4 mg/dL 10/02/2019 4:45 AM CDT [facility] Anion Gap 8 8 - 16 mmol/L 10/02/2019 4:45 AM CDT [facility] BUN 11 8.9 - 20.6 mg/dL 10/02/2019 4:45 AM CDT [facility] Creatinine 0.80 0.72 - 1.25 mg/dL 10/02/2019 4:45 AM CDT [facility] Alkaline Phosphatase 113 100 - 390 U/L 10/02/2019 4:45 AM CDT [facility] ALT 171(H) 0 - 61 U/L 10/02/2019 4:45 AM CDT [facility] AST 63(H) 5 - 34 U/L 10/02/2019 4:45 AM CDT [facility] Protein Total 7.3 6.4 - 8.3 gm/dL 10/02/2019 4:45 AM CDT [facility] Albumin 3.9 3.4 - 5.0 gm/dL 10/02/2019 4:45 AM CDT [facility] Bilirubin Total 0.7 0.2 - 1.2 mg/dL 10/02/2019 4:45 AM CDT [facility] eGFR by MDRD >60 >60 mL/min/1.7 3m2 10/02/2019 4:45 AM CDT [facility] eGFR by MDRD >60 >60 mL/min/1.7 3m2 10/02/2019 4:45 AM CDT [facility] Blood BLOOD SPECIMEN / Unknown Lab Venipuncture / Unknown 10/02/2019 3:03 AM CDT 10/02/2019 3:54 AM CDT Abel Merida MD LAB - CHEMISTRY ORDJacquelyn KENNY Performing Organization Address City/[facility]/ZIP Co de Phone Number [facility] [address] [place], [place] [phone] * (ABNORMAL) HGB HCT PANEL (10/01/2019 2:51 PM CDT) Hemoglobin 8.8(L) 13.0 - 16.0 gm/dL 10/01/2019 3:21 PM CDT [facility] Hematocrit 27.4(L) 37.0 - 49.0 % 10/01/2019 3:21 PM CDT [facility] Blood BLOOD SPECIMEN / Unknown Lab Venipuncture / Unknown 10/01/2019 2:51 PM CDT 10/01/2019 3:10 PM CDT Abel Merida MD LAB - HEMATOLOGY ORD ROSALIA Performing Organization Address [facility] Co de Phone Number [facility] [address] [place], [place] [phone] * TRANSFUSE RED BLOOD CELL LEUKOREDUCED UNIT(S) (10/01/2019 1:59 PM CDT) Abel Merida MD NURSING - BLOOD PROD TRANSFUSION * TRANSFUSE RED BLOOD CELL [facility]UKOREDUCED UNIT(S), 1 Units (10/01/2019 1:59 PM CDT) Abel Merida MD NURSING - BLOOD PROD TRANSFUSION * (ABNORMAL) LDH BLOOD (10/01/2019 9:26 AM CDT) LDH 607(H) 125 - 220 U/L 10/01/2019 10:05 AM CDT [facility] Blood BLOOD SPECIMEN / Unknown Lab Venipuncture / Unknown 10/01/2019 9:26 AM CDT 10/01/2019 9:42 AM CDT Giovanni López MD LAB - CHEMISTRY CHRISTINE KENNY Performing Organization Address City/[facility]/ZIP Co de Phone Number [facility] [address] [place] [address] * TYPE + SCREEN PANEL (10/01/2019 8:26 AM CDT) ABO Rh B POS 10/01/2019 9:07 AM CDT [facility] Comment:History checked. Antibody Screen NEG 0 9:07 AM CDT [facility] Blood Bank BLOOD SPECIMEN / Unknown Lab Venipuncture / Unknown 10/01/2019 8:26 AM CDT 10/01/2019 8:33 AM CDT Abel Merida MD LAB - BLOOD BANK ORD ERABLES Performing Organization Address [facility] Co de Phone Number [facility] [address] [place] [address] * PREPARE (CROSSMATCH) RBC UNIT(S), 1 Units (10/01/2019 8:26 AM CDT) Pathologist [facility] Unit Description AS1 LR PRBC [facility] Unit ABO B [facility] Unit Rh POS [facility] Product Number R02 [facility] Unit Donor # [id number] [facility] Unit Status transfused [facility] Product Code [id number] [facility] Blood Type Barcode 7300 [facility] Expiration Date [id number] [facility] Blood Bank BLOOD SPECIMEN / Unknown 10/01/2019 8:26 AM CDT 10/01/2019 8:33 AM CDT Abel Merida MD LAB - BLOOD BANK ORD ERABLES Performing Organization Address City/[facility]/ZIP Co de Phone Number [facility] [address] [place] [address] * BLOOD TYPE VERIFICATION (10/01/2019 7:27 AM CDT) ABO Rh B POS 10/01/2019 9:0 7 AM CDT [facility] Blood Bank BLOOD SPECIMEN / Unknown Lab Venipuncture / Unknown 10/01/2019 7:27 AM CDT 10/01/2019 8:47 AM CDT Maynor Payne MD LAB - BLOOD BANK ORD ERABLES [facility] [address] [phone] * (ABNORMAL) DIFFERENTIAL MANUAL (10/01/2019 7:13 AM CDT) WBC Auto 17.3 x10E9/L 10/01/2019 9:40 AM CDT [facility] WBC Corrected 10/01/2019 9:40 AM CDT [facility] nRBC 10/01/2019 9:40 AM CDT [facility] Neutrophil % Manual 69 31 - 78 % 10/01/2019 9:40 AM CDT [facility] Lymphocytes % Manual 18 13 - 54 % 10/01/2019 9:40 AM CDT [facility] Monocytes % Manual 8 4 - 13 % 10/01/2019 9:40 AM T [facility] Eosinophils % Manual 1 0 - 8 % 10/01/2019 9:40 AM CDT [facility] Atypical Lymphocyte % Manual 2(H) <=0 % 10/01/2019 9:40 AM CDT [facility] Myelocytes % Manual 1(H) <=0 % 10/01/2019 9:40 AM CDT [facility] Blasts % Manual 1(H) <=0 % 0 9:40 AM CDT [facility] Cells Counted 100 # cells 10/01/2019 9:[address] [facility] Platelet Estimation Normal Normal, Adequate platelets 10/01/2019 9:40 AM CDT [facility] WBC Morph Normal 10/01/2019 9:40 AM CDT [facility] Anisocytosis 1+(A) None 10/01/2019 9:40 AM CDT [facility] Hypochromia Occasional (A) None 10/01/2019 9:40 AM CDT [facility] Large Platelets Occasional (A) None 10/01/2019 9:40 AM T [facility] Blood BLOOD SPECIMEN / Unknown Lab Venipuncture / Unknown 10/01/2019 7:13 AM CDT 10/01/2019 7:17 AM CDT Abel Merida MD LAB - HEMATOLOGY ORD ERABLES [facility] [address] [place] [address] * (ABNORMAL) COMPREHENSIVE METABOLIC PANEL (10/01/2019 7:13 AM CDT) Glucose 110(H) 70 - 105 mg/dL 10/01/2019 [facility] Sodium 137 136 - 145 mmol/L 10/01/2019 7:[address] [facility] Potassium 4.4 3.5 - 5.1 mmol/L 10/01/2019 7:[address] [facility] Chloride 102 98 - 107 mmol/L 10/01/2019 7:52 AM CDT [facility] CO2 27 20 - 28 mmol/L 10/01/2019 7:52 AM T [facility] Calcium 8.5 8.4 - 10.4 mg/dL 10/01/2019 7:[address] [facility] Anion Gap 8 8 - 16 mmol/L 10/01/2019 7:52 AM T [facility] BUN 13 8.9 - 20.6 mg/dL 10/01/2019 7:[address] [facility] Creatinine 0.90 0.72 - 1.25 mg/dL 10/01/2019 7:52 AM T [facility] Alkaline Phosphatase 117 100 - 390 U/L 10/01/2019 7:52 AM T [facility] ALT 148(H) 0 - 61 U/L 10/01/2019 7:[address] [facility] AST 69(H) 5 - 34 U/L 10/01/2019 7:[address] [facility] Protein Total 7.2 6.4 - 8.3 gm/dL 10/01/2019 7:52 AM CDT [facility] Albumin 3.9 3.4 - 5.0 gm/dL 10/01/2019 7:52 AM CDT [facility] Bilirubin Total 1.2 0.2 - 1.2 mg/dL 10/01/2019 7:52 AM CDT [facility] eGFR by MDRD >60 >60 mL/min/1.7 3m2 10/01/2019 7:52 AM CDT [facility] eGFR by MDRD >60 >60 mL/min/1.7 3m2 10/01/2019 7:52 AM CDT [facility] Blood BLOOD SPECIMEN / Unknown Lab Venipuncture / Unknown 10/01/2019 7:13 AM CDT 10/01/2019 7:17 AM CDT Abel Merida MD LAB - CHEMISTRY ORDE [facility] Organization Address City/State/ZIP Co de Phone Number [facility] [address] [place] [address] * (ABNORMAL) CBC W AUTO DIFFERENTIAL (10/01/2019 7:13 AM CDT) WBC 17.3(H) 4.5 - 11.0 x10E9/L 10/01/2019 7:37 AM CDT [facility] WBC Corrected 10/01/2019 7:37 AM CDT [facility] RBC 2.29(L) 4.50 - 5.30 x10E12/L 10/01/2019 7:37 AM CDT [facility] Hemoglobin 7.2(LL) 13.0 - 16.0 gm/dL 10/01/2019 7:37 AM CDT [facility] Hematocrit 21.8(LL) 37.0 - 49.0 % 10/01/2019 7:37 AM CDT [facility] MCV 95.2 78.0 - 98.0 fl 10/01/2019 7:37 AM CDT [facility] MCH 31.4 25.0 - 35.0 pg 10/01/2019 7:37 AM CDT [facility] MCHC 33.0 31.0 - 37.0 gm/dL 10/01/2019 7:37 AM CDT [facility] Platelet Count 331 100 - 400 x10E9/L 10/01/2019 7:37 AM CDT [facility] RDW-CV 12.8 11.5 - 14.0 % 10/01/2019 7:37 AM CDT [facility] MPV 11.5(H) 6.0 - 9.5 fl 10/01/2019 7:37 AM CDT [facility] nRBC Auto 0 /100 WBC 10/01/2019 7:37 AM CDT [facility] Blood BLOOD SPECIMEN / Unknown Lab Venipuncture / Unknown 10/01/2019 7:13 AM CDT 10/01/2019 7:17 AM CDT Abel Merida MD LAB - HEMATOLOGY ORD ERABLES [facility] [address] [place] [address] * XR CHEST 1VW PORTABLE (09/30/2019 10:40 [...] day 5 SONG 10/05/2019 9:30 AM CDT [facility] MICROBIOLOG[facility] Blood PERIPHERAL BLOOD / Unknown Lab Venipuncture / Unknown 09/30/2019 7:28 AM CDT 09/30/2019 7:44 AM CDT Maynor Payne MD LAB - MICROBIOLOGY O NICOLE Performing Organization Address [facility] Co de Phone Number [facility] MICROBIOLOGY [address] [place] [address], [facility] [phone] * CULTURE BLOOD (09/30/2019 7:27 AM CDT) Pathologist [facility] Culture No growth day 5 SONG 10/05/2019 9:30 AM CDT [facility] MICROBIOLOGY Blood PERIPHERAL BLOOD / Unknown Lab Venipuncture / Unknown 09/30/2019 7:27 AM CDT 09/30/2019 7:45 AM CDT Maynor Payne MD LAB - MICROBIOLOGY [place] RIVERA Performing Organization Address [facility] Phone Number [facility] MICROBIOLOGY [address] [place] [address], [facility] [phone] * (ABNORMAL) PROCALCITONIN LEVEL (09/30/2019 7:27 AM CDT) Pathologist [facility] Procalcitonin 1.44(H) <0.10 ng/mL 09/30/2019 8:29 AM CDT [facility] Blood BLOOD SPECIMEN / Unknown Lab Venipuncture / Unknown 09/30/2019 7:27 AM CDT 09/30/2019 7:45 AM CDT Narrative [facility] - 09/30/2019 8:29 AM CDT The [...] Change in Procalcitonin Calculator is available at [email or web address] ?? If clinical picture has not improved and PCT remains high, reevaluate and consider treatment failure or other causes. Maynor Payne MD LAB - CHEMISTRY CHRISTINE KENNY Performing Organization Address [facility] Co de Phone Number [facility] [address] [place], [place] [phone] * (ABNORMAL) ERYTHROCYTE SEDIMENTATION RATE (09/30/2019 7:27 AM CDT) [facility] Erythrocyte Sedimentation Rate Automated 65(H) 0 - 15 MM/HR 09/30/2019 7:55 AM CDT [facility] Blood BLOOD SPECIMEN / Unknown Lab Venipuncture / Unknown 09/30/2019 7:27 AM CDT 09/30/2019 7:45 AM CDT Maynor Payne MD LAB - HEMATOLOGY ORD ROSALIA Performing Organization Address [facility] de Phone Number [facility] [address] [place] [phone] * (ABNORMAL) C-REACTIVE PROTEIN SENSITIVE (09/30/2019 7:27 AM CDT) [facility] C-Reactive Protein High Sensitivity 5.47(H) <0.30 mg/dL 09/30/2019 8:10 AM CDT [facility] Blood BLOOD SPECIMEN / Unknown Lab Venipuncture / Unknown 09/30/2019 7:27 AM CDT 09/30/2019 7:45 AM CDT Narrative [facility] - 09/30/2019 8:10 AM CDT C-REACTIVE [...] - CHEMISTRY CHRISTINE KENNY Performing Organization Address City/State/[facility] Co de Phone Number [facility] [address] [phone] * FLOW CYTOMETRY BLOOD PROFILE (09/30/2019 7:27 AM CDT) Pathologist [facility] Case Report Flow Cytometry ?Case: [id number] ? Authorizing Provider: ??Maynor Payne MD ? Collected: ? 09/30/2019 07:27 AM ? Ordering Location: ? [facility] ?Received: ?09/30/2019 07:55 AM ? Pathologist: ? Bisi Roy MD ? Specimen: ?Blood ? 09/30/2019 1:05 PM [facility] Final Diagnosis Peripheral blood, flow cytometric immunophenotypic analysis: - No evidence of non-Hodgkin lymphoma or high-grade myeloid neoplasm. - See interpretation. 09/30/2019 1:05 PM [facility] Flow Cytometry Results Differential Result Comment WBC Count /uL 18,900 Total Viability % 92.0 Lymphocytes % 15 Dim CD45 Region % 1 Monocytes % 8 Granulocytes % 75 09/30/2019 1:05 PM [facility] Flow Cytometry Interpretation The peripheral [...] flow cytometry specimen is reviewed for quality assurance director purposes. Overall, the peripheral blood specimen shows no evidence of involvement by a non-Hodgkin lymphoma or a high-grade myeloid neoplasm. Correlation with clinical findings is required. 09/30/2019 1:[address] [facility] Reason for test Acquired neutrophilia Hemolytic anemia associated with infection 283.19 09/30/2019 1:[address] [facility] Client Specimen ID # [id number] 09/30/2019 1:[address] [facility] Disclaimer Test performed at [facility], [address] [place], [place], [address]. *The established laboratory minimum viability is 70%. [...] complexity clinical testing. 09/30/2019 1:[address] [facility] Embedded Images 0 1:[address] [facility] Number of markers 10 were performed. A-2 Flow CD10 A-3 Flow CD13 A-5 Flow CD20 A-1 Flow CD5 A-4 Flow CD19 A-6 Flow CD33 A-7 Flow CD34 A-8 Flow CD45 A-9 Levant+CD19+ A-10 Lambda+CD19+ 09/30/2019 1:[address] [facility] Blood BLOOD SPECIMEN / Unknown Lab Venipuncture / Unknown 09/30/2019 7:27 AM CDT 09/30/2019 7:55 AM CDT Maynor Payne MD LAB - PATHOLOGY/CYTO LOGY ORDERABLES [facility] [address] [place] [address]. [place] [address], [facility] [phone] * (ABNORMAL) DIFFERENTIAL MANUAL (09/30/2019 3:33 AM CDT) WBC Auto 18.9 x10E9/L 09/30/2019 4:40 AM CDT [facility] WBC Corrected 09/30/2019 4:40 AM CDT [facility] nRBC 09/30/2019 4:40 AM CDT [facility] Neutrophil % Manual 94(H) 31 - 78 % 09/30/2019 4:40 AM CDT [facility] Lymphocytes % Manual 3(L) 13 - 54 % 09/30/2019 4:40 AM CDT [facility] Monocytes % Manual 1(L) 4 - 13 % 09/30/2019 4:40 AM CDT [facility] Myelocytes % Manual 1(H) <=0 % 09/30/2019 4:40 AM CDT [facility] Blasts % Manual 1(H) <=0 % 0 4:40 AM T [facility] Cells Counted 100 # cells 09/30/2019 4:40 AM CDT [facility] Platelet Estimation Normal Normal, Adequate platelets 09/30/2019 4:40 AM CDT [facility] WBC Morph Normal 09/30/2019 4:40 AM T [facility] Anisocytosis 1+(A) None 09/30/2019 4:40 AM CDT [facility] Hypochromia Occasional (A) None 09/30/2019 4:40 AM CDT [facility] Clumped Platelets Occasional (A) None 09/30/2019 4:40 AM T [facility] Blood BLOOD SPECIMEN / Unknown Lab Venipuncture / Unknown 09/30/2019 3:33 AM CDT 09/30/2019 4:04 AM CDT Marisabel Baker MD LAB - HEMATOLOGY OR DERABLES Performing Organization Address City/State/[facility] Co de Phone Number [facility] [address] [place] [address] * (ABNORMAL) RETIC COUNT (09/30/2019 3:33 AM CDT) Reticulocyte Count 4.74(H) 0.3 - 4.2 % 09/30/2019 4:21 AM CDT [facility] Reticulocyte Absolute 0.1247(H) 0.0391 - 0.057 x10E6/uL 09/30/2019 4:21 AM CDT [facility] Reticulocyte Immature Fractionated 25.7(H) 9.3 - 17.4 % 09/30/2019 4:21 AM CDT [facility] Hemoglobin Retic 35.4(L) 36.0 - 38.6 pg 09/30/2019 4:21 AM CDT [facility] Blood BLOOD SPECIMEN / Unknown Lab Venipuncture / Unknown 09/30/2019 3:33 AM CDT 09/30/2019 4:04 AM CDT Marisabel Baker MD LAB - HEMATOLOGY OR DERABLES Performing Organization Address City/[facility]/ZIP Co de Phone Number [facility] [address] [place] [phone] * (ABNORMAL) HAPTOGLOBIN (09/30/2019 3:33 AM CDT) Haptoglobin 10(L) 30 - 200 mg/dL 09/30/2019 4:30 AM CDT [facility] Blood BLOOD SPECIMEN / Unknown Lab Venipuncture / Unknown 09/30/2019 3:33 AM CDT 09/30/2019 4:01 AM CDT Marisabel Baker MD LAB - CHEMISTRY ORD ERABLES Performing Organization Address [facility] Co de Phone Number [facility] [address] [place] [phone] * (ABNORMAL) LDH BLOOD (09/30/2019 3:33 AM CDT) LDH 910(H) 125 - 220 U/L 09/30/2019 4:29 AM CDT [facility] Blood BLOOD SPECIMEN / Unknown Lab Venipuncture / Unknown 09/30/2019 3:33 AM CDT 09/30/2019 4:01 AM CDT Marisabel Baker MD LAB - CHEMISTRY ORD ERABLES Performing Organization Address City/[facility] Co de Phone Number [facility] [address] [place] [phone] * (ABNORMAL) CBC W AUTO DIFFERENTIAL (09/30/2019 3:33 AM CDT) WBC 18.9(H) 4.5 - 11.0 x10E9/L 09/30/2019 4:22 AM CDT [facility] WBC Corrected 09/30/2019 4:22 AM CDT [facility] RBC 2.63(L) 4.50 - 5.30 x10E12/L 09/30/2019 4:22 AM CDT [facility] Hemoglobin 8.5(L) 13.0 - 16.0 gm/dL 09/30/2019 4:22 AM CDT [facility] Hematocrit 25.4(L) 37.0 - 49.0 % 09/30/2019 4:22 AM CDT [facility] MCV 96.6 78.0 - 98.0 fl 09/30/2019 4:22 AM CDT [facility] MCH 32.3 25.0 - 35.0 pg 09/30/2019 4:22 AM CDT [facility] MCHC 33.5 31.0 - 37.0 gm/dL 09/30/2019 4:22 AM CDT [facility] Platelet Count 279 100 - 400 x10E9/L 09/30/2019 4:22 AM CDT [facility] RDW-CV 12.0 11.5 - 14.0 % 09/30/2019 4:22 AM CDT [facility] MPV 11.7(H) 6.0 - 9.5 fl 09/30/2019 4:22 AM CDT [facility] nRBC Auto 0 /100 WBC 09/30/2019 4:22 AM CDT [facility] Blood BLOOD SPECIMEN / Unknown Lab Venipuncture / Unknown 09/30/2019 3:33 AM CDT 09/30/2019 4:04 AM CDT Marisabel Baker MD LAB - HEMATOLOGY OR DERABLES [facility] [address] [place] [address] * (ABNORMAL) COMPREHENSIVE METABOLIC PANEL (09/30/2019 3:33 AM CDT) [facility] Glucose 113(H) 70 - 105 mg/dL 09/30/2019 4:29 AM CDT [facility] Sodium 132(L) 136 - 145 mmol/L 09/30/2019 4:29 AM CDT [facility] Potassium 4.9 3.5 - 5.1 mmol/L 09/30/2019 4:[address] [facility] Chloride 100 98 - 107 mmol/L 09/30/2019 4:[address] [facility] CO2 22 20 - 28 mmol/L 09/30/2019 4:[address] [facility] Calcium 9.4 8.4 - 10.4 mg/dL 09/30/2019 4:[address] [facility] Anion Gap 10 8 - 16 mmol/L 09/30/2019 4:29 AM T [facility] BUN 14 8.9 - 20.6 mg/dL 09/30/2019 4:[address] [facility] Creatinine 0.71(L) 0.72 - 1.25 mg/dL 09/30/2019 4:[address] [facility] Alkaline Phosphatase 125 100 - 390 U/L 09/30/2019 4:[address] [facility] ALT 150(H) 0 - 61 U/L 09/30/2019 4:[address] [facility] AST 79(H) 5 - 34 U/L 09/30/2019 4:[address] [facility] Protein Total 8.2 6.4 - 8.3 gm/dL 09/30/2019 4:[address] [facility] Albumin 4.4 3.4 - 5.0 gm/dL 09/30/2019 4:[address] [facility] Bilirubin Total 6.8(H) 0.2 - 1.2 mg/dL 09/30/2019 4:[address] [facility] eGFR by MDRD >60 >60 mL/min/1.7 3m2 09/30/2019 4:[address] [facility] eGFR by MDRD >60 >60 mL/min/1.7 3m2 09/30/2019 4:[address] [facility] Blood BLOOD SPECIMEN / Unknown Lab Venipuncture / Unknown 09/30/2019 3:33 AM CDT 09/30/2019 4:01 AM CDT Marisabel Baker MD LAB - CHEMISTRY ORD ERABLES [facility] [address] [place] [address] * HEPATITIS SCREEN ACUTE (09/29/2019 7:40 AM CDT) Pathologist [facility] HAV Antibody IgM Non Reactive Non Reactive 09/29/2019 9:37 AM CDT [facility] HBsAg Non Reactive Non Reactive 09/29/2019 9:37 AM CDT [facility] HBc Antibody IgM Non Reactive Non Reactive 09/29/2019 9:37 AM CDT [facility] HCV Antibody Screen Non Reactive Non Reactive 09/29/2019 9:37 AM CDT [facility] Blood BLOOD SPECIMEN / Unknown Lab Venipuncture / Unknown 09/29/2019 7:40 AM CDT 09/29/2019 8:11 AM CDT Narrative [facility] - 09/29/2019 9:37 AM CDT Non Reactive - Antibodies to Hepatitis C virus (HCV) were not detected, result does not exclude early acute HCV infection. Maynor Payne MD LAB - CHEMISTRY CHRISTINE KENNY [facility] [address] [place] [address] * MARIAM DIRECT (09/29/2019 7:39 AM CDT) [facility] Direct Mariam (OTILIO) C3 Positive 10/06/2019 2:04 PM CDT [facility] Blood BLOOD SPECIMEN / Unknown Lab Venipuncture / Unknown 09/29/2019 7:39 AM CDT 09/29/2019 8:11 AM CDT Maynor Payne MD LAB - BLOOD BANK ORD ROSAL[facility] [address] [place] [id number] [place] [address] * BLOOD TYPE ABO+ RH PANEL (09/29/2019 7:39 AM CDT) Pathologist [facility] ABO B 09/29/2019 8:45 AM CDT [facility] Rh Type Positive 09/29/2019 8:45 AM CDT [facility] Comment:History checked. Blood BLOOD SPECIMEN / Unknown Lab Venipuncture / Unknown 09/29/2019 7:39 AM CDT 09/29/2019 8:11 AM CDT Maynor Payne MD LAB - BLOOD BANK ORD ROSALIA Performing Organization Address [facility] Co de Phone Number [facility] [address] [place] [address] * ANTIBODY SCREEN (09/29/2019 7:39 AM CDT) [facility] Antibody Screen Negative 09/29/2019 9:10 AM CDT [facility] Blood BLOOD SPECIMEN / Unknown Lab Venipuncture / Unknown 09/29/2019 7:39 AM CDT 09/29/2019 8:11 AM CDT Maynor Payne MD LAB - BLOOD BANK ORD ROSALIA Performing Organization Address [facility] Co de Phone Number [facility] [address] [place] [address] * CK BLOOD (09/29/2019 7:39 AM CDT) Pathologist [facility] CK 150 30 - 200 U/L 09/29/2019 8:52 AM CDT [facility] Blood BLOOD SPECIMEN / Unknown Lab Venipuncture / Unknown 09/29/2019 7:39 AM CDT 09/29/2019 8:11 AM CDT Maynor Payne MD LAB - CHEMISTRY CHRISTINE KENNY Performing Organization Address City/[facility] Co de Phone Number [facility] [address] [place] [address] * (ABNORMAL) G6PD QUANTITATIVE (09/29/2019 7:39 AM CDT) Pathologist [facility] RBC 2.93(L) 4.14 - 5.80 x10E6/uL 10/01/2019 11:09 AM CDT [facility] ([facility]) G-6-PD Quantitative 415(H) 146 - 376 U/10E12 RBC 10/01/2019 11:09 AM CDT [facility] ([facility]) Comment: When decreased, G-6-PD, Quant. values are [...] 7:39 AM CDT 09/29/2019 8:[address] [facility] ([facility]) - 10/01/2019 11:09 AM CDT Performed at: ??01 - [address] ??[id number] Web Application Developer: Kyle Ortega PhD, Phone: ??[phone] Performed at: ??02 - [facility] ??[id number] Web Application Developer: Cody Mcclure MD, Phone: ??[phone] Marisabel Baker MD LAB - CHEMISTRY ORD ERABLES [facility] ([facility]) [address] [place] [address] * (ABNORMAL) DIFFERENTIAL MANUAL (09/29/2019 3:56 AM CDT) WBC Auto 11.5 x10E9/L 09/29/2019 5:17 AM CDT [facility] WBC Corrected 09/29/2019 5:17 AM CDT [facility] nRBC 09/29/2019 5:17 AM CDT [facility] Neutrophil % Manual 89(H) 31 - 78 % 09/29/2019 5:17 AM CDT [facility] Lymphocytes % Manual 5(L) 13 - 54 % 09/29/2019 5:17 AM CDT [facility] Monocytes % Manual 1(L) 4 - 13 % 09/29/2019 5:17 AM CDT [facility] Eosinophils % Manual 1 0 - 8 % 09/29/2019 5:17 AM CDT [facility] Atypical Lymphocyte % Manual 2(H) <=0 % 09/29/2019 5:17 AM CDT [facility] Band % Manual 1 % 09/29/2019 5:17 AM CDT [facility] Blasts % Manual 1(H) <=0 % 0 5:17 AM T [facility] Cells Counted 100 # cells 09/29/2019 5:17 AM CDT [facility] Platelet Estimation Normal Normal, Adequate platelets 09/29/2019 5:17 AM CDT [facility] WBC Morph Normal 09/29/2019 5:17 AM CDT [facility] Anisocytosis 1+(A) None 09/29/2019 5:17 AM CDT [facility] Hypochromia Occasional (A) None 09/29/2019 5:17 AM CDT [facility] Clumped Platelets Occasional (A) None 09/29/2019 5:17 AM CDT [facility] Large Platelets Occasional (A) None 09/29/2019 5:17 AM CDT [facility] Blood BLOOD SPECIMEN / Unknown Lab Venipuncture / Unknown 09/29/2019 3:56 AM CDT 09/29/2019 4:06 AM CDT Samantha Thomas MD LAB - HEMATOLOGY OR DERABLES Performing Organization Address City/State/[facility] Co de Phone Number [facility] [address] [place], [place] [phone] * (ABNORMAL) BILIRUBIN DIRECT (09/29/2019 3:56 AM CDT) Bilirubin Direct 1.25(H) <=0.5 mg/dL 09/29/2019 4:46 AM CDT [facility] Blood BLOOD SPECIMEN / Unknown Lab Venipuncture / Unknown 09/29/2019 3:56 AM CDT 09/29/2019 4:06 AM CDT Samantha Thomas MD LAB - CHEMISTRY ORD ERABLES Performing Organization Address [facility] Co de Phone Number [facility] [address] [place] [phone] * (ABNORMAL) RETIC COUNT (09/29/2019 3:56 AM CDT) [facility] Reticulocyte Count 2.93 0.3 - 4.2 % 09/29/2019 4:21 AM CDT [facility] Reticulocyte Absolute 0.0935(H) 0.0391 - 0.057 x10E6/uL 09/29/2019 4:21 AM CDT [facility] Reticulocyte Immature Fractionated 22.9(H) 9.3 - 17.4 % 09/29/2019 4:21 AM CDT [facility] Hemoglobin Retic 36.4 36.0 - 38.6 pg 09/29/2019 4:21 AM CDT [facility] Blood BLOOD SPECIMEN / Unknown Lab Venipuncture / Unknown 09/29/2019 3:56 AM CDT 09/29/2019 4:06 AM CDT Samantha Thomas MD LAB - HEMATOLOGY OR DERABLES Performing Organization Address [facility] Co de Phone Number [facility] [address] [place] [address] * (ABNORMAL) LDH BLOOD (09/29/2019 3:56 AM CDT) [facility] LDH 770(H) 125 - 220 U/L 09/29/2019 4:46 AM CDT [facility] Blood BLOOD SPECIMEN / Unknown Lab Venipuncture / Unknown 09/29/2019 3:56 AM CDT 09/29/2019 4:06 AM CDT Samantha Thomas MD LAB - CHEMISTRY ORD ERABLES Performing Organization Address [facility] Co de Phone Number [facility] [address] [place] [phone] * (ABNORMAL) CBC W AUTO DIFFERENTIAL (09/29/2019 3:56 AM CDT) [facility] WBC 11.5(H) 4.5 - 11.0 x10E9/L 09/29/2019 4:21 AM CDT [facility] WBC Corrected 09/29/2019 4:21 AM CDT [facility] RBC 3.19(L) 4.50 - 5.30 x10E12/L 09/29/2019 4:21 AM CDT [facility] Hemoglobin 9.8(L) 13.0 - 16.0 gm/dL 09/29/2019 4:21 AM CDT [facility] Hematocrit 29.3(L) 37.0 - 49.0 % 09/29/2019 4:21 AM CDT [facility] MCV 91.8 78.0 - 98.0 fl 09/29/2019 4:21 AM CDT [facility] MCH 30.7 25.0 - 35.0 pg 09/29/2019 4:21 AM CDT [facility] MCHC 33.4 31.0 - 37.0 gm/dL 09/29/2019 4:21 AM CDT [facility] Platelet Count 227 100 - 400 x10E9/L 09/29/2019 4:21 AM CDT [facility] RDW-CV 11.9 11.5 - 14.0 % 09/29/2019 4:21 AM CDT [facility] MPV 11.3(H) 6.0 - 9.5 fl 09/29/2019 4:21 AM CDT [facility] nRBC Auto 0 /100 WBC 09/29/2019 4:21 AM CDT [facility] Blood BLOOD SPECIMEN / Unknown Lab Venipuncture / Unknown 09/29/2019 3:56 AM CDT 09/29/2019 4:06 AM CDT Samantha Thomas MD LAB - HEMATOLOGY OR DERABLES [facility] [address] [place] [address] * PHOSPHORUS BLOOD (09/29/2019 3:56 AM CDT) [facility] Phosphorus 4.0 2.3 - 4.7 mg/dL 09/29/2019 4:46 AM CDT [facility] Blood BLOOD SPECIMEN / Unknown Lab Venipuncture / Unknown 09/29/2019 3:56 AM CDT 09/29/2019 4:06 AM CDT Samantha Thomas MD LAB - CHEMISTRY ORD ERABLES Performing Organization Address [facility]/ZIP Co de Phone Number [facility] [address] [place] [address] * MAGNESIUM BLOOD (09/29/2019 3:56 AM CDT) Pathologist [facility] Magnesium 2.2 1.7 - 2.3 mg/dL 09/29/2019 4:46 AM CDT [facility] Blood BLOOD SPECIMEN / Unknown Lab Venipuncture / Unknown 09/29/2019 3:56 AM CDT 09/29/2019 4:06 AM CDT aSmantha Thomas MD LAB - CHEMISTRY ORD [employer] Performing Organization Address [facility] de Phone Number [facility] [address] [place] [address] * (ABNORMAL) COMPREHENSIVE METABOLIC PANEL (09/29/2019 3:56 AM CDT) Glucose 112(H) 70 - 105 mg/dL 09/29/2019 4:46 AM CDT [facility] Sodium 134(L) 136 - 145 mmol/L 09/29/2019 4:46 AM CDT [facility] Potassium 4.1 3.5 - 5.1 mmol/L 09/29/2019 4:46 AM CDT [facility] Chloride 103 98 - 107 mmol/L 09/29/2019 4:46 AM CDT [facility] CO2 21 20 - 28 mmol/L 09/29/2019 4:46 AM CDT [facility] Calcium 9.1 8.4 - 10.4 mg/dL 09/29/2019 4:46 AM CDT [facility] Anion Gap 10 8 - 16 mmol/L 09/29/2019 4:46 AM CDT [facility] BUN 14 8.9 - 20.6 mg/dL 09/29/2019 4:46 AM CDT [facility] Creatinine 0.74 0.72 - 1.25 mg/dL 09/29/2019 4:46 AM CDT [facility] Alkaline Phosphatase 130 100 - 390 U/L 09/29/2019 4:46 AM CDT [facility] ALT 125(H) 0 - 61 U/L 09/29/2019 4:46 AM CDT [facility] AST 68(H) 5 - 34 U/L 09/29/2019 4:46 AM CDT [facility] Protein Total 7.8 6.4 - 8.3 gm/dL 09/29/2019 4:46 AM CDT [facility] Albumin 4.1 3.4 - 5.0 gm/dL 09/29/2019 4:46 AM CDT [facility] Bilirubin Total 10.5(H) 0.2 - 1.2 mg/dL 09/29/2019 4:46 AM CDT [facility] eGFR by MDRD >60 >60 mL/min/1.7 3m2 09/29/2019 4:46 AM CDT [facility] eGFR by MDRD >60 >60 mL/min/1.7 3m2 09/29/2019 4:46 AM CDT [facility] Blood BLOOD SPECIMEN / Unknown Lab Venipuncture / Unknown 09/29/2019 3:56 AM CDT 09/29/2019 4:06 AM CDT Samantha Thomas MD LAB - CHEMISTRY ORD ERABLES [facility] [address] [place], [place] [phone] * EKG 12-LEAD (09/28/2019 8:20 PM CDT) Ventricular Rate 57 BPM [facility] Atrial Rate 57 BPM [facility] P-R Interval 134 ms [facility] QRS Duration ms 88 ms [facility] Q-T Interval ms 430 ms [facility] QTC Calculation (Bezet) 418 ms [facility] Calculated P [place] 56 degrees [facility] Calculated R [place] 18 degrees [facility] Calculated T [place] 15 degrees [facility] Interpretation EKG SINUS BRADYCARDIA OTHERWISE NORMAL ECG NO PREVIOUS ECGS AVAILABLE Confirmed by MD Thelma, Navarro ([id number]) on 09/29/2019 7:37:23 AM [facility] MUSE 09/28/2019 8:20 PM CDT 09/29/2019 7:37 AM CDT Samantha Thomas MD ECG ORDERABLES [facility] * (ABNORMAL) FOLATE (09/28/2019 7:05 PM CDT) Folate 5.8(L) 7.0 - 31.4 ng/mL 09/28/2019 8:18 PM CDT [facility] Blood BLOOD SPECIMEN / Unknown Venipuncture / Unknown 09/28/2019 7:05 PM CDT 09/28/2019 7:27 PM CDT Abel Merida MD LAB - CHEMISTRY CHRISTINE KENNY Performing Organization Address City/[facility]/ZIP Co de Phone Number [facility] [address] [place] [address] * (ABNORMAL) COAGULATION PANEL W D-DIMER (09/28/2019 7:05 PM CDT) PT 14.6 12.1 - 14.8 sec 09/28/2019 7:45 PM CDT [facility] INR 1.2(H) 0.9 - 1.1 09/28/2019 7:45 PM CDT [facility] PTT 29.1 23.0 - 38.4 sec 09/28/2019 7:45 PM CDT [facility] Fibrinogen 552(H) 200 - 400 mg/dL 09/28/2019 7:45 PM CDT [facility] D-Dimer 0.96(H) 0.27 - 0.50 ug/mL FEU 09/28/2019 7:45 PM CDT [facility] Platelet Count 208 100 - 400 x10E9/L 09/28/2019 7:45 PM CDT [facility] Blood BLOOD SPECIMEN / Unknown Venipuncture / Unknown 09/28/2019 7:05 PM CDT 09/28/2019 7:27 PM CDT Narrative [facility] - 09/28/2019 7:45 PM CDT Conventional [...] Merida MD LAB - COAGULATION OR DERABLES [facility] [address] [place] [address] * COMPLEMENT C4 (09/28/2019 7:05 PM CDT) Complement C4 27 15 - 53 mg/dL 09/29/2019 10:06 AM CDT [facility] Blood BLOOD SPECIMEN / Unknown Venipuncture / Unknown 09/28/2019 7:05 PM CDT 09/28/2019 7:27 PM CDT Abel Merida MD LAB - SEROLOGY ORDER ELYSSA Performing Organization Address [facility]/ZIP Co de Phone Number [facility] [address] [place] [phone] * COMPLEMENT C3 (09/28/2019 7:05 PM CDT) Complement C3 144 82 - 185 mg/dL 09/29/2019 10:06 AM CDT [facility] Blood BLOOD SPECIMEN / Unknown Venipuncture / Unknown 09/28/2019 7:05 PM CDT 09/28/2019 7:27 PM CDT Abel Merida MD LAB - CHEMISTRY ORDE RABLES Performing Organization Address City/[facility]/ZIP Co de Phone Number [facility] [address] [place] [phone] * URINE MICROSCOPIC ONLY REFLEX TO CULTURE [...] PM CDT 09/28/2019 4:29 PM CDT Narrative [facility] - 09/28/2019 4:41 PM CDT Robbin Fay PA-C LAB - URINALYSIS OR DERABLES [facility] [address] [place] [address] * (ABNORMAL) DRUG SCREEN TOX URINE PANEL (09/28/2019 4:23 PM CDT) [facility] Amphetamines Screen Urine Not detected Not detected 09/28/2019 4:52 PM CDT [facility] Barbiturates Screen Urine Not detected Not detected 09/28/2019 4:52 PM CDT [facility] Benzodiazepines Screen Urine Not detected Not detected 09/28/2019 4:52 PM CDT [facility] Cannabinoids Screen Urine Detected(A) Not detected 09/28/2019 4:52 PM CDT [facility] Cocaine Screen Urine Not detected Not detected 09/28/2019 4:52 PM CDT [facility] Fentanyl Urine Not detected Not detected 09/28/2019 4:52 PM CDT [facility] Methadone Screen Urine Not detected Not detected 09/28/2019 4:52 PM CDT [facility] Opiate Screen Urine Not detected Not detected 09/28/2019 4:52 PM CDT [facility] Phencyclidine Screen Urine Not detected Not detected 09/28/2019 4:52 PM CDT [facility] Urine URINE / Unknown Collection / Unknown 09/28/2019 4:23 PM CDT 09/28/2019 4:29 PM CDT [facility] - 09/28/2019 4:52 PM CDT This [...] ng/mL Robbin Fay PA-C LAB - URINE SYRUP MAKER COOK RY ORDERABLES [facility] [address] [place], [place] [phone] * (ABNORMAL) URINALYSIS REFLEX MICROSCOPIC REFLEX CULTURE (09/28/2019 4:23 PM CDT) Color UA Stephanie(A) Straw, Yellow 09/28/2019 4:38 PM CDT [facility] Clarity UA Clear Clear 09/28/2019 4:38 PM CDT [facility] Glucose UA Negative Negative 09/28/2019 4:38 PM CDT [facility] Bilirubin UA Negative Negative 09/28/2019 4:38 PM CDT [facility] Ketone UA 1+(A) Negative 09/28/2019 4:38 PM CDT [facility] Specific Candor UA 1.029 1.005 - 1.030 09/28/2019 4:38 PM CDT [facility] Blood UA 1+(A) Negative 09/28/2019 4:38 PM CDT [facility] pH UA 8.0 5.0 - 8.0 pH 09/28/2019 4:38 PM CDT [facility] Protein UA Negative Negative 09/28/2019 4:38 PM CDT [facility] Urobilinogen UA 4.0(A) Negative mg/dL 09/28/2019 4:38 PM CDT [facility] Nitrite UA Negative Negative 09/28/2019 4:38 PM CDT [facility] Leukocyte UA Negative Negative 09/28/2019 4:38 PM CDT [facility] Urine Microscopy Urine microscopy to follow 09/28/2019 4:38 PM CDT [facility] Reflex Status Culture not indicated 09/28/2019 4:38 PM CDT [facility] Urine URINE SPECIMEN OBTAINED BY CLEAN CATCH PROCEDURE / Unknown Collection / Unknown 09/28/2019 4:23 PM CDT 09/28/2019 4:29 PM CDT Narrative [facility] - 09/28/2019 4:38 PM CDT Robbin Fay PA-C LAB - URINALYSIS OR DERABLES [facility] [address] [place] [address] * CT ABDOMEN AND PELVIS [...] Mariam (OTILIO) Positive 09/28/2019 6:16 PM CDT [facility] Direct Mariam (OTILIO) IgG Positive 09/28/2019 6:16 PM CDT [facility] Blood BLOOD SPECIMEN / Unknown 09/28/2019 1:56 PM CDT 09/28/2019 5:56 PM CDT Markell Martin MD LAB - BLOOD BANK OR DERABLES Performing Organization Address City/State/[facility] Co de Phone Number [facility] [address] [phone] * PATHOLOGY PERIPHERAL SMEAR REVIEW (09/28/2019 12:18 PM CDT) [facility] Case Report Pathology Interpretation Report ? Case: [id number] ? Authorizing Provider: ??Markell Martin MD ? Collected: ? 09/28/2019 12:18 PM ? Ordering Location: ? [facility] ?? Received: ?09/28/2019 07:33 PM ? Emergency Department ? Pathologist: ? Bryan Shah MD ? Specimen: ?Blood ? 09/29/2019 12:27 PM CDT [facility] Peripheral Smear Description Clinical History: The patient is an 19-year-old man with a history of nausea, vomiting, and diarrhea x 1 week. He presented to [facility] for the evaluation and management of scleral [...] a blood sample to our reference lab ([facility] [place]) for further evaluation of the patient's Direct Mariam' Test, including C3 complement testing and assessment of the IgG coating the patient's red blood cells. 09/29/2019 12:27 PM CDT [facility] Blood BLOOD SPECIMEN / Unknown Venipuncture / Unknown 09/28/2019 12:18 PM CDT 09/28/2019 7:33 PM CDT Markell Martin MD LAB - PATHOLOGY/CYT OLOGY ORDERABLES Performing Organization Address City/[facility]/ZIP Co de Phone Number [facility] [address] [place] [phone] * (ABNORMAL) RETIC COUNT (09/28/2019 12:18 PM CDT) Reticulocyte Count 2.31 0.3 - 4.2 % 09/28/2019 5:54 PM CDT [facility] Reticulocyte Absolute 0.0873(H) 0.0391 - 0.057 x10E6/uL 09/28/2019 5:54 PM CDT [facility] Reticulocyte Immature Fractionated 21.0(H) 9.3 - 17.4 % 09/28/2019 5:54 PM CDT [facility] Hemoglobin Retic 36.0 36.0 - 38.6 pg 09/28/2019 5:54 PM CDT [facility] Blood BLOOD SPECIMEN / Unknown Venipuncture / Unknown 09/28/2019 12:18 PM CDT 09/28/2019 12:21 PM CDT Abel Merida MD LAB - HEMATOLOGY ORD ERABLES Performing Organization Address City/[facility]/ZIP Co de Phone Number [facility] [address] [place] [address] * (ABNORMAL) HAPTOGLOBIN (09/28/2019 12:18 PM CDT) Haptoglobin 11(L) 30 - 200 mg/dL 09/28/2019 5:56 PM CDT [facility] Blood BLOOD SPECIMEN / Unknown Venipuncture / Unknown 09/28/2019 12:18 PM CDT 09/28/2019 12:21 PM CDT Abel Merida MD LAB - CHEMISTRY CHRISTINE KENNY Performing Organization Address [facility]/ZIP Co de Phone Number [facility] [address] [place] [phone] * (ABNORMAL) LDH BLOOD (09/28/2019 12:18 PM CDT) LDH 611(H) 125 - 220 U/L 09/28/2019 5:56 PM CDT [facility] Blood BLOOD SPECIMEN / Unknown Venipuncture / Unknown 09/28/2019 12:18 PM CDT 09/28/2019 12:21 PM CDT Abel Merida MD LAB - CHEMISTRY CHRISTINE KENNY Performing Organization Address [facility] Co de Phone Number [facility] [address] [place], [place] [phone] * (ABNORMAL) BILIRUBIN DIRECT (09/28/2019 12:18 PM CDT) Bilirubin Direct 1.63(H) <=0.5 mg/dL 09/28/2019 5:17 PM CDT [facility] Blood BLOOD SPECIMEN / Unknown Venipuncture / Unknown 09/28/2019 12:18 PM CDT 09/28/2019 12:21 PM CDT Giuliano Fisher MD LAB - CHEM ISTRY ORDERABLES Performing Organization Address [facility]/ZIP Co de Phone Number [facility] [address] [place] [phone] * (ABNORMAL) LIPASE BLOOD (09/28/2019 12:18 PM CDT) Lipase 9(L) 10 - 220 U/L 09/28/2019 12:39 PM CDT [facility] Blood BLOOD SPECIMEN / Unknown Venipuncture / Unknown 09/28/2019 12:18 PM CDT 09/28/2019 12:21 PM CDT Markell Martin MD LAB - CHEMISTRY ORD ERABLES [facility] [address] [place] [address] * (ABNORMAL) COMPREHENSIVE METABOLIC PANEL (09/28/2019 12:18 PM CDT) Glucose 131(H) 70 - 105 mg/dL 09/28/2019 12:37 PM CDT [facility] Sodium 134(L) 136 - 145 mmol/L 09/28/2019 12:37 PM CDT [facility] Potassium 4.2 3.5 - 5.1 mmol/L 09/28/2019 12:37 PM CDT [facility] Chloride 104 98 - 107 mmol/L 09/28/2019 12:37 PM CDT [facility] CO2 20 20 - 28 mmol/L 09/28/2019 12:37 PM CDT [facility] Calcium 8.8 8.4 - 10.4 mg/dL 09/28/2019 12:37 PM CDT [facility] Anion Gap 10 8 - 16 mmol/L 09/28/2019 12:37 PM CDT [facility] BUN 14 8.9 - 20.6 mg/dL 09/28/2019 12:37 PM CDT [facility] Creatinine 0.78 0.72 - 1.25 mg/dL 09/28/2019 12:37 PM CDT [facility] Alkaline Phosphatase 141 100 - 390 U/L 09/28/2019 12:37 PM CDT [facility] ALT 114(H) 0 - 61 U/L 09/28/2019 12:37 PM CDT [facility] AST 43(H) 5 - 34 U/L 09/28/2019 12:37 PM CDT [facility] Protein Total 7.8 6.4 - 8.3 gm/dL 09/28/2019 12:37 PM CDT [facility] Albumin 4.3 3.4 - 5.0 gm/dL 09/28/2019 12:37 PM CDT [facility] Bilirubin Total 11.4(H) 0.2 - 1.2 mg/dL 09/28/2019 12:37 PM CDT [facility] eGFR by MDRD >60 >60 mL/min/1.7 3m2 09/28/2019 12:37 PM CDT [facility] eGFR by MDRD >60 >60 mL/min/1.7 3m2 09/28/2019 12:37 PM CDT [facility] Blood BLOOD SPECIMEN / Unknown Venipuncture / Unknown 09/28/2019 12:18 PM CDT 09/28/2019 12:21 PM CDT Markell Martin MD LAB - CHEMISTRY ORD ERABLES [facility] [address] [place] [address] * (ABNORMAL) CBC W AUTO DIFFERENTIAL (09/28/2019 12:18 PM CDT) WBC 10.3 4.5 - 11.0 x10E9/L 09/28/2019 7:34 PM CDT [facility] WBC Corrected 09/28/2019 7:34 PM CDT [facility] RBC 3.86(L) 4.50 - 5.30 x10E12/L 09/28/2019 7:34 PM CDT [facility] Hemoglobin 11.4(L) 13.0 - 16.0 gm/dL 09/28/2019 7:34 PM CDT [facility] Hematocrit 34.4(L) 37.0 - 49.0 % 09/28/2019 7:34 PM CDT [facility] MCV 89.1 78.0 - 98.0 fl 09/28/2019 7:34 PM CDT [facility] MCH 29.5 25.0 - 35.0 pg 09/28/2019 7:34 PM CDT [facility] MCHC 33.1 31.0 - 37.0 gm/dL 09/28/2019 7:34 PM CDT [facility] Platelet Count 211 100 - 400 x10E9/L 09/28/2019 7:34 PM CDT [facility] RDW-CV 12.0 11.5 - 14.0 % 09/28/2019 7:34 PM CDT [facility] MPV 10.8(H) 6.0 - 9.5 fl 09/28/2019 7:34 PM CDT [facility] Neutrophils % 76.2 31.0 - 78.0 % 09/28/2019 7:34 PM CDT [facility] Lymphocytes % 9.0(L) 13.0 - 54.0 % 09/28/2019 7:34 PM CDT [facility] Monocytes % 5.5 4.0 - 13.0 % 09/28/2019 7:34 PM CDT [facility] Eosinophils % 4.9 0.0 - 8.0 % 09/28/2019 7:34 PM CDT [facility] Basophils % 0.5 % 09/28/2019 7:34 PM CDT [facility] Immature Granulocytes 3.9 % 09/28/2019 7:34 PM CDT [facility] Neutrophil Absolute 7.83 1.4 - 8.58 x10E9/L 09/28/2019 7:34 PM CDT [facility] Lymphocytes Absolute 0.93 0.59 - 5.94 x10E9/L 09/28/2019 7:34 PM CDT [facility] Monocytes Absolute 0.57 0.18 - 1.43 x10E9/L 09/28/2019 7:34 PM CDT [facility] Eosinophils Absolute 0.50 0 - 0.88 x10E9/L 09/28/2019 7:34 PM CDT [facility] Basophils Absolute 0.05 0 - 0.22 x10E9/L 09/28/2019 7:34 PM CDT [facility] Immature Granulocytes Absolute 0.40(H) 0 - 0.11 x10E9/L 09/28/2019 7:34 PM CDT [facility] nRBC Auto 0 /100 WBC 09/28/2019 7:34 PM CDT [facility] Path Review Hematology Slide sent for Path review 09/28/2019 7:34 PM T [facility] Blood BLOOD SPECIMEN / Unknown Venipuncture / Unknown 09/28/2019 12:18 PM CDT 09/28/2019 12:21 PM CDT Markell Martin MD LAB - HEMATOLOGY OR DERABLES [facility] [address] [place] [address] documented in this encounter Visit [...] RN) 0912 ($ Given - Provider: Ayaka Ozuan RN) loratadine (CLARITIN) tablet 10 mg 10 [...] food documented in this encounter Care Teams [employer] Relationship Specialty Start Date End Date Jesse Cevallos MD [address] [place] [id number] PCP - General Pediatrics 05/15/19 documented as of this encounter
--- OUTSIDE RECORDS SUMMARY | 2024-04-23 03:07 | XMS_ITS | Clinical Summary ---
Author Organization [facility] [employer] Address [address] [facility] [place] [address] Care Team Providers Care Geophysical Laboratory Supervisor Name Role Phone Shelli Cevallos MD Primary Care Provider + [phone] Source Comments [facility],non-owned Affiliates and Associated Physician Practices is amultiple site organization consisting of ambulatory clinics and hospital sitesin [place], [place], [place] and [place]. This disclosure is being madepursuant to the Care Everywhere program and may not contain all information available regarding this patient. Last updated 18.[facility] [employer] Allergies Active Allergy Reactions Criticality Noted Date [...] Reactive Non Reactive 09/29/2019 9:37 AM CDT [facility] HBsAg Non Reactive Non Reactive 09/29/2019 9:37 AM CDT [facility] HBc Antibody IgM Non Reactive Non Reactive 09/29/2019 9:37 AM CDT [facility] HCV Antibody Screen Non Reactive Non Reactive 09/29/2019 9:37 AM CDT [facility] Blood BLOOD SPECIMEN / Unknown Lab Venipuncture / Unknown 09/29/2019 7:40 AM CDT 09/29/2019 8:11 AM CDT Narrative [facility] - 09/29/2019 9:37 AM CDT Non Reactive - Antibodies to Hepatitis C virus (HCV) were not detected, result does not exclude early acute HCV infection. Maynor Payne MD LAB - CHEMISTRY CHRISTINE KENNY [facility] Organization Address City/State/ZIP Co de Phone Number [facility] [address] [place], [place] [id number] from Last 3 Months or Most Recently Relevant to Health Maintenance Advance Directives * Full Code (Latest Code Status on File) Date Activated Date Inactivated Comments 09/29/2019 10:09 AM 10/03/2019 2:59 PM * Full Code Date Activated Date Inactivated Comments 09/28/2019 8:11 PM 09/29/2019 10:07 AM * Full Code Date Activated Date Inactivated Comments 09/28/2019 7:39 PM 09/28/2019 8:11 PM Care Teams Geophysical Laboratory Supervisor Relationship Specialty Start Date End Date Shelli Cevallos MD [address] [place] [phone] PCP - General Pediatrics 05/15/19
--- OUTSIDE RECORDS SUMMARY | 2024-04-23 03:07 | XMS_ITS | Encounter Summary ---
Author Organization [facility] Address [address] [place] [address] Care Team Providers Care Squeezer Operator Name Role Phone Shelli Cevallos MD Primary Care Provider + [phone] Reason for Visit * Reason Onset Date Comments Appointment 10/06/2019 Encounter Details Date Type Department Care Team (Late st Contact Info) Description 10/06/2019 Telephone [facility] [address] [place] [address] Maynor Payne MD [address] [place] [address] [phone] Appointment Social History Tobacco Use Types Packs/Day [...] Angela Penaloza - 10/06/2019 4:19 PM CDT [phone] Called pt to schedule HFU appt w/ Dr. Payne. Pt scheduled 10/10/19 @ 2:[address] Payne. Date/time/location given. Pt verb understanding and in agreement w/ plan documented in this encounter Plan of Treatment Not on file documented as of this encounter Visit Diagnoses Not on filedocumented in this encounter Care Teams Squeezer Operator Relationship Specialty Start Date End Date Shelli Cevallos MD [address] [place] [phone] PCP - General Pediatrics 05/15/19 documented as of this encounter
--- OUTSIDE RECORDS SUMMARY | 2024-04-23 03:07 | XMS_ITS | Encounter Summary ---
Author Organization [facility] Address [address] [facility] [place] [address] Care Team Providers Care Thermoscrew Operator Name Role Phone Shelli Cevallos MD Primary Care Provider + [phone] Reason for Visit * Reason Comments Follow-up Encounter Details Date Type Department Care Team (Late st Contact Info) Description 10/13/2019 3:00 PM CDT Office Visit [facility] [address] [place] [phone] Maynor Payne MD [address] [place] [address] [phone] Acquired hemolytic anemia (HCC) (Primary Dx); Elevated [...] 10/13/2019 3:5 0 PM CDT Growth Chart: [facility] (Boys, 2-2 0 Years) documented [...] Payne MD, FACP Hematology and Medical Oncology [facility] Cancer Care Please be advised that voice [...] - 4.2 % 10/13/2019 4:01 PM CDT [facility] Reticulocyte Immature Fractionated 11.7 9.3 - 17.4 % 10/13/2019 4:01 PM CDT [facility] Blood BLOOD SPECIMEN / Unknown 10/13/2019 3:49 PM CDT 10/13/2019 3:49 PM CDT Maynor Payne MD LAB - HEMATOLOGY ORD ERABLES [facility] [address] * (ABNORMAL) CBC W AUTO DIFFERENTIAL [...] Payne MD LAB - HEMATOLOGY ORD ERABLES [facility] [address] * MARIAM DIRECT (10/13/2019 3:27 PM CDT) Mariam Direct Negative Negative [facility] ACCOUNT BILL Blood BLOOD SPECIMEN / Unknown 10/13/2019 3:27 PM CDT 10/13/2019 Narrative Resulting Agency Comment Lab Testing performed at: [facility] [address] [facility] ??[facility] [phone] Maynor Payne MD LAB - BLOOD BANK ORD ERABLES [facility] ACCOUNT BILL [address] [place] [address] * FOLATE (10/13/2019 3:27 PM CDT) Folate 19.1 7.0 - 31.4 ng/mL [facility] ACCOUNT BILL Blood BLOOD SPECIMEN / Unknown 10/13/2019 3:27 PM CDT 10/13/2019 Narrative Resulting Agency Comment Lab Testing performed at: [address] ??[facility] [phone] Maynor aPyne MD LAB - CHEMISTRY CHRISTINE KENNY Performing Organization Address [facility] Co de Phone Number [facility] ACCOUNT BILL [address] [place] [address] * HAPTOGLOBIN (10/13/2019 3:27 PM CDT) Haptoglobin 177 17 - 317 mg/dL [facility] ACCOUNT BILL Blood BLOOD SPECIMEN / Unknown 10/13/2019 3:27 PM CDT 10/13/2019 Narrative Resulting Agency Comment Lab Testing performed at: [facility] [address] [facility] ??[facility] [phone] Maynor Payne MD LAB - CHEMISTRY CHRISTINE KENNY Performing Organization Address City/[facility]/ZIP Co de Phone Number [facility] ACCOUNT BILL [address] [place] [address] * LDH BLOOD (10/13/2019 3:27 PM CDT) LDH 178 125 - 220 U/L [facility] ACCOUNT BILL Blood BLOOD SPECIMEN / Unknown 10/13/2019 3:27 PM CDT 10/13/2019 Narrative Resulting Agency Comment Lab Testing performed at: [address] ??[facility] [id number] Maynor Payne MD LAB - CHEMISTRY CHRISTINE KENNY [facility] ACCOUNT BILL [address] [place] [address] * (ABNORMAL) COMPREHENSIVE METABOLIC PANEL (10/13/2019 3:27 [...] Resulting Agency Comment Lab Testing performed at: [address] ??[facility] [phone] Maynor Payne MD LAB - CHEMISTRY CHRISTINE KENNY [facility] ACCOUNT BILL [address] [place] [address] documented in this encounter Visit Diagnoses Diagnosis Acquired hemolytic anemia (HCC)- Primary Acquired hemolytic anemia, unspecified Elevated bilirubin Disorders of bilirubin excretion Brown recluse spider bite or sting, accidental or unintentional, subsequent encounter documented in this encounter Care Teams Thermoscrew Operator Relationship Specialty Start Date End Date Shelli Cevallos MD [address] [place] [address] PCP - General Pediatrics 05/15/19 documented as of this encounter
--- OUTSIDE RECORDS SUMMARY | 2024-04-23 03:07 | XMS_ITS | Encounter Summary ---
Author Organization [facility] Address [address] [place] [address] Care Team Providers Care Customer Care Agent Name Role Phone Shelli Cevallos MD Primary Care Provider + [phone] Reason for Visit * Reason Onset Date Comments Follow-up 10/10/2019 Encounter Details Date Type Department Care Team (Late st Contact Info) Description 10/10/2019 Telephone [facility] [address] [place] [address] Marcia Hoyos, RN Follow-up Social History Tobacco [...] to the designated cancer care entrance o [facility] has recently implemented a new policy regarding [...] on filedocumented in this encounter Care Teams Customer Care Agent Relationship Specialty Start Date End Date Shelli Cevallos MD [address] [place] [address] PCP - General Pediatrics 05/15/19 documented as of this encounter
--- OUTSIDE RECORDS SUMMARY | 2024-04-23 03:07 | XMS_ITS | Encounter Summary ---
Author Organization [facility] Address [address] [facility] [place] [address] Care Team Providers Care Promotions Executive Name Role Phone Shelli Cevallos MD Primary Care Provider + [phone] Reason for Visit * Reason Onset Date Comments Appointment 11/10/2019 Encounter Details Date Type Department Care Team (Late st Contact Info) Description 11/10/2019 Telephone [facility] [address] [place] [phone] Maynor Payne MD [address] [place] [phone] Appointment Social History Tobacco Use Types Packs/Day [...] on filedocumented in this encounter Care Teams Promotions Executive Relationship Specialty Start Date End Date Shelli Cevallos MD [address] [place] [phone] PCP - General Pediatrics 05/15/19 documented as of this encounter
--- OUTSIDE RECORDS SUMMARY | 2024-04-23 03:07 | XMS_ITS | Patient Health Summary ---
Author Organization [facility] Address [address] [place] [address] Care Team Providers Care Library Circulation Technician Name Role Phone Shelli Cevallos MD Primary Care Provider + [phone] [facility],non-owned Affiliates and Associated Physician Practices is amultiple site organization consisting of ambulatory clinics and hospital sitesin [place], [place], [place] and [place]. This disclosure is being madepursuant to the Care Everywhere program and may not contain all information available regarding this patient. Last updated 18.[facility] Allergies * Sulfamethoxazole W-Trimethoprim(Hematologic) -High Criticality Medications [...] resultswithin the time period is included. Pathologist [facility] Reticulocyte Count 5.75(H) 0.3 - 4.2 % 10/13/2019 4:01 PM CDT [facility] Reticulocyte Immature Fractionated 11.7 9.3 - 17.4 % 10/13/2019 4:01 PM CDT [facility] Blood BLOOD SPECIMEN / Unknown 10/13/2019 3:49 PM CDT 10/13/2019 3:49 PM CDT Maynor Payne MD LAB - HEMATOLOGY ORD ERABLES [facility] [address] * (ABNORMAL) CBC W AUTO DIFFERENTIAL (CANCER CARE) (10/13/2019 3:27 PM CDT) Pathologist [facility] WBC 5.5 4.4 - 10.7 x10E9/L 10/13/2019 [...] ORD ERABLES [facility] [address] [place] [address], [facility] * TIMBO DIRECT (10/13/2019 3:27 PM CDT) Only the most recent of3 resultswithin the time period is included. Timbo Direct Negative Negative [facility] ACCOUNT BILL Blood BLOOD SPECIMEN / Unknown 10/13/2019 3:27 PM CDT 10/13/2019 Narrative Resulting Agency Comment Lab Testing performed at: [facility] [place] [address] [facility] ??[facility] [phone] Maynor Payne MD LAB - BLOOD BANK ORD LICKINGBLES Performing Organization Address City/[facility]/ZIP Co de Phone Number [facility] ACCOUNT BILL [address] [place] [address] * (ABNORMAL) COMPREHENSIVE METABOLIC PANEL (10/13/2019 3:27 PM CDT) Only the most recent of7 resultswithin the time period is included. Pathologist [facility] Glucose 94 70 - 105 mg/dL [facility] [...] Resulting Agency Comment Lab Testing performed at: [address] ??[facility] [phone] Maynor Payne MD LAB - CHEMISTRY CHRISTINE KENNY Performing Organization Address [facility] Co de Phone Number [facility] ACCOUNT BILL [address] [place] [address] * LDH BLOOD (10/13/2019 3:27 PM CDT) Only the most recent of7 resultswithin the time period is included. LDH 178 125 - 220 U/L [facility] ACCOUNT BILL Blood BLOOD SPECIMEN / Unknown 10/13/2019 3:27 PM CDT 10/13/2019 Narrative Resulting Agency Comment Lab Testing performed at: [address] ??[facility] [phone] Maynor Payne MD LAB - CHEMISTRY CHRISTINE KENNY Performing Organization Address [facility] Co de Phone Number [facility] ACCOUNT BILL [address] [place] [address] * FOLATE (10/13/2019 3:27 PM CDT) Only the most recent of2 resultswithin the time period is included. Folate 19.1 7.0 - 31.4 ng/mL [facility] ACCOUNT BILL Blood BLOOD SPECIMEN / Unknown 10/13/2019 3:27 PM CDT 10/13/2019 Narrative Resulting Agency Comment Lab Testing performed at: [address] ??[facility] [phone] Maynor Payne MD LAB - CHEMISTRY CHRISTINE KENNY [facility] ACCOUNT BILL [address] [place] [address] * HAPTOGLOBIN (10/13/2019 3:27 PM CDT) Only the most recent of3 resultswithin the time period is included. Haptoglobin 177 17 - 317 mg/dL [facility] ACCOUNT BILL Blood BLOOD SPECIMEN / Unknown 10/13/2019 3:27 PM CDT 10/13/2019 Narrative Resulting Agency Comment Lab Testing performed at: [facility] [place] [address] [facility] ??[facility] [phone] Maynor Payne MD LAB - CHEMISTRY ORDE ZOYA Performing Organization Address City/[facility]/ZIP Co de Phone Number [facility] ACCOUNT BILL [address] [place] [address] * CARDIAC EKG ORDER (10/06/2019 9:33 PM [...] [facility] nRBC 10/03/2019 6:25 AM CDT [facility] Neutrophil % Manual 70 31 - 78 % 10/03/2019 6:25 AM CDT [facility] Lymphocytes % Manual 19 13 - 54 % 10/03/2019 6:25 AM CDT [facility] Monocytes % Manual 3(L) 4 - 13 % 10/03/2019 6:25 AM CDT [facility] Band % Manual 3 % 10/03/2019 6:25 AM CDT [facility] [place] Manual 4(H) <=0 % 10/03/2019 6:25 AM CDT [facility] Myelocytes % Manual 1(H) <=0 % 10/03/2019 6:25 AM CDT [facility] Cells Counted 100 # cells 10/03/2019 6:25 AM CDT [facility] RBC Morphology Normal 10/03/2019 6:25 AM CDT [facility] WBC Morph Normal 10/03/2019 6:25 AM CDT [facility] Platelet Estimation Normal 10/03/2019 6:25 AM CDT [facility] Blood BLOOD SPECIMEN / Unknown Lab Venipuncture / Unknown 10/03/2019 3:55 AM CDT 10/03/2019 4:55 AM CDT Abel Merida MD LAB - HEMATOLOGY ORD ERABLES [facility] [address] [place], [place] [id number] * (ABNORMAL) CBC W AUTO DIFFERENTIAL (10/03/2019 3:55 AM CDT) Only the most recent of6 resultswithin the time period is included. WBC 23.4(H) 4.5 - 11.0 x10E9/L 10/03/2019 5:[facility] W[facility] Corrected 10/03/2019 5:08 AM CDT [facility] RBC 2.68(L) 4.50 - 5.30 x10E12/L 10/03/2019 5:08 AM CDT [facility] Hemoglobin 8.3(L) 13.0 - 16.0 gm/dL 10/03/2019 5:08 AM CDT [facility] Hematocrit 26.0(L) 37.0 - 49.0 % 10/03/2019 5:[facility] [address] [facility] MCV 97.0 78.0 - 98.0 fl 10/03/2019 5:08 AM CDT [facility] MCH 31.0 25.0 - 35.0 pg 10/03/2019 5:08 AM CDT [facility] MCHC 31.9 31.0 - 37.0 gm/dL 10/03/2019 5:08 AM CDT [facility] Platelet Count 398 100 - 400 x10E9/L 10/03/2019 5:[facility] [address] [facility] RDW-CV 15.2(H) 11.5 - 14.0 % 10/03/2019 5:08 AM CDT [facility] MPV 11.2(H) 6.0 - 9.5 fl 10/03/2019 5:08 AM CDT [facility] nRBC Auto 1 /100 WBC 10/03/2019 5:08 AM CDT [facility] Hematology Reflex Status Manual Diff to follow 10/03/2019 5:08 AM CDT [facility] Blood BLOOD SPECIMEN / Unknown Lab Venipuncture / Unknown 10/03/2019 3:55 AM CDT 10/03/2019 4:55 AM CDT Abel Merida MD LAB - HEMATOLOGY ORD ERABLES [facility] [address] [place] [address] * US ABDOMEN LIMITED (10/02/2019 5:45 PM [...] 0.32(H) <0.10 ng/mL 10/02/2019 10:37 AM CDT [facility] Blood BLOOD SPECIMEN / Unknown Lab Venipuncture / Unknown 10/02/2019 9:27 AM CDT 10/02/2019 9:37 AM CDT Narrative [facility] - 10/02/2019 10:37 AM CDT [...] Change in Procalcitonin Calculator is available at [email or web address] ?? If clinical picture has not improved and PCT remains high, reevaluate and consider treatment failure or other causes. Nissa Gleason MD LAB - CHEMISTRY CHRISTINE KENNY Performing Organization Address [facility] Co de Phone Number [facility] [address] [place] [place] [address] * (ABNORMAL) VANCOMYCIN LEVEL TROUGH (10/02/2019 7:47 AM CDT) [facility] Vancomycin Trough 9.3(L) 10.0 - 20.0 ug/mL 10/02/2019 8:39 AM CDT [facility] Blood BLOOD SPECIMEN / Unknown Lab Venipuncture / Unknown 10/02/2019 7:47 AM CDT 10/02/2019 8:02 AM CDT Rashid Monson MD LAB - CHEMISTRY CHRISTINE KENNY Performing Organization Address [facility] de Phone Number [facility] [address] [place], [place] [id number] * (ABNORMAL) HGB HCT PANEL (10/01/2019 2:51 PM CDT) [facility] Hemoglobin 8.8(L) 13.0 - 16.0 gm/dL 10/01/2019 3:21 PM CDT [facility] Hematocrit 27.4(L) 37.0 - 49.0 % 10/01/2019 3:21 PM CDT [facility] Blood BLOOD SPECIMEN / Unknown Lab Venipuncture / Unknown 10/01/2019 2:51 PM CDT 10/01/2019 3:10 PM CDT Abel Merida MD LAB - HEMATOLOGY BONI LINDSEY Performing Organization Address [facility] Co de Phone Number [facility] [address] [place] [place] [address] * TRANSFUSE RED BLOOD CELL LEUKOREDUCED UNIT(S) (10/01/2019 1:59 PM CDT) Abel Merida MD NURSING - BLOOD PROD TRANSFUSION * PREPARE (CROSSMATCH) RBC UNIT(S), 1 Units (10/01/2019 8:26 AM CDT) Pathologist [facility] Unit Description AS1 LR PRBC [facility] Unit ABO B [facility] Unit Rh POS [facility] Product Number R02 [facility] Unit Donor # [id number] [facility] BLOOD [facility]ANK LAB Unit Status transfused [facility] Product [facility] [id number] [facility] Blood Type Barcode [address] [facility] Expiration Date [id number] [facility] Blood Bank BLOOD SPECIMEN / Unknown 10/01/2019 8:26 AM CDT 10/01/2019 8:33 AM CDT Abel Merida MD LAB - BLOOD BANK ORD ERABLES Performing Organization Address City/[facility]/ZIP Co de Phone Number [facility] [address] [place] [address] * TYPE + SCREEN PANEL (10/01/2019 8:26 AM CDT) [facility] ABO Rh B POS 10/01/2019 9:07 AM CDT [facility] Comment:History checked. Antibody Screen NEG 0 9:07 AM CDT [facility] Blood Bank BLOOD SPECIMEN / Unknown Lab Venipuncture / Unknown 10/01/2019 8:26 AM CDT 10/01/2019 8:33 AM CDT Abel Merida MD LAB - BLOOD BANK ORD ERABLES [facility] [address] [place] [address] * BLOOD TYPE VERIFICATION (10/01/2019 7:27 AM CDT) [facility] ABO Rh B POS 10/01/2019 9:0 7 AM CDT [facility] Blood Bank BLOOD SPECIMEN / Unknown Lab Venipuncture / Unknown 10/01/2019 7:27 AM CDT 10/01/2019 8:47 AM CDT Maynor Payne MD LAB - BLOOD BANK ORD ERABLES [facility] [address] [phone] * XR CHEST 1VW PORTABLE (09/30/2019 10:40 [...] day 5 SONG 10/05/2019 9:30 AM CDT [facility] Blood PERIPHERAL BLOOD / Unknown Lab Venipuncture / Unknown 09/30/2019 7:28 AM CDT 09/30/2019 7:44 AM CDT Maynor Payne MD LAB - MICROBIOLOGY O RDERABLES [facility] [address] [place] [address], [place] [phone] * FLOW CYTOMETRY BLOOD PROFILE (09/30/2019 7:27 AM CDT) Case Report Flow Cytometry ?Case: [id number] ? Authorizing Provider: ??Maynor Payne MD ? Collected: ? 09/30/2019 07:27 AM ? Ordering Location: ? [facility] MED[facility] ?Received: ?09/30/2019 07:55 AM ? Pathologist: ? Bisi Roy MD ? Specimen: ?Blood ? 09/30/2019 1:05 PM CDT [facility] Final Diagnosis Peripheral blood, flow cytometric immunophenotypic analysis: - No evidence of non-Hodgkin lymphoma or high-grade myeloid neoplasm. - See interpretation. 09/30/2019 1:05 PM CDT [facility] Flow Cytometry Results Differential Result Comment WBC Count /uL 18,900 Total Viability % 92.0 Lymphocytes % 15 Dim CD45 Region % 1 Monocytes % 8 Granulocytes % 75 09/30/2019 1:05 PM [facility] Flow Cytometry Interpretation The [...] the flow cytometry specimen is reviewed for chemistry quality control technician purposes. Overall, the peripheral blood specimen shows no evidence of involvement by a non-Hodgkin lymphoma or a high-grade myeloid neoplasm. Correlation with clinical findings is required. 09/30/2019 1:05 PM [facility] Reason for test Acquired neutrophilia Hemolytic anemia associated with infection 283.19 09/30/2019 1:05 PM [facility] Client Specimen ID # [id number] 09/30/2019 1:05 PM [facility] Disclaimer Test performed at [facility], [address] [place] [address], [id number]. *The established laboratory minimum viability is 70%. [...] high complexity clinical testing. 09/30/2019 1:05 PM [facility] Embedded Images 0 1:05 PM [facility] Number of markers 10 were performed. A-2 Flow CD10 A-3 Flow CD13 A-5 Flow CD20 A-1 Flow CD5 A-4 Flow CD19 A-6 Flow CD33 A-7 Flow CD34 A-8 Flow CD45 A-9 [place]+CD19+ A-10 Lambda+CD19+ 09/30/2019 1:05 PM CDT [facility] Blood BLOOD SPECIMEN / Unknown Lab Venipuncture / Unknown 09/30/2019 7:27 AM CDT 09/30/2019 7:55 AM CDT Maynor Payne MD LAB - PATHOLOGY/CYTO LOGY ORDERABLES Performing Organization Address City/State/[facility] de Phone Number [facility] [address] [phone] * (ABNORMAL) C-REACTIVE PROTEIN SENSITIVE (09/30/2019 7:27 AM CDT) C-Reactive Protein High Sensitivity 5.47(H) <0.30 mg/dL 09/30/2019 8:10 AM CDT [facility] Blood BLOOD SPECIMEN / Unknown Lab Venipuncture / Unknown 09/30/2019 7:27 AM CDT 09/30/2019 7:45 AM CDT Narrative [facility] - 09/30/2019 8:10 AM CDT [...] - CHEMISTRY CHRISTINE KENNY Performing Organization Address City/[facility]/ZIP Co de Phone Number [facility] [address] [place] [address] * (ABNORMAL) ERYTHROCYTE SEDIMENTATION RATE (09/30/2019 7:27 AM CDT) Pathologist [facility] Erythrocyte Sedimentation Rate Automated 65(H) 0 - 15 MM/HR 09/30/2019 7:55 AM CDT [facility] Blood BLOOD SPECIMEN / Unknown Lab Venipuncture / Unknown 09/30/2019 7:27 AM CDT 09/30/2019 7:45 AM CDT Maynor Payne MD LAB - HEMATOLOGY BONI LINDSEY Performing Organization Address [facility] Co de Phone Number [facility] [address] [place] [place] [address] * HEPATITIS SCREEN ACUTE (09/29/2019 7:40 AM CDT) [facility] HAV Antibody IgM Non Reactive Non Reactive 09/29/2019 9:37 AM CDT [facility] HBsAg Non Reactive Non Reactive 09/29/2019 9:37 AM CDT [facility] HBc Antibody IgM Non Reactive Non Reactive 09/29/2019 9:37 AM CDT [facility] HCV Antibody Screen Non Reactive Non Reactive 09/29/2019 9:37 AM CDT [facility] Blood BLOOD SPECIMEN / Unknown Lab Venipuncture / Unknown 09/29/2019 7:40 AM CDT 09/29/2019 8:11 AM CDT Narrative [facility] - 09/29/2019 9:37 AM CDT Non Reactive - Antibodies to Hepatitis C virus (HCV) were not detected, result does not exclude early acute HCV infection. Maynor Payne MD LAB - CHEMISTRY CHRISTINE KENNY Performing Organization Address [facility]/ZIP Co de Phone Number [facility] [address] [place] [place] [address] * (ABNORMAL) G6PD QUANTITATIVE (09/29/2019 7:39 AM CDT) [facility] RBC 2.93(L) 4.14 - 5.80 x10E6/uL 10/01/2019 11:09 AM CDT [facility] ([facility]) G-6-PD Quantitative 415(H) 146 - 376 U/10E12 RBC 10/01/2019 11:09 AM CDT [facility] ([facility]) Comment: When decreased, G-6-PD, Quant. values [...] CDT 09/29/2019 8:11 AM CDT Narrative [facility] ([facility]) - 10/01/2019 11:09 AM CDT Performed at: ??01 - [address] ??[id number] Refrigeration [employer] Teacher: Kyle Ortega PhD, Phone: ??[phone] Performed at: ??02 - [facility] [address] ??[id number] [employer] Teacher: Cody Mcclure MD, Phone: ??[phone] Marisabel Baker MD LAB - CHEMISTRY ORD ERABLES [facility] ([facility]) [address] [place] [address] * BLOOD TYPE ABO+ RH PANEL (09/29/2019 7:39 AM CDT) ABO B 09/29/2019 8:45 AM CDT [facility] Rh Type Positive 09/29/2019 8:45 AM CDT [facility] Comment:History checked. Blood BLOOD SPECIMEN / Unknown Lab Venipuncture / Unknown 09/29/2019 7:39 AM CDT 09/29/2019 8:11 AM CDT Maynor Payne MD LAB - BLOOD BANK ORD ROSALIA [facility] [address] [place] [address] * ANTIBODY SCREEN (09/29/2019 7:39 AM CDT) Antibody Screen Negative 09/29/2019 9:10 AM CDT [facility] Blood BLOOD SPECIMEN / Unknown Lab Venipuncture / Unknown 09/29/2019 7:39 AM CDT 09/29/2019 8:11 AM CDT Maynor Payne MD LAB - BLOOD BANK BONI LINDSEY Performing Organization Address City/[facility] Co de Phone Number [facility] [address] [place] [address] * CK BLOOD (09/29/2019 7:39 AM CDT) CK 150 30 - 200 U/L 09/29/2019 8:52 AM CDT [facility] Blood BLOOD SPECIMEN / Unknown Lab Venipuncture / Unknown 09/29/2019 7:39 AM CDT 09/29/2019 8:11 AM CDT Maynor Payne MD LAB - CHEMISTRY CHRISTINE KENNY [facility] [address] [place] [address] * PHOSPHORUS BLOOD (09/29/2019 3:56 AM CDT) Phosphorus 4.0 2.3 - 4.7 mg/dL 09/29/2019 4:46 AM CDT [facility] Blood BLOOD SPECIMEN / Unknown Lab Venipuncture / Unknown 09/29/2019 3:56 AM CDT 09/29/2019 4:06 AM CDT Samantha Thomas MD LAB - CHEMISTRY ORD ERABLES Performing Organization Address [facility]/ZIP Co de Phone Number [facility] [address] [place] [place] [phone] * MAGNESIUM BLOOD (09/29/2019 3:56 AM CDT) Magnesium 2.2 1.7 - 2.3 mg/dL 09/29/2019 4:46 AM CDT [facility] Blood BLOOD SPECIMEN / Unknown Lab Venipuncture / Unknown 09/29/2019 3:56 AM CDT 09/29/2019 4:06 AM CDT Samantha Thomas MD LAB - CHEMISTRY ORD ERABLES Performing Organization Address [facility] Co de Phone Number [facility] [address] [place] [address] * (ABNORMAL) BILIRUBIN DIRECT (09/29/2019 3:56 AM CDT) Only the most recent of2 resultswithin the time period is included. Bilirubin Direct 1.25(H) <=0.5 mg/dL 09/29/2019 4:46 AM CDT [facility] Blood BLOOD SPECIMEN / Unknown Lab Venipuncture / Unknown 09/29/2019 3:56 AM CDT 09/29/2019 4:06 AM CDT Samantha Thomas MD LAB - CHEMISTRY ORD ERABLES Performing Organization Address [facility] Co de Phone Number [facility] [address] [place] [place] [phone] * EKG 12-LEAD (09/28/2019 8:20 PM CDT) Ventricular Rate 57 BPM [facility] Atrial Rate 57 BPM [facility] P-R Interval 134 ms [facility]USE QRS Duration ms 88 ms [facility] Q-T Interval ms 430 ms [facility] QTC Calculation (Bezet) 418 ms [facility] Calculated P [place] 56 degrees [facility] Calculated R [place] 18 degrees [facility] Calculated T [place] 15 degrees [facility] Interpretation EKG SINUS BRADYCARDIA OTHERWISE NORMAL ECG NO PREVIOUS ECGS AVAILABLE Confirmed by MD Thelma, Navarro ([id number]) on 09/29/2019 7:37:23 AM [facility] 09/28/2019 8:20 PM CDT 09/29/2019 7:37 AM CDT Samantha Thomas MD ECG ORDERABLES [facility] * (ABNORMAL) COAGULATION PANEL W D-DIMER (09/28/2019 7:05 PM CDT) PT 14.6 12.1 - 14.8 sec 09/28/2019 7:45 PM CDT [facility] INR 1.2(H) 0.9 - 1.1 09/28/2019 7:45 PM CDT [facility] PTT 29.1 23.0 - 38.4 sec 09/28/2019 7:45 PM CDT [facility] Fibrinogen 552(H) 200 - 400 mg/dL 09/28/2019 7:45 PM CDT [facility] D-Dimer 0.96(H) 0.27 - 0.50 ug/mL FEU 09/28/2019 7:45 PM CDT [facility] Platelet Count 208 100 - 400 x10E9/L 09/28/2019 7:45 PM CDT [facility] Blood BLOOD SPECIMEN / Unknown Venipuncture / Unknown 09/28/2019 7:05 PM CDT 09/28/2019 7:27 PM CDT Narrative [facility] - 09/28/2019 7:45 PM CDT [...] Merida MD LAB - COAGULATION OR DERABLES [facility] [address] [phone] * COMPLEMENT C4 (09/28/2019 7:05 PM CDT) Complement C4 27 15 - 53 mg/dL 09/29/2019 10:06 AM CDT [facility] Blood BLOOD SPECIMEN / Unknown Venipuncture / Unknown 09/28/2019 7:05 PM CDT 09/28/2019 7:27 PM CDT Abel Merida MD LAB - SEROLOGY ORDER [facility] [address] [place] [address] * COMPLEMENT C3 (09/28/2019 7:05 PM CDT) Complement C3 144 82 - 185 mg/dL 09/29/2019 10:06 AM CDT [facility] Blood BLOOD SPECIMEN / Unknown Venipuncture / Unknown 09/28/2019 7:05 PM CDT 09/28/2019 7:27 PM CDT Abel Merida MD LAB - CHEMISTRY ORDE RABLES Performing Organization Address [facility]/ZIP Co de Phone Number [facility] [address] [place] [address] * URINE MICROSCOPIC ONLY REFLEX TO CULTURE (09/28/2019 4:23 PM CDT) Reflex Status Culture not indicated 09/28/2019 4:41 PM CDT [facility] RBC UA 0-2 None Seen, 0-2, 3-5 # /hpf 09/28/2019 4:41 PM CDT [facility] WBC UA 0-5 None Seen, 0-5 # /hpf 09/28/2019 4:41 PM CDT [facility] Bacteria UA None Seen None Seen 09/28/2019 4:41 PM CDT [facility] Squamous Epithelial Cells None Seen None Seen, 0-2, 3-5 /hpf 09/28/2019 4:41 PM CDT [facility] Urine URINE SPECIMEN OBTAINED BY CLEAN CATCH PROCEDURE / Unknown Collection / Unknown 09/28/2019 4:23 PM CDT 09/28/2019 4:29 PM CDT Narrative [facility] - 09/28/2019 4:41 PM CDT Robbin Fay PA-C LAB - URINALYSIS OR DERABLES [facility] [address] [place] [address] * (ABNORMAL) URINALYSIS REFLEX MICROSCOPIC REFLEX CULTURE (09/28/2019 4:23 PM CDT) Pathologist [facility] Color UA Stephanie(A) Straw, Yellow 09/28/2019 4:38 PM CDT [facility] Clarity UA Clear Clear 09/28/2019 4:38 PM CDT [facility] Glucose UA Negative Negative 09/28/2019 4:38 PM CDT [facility] Bilirubin UA Negative Negative 09/28/2019 4:38 PM CDT [facility] Ketone UA 1+(A) Negative 09/28/2019 4:38 PM CDT [facility] Specific [place] UA 1.029 1.005 - 1.030 09/28/2019 4:38 PM CDT [facility] Blood UA 1+(A) Negative 09/28/2019 4:38 PM CDT [facility] pH UA 8.0 5.0 - 8.0 pH 09/28/2019 4:38 PM CDT [facility] Protein UA Negative Negative 09/28/2019 4:38 PM CDT [facility] Urobilinogen UA 4.0(A) Negative mg/dL 09/28/2019 4:38 PM CDT [facility] Nitrite UA Negative Negative 09/28/2019 4:38 PM CDT [facility] Leukocyte UA Negative Negative 09/28/2019 4:38 PM CDT [facility] Urine Microscopy Urine microscopy to follow 09/28/2019 4:38 PM CDT [facility] Reflex Status Culture not indicated 09/28/2019 4:38 PM CDT [facility] Urine URINE SPECIMEN OBTAINED BY CLEAN CATCH PROCEDURE / Unknown Collection / Unknown 09/28/2019 4:23 PM CDT 09/28/2019 4:29 PM CDT Narrative [facility] - 09/28/2019 4:38 PM CDT Robbin Fay PA-C LAB - URINALYSIS OR DERABLES [facility] [address] [place] [address] * (ABNORMAL) DRUG SCREEN TOX URINE PANEL (09/28/2019 4:23 PM CDT) Pathologist [facility] Amphetamines Screen Urine Not detected Not detected 09/28/2019 4:52 PM CDT [facility] Barbiturates Screen Urine Not detected Not detected 09/28/2019 4:52 PM CDT [facility] Benzodiazepines Screen Urine Not detected Not detected 09/28/2019 4:52 PM CDT [facility] Cannabinoids Screen Urine Detected(A) Not detected 09/28/2019 4:52 PM CDT [facility] Cocaine Screen Urine Not detected Not detected 09/28/2019 4:52 PM CDT [facility] Fentanyl Urine Not detected Not detected 09/28/2019 4:52 PM CDT [facility] Methadone Screen Urine Not detected Not detected 09/28/2019 4:52 PM CDT [facility] Opiate Screen Urine Not detected Not detected 09/28/2019 4:52 PM CDT [facility] Phencyclidine Screen Urine Not detected Not detected 09/28/2019 4:52 PM CDT [facility] Urine URINE / Unknown Collection / Unknown 09/28/2019 4:23 PM CDT 09/28/2019 4:29 PM CDT Narrative [facility] - 09/28/2019 4:52 PM CDT This [...] ng/mL Robbin Fay PA-C LAB - URINE MAP COMPILER RY ORDERABLES [facility] [address], [place] [id number] * CT ABDOMEN AND PELVIS WITH IV [...] Mark Luz on 09/28/2019 at 3:14 PM Robibn Fay PA-C CT ORDERABLES * PATHOLOGY PERIPHERAL SMEAR REVIEW (09/28/2019 12:18 PM CDT) Case Report Pathology Interpretation Report ? Case: [id number] ? Authorizing Provider: ??Markell Martin MD ? Collected: ? 09/28/2019 12:18 PM ? Ordering Location: ? [facility] ?? Received: ?09/28/2019 07:33 PM ? Emergency Department ? Pathologist: ? Bryan Shah MD ? Specimen: ?Blood ? 09/29/2019 12:27 PM CDT [facility] Peripheral Smear Description Clinical History: The patient is an 19-year-old man with a history of nausea, vomiting, and diarrhea x 1 week. He presented to [facility] for the evaluation and management of [...] a blood sample to our reference lab ([facility]) for further evaluation of the patient's Direct Timbo' Test, including C3 complement testing and assessment of the IgG coating the patient's red blood cells. 09/29/2019 12:27 PM CDT [facility] Blood BLOOD SPECIMEN / Unknown Venipuncture / Unknown 09/28/2019 12:18 PM CDT 09/28/2019 7:33 PM CDT Markell Martin MD LAB - PATHOLOGY/CYT OLOGY ORDERABLES [facility] [address] [place] [address] * (ABNORMAL) LIPASE BLOOD (09/28/2019 12:18 PM CDT) Lipase 9(L) 10 - 220 U/L 09/28/2019 12:39 PM CDT [facility] Blood BLOOD SPECIMEN / Unknown Venipuncture / Unknown 09/28/2019 12:18 PM CDT 09/28/2019 12:21 PM CDT Markell Martin MD LAB - CHEMISTRY ORD ERABLES [facility] [address] [place] [address] Care Teams Library Circulation Technician Relationship Specialty Start Date End Date Shelli Cevallos MD [address] [place] [id number] PCP - General Pediatrics 05/15/19
== END 2024-04-16 09:06 | disposition short-term general hospital (02) ==
PROVIDERS: Emergency Provider Student in an Organized Health Care Education/Training Program
DX: S01.112A Laceration without foreign body of left eyelid and periocular area, initial encounter (principal); D72.819 Decreased white blood cell count, unspecified; F12.90 Cannabis use, unspecified, uncomplicated; Z23 Encounter for immunization; Y00.XXXA Assault by blunt object, initial encounter
CPT/HCPCS: 36415; 70450; 70486; 72125; 80048; 80307; 81003; 85025; 85610; 85730; 90471; 90715; 99285